=== PATIENT | male | born 1935 | race Caucasian/White ===

== ENCOUNTER 2018-03-06 23:33 | Inpatient (IN) | payer OTHER ==
[2018-03-07] MEDS ORDERED: NA CHLORIDE 0.9% 1,000 ML ONE (00:19)
[2018-03-07 00:32] LABS: Absolute Lymphocytes (CBC) 0.2 K/uL (0.7-4.9); Absolute Monocytes 0.3 K/uL (0.1-1.3); Absolute Neutrophil 5.3 K/uL (1.8-8.0); Basophils % 0.8 % (0-1.3); Hematocrit 25.9 % (39.6-49.0); Lymphocytes % 3.1 % (15.3-44.8); MCH 34.8 pg (27.0-35.0); MCV 101.1 fL (80-100); MPV 9.5 fL (7.6-11.3); Monocytes % 4.8 % (3.3-12.3); RBC Red Blood Cell Count 2.56 M/uL (4.33-5.43)
[2018-03-07 00:37] LABS: Protime INR 1.29
[2018-03-07 00:48] LABS: Albumin 3.6 g/dL (3.4-5.0); Bilirubin Direct 0.4 mg/dL (0-0.2); Bilirubin Total 0.7 mg/dL (0.2-1.0); Magnesium 1.6 mg/dL (1.8-2.4); Protein, Total 8.8 g/dL (6.4-8.2)
[2018-03-07 01:05] LABS: Blood Morphology Comment NOT SEEN (NOT SEEN); Platelet Estimate DECR; Urine White Blood Cell Casts OK
--- NOTE | 2018-03-07 01:47 | EDPHYS ---
Physician Documentation [facility] Name: Dominik Angeles Age: 82 yrs Sex: Male : 1935 Arrival Date: 03/06/2018 Time: 23:44 Bed 5 Private MD: ED Physician Mark Harding HPI: 03/07 00:04 This 82 yrs old Male presents to ER via EMS with complaints of Back Pain, pkl General Weakness. 00:04 The patient presents with pain that is acute. The symptoms are located in the low back. pkl Onset: The symptoms/episode began/occurred today. The pain does not radiate. Associated signs and symptoms: Pertinent positives: diarrhea. H/O multiple myeloma. Has chemotherapy every 2 weeks, last chemo 5 days ago. Since then patient has been having diarrhea daily.. Historical: - Allergies: 00:34 No Known Allergies; ao - Home Meds: 00:34 aspirin 81 mg Oral TbEC [Active]; losartan-hydrochlorothiazide 100-12.5 mg Oral tab 1 ao tab once daily [Active]; carvedilol 12.5 mg Oral tab 1 tab 2 times per day [Active]; Nitrostat 0.4 mg SL subl 1 tab as needed [Active]; clopidogrel 75 mg Oral tab 1 tab once daily [Active]; docusate sodium 100 mg Oral cap 1 cap once daily [Active]; fenofibrate 145 mg Oral tab nightly [Active]; ondansetron HCl 8 mg Oral tab 1 tab [Active]; lansoprazole 15 mg oral cpDR 1 cap once daily [Active]; benzonatate 100 mg oral cap 2 caps 3 times per day [Active]; Maalox Plus Oral 15 mL [Active]; magnesium oxide 400 mg Oral tab 500 mg daily [Active]; cetirizine 1 mg/mL oral soln 5 mL once daily [Active]; finasteride 5 mg oral tab 1 tab once daily [Active]; acetaminophen 500 mg Oral tab 1 tab PRN [Active]; - PMHx: 03/06 23:50 Hypertension; multiple myeloma; ao - PSHx: 23:50 Heart stents; Triple bipass; ao - Immunization history:: Adult Immunizations unknown. - Social history:: Smoking status: Patient/guardian denies using tobacco, Patient/guardian denies using alcohol, street drugs. - Ebola Screening: : Patient negative for fever greater than or equal to 101.5 degrees Fahrenheit, and additional compatible Ebola Virus Disease symptoms Patient denies exposure to infectious person Patient denies travel to an Ebola-affected area in the 21 days before illness onset. ROS: 03/07 00:04 Eyes: Negative for injury, pain, redness, and discharge, ENT: Negative for injury, pkl pain, and discharge, Neck: Negative for injury, pain, and swelling, Cardiovascular: Negative for chest pain, palpitations, and edema, Respiratory: Negative for shortness of breath, cough, wheezing, and pleuritic chest pain, Abdomen/GI: Negative for abdominal pain, nausea, vomiting, diarrhea, and constipation. Back: Positive for pain at rest, of the lower back, Unable to ambulate today.. : Negative for urinary symptoms. MS/extremity: Negative for acute changes. Skin: Negative for rash. Neuro: Negative for altered mental status. Exam: 00:04 Head/Face: Normocephalic, atraumatic. Eyes: Pupils equal round and reactive to light, pkl extra-ocular motions intact. Lids and lashes normal. Conjunctiva and sclera are non-icteric and not injected. Cornea within normal limits. Periorbital areas with no swelling, redness, or edema. ENT: Nares patent. No nasal discharge, no septal abnormalities noted. Tympanic membranes are normal and external auditory canals are clear. Oropharynx with no redness, swelling, or masses, exudates, or evidence of obstruction, uvula midline. Mucous membranes moist. Neck: Trachea midline, no thyromegaly or masses palpated, and no cervical lymphadenopathy. Supple, full range of motion without nuchal rigidity, or vertebral point tenderness. No Meningismus. Chest/axilla: Normal chest wall appearance and motion. Nontender with no deformity. No lesions are appreciated. Cardiovascular: Regular rate and rhythm with a normal S1 and S2. No gallops, murmurs, or rubs. Normal PMI, no JVD. No pulse deficits. Respiratory: Lungs have equal breath sounds bilaterally, clear to auscultation and percussion. No rales, rhonchi or wheezes noted. No increased work of breathing, no retractions or nasal flaring. Abdomen/GI: Soft, non-tender, with normal bowel sounds. No distension or tympany. No guarding or rebound. No evidence of tenderness throughout. 00:04 Back: pain, that is moderate, of the lower back, Straight leg raises: of both lower extremities does not illicit pain. 00:04 : Exam negative for acute changes. 00:04 Musculoskeletal/extremity: Exam is negative for acute changes. 00:04 Skin: Exam negative for rash. 00:04 Neuro: Orientation: appropriate for stated age, Mentation: is normal, Cranial nerves: is grossly normal based on the patient's age, Motor: is normal. 01:16 Abdomen/GI: Rectal exam: Stool: guaiac negative, the exam is chaperoned by the nurse. [facility] Vital Signs: 03/06 23:47 BP 113 / 65; Pulse 85; Resp 18; Temp 97.8(O); Pulse Ox 94% on R/A; Weight 79.38 kg (R); ao Height 5 ft. 7 in. (170.18 cm); Pain 0/10; 03/07 01:09 BP 102 / 71; Pulse 80; Resp 16; Pulse Ox 96% on 2 lpm NC; ao 02:00 BP 96 / 60; Pulse 78; Resp 16; Pulse Ox 93% on R/A; ao 03:00 BP 99 / 60; Pulse 79; Resp 14; Pulse Ox 93% on 2 lpm NC; ao 04:22 BP 95 / 65; Pulse 73; Resp 18; Pulse Ox 93% 2 lpm ; Pain 0/10; ao 03/06 23:47 Body Mass Index 27.41 (79.38 kg, 170.18 cm) ao MDM: 03/06 23:44 Patient medically screened. pkl 03/07 01:44 Data reviewed: vital signs, nurses notes, lab test result(s), EKG, radiologic studies, pkl CT scan, plain films. 03/07 00:01 Order name: Basic Metabolic Panel; Complete Time: 00:53 pkl 03/07 00:01 Order name: CBC with Diff; Complete Time: 01:51 pkl 03/07 00:01 Order name: Ckmb; Complete Time: 00:53 pkl 03/07 00:01 Order name: CPK; Complete Time: 00:53 pkl 03/07 00:01 Order name: LFT's; Complete Time: 00:53 pkl 03/07 00:01 Order name: Magnesium; Complete Time: 00:53 pkl 03/07 00:01 Order name: NT PRO-BNP; Complete Time: 00:53 pkl 03/07 00:01 Order name: PT-INR; Complete Time: 00:45 pkl 03/07 00:01 Order name: Ptt, Activated; Complete Time: 00:45 pkl 03/07 00:01 Order name: Troponin (emerg Dept Use Only); Complete Time: 00:53 pkl 03/07 00:01 Order name: Amylase, Serum; Complete Time: 00:53 pkl 03/07 00:01 Order name: Lipase; Complete Time: 00:53 pkl 03/07 00:03 Order name: Stool Culture pk 03/07 00:05 Order name: CDIFF ms 03/07 00:01 Order name: XRAY Chest (1 view) pk 03/07 00:01 Order name: EKG; Complete Time: 00:03 pkl 03/07 00:01 Order name: Cardiac monitoring; Complete Time: 00:02 pk 03/07 00:01 Order name: EKG - Nurse/Tech; Complete Time: 00:20 pkl 03/07 00:01 Order name: IV Saline Lock; Complete Time: 00:02 pkl 03/07 00:01 Order name: Labs collected and sent; Complete Time: 00:20 pkl 03/07 00:01 Order name: O2 Per Protocol; Complete Time: 00:02 pk03/07 00:01 Order name: O2 Sat Monitoring; Complete Time: 00:02 pkl 03/07 00:01 Order name: Urine Dipstick-Ancillary (obtain specimen); Complete Time: 02:05 pk 03/07 00:04 Order name: CT Head Brain wo Cont pkl 03/07 00:04 Order name: CT Lumbar Spine Wo Con pkl 03/07 00:04 Order name: Woods; Complete Time: 02:04 pkl 03/07 01:05 Order name: CBC Smear Scan; Complete Time: 01:51 EDMS 03/07 02:06 Order name: Urine Dipstick--Ancillary (enter results) ms 03/07 02:48 Order name: Urine Dipstick-Ancillary; Complete Time: 04:59 EDMS Administered Medications: 00:24 Drug: NS 0.9% 1000 ml Route: IV; Rate: 100 ml/hr; Site: left antecubital; ao 02:00 Follow up: IV Status: Infusion continued upon admission; IV Intake: 600ml ao Point of Care Testing: Guaiac: 01:06 Stool Guaiac: Negative; Stool Hemoccult Control: Pass; ao Disposition: 03/07/18 01:46 Hospitalization ordered by Harpreet Cartagena for Observation. Preliminary diagnosis is Generalized weakness. Acute low back pain. Non-ambulatory. Hyponatremia. Elevated Troponin. - Bed requested for Telemetry/MedSurg (observation). - Status is Observation. ao - Condition is Stable. - Problem is new. - Symptoms are unchanged. UTI on Admission? No Signatures: Dispatcher [employer] EDMS Marylu Griggs RN RN mw Lam, Pin, MD MD pkl Ortiz, Alex, RN RN ao Corrections: (The following items were deleted from the chart) 01:58 01:46 Hospitalization Ordered by Harpreet Cartagena MD for Observation. Preliminary mw diagnosis is Generalized weakness. Acute low back pain. Non-ambulatory. Hyponatremia. Elevated Troponin. Bed requested for Telemetry/MedSurg (observation). Status is Observation. Condition is Stable. Problem is new. Symptoms are unchanged. UTI on Admission? No. pkl 04:39 01:58 03/07/2018 01:46 Hospitalization Ordered by Harpreet Cartagena MD for Observation. ao Preliminary diagnosis is Generalized weakness. Acute low back pain. Non-ambulatory. Hyponatremia. Elevated Troponin. Bed requested for Telemetry/MedSurg (observation). Status is Observation. Condition is Stable. Problem is new. Symptoms are unchanged. UTI on Admission? No. mw
--- NOTE | 2018-03-07 01:47 | ER ---
Nurse's Notes [facility] Name: Dominik Angeles Age: 82 yrs Sex: Male : 1935 Arrival Date: 03/06/2018 Time: 23:44 Bed 5 Private MD: Diagnosis: Generalized weakness. Acute low back pain. Non-ambulatory. Hyponatremia. Elevated Troponin Presentation: 03/06 23:44 Presenting complaint: EMS states: "Patient has been having back pain and unable to get ao up. Patient is a cancer patient who's last Chemo was last Monday.". Transition of care: patient was not received from another setting of care. Onset of symptoms is unknown. Risk Assessment: Do you want to hurt yourself or someone else? Patient reports no desire to harm self or others. Initial Sepsis Screen: Does the patient meet any 2 criteria? No. Patient's initial sepsis screen is negative. Does the patient have a suspected source of infection? No. Patient's initial sepsis screen is negative. Care prior to arrival: Medication(s) given: zofran 4 mg, Fentanyl 50 mcg. 23:44 Method Of Arrival: EMS: [facility] ao 23:44 Acuity: PRINCE 3 ao Triage Assessment: 23:51 General: Appears. ao Historical: - Allergies: 03/07 00:34 No Known Allergies; ao - Home Meds: 00:34 aspirin 81 mg Oral TbEC [Active]; losartan-hydrochlorothiazide 100-12.5 mg Oral tab 1 ao tab once daily [Active]; carvedilol 12.5 mg Oral tab 1 tab 2 times per day [Active]; Nitrostat 0.4 mg SL subl 1 tab as needed [Active]; clopidogrel 75 mg Oral tab 1 tab once daily [Active]; docusate sodium 100 mg Oral cap 1 cap once daily [Active]; fenofibrate 145 mg Oral tab nightly [Active]; ondansetron HCl 8 mg Oral tab 1 tab [Active]; lansoprazole 15 mg oral cpDR 1 cap once daily [Active]; benzonatate 100 mg oral cap 2 caps 3 times per day [Active]; Maalox Plus Oral 15 mL [Active]; magnesium oxide 400 mg Oral tab 500 mg daily [Active]; cetirizine 1 mg/mL oral soln 5 mL once daily [Active]; finasteride 5 mg oral tab 1 tab once daily [Active]; acetaminophen 500 mg Oral tab 1 tab PRN [Active]; - PMHx: 03/06 23:50 Hypertension; multiple myeloma; ao - PSHx: 23:50 Heart stents; Triple bipass; ao - Immunization history:: Adult Immunizations unknown. - Social history:: Smoking status: Patient/guardian denies using tobacco, Patient/guardian denies using alcohol, street drugs. - Ebola Screening: : Patient negative for fever greater than or equal to 101.5 degrees Fahrenheit, and additional compatible Ebola Virus Disease symptoms Patient denies exposure to infectious person Patient denies travel to an Ebola-affected area in the 21 days before illness onset. Screenin:50 Abuse screen: Denies threats or abuse. Denies injuries from another. Nutritional ao screening: No deficits noted. Tuberculosis screening: No symptoms or risk factors identified. Fall Risk Assessment: 03/07 00:05 General: Appears in no apparent distress. uncomfortable, Behavior is calm, cooperative, ao appropriate for age. Pain: Complains of pain in back Pain currently is 0 out of 10 on a pain scale. Neuro: Level of Consciousness is awake, alert, obeys commands, Oriented to person, place, time, situation, Weakness Speech is normal. Cardiovascular: Capillary refill < 3 seconds Patient's skin is warm and dry. Respiratory: Airway is patent Respiratory effort is even, unlabored, Respiratory pattern is regular, symmetrical. GI: Abdomen is distended. :. EENT: No signs and/or symptoms were reported regarding the EENT system. Derm: Skin is pink, warm \\T\\ dry. normal, Skin temperature is warm. Derm: Reports Weakness general. Musculoskeletal: Range of motion: intact in all extremities. 01:09 Reassessment: Patient appears in no apparent distress at this time. Patient and/or ao family updated on plan of care and expected duration. Pain level reassessed. Patient is alert, oriented x 3, equal unlabored respirations, skin warm/dry/pink. 02:10 Reassessment: Patient appears in no apparent distress at this time. Patient and/or ao family updated on plan of care and expected duration. Pain level reassessed. Patient is alert, oriented x 3, equal unlabored respirations, skin warm/dry/pink. 03:10 Reassessment: Patient appears in no apparent distress at this time. Patient and/or ao family updated on plan of care and expected duration. Pain level reassessed. Patient is alert, oriented x 3, equal unlabored respirations, skin warm/dry/pink. Patient o be admitted to the hospital. 03:35 Reassessment: Called to give report and nurse was with a patient. Charge nurse stated ao that she will call back. 04:20 Reassessment: Called report to JOSI Gaffney. Patient to be taken to his room. ao Vital Signs: 03/06 23:47 BP 113 / 65; Pulse 85; Resp 18; Temp 97.8(O); Pulse Ox 94% on R/A; Weight 79.38 kg (R); ao Height 5 ft. 7 in. (170.18 cm); Pain 0/10; 03/07 01:09 BP 102 / 71; Pulse 80; Resp 16; Pulse Ox 96% on 2 lpm NC; ao 02:00 BP 96 / 60; Pulse 78; Resp 16; Pulse Ox 93% on R/A; ao 03:00 BP 99 / 60; Pulse 79; Resp 14; Pulse Ox 93% on 2 lpm NC; ao 04:22 BP 95 / 65; Pulse 73; Resp 18; Pulse Ox 93% 2 lpm ; Pain 0/10; ao 03/06 23:47 Body Mass Index 27.41 (79.38 kg, 170.18 cm) ao ED Course: 03/06 23:44 Patient arrived in ED. ao 23:44 Mark Harding MD is Attending Physician. pkl 23:47 Triage completed. ao 23:50 Arm band placed on right wrist. Patient placed in an exam room, Patient notified of ao wait time. 23:51 Patient has correct armband on for positive identification. Pulse ox on. NIBP on. ao 03/07 00:08 Gustavo Adams RN is Primary Nurse. ao 00:14 X-ray completed. Portable x-ray completed in exam room. Patient tolerated procedure kp1 well. 00:15 XRAY Chest (1 view) In Process Unspecified. EDMS 00:20 Initial lab(s) drawn, by me, sent to lab. cc 00:22 EKG done, by ED staff, reviewed by Mark Harding MD. lp1 00:[address] via stretcher. eh 01:00 CT Head Brain wo Cont In Process Unspecified. EDMS 01:00 CT Lumbar Spine Wo Con In Process Unspecified. EDMS 01:45 Harpreet Cartagena MD is Hospitalizing Provider. pkl 04:24 No provider procedures requiring assistance completed. Patient admitted, IV remains in ao place. Administered Medications: 00:24 Drug: NS 0.9% 1000 ml Route: IV; Rate: 100 ml/hr; Site: left antecubital; ao 02:00 Follow up: IV Status: Infusion continued upon admission; IV Intake: 600ml ao Point of Care Testing: Guaiac: 01:06 Stool Guaiac: Negative; Stool Hemoccult Control: Pass; ao Intake: 02:00 IV: 600ml; Total: 600ml. ao Output: 04:38 Urine: 350ml (Woods); Total: 350ml. ao Outcome: 01:46 Decision to Hospitalize by Provider. pkl 04:25 Admitted to Tele accompanied by tech, room 430. ao 04:25 Condition: stable 04:25 Instructed on the need for admit. 04:39 Patient left the ED. ao Signatures: Dispatcher [employer] Mark Ford MD MD pkl Maurice Shane Chelsea cc Pena, Laura, RN RN lp1 Gustavo Adams RN RN ao Cristal Rosales kp1 Corrections: (The following items were deleted from the chart) 04:14 01:09 BP 102 / 71; Pulse 80bpm; Resp 16bpm; Pulse Ox 96% 4 lpm Nasal Cannula; ao ao
[2018-03-07 02:48] LABS: Urine Blood NEGATIVE (NEG); Urine Glucose NEGATIVE (NEG); Urine Protein 2+ (NEG); Urine Specific Gravity 1.025 (1.005-1.030); Urine pH 5.5 (5.0-7.0)
--- NOTE | 2018-03-07 03:13 | P.HP ---
Certification for Inpatient Patient admitted to: Observation With expected LOS: <2 Midnights Practitioner: I am a practitioner with admitting privileges, knowledge of patient current condition, hospital course, and medical plan of care. Services: Services provided to patient in accordance with Admission requirements found in Title 42 Section 412.3 of the Code of Federal Regulations Patient History Date of Service: 03/07/18 Reason for admission: intractable back pain History of Present Illness: Mr Angeles is an 82 years old male with history of CKD, CAD s/p CABG, multiple myeloma on chemotherapy treatment, last time 5 days ago. Came to ED complaining of severe back pain. He also has had diarrhea since last chemotherapy. The patient also has had progressive SOB lately. He denied fever, but had some chills in context of his back pain. He states that he has some recurrent back pain, but at this time, he is unable to stand up from the bed or ambulate. Lab work was remarkable for hyponatremia 128, Creanitine is 2.6, more elevated than usual. His BNP is elevated as well, CXR has venous congestion consistent with CHF. Trop I it is also elevated, however, the patient has not had chest pain. EKG shows SR at 86 bpm, with non-specific intraventricular conduction delay. Allergies No Known Allergies Allergy (Verified 07/30/16 17:31) Home medications list reviewed: Yes Home Medications: Acetaminophen [Tylenol Extra Strength] 1,000 mg PO Q8H PRN 07/30/16 Aspirin Chewable [Aspirin Chewable*] 1 tab PO DAILY 07/30/16 Carvedilol 1 tab PO BID 07/30/16 Cholecalciferol (Vitamin D3) [Vitamin D3] 1 tab PO DAILY 07/30/16 Clopidogrel Bisulfate [Plavix] 1 tab PO DAILY 07/30/16 Dexamethasone 40 mg PO Q7D 07/30/16 Dutasteride/Tamsulosin HCl [Dutasteride-Tamsulosin 0.5-0.4] 1 tab PO DAILY 07/30 Fenofibrate [Tricor*] 1 tab PO BEDTIME 07/30/16 Lansoprazole [Prevacid] 1 tab PO 0600 07/30/16 Losartan/Hydrochlorothiazide [Losartan-Hctz 100-12.5 mg Tab] 1 tab PO DAILY Nitroglycerin [Nitrostat*] 1 tab PO PRN PRN 07/30/16 Rosuvastatin Calcium [Crestor] 1 tab PO BEDTIME 07/30/16 Codeine/APAP [Tylenol #3*] 1 tab PO Q6HP PRN #30 tab 08/01/16 levoFLOXacin [Levaquin*] 250 mg PO DAILY #14 tab 08/01/16 - Past Medical/Surgical History Diabetic: No -: Multiple myeloma -: Hypertension -: Coronary artery disease -: CVA -: Coronary artery bypass grafting x4 vessels -: Coronary artery stent -: Left knee replacement - Family History Father -: Cancer Mother -: Heart disease - Social History Alcohol use: No CD- Drugs: No Caffeine use: Yes Place of Residence: Home Review of Systems 10-point ROS is otherwise unremarkable Physical Examination - Physical Exam General: Alert, In no apparent distress HEENT: Atraumatic, PERRLA, Mucous membr. moist/pink, EOMI, Sclerae nonicteric Neck: Supple, 2+ carotid pulse no bruit, No LAD, Without JVD or thyroid abnormality Respiratory: Diminished, Crackles/rales (bibasilar rales) Cardiovascular: Regular rate/rhythm, Normal S1 S2 Gastrointestinal: Normal bowel sounds, No tenderness Musculoskeletal: Tenderness (lower back pain) Integumentary: No rashes Neurological: Normal speech, Normal strength at 5/5 x4 extr, Normal tone, Normal affect Lymphatics: No axilla or inguinal lymphadenopathy - Studies Laboratory Data (last 24 hrs) 03/07/18 00:15: PT 15.3 H, INR 1.29, APTT 24.2 L 03/07/18 00:15: WBC 5.8, Hgb 8.9 L, Hct 25.9 L, Plt Count 95 L 03/07/18 00:15: Sodium 128 L, Potassium 4.0, BUN 48 H, Creatinine 2.60 H, Glucose 109 H, Magnesium 1.6 L, Total Bilirubin 0.7, AST 31, ALT 21, Alkaline Phosphatase 38 L, Amylase 76, Lipase 174 Assessment and Plan - Problems (Diagnosis) (1) Lower back pain Current Visit: Yes Status: Acute Qualifiers: Chronicity: acute Back pain laterality: midline Sciatica presence: unspecified whether sciatica present Qualified Code(s): M54.5 - Low back pain (2) Acute kidney injury superimposed on CKD Current Visit: Yes Status: Acute (3) Anemia Current Visit: Yes Status: Acute Qualifiers: Anemia type: due to chronic kidney disease Chronic kidney disease stage: stage 3 (moderate) Qualified Code(s): N18.3 - Chronic kidney disease, stage 3 (moderate); D63.1 - Anemia in chronic kidney disease (4) Diarrhea Current Visit: Yes Status: Acute (5) Multiple myeloma Current Visit: Yes Status: Acute Qualifiers: Multiple myeloma remission status: unspecified Qualified Code(s): C90.00 - Multiple myeloma not having achieved remission (6) CHF (congestive heart failure) Current Visit: Yes Status: Acute Qualifiers: Heart failure type: systolic Heart failure chronicity: acute on chronic Qualified Code(s): I50.23 - Acute on chronic systolic (congestive) heart failure (7) Coronary artery disease Onset Date: 08/01/16 Current Visit: No Status: Acute Qualifiers: Coronary Disease-Associated Artery/Lesion type: bypass graft, autologous vein Associated angina: without angina Qualified Code(s): I25.810 - Atherosclerosis of coronary artery bypass graft(s) without angina pectoris (8) History of coronary artery bypass graft Current Visit: No Status: Acute - Plan The patient will be admitted to the hospital due to intractable lower back pain , hyponatremia, acute on chronic systolic CHF, acute on CKD, and elevated troponin I. CT lower back shows no acute abnormalities, however, the patient has L4-L5 foraminal stenosis, L5 spondilolistesis. Will order pain medication and physical therapy. Order ECHO to evaluate current cardiac function since the patient has signs of acute CHF exacerbation. Will order fluid restriction for hyponatremia. Will consult Cardiology and nephrology for evaluation and recommendations. - Advance Directives Does patient have a Living Will: No Does patient have a Durable POA for Healthcare: No - Code Status/Comfort Care Code Status Assessed: Yes Code Status: Full Code
[2018-03-07] MEDS ORDERED: ONDANSETRON 4 MG/2 ML VIAL IV PRN (04:59)
[2018-03-07] MEDS ORDERED: FUROSEMIDE 40 MG/4 ML VIAL IV SCH ×2 (04:59→09:00)
[2018-03-07] MEDS ORDERED: Morphine 2 MG/2 ML SYR IV PRN (04:59)
[2018-03-07] MEDS ORDERED: ACETAMINOPHEN 500 MG TAB PO PRN (04:59)
[2018-03-07] MEDS ORDERED: MAGNESIUM SULFATE 1 gm IVPB 1 GM/100 ML BAG IV ONE (05:18)
[2018-03-07] MEDS ORDERED: Magnesium Sulfate 1gm IVPB 1 GM/50 ML BAG IV ONE (06:18)
--- NOTE | 2018-03-07 06:46 | EKG ---
Test Date: 2018-03-07 Test Time: 00:17:38 Drum Carrier: BRITTA MEASUREMENT RESULTS: Intervals: Rate: 83 DE: 208 QRSD: 160 QT: 388 QTc: 455 [place]: P: 62 DE: 208 QRS: -49 T: 108 INTERPRETIVE STATEMENTS: Normal sinus rhythm Possible Left atrial enlargement Left axis deviation Nonspecific intraventricular block Abnormal ECG Compared to ECG 07/31/2016 05:52:38 Sinus bradycardia no longer present Electronically Signed On 03-07-18 06:46:02 CDT by Luigi Machuca
--- NOTE | 2018-03-07 07:20 | RAD REPORT ---
EXAM DESCRIPTION: RAD - Chest Single View - 03/07/2018 12:17 am CLINICAL HISTORY: Weakness, back pain, shortness of breath COMPARISON: July 2016 TECHNIQUE: AP portable chest image was obtained 0003 hours . FINDINGS: No peripheral consolidation or mass. Shallow inspiration accentuates heart, vasculature an d lung markings. Patient probably has a true mild cardiomegaly increased over the comparison. Trachea is midline. Sternotomy wires are in place. Vasculature accentuated by shallow inspiration and portab le technique. No measurable pleural effusion and no pneumothorax. No gross bony abnormality seen. No acute aortic findings suspected. IMPRESSION: Cardiomegaly and vascular engorgement are present. No peripheral consolidation. Chest findings are mostly due to shallow inspiration. Correlation is needed with any mild failure or volume overload exam findings.
[2018-03-07] MEDS ORDERED: NA CHLORIDE 0.9% 1,000 ML IV SCH (08:00)
[2018-03-07] MEDS: NA CHLORIDE 0.9% 1,000 ML IV SCH ×2 (08:27→17:56)
[2018-03-07] MEDS: FINASTERIDE 5 MG TAB PO SCH (08:28)
[2018-03-07] MEDS: MULTIVIT W/ MINERAL TAB PO SCH (08:28)
[2018-03-07] MEDS: CLOPIDOGREL 75 MG TABLET PO SCH (08:28)
[2018-03-07] MEDS: ASPIRIN EC 81 MG TAB PO SCH (08:28)
[2018-03-07 09:46] LABS: Ferritin 731.8 ng/mL (26-388); Thyroid Stimulating Hormone 1.95 uIU/mL (0.36-3.74)
--- NOTE | 2018-03-07 09:51 | P.PN ---
Subjective Date of Service: 03/07/18 Primary Care Provider: Dr. Soria([place], [place]); Cardiology-Dr. Baker; Oncology-Dr. Velasquez Chief Complaint: intractable back pain Subjective: Other (patient reports some chills. Back pain and diarrhea noted.) Physical Examination - Vital Signs Temperature: 98.9 F Blood Pressure: 119/75 Pulse: 86 Respirations: 20 Pulse Ox (%): 100 - Physical Exam General: Alert, In no apparent distress, Cooperative HEENT: Atraumatic Neck: Supple Respiratory: Clear to auscultation bilaterally, Normal air movement Cardiovascular: Normal pulses, Regular rate/rhythm Gastrointestinal: Normal bowel sounds, Soft and benign, Non-distended, Tenderness (minimal pain noted. ) Musculoskeletal: No tenderness, No warmth Integumentary: Other (dry skin noted. ) Neurological: Normal speech, Normal strength at 5/5 x4 extr, Normal tone, Normal affect - Studies Laboratory Data (last 24 hrs) 03/07/18 00:15: PT 15.3 H, INR 1.29, APTT 24.2 L 03/07/18 00:15: WBC 5.8, Hgb 8.9 L, Hct 25.9 L, Plt Count 95 L 03/07/18 00:15: Sodium 128 L, Potassium 4.0, BUN 48 H, Creatinine 2.60 H, Glucose 109 H, Magnesium 1.6 L, Total Bilirubin 0.7, AST 31, ALT 21, Alkaline Phosphatase 38 L, Amylase 76, Lipase 174 Medications List Reviewed: Yes Assessment & Plan - Problems (Diagnosis) (1) Acute kidney injury superimposed on CKD Onset Date: 03/07/18 Current Visit: Yes Status: Acute Plan: He appears volume depleted. Patient with recent history of diarrhea. Will start IV fluids and antibiotic therapy. Pro calcitonin elevated. Etiology of inflammation unknown but maybe related to diarrhea. Patient likely with enteritis with recent chemotherapy. Will check stool for C difficile colitis. Will check CT scan of the abdomen and pelvis including chest. Patient with elevated troponin as well. Nephrology consulted to further assess and evaluate. Cardiology consulted to further assess his condition due to elevated troponin. Will try to obtain more information from his oncologist. Patient with history of multiple myeloma on chemotherapy. (2) Anemia Onset Date: 03/07/18 Current Visit: Yes Status: Chronic Plan: Anemia likely related to multiple myeloma in chemotherapy. Will check iron studies. Will monitor hemoglobin. Qualifiers: Anemia type: due to chronic kidney disease Chronic kidney disease stage: stage 3 (moderate) Qualified Code(s): N18.3 - Chronic kidney disease, stage 3 (moderate); D63.1 - Anemia in chronic kidney disease (3) CHF (congestive heart failure) Onset Date: 03/07/18 Current Visit: Yes Status: Chronic Plan: Patient with history of CHF. Will hold Lasix at this time. Patient appears to be volume depleted. Will check echocardiogram. Cardiology consulted. Qualifiers: Heart failure type: systolic Heart failure chronicity: acute on chronic Qualified Code(s): I50.23 - Acute on chronic systolic (congestive) heart failure (4) Diarrhea Onset Date: 03/07/18 Current Visit: Yes Status: Acute Plan: This may be infectious. Will starts Levaquin and Flagyl. Will obtain stool to assess for C diff colitis. Diarrhea may be related to his recent chemotherapy for multiple myeloma. (5) Lower back pain Onset Date: 03/07/18 Current Visit: Yes Status: Chronic Plan: CT scan shows foraminal stenosis. Will check with his oncologist to see if a bone scan has been done recently. Qualifiers: Chronicity: acute Back pain laterality: midline Sciatica presence: unspecified whether sciatica present Qualified Code(s): M54.5 - Low back pain (6) Multiple myeloma Onset Date: 03/07/18 Current Visit: Yes Status: Chronic Plan: Patient has been getting chemotherapy. Will discuss with his oncologist to further assess his condition. Qualifiers: Multiple myeloma remission status: unspecified Qualified Code(s): C90.00 - Multiple myeloma not having achieved remission (7) Coronary artery disease Onset Date: 08/01/16 Current Visit: No Status: Chronic Plan: Troponin elevated. Will monitor closely. Await recommendation by Cardiology. Qualifiers: Coronary Disease-Associated Artery/Lesion type: bypass graft, autologous vein Associated angina: without angina Qualified Code(s): I25.810 - Atherosclerosis of coronary artery bypass graft(s) without angina pectoris (8) Hyponatremia Current Visit: Yes Status: Acute Plan: Will continue with IV fluids. Await recommendations by nephrology. (9) Hypomagnesemia Current Visit: Yes Status: Acute Plan: Will monitor and replace appropriately. Patient protocol in place. (10) Thrombocytopenia Current Visit: Yes Status: Acute Plan: Likely from inflammation. Will continue to monitor closely. (11) Hypertension Current Visit: Yes Status: Chronic Plan: Will hold blood pressure medication this time due to low blood pressure. Patient appears to be volume depleted. Will monitor closely. Qualifiers: Hypertension type: essential hypertension Qualified Code(s): I10 - Essential (primary) hypertension (12) Hyperlipidemia Current Visit: Yes Status: Chronic Plan: Will hold his medication at this time Qualifiers: Hyperlipidemia type: unspecified Qualified Code(s): E78.5 - Hyperlipidemia , unspecified Discharge Plan: Home Plan to discharge in: Greater than 2 days Time Spent Managing Pts Care (In Minutes): 55
--- NOTE | 2018-03-07 10:24 | RAD REPORT ---
EXAM DESCRIPTION: CT - Head Brain Wo Cont - 03/07/2018 2:43 am CLINICAL HISTORY: Weakness, difficulty walking, history of multiple myeloma A preliminary written report was provided at the time of the study, and the report was reviewed prio r to final dictation. COMPARISON: None. TECHNIQUE: Axial 5 mm thick images of the head were obtained without IV contrast. All CT scans are performed using dose optimization technique as appropriate and may include automated exposure control or mA/KV adjustment according to patient size. FINDINGS: No intracranial hemorrhage, mass, edema or shift of mid-line structures. No acute infarcti on changes seen. Moderate atrophy and chronic ischemic changes are present. Ventricular size is in p roportion to volume loss. Intracranial findings are similar to comparison. Mastoid air cells and visualized portions of the paranasal sinuses are clear. Arterial calcifications are present. No acute bony findings. IMPRESSION: Moderate atrophy and chronic ischemic changes are present. Ventricular size is in propo rtion to volume loss. No acute intracranial finding.
--- NOTE | 2018-03-07 10:27 | RAD REPORT ---
EXAM DESCRIPTION: US - Renal Ultrasound-Complete - 03/07/2018 9:14 am CLINICAL HISTORY: Acute renal insufficiency COMPARISON: None. FINDINGS: The right kidney measures 9.7 x 4.0 x 4.2 cm. The left kidney measures 10.3 x 6.4 x 5.3 c m. Renal cortical thickness and echogenicity are normal. No right-sided hydronephrosis. Fullness of t he left renal pelvis is present suspected to be extrarenal pelvis rather than hydronephrosis. Woods catheter is in place. No bladder wall thickening or mass suspected. IMPRESSION: Left renal pelvic fullness is present believed to be extrarenal pelvis rather than hydro nephrosis. No right-sided hydronephrosis. No mass or other significant finding of either kidney.
[2018-03-07] MEDS: Levofloxacin 250mg IV 250 MG/50 ML BAG IV SCH (10:35)
--- NOTE | 2018-03-07 10:41 | RAD REPORT ---
EXAM DESCRIPTION: CT - Spine Lumbar Wo Con - 03/07/2018 2:44 am CLINICAL HISTORY: Back pain, history of multiple myeloma A preliminary written report was provided at the time of the study, and the report was reviewed prio r to final dictation. COMPARISON: None. TECHNIQUE: Thin section axial imaging of the lumbar spine was performed. Sagittal and coronal recon struction images were generated and reviewed. All CT scans are performed using dose optimization technique as appropriate and may include automated exposure control or mA/KV adjustment according to patient size. FINDINGS: No acute compression fracture identifiable. No bone lesions seen typical for multiple myel kirk. Round lucent area anterior L5 body may be atypical hemangioma. A multiple myeloma lesion is not suspected. Degenerative left convex scoliotic curvature is present with a left convex apex at the L1-2 level. No paraspinal soft tissue mass. SI joint degenerative changes are present. All disc levels show loss in height. There is significant degenerative gas in the disc spaces sparing only L3-4. Disc bulge and endplate spurring changes are present throughout the lumbar spine. Foramin al encroachment changes are present at the T11-12 and T12-L1. Significant right foraminal encroachmen t on the right at L1-2 and L2-3. Bilateral foraminal encroachment is present at L3-4 and significant bilateral foraminal stenosis at L4-5. Advanced facet joint degenerative change at L4-5. Central canal is borderline stenotic. L5 pars interarticularis defects are present with grade 1 spondylolisthesis. Borderline central spina l stenosis present. There is significant bilateral foraminal stenosis from disc bulge and spurring ch anges. IMPRESSION: Patient has severe lumbar spine degenerative change with numerous levels of significant bony foraminal encroachment and borderline to mild central spinal stenosis at L4-5. An acute compression fracture change seen. Small round lucent focus anterior L5 body is present doubt ful as representing multiple myeloma. Overall, no convincing evidence for a multiple myeloma lesion. The extent of degenerative change could easily explain back pain and radiculopathy. If there is clini julián concern or laboratory findings supporting multiple myeloma lesion, MR imaging could be performed.
[2018-03-07 11:40] LABS: Urine Protein/Creatinine Ratio 0.48 ratio (<0.15)
[2018-03-07] MEDS ORDERED: NA CHLORIDE 0.9% 500 ML IV ONE (12:09)
[2018-03-07 13:21] LABS: Absolute Lymphocytes (CBC) 0.1 K/uL (0.7-4.9); Absolute Monocytes 0.1 K/uL (0.1-1.3); Absolute Neutrophil 4.4 K/uL (1.8-8.0); Basophils % 0.1 % (0-1.3); Hematocrit 24.7 % (39.6-49.0); Lymphocytes % 2.4 % (15.3-44.8); MCH 35.2 pg (27.0-35.0); MCV 100.8 fL (80-100); MPV 8.2 fL (7.6-11.3); RBC Red Blood Cell Count 2.45 M/uL (4.33-5.43)
--- NOTE | 2018-03-07 13:21 | RAD REPORT ---
EXAM DESCRIPTION: CT - Chest Abd Pelvis Wo Con - 03/07/2018 1:08 pm CLINICAL HISTORY: Chest and abdomen pain. Diarrhea, suspect enteritis. Hx Multiple Myeloma COMPARISON: Spine Lumbar Wo Con dated 03/07/2018; Head Brain Wo Cont dated 03/07/2018; Renal Ultrasoun d-Complete dated 03/07/2018 TECHNIQUE: A limited noncontrast study was performed. All CT scans are performed using dose optimization technique as appropriate and may include automated exposure control or mA/KV adjustment according to patient size. FINDINGS: Mild linear subsegmental atelectasis is present in both posterior lung bases.Changes of a prior CABG noted. Small calcifications of the left ventricular apex is compatible with previous infar ct.No pleural or pericardial effusion.No intrathoracic adenopathy. Noncontrast assessment of the liver demonstrates no intrahepatic biliary dilatation or focal mass. Mi ld free fluid is seen along the right hepatic edge. Mild fluid is seen along the splenic edge. The sp shira, adrenal glands and kidneys are within normal limits. Probable sludge in the gallbladder. Mild thickening of several small bowel loops are seen in the central abdomen likely indicating enteri tis. There is no evidence of bowel obstruction, free fluid or free air. No intra-abdominal abscess. T he appendix is not identified as a discrete structure, however, no secondary findings of appendicitis are identified. No pathologic lymphadenopathy in the abdomen or pelvis. Mild free fluid is seen in the pelvis. Advanced lumbar degenerative changes are present with bilatera l spondylolysis. Significant thickening of the urinary bladder is seen with a Woods catheter in place. IMPRESSION: [facility]-sy-[id number] enteritis pattern is suspected with mild free fluid in the upper abdome n. Significant thickening of the urinary bladder is seen with a Woods catheter in place. Probable sludge in the gallbladder.
--- NOTE | 2018-03-07 13:30 | ECHO ---
HEIGHT: 5 ft 7 in WEIGHT: 176 lb 0 oz DATE OF STUDY: 03/07/[address]: Gucci Larson DO 2-DIMENSIONAL: YES M.MODE: YES DOPPLER: YES COLOR FLOW: YES TDS: NO PORTABLE: NO DEFINITY: NO BUBBLE STUDY: NO DIAGNOSIS: CONGESTIVE HEART FAILURE CARDIAC HISTORY: CATHERIZATION: YES SURGERY: YES PROSTHETIC VALVE: NO PACEMAKER: NO MEASUREMENTS (cm) DIASTOLIC (NORMALS) SYSTOLIC (NORMALS) IVSd 1.1 (0.6-1.2) LA Diam 4.8 (1.9-4.0) LVEF 20-25% LVIDd 5.6 (3.5-5.7) LVIDs 5.1 (2.0-3.5) %FS 8% LVPWd 1.0 (0.6-1.2) Ao Diam 2.5 (2.0-3.7) 2 DIMENSIONAL ASSESSMENT: RIGHT ATRIUM: DILATED LEFT ATRIUM: DILATED RIGHT VENTRICLE: DILATED LEFT VENTRICLE: DILATED TRICUSPID VALVE: NORMAL MITRAL VALVE: NORMAL PULMONIC VALVE: NORMAL AORTIC VALVE: SCLEROSIS PERICARDIAL EFFUSION: NONE AORTIC ROOT: NORMAL LEFT VENTRICULAR WALL MOTION: AKINESIS OF ANTERIOR, APEX, SEPTUM. DOPPLER/COLOR FLOW: MILD MITRAL AND TRICUSPID REGURGITATION. MODERATE PULMONARY HYPERTENSION. ESTIMATED RIGHT VENTRICULAR SYSTOLIC PRESSURE 55mmHg. NO AORTIC STENOSIS OR AORTIC STENOSIS. COMMENTS: DEPRESSED LEFT VENTRICULAR EJECTION FRACTION WITH WALL MOTION ABNORMALITY. FOUR CHAMBER DILATATION. AORTIC SCLEROSIS WITH NO AORTIC STENOSIS/AORTIC REGURGITATION. MILD MITRAL AND TRICUSPID REGURGITATION. MODERATE PULMONARY HYPERTENSION. TECHNOLOGIST: VIOLA TO
[2018-03-07 13:32] LABS: Potassium 3.5 mmol/L (3.5-5.1)
--- NOTE | 2018-03-07 15:00 | CON ---
History Of Present Illness: Mr. Angeles is 82. He came to the hospital complaining of back pain. It was mostly lower back and midback is fair to say. He has recently started chemotherapy for what Carlotta mo he is telling me is multiple myeloma. Not sure what the chemotherapy was or exactly when he g ot it, but he seems to have been ill since he had the chemotherapy complaining of pain. He does not have a history of any recent coronary events. He was in our hospital 2 years ago at which time an ec ho and stress test were normal. In the , he had bypass surgery. He has had stents placed somet mary carmen in the last 20 years, but none in the last 5. Physical Examination: General: He is a little bit somnolent, but he awakens and he is able to have a cogent conversation. Does not appear to be in distress. Lungs: Clear. Heart: Regular. There is no significant murmur or gallop. Extremities: Palpable distal pulses. No cyanosis, clubbing, or edema. Outpatient Medications: Nitroglycerin, aspirin, Tessalon Perles, Zofran tablets, fenofibrate, Plavix , losartan, hydrochlorothiazide, Crestor, Coreg, vitamin D3, finasteride, cetirizine, lansoprazole, a nd bismuth subsalicylate. Not sure what the chemotherapeutic agent he gets is. Laboratory Data: Reveals marked anemia. His hemoglobin is 8.9. Troponins are elevated. They are n ot changing overtime or all the same 0.15, 0.18. His EKG would not suggest an acute coron sabine syndrome. His procalcitonin is elevated. I do not think this is really an acute coronary syndrome, but doing an echocardiogram will be helpful , finding out what medicines he has been on and trying to keep control of things. He is not having a ny chest pain or anything that sounds like angina. I think will contribute to the elevated troponins to sepsis type picture and observe his heart without any plans to do a heart c atheterization recently. ANDRÉS/NICHOLAS Voice ID: [id number] Report ID: [id number]
[2018-03-07] MEDS: METRONIDAZOLE 500mg IVPB 500 MG/100 ML BAG IV SCH (17:56)
[2018-03-07] MEDS: CARVEDILOL 3.125 MG TAB PO SCH (18:00)
--- NOTE | 2018-03-07 18:55 | CON ---
Date of Consultation: 03/07/2018 Additional Consulting Physician: Gucci Larson DO. Reason For Consultation: Elevated BUN and creatinine, hypertension. History Of Present Illness: This is an 82-year-old gentleman with significant past medical history o f coronary artery disease status post CABG, multiple myeloma on chemotherapy, chronic kidney disease, low back pain. The patient came to the hospital complaining from diarrhea, decreased intake, found to have elevated BUN and creatinine. Creatinine was up to 2.6 and BUN 49 with significant hyponatrem ia, for that reason we have been consulted. Reviewing the record for the patient back in 2015, the p atient's creatinine was 1.5 with GFR of 44. The patient denied taking any nonsteroidal. The patient apparently being on APRIL inhibitor and hydrochlorothiazide. The patient was started on IV hydration, diuresis has been discontinue. The patient more awake today . Past Medical History: 1.Hypertension. 2.Multiple myeloma on chemo. 3.Coronary artery disease, status post CABG. 4.CVA. 5.Chronic kidney disease, baseline creatinine back in 2015, 1.5 and GFR of 30s. Home Medications: Include Tylenol, aspirin, carvedilol, cholecalciferol, Plavix, docusate, fenofibra te, losartan, hydrochlorothiazide, nitroglycerin, Levaquin, and codeine. Family History: Positive for cancer, hypertension, and coronary artery disease. Social History: Denies smoking. Denies drinking. Denies drug abuse. Review of Systems: Head and Neck: No red eye. No ear pain. GI: Decreased intake. Had diarrhea. : No polyuria. No dysuria. No hematuria. HORSE SHOW MANAGER: Not applicable. Respiratory: No shortness of breath. Cardiovascular: No chest pain. Endocrine: No polydipsia. Skin: No rash. Physical Examination: Vital Signs: When I saw the patient, patient look dry, blood pressure 119/69, pulse of 87, afebrile. The patient was on the IV fluid normal saline. Had urine output of 300. Chest: Clear to auscultation. Heart: S1, S2. Systolic murmur. Abdomen: Soft, nontender. No organomegaly. Extremities: No edema. Vascular: No carotid bruit. No renal bruit. Neuro: Alert. No focal. Laboratory Data: On admission sodium 128, potassium 4, bicarb 24, BUN 48, creatinine 2.6. Currently sodium 129, potassium 3.5, bicarb 25, BUN 49, creatinine 2.6, calcium 8.2, magnesium of 2, TSAT of 2 .6. Procalcitonin 2.9, TSH 1.9. Urinalysis; specific gravity of 1.025. Protein creatinine is 0.4. Echocardiogram has been done on this admission, ejection fraction of 20% to 25%. Renal ultrasound s howing 9.7 x 10.3, no hydronephrosis. CT abdomen and pelvis was done without any contrast showing en teritis, thickening on bladder wall. Current Medications: The patient in the hospital includes: 1.Aspirin. 2.Levaquin. 3.Metronidazole 500 t.i.d. 4.Plavix. 5.Carvedilol 3.125 b.i.d. 6.Fenofibrate. 7.Losartan. 8.Atorvastatin. 9.Zofran. 10.Tylenol. 11.IV fluid. 12.Finasteride. 13.Magnesium oxide. Assessment And Plan: 1.Acute kidney injury secondary to prerenal, normal-sized kidney, proteinuric non-nephrotic. Doubt to be autoimmune superimposed with hydrochlorothiazide and ARB. a.I am going to go ahead and give the patient another bolus for today. We will discontinue losartan and we will continue current hydration and we will follow up the patient. Keep holding hydrochlorot hiazide. 2.Hypertension. Currently blood pressure on the lower side. I am going to discontinue losartan and we will monitor the patient. 3.Hyperlipidemia, given the acute kidney injury. Discontinue fenofibrate. 4.Enteritis. Continue current antibiotic. Dose appropriate. 5.Acute kidney injury, as above. 6.Congestive heart failure, advanced. Currently look on the dry side. We will hold on the diuresis . We will get extra IV fluid and we will follow up. 7.Hyponatremia, depletional. 8.Hypothyroidism has been ruled out. I am going to send for cortisol level. We will continue hydra tion and we will follow up. 9.Iron deficiency anemia. Given the antritis, we will hold on the supplement for the time being. W e will plan to started after recovery. Thank you, Dr. Larson for allowing us to participate in the care of your patient. MELO/NICHOLAS Voice ID: [id number] Report ID: [id number]
[2018-03-07] MEDS ORDERED: FENOFIBRATE 160 MG TAB PO SCH (21:00)
[2018-03-07] MEDS: DOCUSATE NA 100 MG CAP PO SCH (21:28)
[2018-03-07] MEDS: ROSUVASTATIN 10 MG TAB PO SCH (21:28)
[2018-03-08] MEDS: METRONIDAZOLE 500mg IVPB 500 MG/100 ML BAG IV SCH ×3 (00:58→15:54)
[2018-03-08] MEDS: NA CHLORIDE 0.9% 1,000 ML IV SCH ×2 (03:45→12:35)
[2018-03-08] MEDS: CARVEDILOL 3.125 MG TAB PO SCH ×3 (06:00→17:28)
[2018-03-08 06:27] LABS: Absolute Lymphocytes (CBC) 0.4 K/uL (0.7-4.9); Absolute Monocytes 0.6 K/uL (0.1-1.3); Absolute Neutrophil 8.2 K/uL (1.8-8.0); Basophils % 0.1 % (0-1.3); Lymphocytes % 4.5 % (15.3-44.8); MCV 101.2 fL (80-100); MPV 8.7 fL (7.6-11.3); Monocytes % 6.1 % (3.3-12.3); RBC Red Blood Cell Count 2.37 M/uL (4.33-5.43)
[2018-03-08] MEDS ORDERED: POTASSIUM 25 MEQ EFFERV TAB PO ONE (06:29)
[2018-03-08 06:44] LABS: Albumin 2.9 g/dL (3.4-5.0); Phosphorus 4.4 mg/dL (2.5-4.9); Potassium 3.6 mmol/L (3.5-5.1)
[2018-03-08] MEDS: CLOPIDOGREL 75 MG TABLET PO SCH (08:43)
[2018-03-08] MEDS: MULTIVIT W/ MINERAL TAB PO SCH (08:43)
[2018-03-08] MEDS: FINASTERIDE 5 MG TAB PO SCH (08:44)
[2018-03-08] MEDS: ASPIRIN EC 81 MG TAB PO SCH (08:44)
[2018-03-08] MEDS ORDERED: LOSARTAN POTASSIUM 50 MG TABLET PO SCH (09:00)
[2018-03-08] MEDS: Levofloxacin 250mg IV 250 MG/50 ML BAG IV SCH (10:08)
--- NOTE | 2018-03-08 12:25 | P.PN ---
Subjective Date of Service: 03/08/18 Primary Care Provider: Dr. Soria([place], [place]); Cardiology-Dr. Baker; Oncology-Dr. Velasquez Chief Complaint: intractable back pain Subjective: Doing well (Patient feeling better. No significant abdominal pain noted. Patient tolerating diet. Less diarrhea noted.) Physical Examination - Vital Signs Temperature: 97.7 F Blood Pressure: 90/54 Pulse: 80 Respirations: 18 Pulse Ox (%): 100 - Physical Exam General: Alert, In no apparent distress, Oriented x3, Cooperative HEENT: Atraumatic Neck: Supple Respiratory: Clear to auscultation bilaterally, Normal air movement Cardiovascular: Normal pulses, Regular rate/rhythm Gastrointestinal: Normal bowel sounds, Soft and benign, Non-distended, No tenderness, No masses, No rebound, No guarding Musculoskeletal: No erythema, No tenderness, No warmth Integumentary: No erythema, No warmth, No cyanosis Neurological: Normal speech, Normal strength at 5/5 x4 extr, Normal tone, Normal affect - Studies Laboratory Data (last 24 hrs) 03/07/18 13:00: Sodium 129 L, Potassium 3.5, BUN 49 H, Creatinine 2.60 H, Glucose 111 H, Magnesium 2.0 03/07/18 13:00: WBC 4.7 D, Hgb 8.6 L, Hct 24.7 L, Plt Count 50 L D 03/07/18 13:00: Troponin I 1.10 H* Medications List Reviewed: Yes Assessment & Plan - Problems (Diagnosis) (1) Acute kidney injury superimposed on CKD Onset Date: 03/07/18 Current Visit: Yes Status: Acute Plan: Will continue with IV fluids at a lower rate. Patient with history of CHF with ejection fraction 25%. Will need to monitor for volume overload. Will discuss with nephrology. Awaiting C diff culture. Await blood culture. Patient placed on Levaquin and Flagyl yesterday due to possible enteritis. Will have Hematology evaluate thrombocytopenia. This is likely from sepsis. Will obtain fibrinogen, PT INR, PTT and peripheral smear. (2) Anemia Onset Date: 03/07/18 Current Visit: Yes Status: Chronic Plan: Anemia likely related to multiple myeloma in chemotherapy. Patient with iron and B12 deficiency. Will discuss with hematology. Will provide supplementation. Qualifiers: Anemia type: due to chronic kidney disease Chronic kidney disease stage: stage 3 (moderate) Qualified Code(s): N18.3 - Chronic kidney disease, stage 3 (moderate); D63.1 - Anemia in chronic kidney disease (3) CHF (congestive heart failure) Onset Date: 03/07/18 Current Visit: Yes Status: Chronic Plan: Patient with history of CHF. Ejection fraction 25%. Will continue with IV fluids. Will restart Lasix. Will discuss further with cardiology. Patient with significant heart disease. No intervention needed at this time due to sepsis. Qualifiers: Heart failure type: systolic Heart failure chronicity: acute on chronic Qualified Code(s): I50.23 - Acute on chronic systolic (congestive) heart failure (4) Diarrhea Onset Date: 03/07/18 Current Visit: Yes Status: Acute Plan: Suspect enteritis. Will continue with Levaquin and Flagyl. C diff culture along with blood culture obtained. Will obtain stool to assess for C diff colitis. Diarrhea may be related to his recent chemotherapy for multiple myeloma. (5) Lower back pain Onset Date: 03/07/18 Current Visit: Yes Status: Chronic Plan: CT scan shows foraminal stenosis. Will check with his oncologist to see if a bone scan has been done recently. Qualifiers: Chronicity: acute Back pain laterality: midline Sciatica presence: unspecified whether sciatica present Qualified Code(s): M54.5 - Low back pain (6) Multiple myeloma Onset Date: 03/07/18 Current Visit: Yes Status: Chronic Plan: Patient has been getting chemotherapy. Will discuss with his oncologist to further assess his condition. Hematology/oncology will assess further. Qualifiers: Multiple myeloma remission status: unspecified Qualified Code(s): C90.00 - Multiple myeloma not having achieved remission (7) Coronary artery disease Onset Date: 08/01/16 Current Visit: No Status: Chronic Plan: Troponin elevated. No intervention recommended at this time due to sepsis. Qualifiers: Coronary Disease-Associated Artery/Lesion type: bypass graft, autologous vein Associated angina: without angina Qualified Code(s): I25.810 - Atherosclerosis of coronary artery bypass graft(s) without angina pectoris (8) Hyponatremia Current Visit: Yes Status: Acute Plan: Will continue with IV fluids. Will discuss with nephrology (9) Hypomagnesemia Current Visit: Yes Status: Acute Plan: Will monitor and replace appropriately. Patient protocol in place. (10) Thrombocytopenia Current Visit: Yes Status: Acute Plan: Likely from inflammation and sepsis. Case discussed with hematology. Will order lab including PT, PTT, fibrinogen and peripheral smear. (11) Hypertension Current Visit: Yes Status: Chronic Plan: Will hold blood pressure medication this time due to low blood pressure. Patient appears to be volume depleted. Will monitor closely. Qualifiers: Hypertension type: essential hypertension Qualified Code(s): I10 - Essential (primary) hypertension (12) Hyperlipidemia Current Visit: Yes Status: Chronic Plan: Will hold his medication at this time Qualifiers: Hyperlipidemia type: unspecified Qualified Code(s): E78.5 - Hyperlipidemia , unspecified (13) Enteritis Current Visit: Yes Status: Acute Plan: Continue with Levaquin and Flagyl. Improved overall. Await C diff culture along with stool culture. Blood cultures obtained. Discharge Plan: Other (skilled placement facility) Plan to discharge in: Greater than 2 days Time Spent Managing Pts Care (In Minutes): 55
--- NOTE | 2018-03-08 12:50 | RAD REPORT ---
EXAM DESCRIPTION: RAD - Chest Single View - 03/08/2018 12:43 pm CLINICAL HISTORY: COPD COMPARISON: March 07 TECHNIQUE: AP portable chest image was obtained 1230 hours . FINDINGS: No peripheral consolidation or mass. Cardiac silhouette remains enlarged with prominent ce ntral vasculature. Trachea is midline. No measurable pleural effusion and no pneumothorax. No gross b judy abnormality seen. No acute aortic findings suspected. IMPRESSION: Chest is not substantially different from March 07. Chest findings continue to suggest a mild volume overload or cardiac decompensation.
[2018-03-08] MEDS ORDERED: NA CHLORIDE 0.9% 1,000 ML IV SCH (13:00)
[2018-03-08 13:22] LABS: Protime INR 1.24
[2018-03-08] MEDS ORDERED: TRAMADOL HCL 50 MG TAB PO PRN (15:28)
[2018-03-08] MEDS: LIDOCAINE 5% PATCH TOP SCH (15:54)
--- NOTE | 2018-03-08 18:39 | PN ---
Date of Progress Note: 03/08/2018 Subjective: The patient feeling better. More awake today. Blood pressure still marginally low, on n gisselle cannula. Objective: Vital Signs: Blood pressure 90/54, pulse of 80, afebrile. Chest: Clear to auscultation. Heart: S1, S2. Regular. Systolic murmur. Abdomen: Soft, nontender. Extremities: Trace edema. Neuro: The patient slow, but awake, oriented to person Laboratory Data: WBC 9.2, H and H 8.3/24, and platelets 34,000, dropping. Sodium of 131 potassium 3 .6, bicarb 24, BUN 57, creatinine 2.6, calcium 7.6, phos 4.4. Current Medications: The patient on include Tylenol, hydrocodone, Plavix Levaquin, metronidazole, mu ltivitamin, atorvastatin, tramadol. Assessment And Plan: 1.Acute kidney injury, possible prerenal given the thrombocytopenia and altered mental status. Hemo lytic uremic syndrome needs to be ruled out. I am going to send for LDH. Hematology will evaluate. 2.Hypertension. Currently blood pressure on the lower side. Continue hydration. 3.Anemia. As by hematology. We will send for LDH to rule out any hemolysis even though I doubt it as kidney function is getting deteriorate further and still the patient making good urine. 4.Colitis. Continue current antibiotic. 5.Congestive heart failure. Still on the dry side. Continue hydration. We will keep holding blood pressure. Case discussed with the patient and son by bedside. Discussed with the family. Verbalized understanding. Discussed with Dr. Larson. Agreed on the plan. MELO/NICHOLAS Voice ID: [id number] Report ID: [id number]
[2018-03-08] MEDS: DOCUSATE NA 100 MG CAP PO SCH (21:28)
[2018-03-09] MEDS: METRONIDAZOLE 500mg IVPB 500 MG/100 ML BAG IV SCH ×3 (00:51→16:51)
[2018-03-09] MEDS: NA CHLORIDE 0.9% 1,000 ML IV SCH (00:55)
[2018-03-09] MEDS: HYDROCODONE/APAP 7.5/325 MG TAB PO PRN ×2 (01:01→20:54)
[2018-03-09] MEDS: CARVEDILOL 3.125 MG TAB PO SCH (06:00)
[2018-03-09] MEDS: LIDOCAINE 5% PATCH TOP SCH (09:00)
[2018-03-09] MEDS: MULTIVIT W/ MINERAL TAB PO SCH (09:00)
[2018-03-09] MEDS: FINASTERIDE 5 MG TAB PO SCH (09:00)
[2018-03-09] MEDS: ASPIRIN EC 81 MG TAB PO SCH (09:00)
[2018-03-09] MEDS: CLOPIDOGREL 75 MG TABLET PO SCH (09:00)
[2018-03-09 09:15] LABS: Albumin 2.9 g/dL (3.4-5.0); Phosphorus 1.8 mg/dL (2.5-4.9); Potassium 3.8 mmol/L (3.5-5.1)
[2018-03-09] MEDS: Levofloxacin 250mg IV 250 MG/50 ML BAG IV SCH (10:00)
--- NOTE | 2018-03-09 10:16 | P.PN ---
Subjective Date of Service: 03/09/18 Primary Care Provider: Dr. Soria([place], [place]); Cardiology-Dr. Baker; Oncology-Dr. Velasquez Chief Complaint: intractable back pain Subjective: Improving (Patient improving. No complaints except for neck pain.) Physical Examination - Vital Signs Temperature: 97.4 F Blood Pressure: 112/66 Pulse: 63 Respirations: 16 Pulse Ox (%): 100 - Physical Exam General: Alert, In no apparent distress, Oriented x3, Cooperative HEENT: Atraumatic Neck: Supple Respiratory: Clear to auscultation bilaterally, Normal air movement Cardiovascular: Normal pulses, Regular rate/rhythm Gastrointestinal: Normal bowel sounds, Soft and benign, Non-distended, No tenderness, No masses, No rebound, No guarding Musculoskeletal: No warmth, Other (Neck pain noted also mild back pain) Integumentary: No tenderness/swelling, No erythema, No warmth, No cyanosis Neurological: Normal speech, Normal strength at 5/5 x4 extr, Normal tone, Normal affect - Studies Medications List Reviewed: Yes Assessment & Plan - Problems (Diagnosis) (1) Acute kidney injury superimposed on CKD Onset Date: 03/07/18 Current Visit: Yes Status: Acute Plan: Will continue with IV fluids at a lower rate. Renal function overall improved. Patient with history of CHF with ejection fraction 25%. Will need to monitor for volume overload. Case discussed with nephrology yesterday. Will continue to monitor and discuss with Nephrology today. Patient on Levaquin and Flagyl for enteritis. Overall improved. Blood culture 1 out of 1 blood culture positive for Gram positive cocci. Likely contaminant. Will repeat blood culture. Will continue monitor closely. Will recheck CBC for thrombocytopenia. Case discussed at length with hematology yesterday. Thrombocytopenia likely related to her sepsis. (2) Anemia Onset Date: 03/07/18 Current Visit: Yes Status: Chronic Plan: Anemia likely related to multiple myeloma in chemotherapy. Patient with iron and B12 deficiency. Continue iron and B12 supplementation Qualifiers: Anemia type: due to chronic kidney disease Chronic kidney disease stage: stage 3 (moderate) Qualified Code(s): N18.3 - Chronic kidney disease, stage 3 (moderate); D63.1 - Anemia in chronic kidney disease (3) CHF (congestive heart failure) Onset Date: 03/07/18 Current Visit: Yes Status: Chronic Plan: Patient with history of CHF. Ejection fraction 25%. Will continue with IV fluids. May need to restart Lasix. Will discuss further with cardiology and nephrology. Patient with significant heart disease. No intervention needed at this time due to sepsis. Qualifiers: Heart failure type: systolic Heart failure chronicity: acute on chronic Qualified Code(s): I50.23 - Acute on chronic systolic (congestive) heart failure (4) Diarrhea Onset Date: 03/07/18 Current Visit: Yes Status: Acute Plan: Suspect related to enteritis. Overall improved. Will continue with Levaquin and Flagyl. C diff culture negative. Blood culture positive likely contaminant. Will repeat blood culture. Physical therapy recommends inpatient rehab. Suspect this can be pursued in the next 2-3 days once the patient's condition has improved. (5) Lower back pain Onset Date: 03/07/18 Current Visit: Yes Status: Chronic Plan: CT scan shows foraminal stenosis. Will provide medication for pain. Will provide muscle relaxer. Qualifiers: Chronicity: acute Back pain laterality: midline Sciatica presence: unspecified whether sciatica present Qualified Code(s): M54.5 - Low back pain (6) Multiple myeloma Onset Date: 03/07/18 Current Visit: Yes Status: Chronic Plan: Patient has been getting chemotherapy. Will discuss with his oncologist to further assess his condition. Hematology/oncology will assess further. Qualifiers: Multiple myeloma remission status: unspecified Qualified Code(s): C90.00 - Multiple myeloma not having achieved remission (7) Coronary artery disease Onset Date: 08/01/16 Current Visit: No Status: Chronic Plan: Troponin elevated. No intervention recommended at this time due to sepsis. Qualifiers: Coronary Disease-Associated Artery/Lesion type: bypass graft, autologous vein Associated angina: without angina Qualified Code(s): I25.810 - Atherosclerosis of coronary artery bypass graft(s) without angina pectoris (8) Hyponatremia Current Visit: Yes Status: Acute Plan: Will continue with IV fluids. Will discuss further with nephrology (9) Hypomagnesemia Current Visit: Yes Status: Acute Plan: Will monitor and replace appropriately. Patient protocol in place. (10) Thrombocytopenia Current Visit: Yes Status: Acute Plan: Likely from inflammation and sepsis. Case discussed with hematology. Await peripheral smear. Fibrinogen within normal range. (11) Hypertension Current Visit: Yes Status: Chronic Plan: Will continue to hold blood pressure medication this time due to low blood pressure. Patient appears to be volume depleted. Continue IV fluids. Will monitor closely. Qualifiers: Hypertension type: essential hypertension Qualified Code(s): I10 - Essential (primary) hypertension (12) Hyperlipidemia Current Visit: Yes Status: Chronic Plan: Will hold his medication at this time Qualifiers: Hyperlipidemia type: unspecified Qualified Code(s): E78.5 - Hyperlipidemia , unspecified (13) Enteritis Current Visit: Yes Status: Acute Plan: Continue with Levaquin and Flagyl. Improved overall. Continue IV fluids. C diff culture negative. Blood culture 1 out a 1 positive likely a contaminant. Repeat blood culture. Will check pro calcitonin level. (14) Bacteremia Current Visit: Yes Status: Suspected Plan: 1 out of 1 blood culture positive likely contaminant. Will repeat blood culture. Will monitor closely. Overall patient improved. Discharge Plan: Other (Inpatient rehab) Plan to discharge in: 72 Hours Time Spent Managing Pts Care (In Minutes): 55
--- NOTE | 2018-03-09 12:17 | PN ---
Subjective: Mr. Angeles seems to be improving. He is being treated for an infection, looks better. He is not volume overloaded, definitely has congestive heart failure, so as much as possible we want to continue to treat him with beta-blockers and angiotensin receptor blockers. Renal failure is anot her issue of course and may limit our ability to given the medicines that he needs, but we will do ou r best. ANDRÉS/NICHOLAS Voice ID: [id number] Report ID: [id number]
[2018-03-09] MEDS: TIZANIDINE 4 MG TABLET PO PRN ×2 (12:21→23:00)
[2018-03-09 12:30] LABS: Absolute Lymphocytes (CBC) 0.2 K/uL (0.7-4.9); Absolute Monocytes 0.4 K/uL (0.1-1.3); Absolute Neutrophil 5.3 K/uL (1.8-8.0); Basophils % 0.2 % (0-1.3); Eosinophils % 0.1 % (0-4.4); Hematocrit 27.6 % (39.6-49.0); Lymphocytes % 4.1 % (15.3-44.8); MCH 34.4 pg (27.0-35.0); MCV 99.9 fL (80-100); MPV 10.6 fL (7.6-11.3); Monocytes % 6.3 % (3.3-12.3); RBC Red Blood Cell Count 2.76 M/uL (4.33-5.43)
[2018-03-09 13:20] LABS: HBsAG Nonreactive (Nonreactive); Hepatitis A IgM Antibody Nonreactive
[2018-03-09] MEDS: ENOXAPARIN 30 MG/0.3 ML SQ SCH (16:53)
[2018-03-09] MEDS ORDERED: POTASSIUM CL SA 10 MEQ TAB PO ONE (17:00)
[2018-03-09] MEDS: ROSUVASTATIN 10 MG TAB PO SCH (20:56)
[2018-03-09] MEDS: DOCUSATE NA 100 MG CAP PO SCH (20:57)
--- NOTE | 2018-03-09 23:55 | PN ---
Date of Progress Note: 03/09/2018 Chief Complaint/history Of Present Illness: Acute kidney injury, nonoliguric, associated with some altered mental status. There is persistent elevated azotemia and thrombocytopenia. The patient is consulted by Hematology. LDH was ordered and pending. The patient was found to have hypotension and received IV fluids for hydration. Today, he is feeling better. Review of Systems: Denies fever or chills. He is complaining of some upper back pain. Denies syncope. Physical Examination: Eyes: Anicteric sclerae. EOMI. Ears, Nose, Mouth, and Throat: Oral mucosa moist. No pallor. Neck: Supple. No JVD. No bruits. Lungs: Few crackles at bases. Heart: S1, S2. Abdomen: Soft, benign. Extremities: Minimal edema. Laboratory Data: WBC 5.2, hemoglobin 9.5, platelet count is 50,000. Chemistries showed sodium 134, potassium 3.8, chloride 102, CO2 of 24, BUN 55, creatinine 2.00, phosphorus 1.8, glucose 129. Impression And Plan: 1. Hyponatremia. Sodium level gradually improved from 128 to 134 over the last 4-8 hours. Monitor electrolytes closely. 2. Acute kidney injury with nonoliguric acute tubular necrosis, prerenal azotemia. Creatinine is slightly improving from 2.6 to 2.0 over the last 24 hours. 3. Thrombocytopenia. Workup is pending. LDH was ordered and results are not available. Hematology consultation appreciated. LDH from yesterday is 218, which is normal. 4. Hyperparathyroid, intact. PTH is 94. Plan is to check 25-OH vitamin D level. 5. Acute kidney injury. Continue current treatment with IV fluids. Monitor for any evidence of active urinary sediment, possible nephritis. Renal function although is responding to IV fluids and plan is to continue hydration as before. I spent total 36 min including 25 min to coordinate care plan. EB/MODL Voice ID: [id number] Report ID: [id number] [place]
[2018-03-10] MEDS: METRONIDAZOLE 500mg IVPB 500 MG/100 ML BAG IV SCH ×2 (01:06→10:28)
[2018-03-10] MEDS: NA CHLORIDE 0.9% 1,000 ML IV SCH ×2 (05:00→20:04)
[2018-03-10 05:32] LABS: Absolute Lymphocytes (CBC) 0.3 K/uL (0.7-4.9); Absolute Monocytes 0.5 K/uL (0.1-1.3); Absolute Neutrophil 4.3 K/uL (1.8-8.0); Eosinophils % 0.2 % (0-4.4); MCH 35.4 pg (27.0-35.0); RBC Red Blood Cell Count 2.53 M/uL (4.33-5.43)
[2018-03-10 05:43] LABS: Basophils % 0.1 % (0-1.3); Hematocrit 25.6 % (39.6-49.0); Lymphocytes % 6.3 % (15.3-44.8); MCV 101.1 fL (80-100); MPV 11.1 fL (7.6-11.3); Monocytes % 9.1 % (3.3-12.3)
[2018-03-10 05:49] LABS: Albumin 2.9 g/dL (3.4-5.0); Magnesium 2.3 mg/dL (1.8-2.4); Phosphorus 1.7 mg/dL (2.5-4.9)
[2018-03-10] MEDS: CYANOCOBALAMIN 1,000 MCG TAB PO SCH (09:00)
[2018-03-10] MEDS: ASPIRIN EC 81 MG TAB PO SCH (09:00)
[2018-03-10] MEDS: MORPHINE 4 MG/ML SYR IV PRN (10:19)
[2018-03-10] MEDS: MULTIVIT W/ MINERAL TAB PO SCH (10:27)
[2018-03-10] MEDS: CLOPIDOGREL 75 MG TABLET PO SCH (10:27)
[2018-03-10] MEDS: HYDROCODONE/APAP 7.5/325 MG TAB PO PRN ×2 (10:27→17:10)
[2018-03-10] MEDS: FERROUS SULFATE 325 MG TAB PO SCH (10:27)
[2018-03-10] MEDS: FINASTERIDE 5 MG TAB PO SCH (10:28)
[2018-03-10] MEDS: Levofloxacin 250mg IV 250 MG/50 ML BAG IV SCH (10:28)
[2018-03-10] MEDS: LIDOCAINE 5% PATCH TOP SCH (10:34)
--- NOTE | 2018-03-10 12:13 | P.PN ---
Subjective Date of Service: 03/10/18 Primary Care Provider: Dr. Soria([place], [place]); Cardiology-Dr. Baker; Oncology-Dr. Velasquez Chief Complaint: intractable back pain Subjective: Doing well (Patient did have some mild hallucinations. Patient recently started on muscle relaxer. Overall he seems to be improving. Patient still with stiff neck. Back pain improved) Physical Examination - Vital Signs Temperature: 97.9 F Blood Pressure: 144/80 Pulse: 102 Respirations: 20 Pulse Ox (%): 93 - Physical Exam General: Alert, In no apparent distress, Oriented x3, Cooperative HEENT: Atraumatic Neck: Other (Patient with stiff neck.) Respiratory: Clear to auscultation bilaterally, Normal air movement Cardiovascular: Normal pulses, Regular rate/rhythm Gastrointestinal: Normal bowel sounds, Soft and benign, Non-distended, No tenderness, No masses, No rebound, No guarding Musculoskeletal: No erythema, No warmth, Tenderness (Pain to the upper and lower back noted) Integumentary: No erythema, No warmth, No cyanosis Neurological: Normal speech, Normal strength at 5/5 x4 extr, Normal tone, Other (Nurses report some hallucinations earlier today. Patient was appropriate with me.) Urinary: Woods catheter - Studies Medications List Reviewed: Yes Assessment & Plan - Problems (Diagnosis) (1) Acute kidney injury superimposed on CKD Onset Date: 03/07/18 Current Visit: Yes Status: Acute Plan: Overall patient has improved. Continue with IV fluids. Will continue monitor renal function. Continue with physical therapy. Anticipate transfer to inpatient rehab likely Monday. Patient on Levaquin and Flagyl for enteritis. Will transition to oral medication. (2) Anemia Onset Date: 03/07/18 Current Visit: Yes Status: Chronic Plan: Anemia likely related to multiple myeloma in chemotherapy. Patient with iron and B12 deficiency. Continue iron and B12 supplementation Qualifiers: Anemia type: due to chronic kidney disease Chronic kidney disease stage: stage 3 (moderate) Qualified Code(s): N18.3 - Chronic kidney disease, stage 3 (moderate); D63.1 - Anemia in chronic kidney disease (3) CHF (congestive heart failure) Onset Date: 03/07/18 Current Visit: Yes Status: Chronic Plan: Patient with history of CHF. Ejection fraction 25%. Will continue with IV fluids. May need to restart Lasix. Case discussed with cardiology. Qualifiers: Heart failure type: systolic Heart failure chronicity: acute on chronic Qualified Code(s): I50.23 - Acute on chronic systolic (congestive) heart failure (4) Diarrhea Onset Date: 03/07/18 Current Visit: Yes Status: Acute Plan: Suspect related to enteritis. Overall improved. Will continue with Levaquin and Flagyl. C diff culture negative. Blood culture positive likely contaminant. Will repeat blood culture. Continue physical therapy. (5) Lower back pain Onset Date: 03/07/18 Current Visit: Yes Status: Chronic Plan: CT scan shows foraminal stenosis. Will provide medication for pain. Will discontinue muscle relaxer due to hallucination. Qualifiers: Chronicity: acute Back pain laterality: midline Sciatica presence: unspecified whether sciatica present Qualified Code(s): M54.5 - Low back pain (6) Multiple myeloma Onset Date: 03/07/18 Current Visit: Yes Status: Chronic Plan: Patient has been getting chemotherapy. Will discuss with his oncologist to further assess his condition. Hematology/oncology will assess further. Qualifiers: Multiple myeloma remission status: unspecified Qualified Code(s): C90.00 - Multiple myeloma not having achieved remission (7) Coronary artery disease Onset Date: 08/01/16 Current Visit: No Status: Chronic Plan: Troponin elevated. No intervention recommended at this time due to sepsis. Qualifiers: Coronary Disease-Associated Artery/Lesion type: bypass graft, autologous vein Associated angina: without angina Qualified Code(s): I25.810 - Atherosclerosis of coronary artery bypass graft(s) without angina pectoris (8) Hyponatremia Current Visit: Yes Status: Acute Plan: Will continue with IV fluids. Will discuss further with nephrology (9) Hypomagnesemia Current Visit: Yes Status: Acute Plan: Will monitor and replace appropriately. Patient protocol in place. (10) Thrombocytopenia Current Visit: Yes Status: Acute Plan: Likely from inflammation and sepsis. Case discussed with hematology. (11) Hypertension Current Visit: Yes Status: Chronic Plan: Blood pressure slightly increased today. Will start low-dose beta-selam therapy. Will continue to monitor and adjust appropriately. Qualifiers: Hypertension type: essential hypertension Qualified Code(s): I10 - Essential (primary) hypertension (12) Hyperlipidemia Current Visit: Yes Status: Chronic Plan: Will hold his medication at this time Qualifiers: Hyperlipidemia type: unspecified Qualified Code(s): E78.5 - Hyperlipidemia , unspecified (13) Enteritis Current Visit: Yes Status: Acute Plan: Continue with Levaquin and Flagyl. Improved overall. Continue IV fluids. C diff culture negative. Blood culture 1 out a 1 positive likely a contaminant. (14) Bacteremia Current Visit: Yes Status: Suspected Plan: 1 out of 1 blood culture positive likely contaminant. Will repeat blood culture. Will monitor closely. Overall patient improved. (15) Hallucination Current Visit: Yes Status: Acute Plan: Likely from Zanaflex. Will discontinue this. Patient appears stable at this time. Discharge Plan: Other (Inpatient rehab) Plan to discharge in: 48 Hours Time Spent Managing Pts Care (In Minutes): 55
[2018-03-10] MEDS: metroNIDAZOLE 500 MG TABLET PO SCH ×2 (14:04→20:04)
[2018-03-10] MEDS: ENOXAPARIN 30 MG/0.3 ML SQ SCH (17:00)
--- NOTE | 2018-03-10 17:06 | RAD REPORT ---
EXAM DESCRIPTION: RAD - Chest Pa And Lat (2 Views) - 03/10/2018 4:58 pm CLINICAL HISTORY: Follow up CHF Chest pain. COMPARISON: Chest Single View dated 03/08/2018; Chest Single View dated 03/07/2018; Chest Single View dated 07/31/2016; Chest Single View dated 07/30/2016; Chest Abd Pelvis Wo Con dated 03/07/2018 FINDINGS: The lungs are clear. The heart is moderately prominent in size with sternotomy wires prese nt. Trace pleural fluid is likely present. No displaced fractures. IMPRESSION: Grossly clear lungs.
[2018-03-10] MEDS: CARVEDILOL 3.125 MG TAB PO SCH (17:11)
--- NOTE | 2018-03-10 17:15 | RAD REPORT ---
EXAM DESCRIPTION: RAD - Neck Soft Tissue - 03/10/2018 4:58 pm CLINICAL HISTORY: Acute neck pain COMPARISON: None FINDINGS: Prevertebral soft tissues are normal. Epiglottis and aryepiglottic folds are normal. Air c olumn is patent. No foreign body is seen.Prominent degenerate changes are present involving the visua lized cervical levels. Heavy atherosclerosis of the left carotid bulb is seen.
[2018-03-10] MEDS: DOCUSATE NA 100 MG CAP PO SCH (20:04)
[2018-03-11] MEDS: HYDROCODONE/APAP 7.5/325 MG TAB PO PRN ×3 (00:05→21:10)
--- NOTE | 2018-03-11 02:10 | PN ---
Date of Progress Note: 03/10/2018 Chief Complaint: Acute kidney injury. History Of Present Illness: Acute kidney injury; nonoliguric; associated with altered mental status, persistently elevated azotemia, thrombocytopenia. The patient developed severe back pain and was st arted on muscle relaxants. He developed some hallucination. Currently, the patient is tolerating p. o. intake. Denies chest pain, headache, vision changes. Physical Examination: Lungs: Clear to auscultation bilaterally. Heart: S1, S2. Abdomen: Soft, benign. Extremities: No edema. Laboratory Data: Hemoglobin 9.0, platelet count is 48,000, WBC 5.1. Chemistry showed sodium 133, po tassium 4.0, chloride 102, CO2 26, BUN 51, creatinine 1.7, phosphorus 1.7, magnesium 2.3. On arrival to the hospital, the patient had creatinine of 2.6 and BUN 48. Impression And Plan: 1.Acute kidney injury. Renal function somewhat improving. Monitor fluid balance and urine output. Monitor electrolytes and adjust replacement as needed. 2.Hypophosphatemia. The patient will continue a low-potassium diet and the patient may need phospha te replacement by mouth. 3.Hyperparathyroidism. Intact PTH is 94, 25-hydroxyvitamin D level is pending. 4.Acute kidney injury. The patient is tolerating p.o. intake. Plan is to hold off IV fluids and co ntinue hydration by mouth. 5.Thrombocytopenia. Workup is pending. LDH level was ordered and results are pending. JOMAR/FERL Voice ID: [id number] Report ID: [id number]
[2018-03-11] MEDS: MORPHINE 4 MG/ML SYR IV PRN (03:56)
[2018-03-11 05:18] LABS: Absolute Lymphocytes (CBC) 0.3 K/uL (0.7-4.9); Absolute Monocytes 0.6 K/uL (0.1-1.3); Absolute Neutrophil 5.6 K/uL (1.8-8.0); Basophils % 0.5 % (0-1.3); Eosinophils % 0.2 % (0-4.4); Hematocrit 26.9 % (39.6-49.0); Lymphocytes % 5.3 % (15.3-44.8); MCV 99.7 fL (80-100); MPV 11.7 fL (7.6-11.3); Monocytes % 9.4 % (3.3-12.3)
[2018-03-11] MEDS: CARVEDILOL 3.125 MG TAB PO SCH ×2 (05:18→17:29)
[2018-03-11 05:40] LABS: Albumin 2.9 g/dL (3.4-5.0); Magnesium 2.2 mg/dL (1.8-2.4); Phosphorus 1.3 mg/dL (2.5-4.9); Potassium 4.2 mmol/L (3.5-5.1)
[2018-03-11] MEDS ORDERED: POTASS/SODIUM PHOSPHATE 1 PKT POWD.PACK PO ONE (08:00)
[2018-03-11] MEDS: LIDOCAINE 5% PATCH TOP SCH (09:47)
[2018-03-11] MEDS: FINASTERIDE 5 MG TAB PO SCH (09:48)
[2018-03-11] MEDS: MULTIVIT W/ MINERAL TAB PO SCH (09:48)
[2018-03-11] MEDS: metroNIDAZOLE 500 MG TABLET PO SCH ×3 (09:48→21:09)
[2018-03-11] MEDS: FERROUS SULFATE 325 MG TAB PO SCH (09:48)
[2018-03-11] MEDS: CYANOCOBALAMIN 1,000 MCG TAB PO SCH (09:48)
[2018-03-11] MEDS: ASPIRIN EC 81 MG TAB PO SCH (09:48)
[2018-03-11] MEDS: levoFLOXacin 250 MG TAB PO SCH (09:48)
[2018-03-11] MEDS: CLOPIDOGREL 75 MG TABLET PO SCH (09:48)
--- NOTE | 2018-03-11 14:16 | P.PN ---
Subjective Date of Service: 03/11/18 Primary Care Provider: Dr. Soria([place], [place]); Cardiology-Dr. Baker; Oncology-Dr. Velasquez Chief Complaint: intractable back pain Subjective: Other (Patient with pain to the lumbar region) Physical Examination - Vital Signs Temperature: 98.3 F Blood Pressure: 151/89 Pulse: 94 Respirations: 16 Pulse Ox (%): 96 - Physical Exam General: Alert, In no apparent distress, Other (some halluncination) HEENT: Atraumatic Neck: Supple Respiratory: Clear to auscultation bilaterally, Normal air movement Cardiovascular: Normal pulses, Regular rate/rhythm Gastrointestinal: Normal bowel sounds, Soft and benign, Non-distended, No tenderness, No masses, No rebound, No guarding Musculoskeletal: Other (pain to the back throughout) Neurological: Normal speech, Normal strength at 5/5 x4 extr, Normal tone, Other (Patient with some hallucinations this morning.) - Studies Medications List Reviewed: Yes Assessment & Plan - Problems (Diagnosis) (1) Acute kidney injury superimposed on CKD Onset Date: 03/07/18 Current Visit: Yes Status: Acute Plan: Overall patient has improved. IV fluids have been discontinued. CT scan reviewed again due to pain Patient with acute compression fracture also with degenerative changes. Will continue with pain control medication. Continue with physical therapy. Patient currently being treated for enteritis. (2) Anemia Onset Date: 03/07/18 Current Visit: Yes Status: Chronic Plan: Anemia likely related to multiple myeloma in chemotherapy. Patient with iron and B12 deficiency. Continue iron and B12 supplementation Qualifiers: Anemia type: due to chronic kidney disease Chronic kidney disease stage: stage 3 (moderate) Qualified Code(s): N18.3 - Chronic kidney disease, stage 3 (moderate); D63.1 - Anemia in chronic kidney disease (3) CHF (congestive heart failure) Onset Date: 03/07/18 Current Visit: Yes Status: Chronic Plan: Patient with history of CHF. Ejection fraction 25%. IV fluids started. Will monitor closely. May need to restart Lasix. Qualifiers: Heart failure type: systolic Heart failure chronicity: acute on chronic Qualified Code(s): I50.23 - Acute on chronic systolic (congestive) heart failure (4) Diarrhea Onset Date: 03/07/18 Current Visit: Yes Status: Acute Plan: Suspect related to enteritis. Overall improved. Will continue with Levaquin and Flagyl. C diff culture negative. Blood culture positive likely contaminant. Will repeat blood culture. Continue physical therapy. (5) Lower back pain Onset Date: 03/07/18 Current Visit: Yes Status: Chronic Plan: CT lumbar spine shows severe lumbar spine degenerative changes with numerous levels of bony foraminal encroachment and borderline mild central spinal stenosis at L4-L5. An acute compression fracture chain seen. This is at the L5 region. Will continue with pain control medication. Continue physical therapy. Patient may require fentanyl patch. Qualifiers: Chronicity: acute Back pain laterality: midline Sciatica presence: unspecified whether sciatica present Qualified Code(s): M54.5 - Low back pain (6) Multiple myeloma Onset Date: 03/07/18 Current Visit: Yes Status: Chronic Plan: Patient has been getting chemotherapy. Will discuss with his oncologist to further assess his condition. Hematology/oncology will assess further. Qualifiers: Multiple myeloma remission status: unspecified Qualified Code(s): C90.00 - Multiple myeloma not having achieved remission (7) Coronary artery disease Onset Date: 08/01/16 Current Visit: No Status: Chronic Plan: Troponin elevated. No intervention recommended at this time due to sepsis. Qualifiers: Coronary Disease-Associated Artery/Lesion type: bypass graft, autologous vein Associated angina: without angina Qualified Code(s): I25.810 - Atherosclerosis of coronary artery bypass graft(s) without angina pectoris (8) Hyponatremia Current Visit: Yes Status: Acute Plan: Overall improved. Patient off IV fluids. (9) Hypomagnesemia Current Visit: Yes Status: Acute Plan: Will monitor and replace appropriately. Patient protocol in place. (10) Thrombocytopenia Current Visit: Yes Status: Acute Plan: Likely from inflammation and sepsis. Case discussed with hematology. (11) Hypertension Current Visit: Yes Status: Chronic Plan: Blood pressure slightly increased today. Will start low-dose beta-selam therapy. Will continue to monitor and adjust appropriately. Qualifiers: Hypertension type: essential hypertension Qualified Code(s): I10 - Essential (primary) hypertension (12) Hyperlipidemia Current Visit: Yes Status: Chronic Plan: Will hold his medication at this time Qualifiers: Hyperlipidemia type: unspecified Qualified Code(s): E78.5 - Hyperlipidemia , unspecified (13) Enteritis Current Visit: Yes Status: Acute Plan: Continue with Levaquin and Flagyl. Improved overall. Continue IV fluids. C diff culture negative. Blood culture 1 out a 1 positive likely a contaminant. (14) Bacteremia Current Visit: Yes Status: Suspected Plan: 1 out of 1 blood culture positive likely contaminant. Will repeat blood culture. Will monitor closely. Overall patient improved. (15) Hallucination Current Visit: Yes Status: Acute Plan: Likely from Zanaflex. Zanaflex has been discontinued. Will monitor closely. (16) Lumbar compression fracture Current Visit: Yes Status: Acute Plan: Compression fracture noted. Will discuss with family about starting fentanyl patch. Qualifiers: Encounter type: initial encounter Lumbar vertebra fracture level: L5 (17) Spinal stenosis Current Visit: Yes Status: Chronic Plan: Lumbar spinal stenosis noted. Will discuss with family about pain control medication. Qualifiers: Spinal region: lumbar Discharge Plan: Home Plan to discharge in: 48 Hours Time Spent Managing Pts Care (In Minutes): 55
[2018-03-11] MEDS: FENTANYL 25 MCG/PATCH TD SCH (15:51)
[2018-03-11] MEDS: LACTULOSE 20 GM/30 ML UCUP PO SCH ×2 (16:41→21:10)
[2018-03-11] MEDS: ENOXAPARIN 30 MG/0.3 ML SQ SCH (16:46)
--- NOTE | 2018-03-11 19:36 | PN ---
Date of Progress Note: 03/08/2018 The patient was admitted on 03/07/[address] Machuca. He has a history of CABG, back pain s econdary to multiple myeloma. Negative for cardiac workup in February 2016, but an echo yesterday on showed an ejection fraction of 25% with new onset. He has platelet count of 34, creatinine o f 2.6, hemoglobin of 8.9. I think he needs to be started on Coreg and Lasix, and he is not really a good candidate for APRIL inhibitors at this point. He can go home whenever it is okay with Dr. Alyse townsend and Dr. Larson. We would like to see him in the office as an outpatient. Many issues that are sti ll unresolved, especially as far as the creatinine is concerned, his platelets and hemoglobin are pro bably secondary to his chemotherapy from multiple myeloma. MEG/NICHOLAS Voice ID: [id number] Report ID: [id number]
[2018-03-11] MEDS: DOCUSATE NA 100 MG CAP PO SCH (21:09)
[2018-03-11] MEDS: ROSUVASTATIN 10 MG TAB PO SCH (21:09)
[2018-03-12] MEDS ORDERED: POLYETHYL GLY 3350 17 GM/DOSE PO ONE (03:49)
--- NOTE | 2018-03-12 03:49 | PN ---
Date of Progress Note: 03/11/2018 Chief Complaint: Acute kidney injury. History Of Present Illness: Acute kidney injury, nonoliguric, moderately severe, associated with pre renal azotemia, nonoliguric ATN. Renal function has been improving gradually. BUN today 36, creatin ine 1.30. Hypophosphatemia. The patient was found to have a phosphorus of 1.3 today. Review of Systems: Unobtainable. The patient is lethargic. Denies complaints. Physical Examination: LUNGS: Clear to auscultation bilaterally. HEART: S1, S2. ABDOMEN: Soft, benign. EXTREMITIES: Minimal ankle edema bilaterally. Laboratory Data: Sodium 136, potassium 4.2, chloride 105, CO2 24, and BUN is 36, creatinine 1.30, gl ucose is 129, calcium 8.6, phosphorus 1.3, and magnesium 2.2. Impression And Plan: 1.Acute kidney injury, in recovery phase. Monitor electrolytes. Adjust electrolyte replacement. 2.Phosphorus level is on low side. Replacement with IV potassium phosphate ordered. 3.Altered mental status. Workup per primary team. 4.Hypertension. Blood pressure controlled. Continue current treatment. EB/MODL Voice ID: [id number] Report ID: [id number]
[2018-03-12] MEDS: CARVEDILOL 3.125 MG TAB PO SCH ×2 (05:21→17:30)
[2018-03-12 06:28] LABS: Absolute Lymphocytes (CBC) 0.4 K/uL (0.7-4.9); Absolute Monocytes 0.7 K/uL (0.1-1.3); Absolute Neutrophil 8.5 K/uL (1.8-8.0); Basophils % 0.1 % (0-1.3); Hematocrit 27.3 % (39.6-49.0); Lymphocytes % 4.2 % (15.3-44.8); MCH 34.6 pg (27.0-35.0); MCV 100.7 fL (80-100); MPV 11.7 fL (7.6-11.3); Monocytes % 7.5 % (3.3-12.3); RBC Red Blood Cell Count 2.71 M/uL (4.33-5.43)
[2018-03-12 06:42] LABS: Albumin 3.1 g/dL (3.4-5.0); Magnesium 2.4 mg/dL (1.8-2.4); Phosphorus 2.1 mg/dL (2.5-4.9)
[2018-03-12 07:27] LABS: Anisocytosis 1+; Blood Morphology Comment NOTED (NOT SEEN); Platelet Estimate DECR; Platelets, Giant FEW; Poikilocytosis 2+; Target Cells 1+; Urine White Blood Cell Casts OK
[2018-03-12] MEDS ORDERED: NACHLORIDE 0.45% 1,000 ML IV SCH (08:00)
[2018-03-12] MEDS: HYDROCODONE/APAP 7.5/325 MG TAB PO PRN (08:01)
[2018-03-12] MEDS ORDERED: LACTULOSE 20 GM/30 ML UCUP PO PRN (08:43)
[2018-03-12] MEDS: CLOPIDOGREL 75 MG TABLET PO SCH (11:00)
[2018-03-12] MEDS: MULTIVIT W/ MINERAL TAB PO SCH (11:00)
[2018-03-12] MEDS: metroNIDAZOLE 500 MG TABLET PO SCH ×3 (11:00→21:30)
[2018-03-12] MEDS: FERROUS SULFATE 325 MG TAB PO SCH (11:00)
[2018-03-12] MEDS: levoFLOXacin 250 MG TAB PO SCH (11:00)
[2018-03-12] MEDS: CYANOCOBALAMIN 1,000 MCG TAB PO SCH (11:00)
[2018-03-12] MEDS: LIDOCAINE 5% PATCH TOP SCH (11:01)
[2018-03-12] MEDS: ASPIRIN EC 81 MG TAB PO SCH (11:01)
[2018-03-12] MEDS: FINASTERIDE 5 MG TAB PO SCH (11:01)
--- NOTE | 2018-03-12 11:16 | P.PN ---
Subjective Date of Service: 03/12/18 Primary Care Provider: Dr. Soria([place], [place]); Cardiology-Dr. Baker; Oncology-Dr. Velasquez Chief Complaint: intractable back pain Subjective: Other (Patient with poor oral intake. Pain seems to be slightly better controlled with fentanyl patch. Patient now with some constipation. Pain with movement. Some hallucinations still present.) Physical Examination - Vital Signs Temperature: 98.3 F Blood Pressure: 147/80 Pulse: 99 Respirations: 20 Pulse Ox (%): 96 - Physical Exam General: Alert, Cooperative, Other (Patient with some hallucinations.) HEENT: Atraumatic Neck: Supple Respiratory: Clear to auscultation bilaterally, Normal air movement Cardiovascular: Normal pulses, Regular rate/rhythm Gastrointestinal: Normal bowel sounds, Soft and benign, No tenderness, No masses , No rebound, No guarding, Distended (Minimal distention) Musculoskeletal: No erythema, No warmth, Tenderness (Pain to the lower lumbar region. Patient able to move lower extremities. No numbness) Neurological: Normal speech, Normal strength at 5/5 x4 extr, Normal tone, Other (Mild hallucinations noted.) - Studies Medications List Reviewed: Yes Assessment & Plan - Problems (Diagnosis) (1) Acute kidney injury superimposed on CKD Onset Date: 03/07/18 Current Visit: Yes Status: Acute Plan: Renal function worse today. IV fluids were held yesterday. Will need to restart IV fluids. Patient not getting adequate oral intake. Patient still with pain to the lower lumbar region. Patient appears to have L5 compression fracture with significant degenerative changes noted. Patient now with fentanyl patch. Patient using increasing pain medication. X-rays and CT scan reviewed with radiology. Significant changes noted lumbar spine. Will order MRI of the lumbar spine to further assess. Will have neurology consulted to further assess as the patient is being evaluated by inpatient rehab. Will need to consider surgical intervention by thoracic surgery if this is significant. Patient also having some hallucinations with recent muscle relaxer. This is slowly resolving. Multiple issues discuss with family. If surgery is required patient with multiple risk factors including chronic kidney disease, CHF with ejection fraction of 25%, multiple myeloma I will turn the service over to Dr. Pack tomorrow. I will go over the plan of care with her. (2) Anemia Onset Date: 03/07/18 Current Visit: Yes Status: Chronic Plan: Anemia likely related to multiple myeloma in chemotherapy. Patient with iron and B12 deficiency. Continue iron and B12 supplementation Qualifiers: Anemia type: due to chronic kidney disease Chronic kidney disease stage: stage 3 (moderate) Qualified Code(s): N18.3 - Chronic kidney disease, stage 3 (moderate); D63.1 - Anemia in chronic kidney disease (3) CHF (congestive heart failure) Onset Date: 03/07/18 Current Visit: Yes Status: Chronic Plan: Patient with history of CHF. Ejection fraction 25%. IV fluids restarted. Will monitor closely. Qualifiers: Heart failure type: systolic Heart failure chronicity: acute on chronic Qualified Code(s): I50.23 - Acute on chronic systolic (congestive) heart failure (4) Diarrhea Onset Date: 03/07/18 Current Visit: Yes Status: Acute Plan: Patient had diarrhea. Now with constipation likely related to and pain medication. Patient on Levaquin and Flagyl due to enteritis. C diff culture negative. Will continue to monitor closely. (5) Lower back pain Onset Date: 03/07/18 Current Visit: Yes Status: Chronic Plan: CT lumbar spine shows severe lumbar spine degenerative changes with numerous levels of bony foraminal encroachment and borderline mild central spinal stenosis at L4-L5. An acute compression fracture seen at L5 region. Pain medication adjusted. Patient now on fentanyl patch. Will need to limit pain medication due to constipation. Will have neurology assess pain. Case discussed with radiology. Will order MRI to further evaluate. Patient may require neurosurgery evaluation if MRI shows significant change. Will hold physical therapy at this time. Patient was being evaluated for inpatient rehab. Will need to consider other options if neurology deems otherwise. Qualifiers: Chronicity: acute Back pain laterality: midline Sciatica presence: unspecified whether sciatica present Qualified Code(s): M54.5 - Low back pain (6) Multiple myeloma Onset Date: 03/07/18 Current Visit: Yes Status: Chronic Plan: Patient has been getting chemotherapy. Will discuss with his oncologist to further assess his condition. Hematology/oncology will assess further. Will try to get a hold of his oncologist Qualifiers: Multiple myeloma remission status: unspecified Qualified Code(s): C90.00 - Multiple myeloma not having achieved remission (7) Coronary artery disease Onset Date: 08/01/16 Current Visit: No Status: Chronic Plan: Troponin elevated. No intervention recommended at this time due to sepsis. Qualifiers: Coronary Disease-Associated Artery/Lesion type: bypass graft, autologous vein Associated angina: without angina Qualified Code(s): I25.810 - Atherosclerosis of coronary artery bypass graft(s) without angina pectoris (8) Hyponatremia Current Visit: Yes Status: Acute Plan: Overall improved. Patient off IV fluids. (9) Hypomagnesemia Current Visit: Yes Status: Acute Plan: Will monitor and replace appropriately. Patient protocol in place. (10) Thrombocytopenia Current Visit: Yes Status: Acute Plan: Likely from inflammation and sepsis. This has improved. Case discussed with hematology. (11) Hypertension Current Visit: Yes Status: Chronic Plan: Blood pressure slightly increased today. Will continue with medication. Will monitor and adjust appropriately. Qualifiers: Hypertension type: essential hypertension Qualified Code(s): I10 - Essential (primary) hypertension (12) Hyperlipidemia Current Visit: Yes Status: Chronic Plan: Will hold his medication at this time Qualifiers: Hyperlipidemia type: unspecified Qualified Code(s): E78.5 - Hyperlipidemia , unspecified (13) Enteritis Current Visit: Yes Status: Acute Plan: Continue with Levaquin and Flagyl. Improved overall. Continue IV fluids. C diff culture negative. Blood culture 1 out a 1 positive likely a contaminant. (14) Bacteremia Current Visit: Yes Status: Suspected Plan: 1 out of 1 blood culture positive likely contaminant. Will repeat blood culture. Will monitor closely. Overall patient improved. (15) Hallucination Current Visit: Yes Status: Acute Plan: Likely from Zanaflex. Zanaflex has been discontinued. Patient with mild hallucinations. Patient gain increased doses of pain medication due to L5 compression fracture and degenerative changes. Will try to limit pain medication. Continue as above. (16) Lumbar compression fracture Current Visit: Yes Status: Acute Plan: Compression fracture noted. Case discussed with radiology. Will consult neurology. Will order MRI. This was discussed in detail with family. Currently on fentanyl patch. Will try to get pain under control. Will hold physical therapy at this time. Qualifiers: Encounter type: initial encounter Lumbar vertebra fracture level: L5 (17) Spinal stenosis Current Visit: Yes Status: Chronic Plan: Lumbar spinal stenosis noted. Continue as above Qualifiers: Spinal region: lumbar (18) Constipation Current Visit: Yes Status: Acute Plan: Secondary to pain medication. Will monitor closely. Will limit pain medication. Will check [facility]. Qualifiers: Constipation type: drug induced constipation Qualified Code(s): K59.03 - Drug induced constipation Discharge Plan: Other ([facility] vs SNF vs other) Time Spent Managing Pts Care (In Minutes): 55
[2018-03-12] MEDS ORDERED: GABAPENTIN 300 MG CAP PO ONE (14:19)
[2018-03-12] MEDS: NA CHLORIDE 0.9% 1,000 ML IV SCH (14:25)
--- NOTE | 2018-03-12 16:26 | RAD REPORT ---
EXAM DESCRIPTION: MRI - Lumbar Spine Wo Karthikeyan - 03/12/2018 3:41 pm CLINICAL HISTORY: Back pain, L5 compression, degenerative joint disease, pain with ambulation, weakn ess with ambulation COMPARISON: CT lumbar spine March 07 TECHNIQUE: Sagittal T1-weighted, T2-weighted and T2-STIR weighted sequences were obtained. Axial T1 -weighted and heavily T2-weighted sequenceswere obtained through the lumbar disc levels. FINDINGS: Wedging of the posterior margin L5 noted similar to the CT study. There is no active marro w edema or marrow replacing process at this level. L5 pars defects with grade 1 spondylolisthesis not ed. T11-L4 bodies are normal in height. Scattered fatty marrow degenerative changes are present. No aggre ssive or active marrow replacing process identifiable. No paraspinal soft tissue mass. Conus is normal with no clumping or thickening of the cauda equina. T12-L1 level: Disc is hyperintense on T2/T2 STIR sequencing. There is a prominent bulging of disc mat erial across the central canal and into each exit foramen. The protruding disc material does not show the same degree of T2 hyperintensity. No abnormal signal in the adjacent vertebrae. No clear disrupt ion or destruction of the endplates. No paraspinal soft tissue component. Mild bilateral foraminal st enosis. No central spinal stenosis. Midline canal is 11 mm. L1-2 level: Disc is thinned and desiccated. Bulging of disc material is seen across the central canal and into each exit foramen. Moderate right-sided and mild left-sided foraminal stenosis. Midline can al diameter is 10 mm. Facet degenerative changes are present. L2-3 level: Disc is desiccated with slight loss in disc height. Prominent bulging of disc material is seen along with endplate spurring. This is seen across the central canal and into each exit foramen. Moderate left-side and advanced right-sided foraminal stenosis seen. Mild ligamentous thickening see n along with facet degenerative change. Midline canal diameter is 9 mm. L3-4 level: Disc is desiccated with slight loss in disc height. Prominent disc bulge and endplate spu rring changes extend across the central canal and into each exit foramen. No central spinal stenosis. Mild right side an advanced left-side foraminal stenosis. L4-5 level: Disc is thinned and desiccated. Disc bulge and endplate spurring changes are present. Can al is 10 mm in the midline. Facet degenerative change and ligamentous thickening are present. Advance d left-side and moderate right-sided foraminal stenosis. L5-S1 level: Hyperintense signal is present in the narrowed disc space. No suspicious marrow edema in the adjacent vertebrae and no destruction of the endplates confirmed. There is a large pseudo bulge of disc material created by the L5 subluxation. There is significant bony hypertrophy of the facet chari ints along with ligamentous thickening. This is most pronounced medial margin left facet. Very signif icant central spinal stenosis is seen down to 6-7 mm. The patient has severe right-side and moderatel y severe left-sided foraminal stenosis. IMPRESSION: L5 spondylolysis with grade 1 spondylolisthesis. There is a large pseudo bulge created b y the subluxation that extends across the central canal and into each exit foramen. There is also prominent facet joint degenerative change at L5-S1 and ligamentous thickening. Pronounc ed bony hypertrophy seen medial margin left facet. Significant central spinal stenosis to 6 mm noted at this level. Extensive degenerative disc disease, spurring and facet degenerative changes are present throughout a ll of the lumbar spine as detailed. No significant central spinal stenosis present though there is mu ltilevel significant foraminal stenosis. T2 imaging shows hyperintense signal within the T12-L1 and L5-S1 disc spaces. Such increased signal c an be seen in the setting of discitis ; however, the patient lacks the adjacent vertebral edema, endp late destruction change and paraspinal component that is frequently associated with discitis. Likelih ood of discitis is felt to be relatively low at this time but may warrant ongoing imaging or correlat ion with any relevant lab studies.
--- NOTE | 2018-03-12 16:31 | RAD REPORT ---
EXAM DESCRIPTION: RAD - Abdomen 1 View ([facility]) - 03/12/2018 4:13 pm CLINICAL HISTORY: Abdominal pain, constipation COMPARISON: None. FINDINGS: There is present distending but not dilating the tortuous colon. Multiple nondilated air-f illed small bowel loops are present as well. No free air or pneumatosis. No suspicious calcifications seen. Contrast is present in the nondilated rectum. Phleboliths is seen along the pelvic floor. Degenerative and scoliotic changes to the spine are noted. IMPRESSION: Prominent air-filled large and small bowel without specific finding for a bowel obstruct ion. No free air or pneumatosis.
[2018-03-12] MEDS ORDERED: SIMETHICONE 80 MG TAB PO PRN (17:35)
[2018-03-12] MEDS: ENOXAPARIN 30 MG/0.3 ML SQ SCH (18:02)
[2018-03-12] MEDS: GABAPENTIN 300 MG CAP PO SCH (21:30)
[2018-03-12] MEDS: DOCUSATE NA 100 MG CAP PO SCH (21:30)
[2018-03-12] MEDS: ROSUVASTATIN 10 MG TAB PO SCH (21:30)
--- NOTE | 2018-03-13 00:48 | CON ---
Reason For Consultation: Consultation called by Dr. Larson because of lumbar compression fracture. History Of Present Illness: Mr. Angeles is an 82-year-old patient with multiple medical problems including coronary artery disease, status post coronary artery bypass grafting, chronic kidney disease and multiple myeloma, currently on chemotherapy, which was last done on the 02 of March, today is the 12 of March. Per the patient, his son and [id number], he was able to ambulate and do well in the yard work by pulling some cables and various things in his yard up to about a week and a half ago, then developed progressive pain in the lower back and actually was found at one point to have apparently slid out of a chair and might have injured his back. At [facility], imaging of the lower back on the was done and it showed an acute compression fracture at the L5 body and there was some small round lucency at that area, which was doubtful as to representing multiple myeloma or metastases. Subsequent MRI of the lumbar spine did not show evidence of any metastasis, but did show multilevel degenerative disk disease and spurring. There was a large pseudo bulge created at the L5 subluxation, which extended across the canal to each foramen and the canal was narrowed down to about 6 mm and there was prominent bony hypertrophy at that level. Also at the L4-5 level , is advanced left-sided and moderate right-sided foraminal stenosis at the L4- 5. At the L3-4 level, there is mild right-sided and advanced left-sided foraminal stenosis. The patient was able to ambulate about 250 feet last Monday , but since this weekend has developed some more pain and has only been able to get out of bed and get to a chair right beside a bed that is covering about 2 feet and he got to a bedside commode as well and has had significant lower back pain, treated by a fentanyl patch, which has caused him to be somewhat sedated and also developed significant constipation. The patient denies any acute changes such as focal weakness or numbness in his face, his arm or his leg. Past Medical History: As indicated above including the coronary artery disease , prior stroke, hypertension, multiple myeloma. Past Surgical History: Coronary artery bypass grafting for 4 vessels, coronary artery stents, left knee replacement. Allergies: NO KNOWN DRUG ALLERGIES. Medications At Home: Tylenol Extra Strength 1000 mg every 8 hours as needed, aspirin 81 mg daily, carvedilol 1 tablet twice daily, vitamin D daily, Plavix 75 mg daily, Deltasone 40 mg every 7 days, dutasteride and tamsulosin 0.5-0.4 one tab daily, Prevacid 1 daily, losartan hydrochlorothiazide 100/12.5 daily, Nitrostat 1 sublingual as needed, Crestor daily, Tylenol No. 3 one every 6 hours as needed, Levaquin 200 mg daily. Family History: Father had cancer, mother had heart disease. Social History: No alcohol, tobacco, or IV drug use. Does use caffeinated beverages. Review of Systems: The patient denies any recent fevers or chills, nausea, or vomiting. No focal deficits. No myalgias or arthralgias. No rash, headache, weight change. Physical Examination: Vital Signs: Blood pressure 138/68, pulse 66, respiratory rate 18, temperature 97.8, oxygen saturation 94%. Weight 188 pounds. Height 5 feet 7 inches. General: Mr. Angeles is resting in bed. He is in, at the time of my evaluation , some pain, raging up to about 8/10. However, once he sat up, the pain was 0/ 10. It is in his lower back pain. HEENT: Otherwise normocephalic, atraumatic. His sclerae are anicteric. Oropharynx is moist and pink. Neck: Supple. Chest: Clear. Heart: Regular. Extremities: Show no edema or cyanosis. There are some venous stasis changes of his legs. Neuro: In terms of his language, he has no expressive or receptive aphasias. He is somewhat sleepy but is easily aroused and is oriented to person and situation. Follows commands appropriately. Cranial nerves show no deficits on 2 through 12. Motor in the upper extremities has no deficits in terms of weakness, in the lower extremity he has give-way because of pain in the lower extremities, but his foot dorsi and plantar flexion are at least 4+ out of 5 bilaterally. Knee extension and flexion at least 4+ out of 5 bilaterally. Sensory Exam: He has a stocking-glove loss to light touch temperature in the arms and legs. Reflexes are 0 at the patella and heels and in the upper extremities. Coordination in the upper extremities is intact. The patient has significant pain with ambulation and his will be ambulated with physical therapy. Laboratory Studies: Complete blood count with differential show white blood cell count 9.7, hemoglobin 9.4, hematocrit 27.3, platelets 83, INR 1.24. Chemistries; sodium 135, potassium 4.0, chloride 104, carbon dioxide 25, BUN 42 , creatinine 1.7, albumin 3.1, with vitamin D level of 57.8 three days ago. Procalcitonin was elevated to 4.25. His KUB shows prominent air filled large and small bowel without specific findings of obstruction. Assessment: Mr. Angeles is an 82-year-old patient with extensive lumbar degenerative disk disease and multilevel nerve root compression in the lower back producing radiculopathy and symptoms in the lower extremities. The CT scan of the lumbar spine did show an acute fracture at L5; however, it has not been reported in the lumbar MRI. The patient does have significant pain as he attempts to ambulate, but he should be able to ambulate and do physical therapy with pain management and also at some point be evaluated by Neurosurgery for possible intervention. He may also benefit from pain management and site injections to the lumbar region. Plan: 1. Continue with medications for stroke risk reduction including aspirin, Plavix, and high-dose statin along with management of blood pressure. 2. May use gabapentin to decrease the need for narcotics with goal of 600 mg twice daily, start off with 300 mg twice daily. 3. Continue his Levaquin per primary team. 4. Continue with Lovenox for DVT prophylaxis. 5. The patient again should have Physical Therapy ambulate him and determine if he is a candidate for inpatient rehabilitation to be able to withstand up to 3 hours of physical and occupational therapy daily. TO/NICHOLAS Voice ID: [id number] Report ID: [id number] LOUIS
[2018-03-13] MEDS: NA CHLORIDE 0.9% 1,000 ML IV SCH ×3 (02:20→21:22)
--- NOTE | 2018-03-13 03:56 | PN ---
Date of Progress Note: 03/12/2018 Chief Complaint: Acute kidney injury, nonoliguric. History Of Present Illness: Renal function has declined since yesterday. The patient has prerenal azotemia, acute tubular necrosis, nonoliguric. IV fluids were resumed for control of volemia and to prevent renal hypoperfusion to treat acute kidney injury. Review of Systems: The patient denies headaches, although he is complaining of back pain. Physical Examination: Lungs: Clear to auscultation bilaterally. Heart: S1, S2. Abdomen: Soft, benign. Extremities: Minimal ankle edema. Laboratory Data: Hemoglobin 9.4, WBC 9.7, platelet count is 83,000. Chemistries show sodium 135, potassium 4.0, chloride 104, CO2 25, BUN 42, creatinine 1.7, phosphorus 2.1, magnesium 2.4, calcium 9.1. Impression: 1. Acute on chronic kidney injury. Resume IV normal saline. 2. Hypophosphatemia, replacement with Neutra-Phos as needed. 3. Monitor magnesium level. 4. Hyponatremia, borderline. Continue normal saline for hydration. 5. Hypertension. APRIL inhibitor on hold because of acute kidney injury. I spent total 36 min including 26 min to coordinate care plan. JOMAR/NICHOLAS Voice ID: [id number] Report ID: [id number] MTDD
[2018-03-13] MEDS: CARVEDILOL 3.125 MG TAB PO SCH ×2 (05:20→17:57)
[2018-03-13] MEDS: levoFLOXacin 250 MG TAB PO SCH (08:52)
[2018-03-13] MEDS: CYANOCOBALAMIN 1,000 MCG TAB PO SCH (08:52)
[2018-03-13] MEDS: FERROUS SULFATE 325 MG TAB PO SCH (08:53)
[2018-03-13] MEDS: FINASTERIDE 5 MG TAB PO SCH (08:53)
[2018-03-13] MEDS: GABAPENTIN 300 MG CAP PO SCH ×2 (08:53→21:17)
[2018-03-13] MEDS: LIDOCAINE 5% PATCH TOP SCH (08:53)
[2018-03-13] MEDS: MULTIVIT W/ MINERAL TAB PO SCH (08:53)
[2018-03-13] MEDS: metroNIDAZOLE 500 MG TABLET PO SCH ×3 (08:53→21:17)
[2018-03-13] MEDS: ASPIRIN EC 81 MG TAB PO SCH (08:53)
[2018-03-13] MEDS: CLOPIDOGREL 75 MG TABLET PO SCH (08:53)
[2018-03-13] MEDS: ENOXAPARIN 30 MG/0.3 ML SQ SCH (17:58)
--- NOTE | 2018-03-13 18:22 | P.PN ---
Subjective Date of Service: 03/13/18 Primary Care Provider: Dr. Soria([place], [place]); Cardiology-Dr. Baker; Oncology-Dr. Velasquez Chief Complaint: intractable back pain Subjective: No new changes, Ambulating, Improving, Working w/ PT, Doing well Review of Systems General: As per HPI Physical Examination - Vital Signs Temperature: 98.2 F Blood Pressure: 161/83 Pulse: 85 Respirations: 18 Pulse Ox (%): 95 - Physical Exam General: Alert, In no apparent distress HEENT: Atraumatic, PERRLA, EOMI Neck: Supple, JVD not distended Respiratory: Clear to auscultation bilaterally, Normal air movement Cardiovascular: Regular rate/rhythm, Normal S1 S2 Gastrointestinal: Normal bowel sounds, No tenderness Musculoskeletal: No tenderness Integumentary: No rashes Neurological: Normal speech, Normal tone, Normal affect Lymphatics: No axilla or inguinal lymphadenopathy - Studies Medications List Reviewed: Yes Assessment & Plan - Problems (Diagnosis) (1) Acute kidney injury superimposed on CKD Onset Date: 03/07/18 Current Visit: Yes Status: Acute Plan: Acute kidney injury on chronic kidney disease. Most likely secondary to hypovolemia. -IV fluids at this time. Patient does have a history of CHF with ejection fraction 25%. Thus will monitor patient closely. If there is signs and symptoms of volume overload. Will Dc fluids at that time. Nephrology consulted appreciated recommendations as well. (2) Enteritis Current Visit: Yes Status: Acute Plan: Patient with diarrheal episodes. Currently improving slowly. Currently on Levaquin and Flagyl. C. diff cultures negative at this time. (3) Lumbar compression fracture Current Visit: Yes Status: Acute Plan: Patient with lumbar compression fracture on the CT. MRI with low probability of compression fracture. However consistent with spinal stenosis. Patient with increased lower back pain. Will need to be monitored closely. Pain management at this time. Physical therapy as well. Patient to be transferred to inpatient rehab for further rehab needs. Once accepted at inpatient rehab. Qualifiers: Encounter type: initial encounter Lumbar vertebra fracture level: L5 (4) Anemia Onset Date: 03/07/18 Current Visit: Yes Status: Chronic Qualifiers: Anemia type: due to chronic kidney disease Chronic kidney disease stage: stage 3 (moderate) Qualified Code(s): N18.3 - Chronic kidney disease, stage 3 (moderate); D63.1 - Anemia in chronic kidney disease (5) CHF (congestive heart failure) Onset Date: 03/07/18 Current Visit: Yes Status: Chronic Qualifiers: Heart failure type: systolic Heart failure chronicity: acute on chronic Qualified Code(s): I50.23 - Acute on chronic systolic (congestive) heart failure (6) Hyperlipidemia Current Visit: Yes Status: Chronic Qualifiers: Hyperlipidemia type: unspecified Qualified Code(s): E78.5 - Hyperlipidemia , unspecified (7) Hypertension Current Visit: Yes Status: Chronic Qualifiers: Hypertension type: essential hypertension Qualified Code(s): I10 - Essential (primary) hypertension (8) Multiple myeloma Onset Date: 03/07/18 Current Visit: Yes Status: Chronic Qualifiers: Multiple myeloma remission status: unspecified Qualified Code(s): C90.00 - Multiple myeloma not having achieved remission (9) History of coronary artery bypass graft Current Visit: No Status: Chronic (10) Coronary artery disease Onset Date: 08/01/16 Current Visit: No Status: Chronic Qualifiers: Coronary Disease-Associated Artery/Lesion type: bypass graft, autologous vein Associated angina: without angina Qualified Code(s): I25.810 - Atherosclerosis of coronary artery bypass graft(s) without angina pectoris Discharge Plan: Other Plan to discharge in: 24 Hours - Code Status/Comfort Care Code Status Assessed: Yes Critical Care: No
[2018-03-13] MEDS: DOCUSATE NA 100 MG CAP PO SCH (21:17)
[2018-03-13] MEDS ORDERED: levoFLOXacin 500 MG TAB PO ONE ×2 (23:00)
--- NOTE | 2018-03-13 23:04 | PN ---
Date of Progress Note: 03/13/2018 Subjective: The patient is still slightly confused but better than before. Objective: Vital Signs: Blood pressure of 132/78, pulse of 92, afebrile. Chest: Clear to auscultation. Heart: S1, S2. Regular. Abdomen: Soft nontender. Extremities: No edema. Laboratory Data: H and H 9.4/27.3. Sodium 135, potassium 4, bicarb 25, BUN 42, creatinine 1.7, calc ium 9.1, phosphorus 2.1, magnesium 2.4. Medications: Current medications the patient on include; 1.Aspirin. 2.Levaquin 250. 3.Metronidazole 500. 4.Plavix. 5.Carvedilol 3.25. 6.Tylenol. 7.Ventolin. 8.Gabapentin 600 b.i.d. Assessment And Plan: 1.Acute kidney injury secondary to prerenal, recovered, resolved back to close to baseline. We will continue to monitor on hydration. 2.Hypertension, controlled, optimal. Continue current medication. 3.Thrombocytopenia, secondary to sepsis, recovered, plateaued. Currently, we will follow up with He matology. 4.Colitis. Continue current antibiotic. I am going to go ahead and adjust the Levaquin to 500 giving the improvement in the kidney function. MELO/NICHOLAS Voice ID: [id number] Report ID: [id number]
[2018-03-14] MEDS: NA CHLORIDE 0.9% 1,000 ML IV SCH (05:00)
[2018-03-14] MEDS: CARVEDILOL 3.125 MG TAB PO SCH (05:50)
[2018-03-14 06:06] VITALS: BMI 31.1
[2018-03-14] MEDS: LIDOCAINE 5% PATCH TOP SCH (08:57)
[2018-03-14] MEDS: FERROUS SULFATE 325 MG TAB PO SCH (08:58)
[2018-03-14] MEDS: CYANOCOBALAMIN 1,000 MCG TAB PO SCH (08:58)
[2018-03-14] MEDS: CLOPIDOGREL 75 MG TABLET PO SCH (08:58)
[2018-03-14] MEDS: MULTIVIT W/ MINERAL TAB PO SCH (08:58)
[2018-03-14] MEDS: ASPIRIN EC 81 MG TAB PO SCH (08:59)
[2018-03-14] MEDS: metroNIDAZOLE 500 MG TABLET PO SCH (08:59)
[2018-03-14] MEDS: FINASTERIDE 5 MG TAB PO SCH (08:59)
[2018-03-14] MEDS ORDERED: levoFLOXacin 250 MG TAB PO SCH (09:00)
[2018-03-14] MEDS: FENTANYL 25 MCG/PATCH TD SCH (09:00)
[2018-03-14] MEDS ORDERED: levoFLOXacin 500 MG TAB PO SCH (09:00)
[2018-03-14] MEDS: GABAPENTIN 300 MG CAP PO SCH (09:00)
[2018-03-14 10:00] VITALS: O2SAT 94
[2018-03-14 12:02] VITALS: BP 129/84; TEMP 102.1
--- NOTE | 2018-03-14 13:27 | PN ---
Date of Progress Note: 03/14/2018 Subjective: The patient doing well, more awake today. Physical Examination: Vital Signs: Blood pressure 130/75, pulse of 74, T-max 100.1. Chest: Crackles in the base. Heart: S1, S2. Regular. Abdomen: Soft nontender. Extremities: Trace edema. Laboratory Data: H and H 9.4/27.3. Sodium 135, potassium 4, bicarb 25, BUN 42, creatinine 1.7. Faustino cium 9.1. Phosphor 2.1. Medications: Current medications the patient on include, 1.Metronidazole. 2.Levaquin. 3.Plavix. 4.Ferrous sulfate. 5.Carvedilol 3.25. 6.Atorvastatin. 7.Fentanyl. 8.Gabapentin. 9.Normal saline at 75. 10.Multivitamin. Assessment And Plan: 1.Acute kidney injury secondary to prerenal, recovered, resolved. I am going to go ahead and discon tinue IV fluid. 2.Colitis. Continue current antibiotic. Increase his Levaquin to 500. 3.Thrombocytopenia as by primary. 4.Hypokalemia, resolved. 5.Deconditioning, continue PT/OT. MELO/MODL Voice ID: [id number] Report ID: [id number]
--- NOTE | 2018-03-14 14:42 | P.DS ---
Admission Date: 03/07/18 Discharge Date: 03/14/18 Primary Care Provider: Dr. Soria([place], [place]); Cardiology-Dr. Baker; Oncology-Dr. Velasquez Disposition: TRANSFER TO INPATIENT REHAB Discharge Condition: GOOD Reason for Admission: intractable back pain Consultations: Cardiology Nephrology - Problems (1) Acute kidney injury superimposed on CKD Onset Date: 03/07/18 Status: Acute (2) Enteritis Status: Acute (3) Lumbar compression fracture Status: Ruled-out Qualifiers: Encounter type: initial encounter Lumbar vertebra fracture level: L5 (4) Anemia Onset Date: 03/07/18 Status: Chronic Qualifiers: Anemia type: due to chronic kidney disease Chronic kidney disease stage: stage 3 (moderate) Qualified Code(s): N18.3 - Chronic kidney disease, stage 3 (moderate); D63.1 - Anemia in chronic kidney disease (5) CHF (congestive heart failure) Onset Date: 03/07/18 Status: Chronic Qualifiers: Heart failure type: systolic Heart failure chronicity: acute on chronic Qualified Code(s): I50.23 - Acute on chronic systolic (congestive) heart failure (6) Hyperlipidemia Status: Chronic Qualifiers: Hyperlipidemia type: unspecified Qualified Code(s): E78.5 - Hyperlipidemia , unspecified (7) Hypertension Status: Chronic Qualifiers: Hypertension type: essential hypertension Qualified Code(s): I10 - Essential (primary) hypertension (8) Multiple myeloma Onset Date: 03/07/18 Status: Chronic Qualifiers: Multiple myeloma remission status: unspecified Qualified Code(s): C90.00 - Multiple myeloma not having achieved remission (9) History of coronary artery bypass graft Status: Chronic (10) Coronary artery disease Onset Date: 08/01/16 Status: Chronic Qualifiers: Coronary Disease-Associated Artery/Lesion type: bypass graft, autologous vein Associated angina: without angina Qualified Code(s): I25.810 - Atherosclerosis of coronary artery bypass graft(s) without angina pectoris Brief History of Present Illness: Mr Angeles is an 82 years old male with history of CKD, CAD s/p CABG, multiple myeloma on chemotherapy treatment, last time 5 days ago. Came to ED complaining of severe back pain. He also has had diarrhea since last chemotherapy. The patient also has had progressive SOB lately. He denied fever, but had some chills in context of his back pain. He states that he has some recurrent back pain, but at this time, he is unable to stand up from the bed or ambulate. Lab work was remarkable for hyponatremia 128, Creanitine is 2.6, more elevated than usual. His BNP is elevated as well, CXR has venous congestion consistent with CHF. Trop I it is also elevated, however, the patient has not had chest pain. EKG shows SR at 86 bpm, with non-specific intraventricular conduction delay. Hospital Course: Overall during the hospital stay patient main stable Patient was initially admitted to the hospital for acute lower back pain along with diarrhea nausea vomiting and shortness of breath that started after he received his chemotherapy for his multiple myeloma. For patient's acute lower back pain CT of the abdomen and pelvis was done MRI of lower back was also done. Initially patient has concerned for compression fractures of the lumbar spine however with the MRI compression fracture of the lumbar spine was ruled out. Patient has severe muscle stiffness which could be used relating to his lower back pain and making his back pain worse. Neurology was consulted who recommended the patient be worked with physical therapy and we transfer to inpatient rehab for further care. For patient's abdominal pain diarrhea nausea vomiting patient had again abdominal CT done which was consistent with enteritis. Patient was started on IV antibiotics here in the hospital with Levaquin and Flagyl. Patient had improvement in his symptoms and thus was switched over to oral Levaquin and Flagyl here in the hospital. For patient's shortness of breath patient does have a history of congestive heart failure with ejection fraction of 25% cardiology was consulted who recommended the patient be continued on home medication and no further cardiac workup was required. Patient had marked improvement after taking Lasix and thus was switched to oral Lasix afterwards. Overall patient was doing well and was working with physical therapy until the last couple of days where patient became more lethargic due to pain medication which for hold and patient became more spots at working with physical therapy and thus was transferred to inpatient rehab once there was an acceptance from inpatient rehab. Vital Signs/Physical Exam: Temp Pulse Resp BP Pulse Ox 102.1 F H 90 18 129/84 92 03/14/18 12:00 03/14/18 12:00 03/14/18 12:00 03/14/18 12:03/14/18 12:00 General: Alert, In no apparent distress, Oriented x3 HEENT: Atraumatic Neck: Supple, JVD not distended Respiratory: Clear to auscultation bilaterally, Normal air movement Cardiovascular: Regular rate/rhythm, Normal S1 S2 Gastrointestinal: Normal bowel sounds, No tenderness Musculoskeletal: No tenderness Integumentary: No rashes Neurological: Normal speech, Normal tone, Normal affect Lymphatics: No axilla or inguinal lymphadenopathy Laboratory Data at Discharge: WBC 9.7 K/uL (4.3-10.9) D 03/12/18 05:48 Hgb 9.4 g/dL (13.6-17.9) L 03/12/18 05:48 Hct 27.3 % (39.6-49.0) L 03/12/18 05:48 Plt Count 83 K/uL (152-406) L D 03/12/18 05:48 PT 14.7 SECONDS (9.5-12.5) H 03/08/18 12:48 INR 1.24 03/08/18 12:48 APTT 23.7 SECONDS (24.3-36.9) L 03/08/18 12:48 Sodium 135 mmol/L (136-145) L 03/12/18 05:48 Potassium 4.0 mmol/L (3.5-5.1) 03/12/18 05:48 BUN 42 mg/dL (7-18) H 03/12/18 05:48 Creatinine 1.70 mg/dL (0.55-1.3) H 03/12/18 05:48 Glucose 165 mg/dL (74-106) H 03/12/18 05:48 Phosphorus 2.1 mg/dL (2.5-4.9) L D 03/12/18 05:48 Magnesium 2.4 mg/dL (1.8-2.4) 03/12/18 05:48 Total Bilirubin 0.7 mg/dL (0.2-1.0) 03/07/18 00:15 AST 31 U/L (15-37) 03/07/18 00:15 ALT 21 U/L (12-78) 03/07/18 00:15 Alkaline Phosphatase 38 U/L (45-117) L 03/07/18 00:15 Troponin I 1.10 ng/mL (0.0-0.045) H* 03/07/18 13:00 Amylase 76 U/L (25-115) 03/07/18 00:15 Lipase 174 U/L (73-393) 03/07/18 00:15 Home Medications: Acetaminophen [Tylenol Extra Strength] 2 tab PO Q8H PRN 03/07/18 Aspirin [Aspirin EC 81 MG] 81 mg PO DAILY 03/07/18 Benzonatate [Tessalon Perle*] 100 mg PO TID PRN 03/07/18 Bismuth Subsalicylate [Maalox] 15 ml PO PRN PRN 03/07/18 Cetirizine HCl [Zyrtec*] 5 mg PO DAILY 03/07/18 Cholecalciferol (Vitamin D3) [Vitamin D3] 2,000 unit PO DAILY 03/07/18 Clopidogrel Bisulfate [Plavix*] 75 mg PO DAILY 03/07/18 Docusate Sodium 100 mg PO BEDTIME 03/07/18 Fenofibrate Nanocrystallized [Fenofibrate] 145 mg PO BEDTIME 03/07/18 Finasteride 5 mg PO DAILY 03/07/18 Lansoprazole 15 mg PO DAILY 03/07/18 Multivit-Min/FA/Lycopen/Lutein [Centrum Silver Tablet] 1 each PO DAILY 03/07/18 Nitroglycerin [Nitrostat*] 0.4 mg SL PRN PRN 03/07/18 Rosuvastatin Calcium [Crestor] 40 mg PO SEECOM 03/07/18 Carvedilol [Coreg*] 3.125 mg PO BID 6AM 6PM #60 tab 03/13/18 levoFLOXacin [Levaquin*] 250 mg PO DAILY #7 tab 03/13/18 metroNIDAZOLE [Flagyl*] 500 mg PO TID #28 tablet 03/13/18 New Medications: Carvedilol [Coreg*] 3.125 mg PO BID 6AM 6PM #60 tab levoFLOXacin [Levaquin*] 250 mg PO DAILY #7 tab metroNIDAZOLE [Flagyl*] 500 mg PO TID #28 tablet Diet: Regular Activity: Ad feliberto
[2018-03-15] MEDS ORDERED: FENTANYL 25 MCG/PATCH TD SCH (09:00)
[2018-03-15] MEDS ORDERED: levoFLOXacin 500 MG TAB PO SCH (09:00)
== END 2018-03-14 13:04 | DRG 682 ==
LOC: ER 23:33 → ERHOLD 03-07 02:02 → 4TH 03-07 04:23 → OBSVTOIN 03-07 15:55
PROVIDERS: ADMIT Internal Medicine; ATTEND Family Medicine
DX: N17.9 Acute kidney failure, unspecified (principal); I50.23 Acute on chronic systolic (congestive) heart failure; C90.00 Multiple myeloma not having achieved remission; I13.0 Hypertensive heart and chronic kidney disease with heart failure and stage 1 through stage 4 chronic kidney disease, or unspecified chronic kidney disease; E87.1 Hypo-osmolality and hyponatremia; R44.3 Hallucinations, unspecified; I25.10 Atherosclerotic heart disease of native coronary artery without angina pectoris; Z95.1 Presence of aortocoronary bypass graft; Z79.02 Long term (current) use of antithrombotics/antiplatelets; Z79.82 Long term (current) use of aspirin; Z95.5 Presence of coronary angioplasty implant and graft; Z86.73 Personal history of transient ischemic attack (TIA), and cerebral infarction without residual deficits; N18.3 Chronic kidney disease, stage 3 (moderate); R74.8 Abnormal levels of other serum enzymes; D63.1 Anemia in chronic kidney disease; E78.5 Hyperlipidemia, unspecified; K52.9 Noninfective gastroenteritis and colitis, unspecified; E83.42 Hypomagnesemia; D69.6 Thrombocytopenia, unspecified; E21.3 Hyperparathyroidism, unspecified; T42.8X5A Adverse effect of antiparkinsonism drugs and other central muscle-tone depressants, initial encounter; Y92.230 Patient room in hospital as the place of occurrence of the external cause; M48.061 Spinal stenosis, lumbar region without neurogenic claudication; M51.16 Intervertebral disc disorders with radiculopathy, lumbar region
CPT/HCPCS: 36415; 70360; 70450; 71045; 71046; 71250; 72131; 72148; 74018; 74176; 76770; 80048; 80069; 80074; 80076; 81003; 82150; 82306; 82550; 82553; 82570; 82607; 82728; 83010; 83540; 83615; 83690; 83735; 83880; 83970; 84145; 84156; 84439; 84443; 84466; 84484; 85025; 85384; 85610; 85730; 87040; 87045; 87046; 87205; 87493; 93005; 93306; 94760; 96360; 96361; 97163; 99285; G0378; J1650; J2270; J3475; J7030

== ENCOUNTER 2018-03-14 13:06 | Inpatient (IN) | payer OTHER ==
--- NOTE | 2018-03-13 17:14 | R.PREADM ---
SCREENING DATE AND TIME 03/13/2018 16:51 (CDT) ANTICIPATED REHAB ADMISSION DATE 03/15/2018 REFERRING FACILITY [facility] REFERRAL DATE AND TIME 03/13/2018 16:51 (CDT) REFERRAL ROOM# 430 ACUTE ADMIT DATE 03/07/2018 Previous Rehabilitation(s): No. 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 SHERIF HODGSON REHAB FACILITY [facility] CLINICAL LIAISON Mu Crawford PHYSICIAN REVIEWER Dr. Lance Kaur M.D. MR# [id number] NAME LUIS PALACIOS ADDRESS [id number] [place] [address] PH[address] [facility] [id number] DATE OF 1935 AGE 82 SSN# [id number] GENDER male MARITAL STATUS RACE white ADMIT FROM 02 - [facility] PRE-HOSPITAL LIVING SETTING 01 - Home (private home/apt. board/care, assisted living, chcf, transitional living) HOME TYPE AND DETAILS Type of home: single family house # of levels in the residence: 1 # of steps within the residence: 2 # of steps to enter the residence: 0 PRE-HOSPITAL LIVING WITH Alone FAMILY SUPPORT Yes PRIMARY FAMILY CONTACT NAME Iam Palacios PRIMARY FAMILY CONTACT PHONE PHONE PRIMARY FAMILY CONTACT ON ADM.? no IS PRIMARY FAMILY CONTACT AUTH. REP.? no 1ST EMERGENCY CONTACT Iam Palacios 1ST CONTACT PHONE PHONE 1ST CONTACT ON ADM. no IS 1ST CONTACT AUTH. REP.? no PHONE 2ND CONTACT ON ADM.? no PATIENT EMPLOYMENT STATUS Retired (for age) PATIENT EMPLOYER No Employer PAYOR INFORMATION: 1ST PAYOR NAME MEDICARE 1ST PAYOR PHONE [phone] 1ST PAYOR INJURY/ILLNESS DUE TO ACCIDENT? No ANOTHER REPUBLICAN RESPONSIBLE? No PRIMARY REHAB/ACUTE DIAGNOSIS: Multiple Myeloma ONSET DATE 03/07/2018 REHAB IMPAIRMENT CATEGORY (CORWIN): 20 Miscellaneous (Misc) does NOT meet 60% rule PRIMARY DIAGNOSIS-RELATED SURGERIES: N/A COMORBID REHAB/ACUTE DIAGNOSES: - N/A Hypertension Coronary Artery Disease CVA Chronic Kidney Disease CHF INTERVENTIONS: - Hypertension Fluid management Medications VS RISK FOR COMPLICATIONS: - Hypertension CVA Hypotension CT TIA SUMMARY OF ACUTE HOSPITALIZATION: Pt. is a 82 yo Right-handed white male. On 03/07/2018 he was admitted to [facility] with diagnosis Multiple Myeloma and multilevel lumbar root compression. His impairment category is Medically Complex Conditions 17 - Neoplasms (17.2). Pre-morbidly, Pt. was independent/mod-I in Sphincter Control, Transfers Control, Communication, Socia l Cognition, Self-Care, and Locomotion; and he had good Sphincter Control. Currently, he has deficits of Endurance, Safety Awareness, Transfers Control, Balance, Self-Care, and Locomotion. Pt. is now referred to [facility] for acute in-patient rehabilitation in order to maximize patient's functional independence in activities of daily living, strength, ROM, and mobi lity. Patient has realistic goal of being discharged at assistance level 6-Liz to reside at Home with Fam hailey/Relatives. PAST MEDICAL HISTORY CHF CVA Chronic Kidney Disease Coronary Artery Disease Hypertension PAST SURGICAL HISTORY: CABG MEDICATION ALLERGIES: No Known Drug Allergies (NKDA) ENVIRONMENTAL ALLERGIES: None Known - Substance Allergies None Known - Other Allergies None Known CODE STATUS: Full code WEIGHT/HEIGHT/BMI: WEIGHT 188 lbs HEIGHT 5' 7" BMI 29.4 DIET: - Diet Type Regular - Diet - Solid Texture Regular - Diet - Liquid Texture Regular - Tube Feed N/A REVIEW OF SYSTEMS: - Gen Alert and awake Lying in bed No apparent distress Oriented to: person, time, and place - Vital Signs Temperature: 97 F SBP/DBP: 130/67 Pulse: 89 Resp: 18 Vital signs stable, afebrile - CVS RRR VITAL SIGNS Temperature: 97 F SBP/DBP: 130/67 Pulse: 89 Resp: 18 Vital signs stable, afebrile CURRENT SPHINCTER CONTROL: Pre-hospital bladder status: continent # of bladder accidents in the last 7 days prior to screenin Pre-hospital bowel status: continent # of bowel accidents in the last 7 days prior to screenin Last Bowel Movement Date: 03/08/2018 DETAILED CURRENT FUNCTIONAL STATUS: - Bladder accident frequency: Ind - No accidents in the past 7 days - Bowel accident frequency: Ind - No accidents in the past 7 days - Walking score based on distance walked: 1(<=50ft) - Wheelchair score based on distance traveled: 3(>=150ft) FUNCTIONAL STATUS: - Self-Care A. Eating Ind sup B. Grooming Ind sup C. Bathing Ind sup D. Dressing - Upper Ind Elma E. Dressing - Lower Ind Elma F. Toileting Ind Elma - Sphincter Control G: Bladder control Ind Ind H: Bowel control Ind Ind - Transfers Control I. Bed/Chair/Wheelchair Ind maxA J. Toilet Ind maxA K. Tub/Shower Ind ADNO - Locomotion L. Walk/Wheelchair (B) Ind maxA M. Stairs Ind ADNO - Communication N. Comprehension (B) Ind Liz O. Expression (B) Ind Liz - Social Cognition P. Social Interaction Ind Liz Q. Problem Solving Ind Liz R. Memory Ind Liz - Endurance Fair - Balance Fair - Safety Awareness Fair CURRENT FUNC. DEFICITS: Endurance, Safety Awareness, Transfers Control, Balance, Self-Care, and Locomotion THERAPY NOTES FROM ACUTE CARE: Attached. SPECIAL NEEDS: - Safety Concerns Skin breakdown precautions needed due to skin breakdown risk PRECAUTIONS: - Fall Precaution Bed and chair alarm PATIENT NEEDS ACTIVE AND ONGOING THERAPEUTIC INTERVENTION OF MULTIPLE THERAPY DISCIPLINES, INCLUDING: - Occupational Therapy Evaluate and Treat. - Physical Therapy Evaluate and Treat. PATIENT NEEDS CLOSE MEDICAL SUPERVISION BY A REHABILITATION PHYSICIAN FOR: Bowel and Bladder Management Medical and Co-Morbidity Management DVT Management Pain Management Coordination of Treatment Team PATIENT REQUIRES 24X7 REHAB NURSING FOR MEDICAL AND FUNCTIONAL MGT. OF THE FOLLOWING DEFICITS: ADL's Ambulation Bowel and Bladder Management Cognition Communication Disease Management Medication Management Patient/Family Education Providing Safe Environment Transfers Pain Management PATIENT REQUIRES INTENSIVE, COORDINATED INTERDISCIPLINARY APPROACH TO REHAB: Arranging Home Equipment/Services Discharge Planning Family Intervention/Training Horse Racing Manager/Case Management PATIENT REHAB POTENTIAL: Expected level of measurable improvement will be of a practical value to patient's functional capacit y or adaptations to impairments Has a viable Discharge Plan Medically appropriate; condition is sufficiently stable to participate in intensive rehab program Patient is able and expected to receive 3 hours of individualized therapy daily on at least 5 of ever y 7 days Patient's prognosis for significant practical improvement within a reasonable period of time appears Good DISCHARGE PLAN: - Estimated Length of Stay (days) 13. - Consensus on plan Discharge plan has been discussed with primary caregiver. Patient/Family is in agreement with the juhi n. Primary caregiver is in agreement with the plan. - Patient/Family Goals Return home with assistance. - Planned Living Setting Upon Discharge Home, to live with Family/Relatives. RECOMMENDED CARE LEVEL: IRF RECOMMENDATION DETAILS: Recommended Admission to Comprehensive Rehabilitation Program to Increase Functional [place] SCREENER'S COMPLETENESS CONFIRMATION: - Screening Confirmation The patient data collection on this preadmission screening form is finished PHYSICIANS REVIEW AND ADMISSION DETERMINATION Admit - Based on my review of the Pre-Admission Screening results, in my medical judgment and experie nce, I concur with the findings and recommend admission to [facility], as this patient requires an IRF level of care. SIGNATURE PANEL: Clinical Liaison - [electronically] signed by Mu Crawford on 03/13/2018 at 17:08 (CDT) Physician Reviewer - [electronically] signed by Dr. Lance Kaur M.D. on 03/13/2018 at 17:13 (CDT )
--- OUTSIDE RECORDS SUMMARY | 2018-03-14 13:19 | XMS REPORT | Clinical Summary ---
:1935 Author Organization [facility] Address [address] [place] [address] Phone Care Team Providers Name Role Phone Unavailable Primary Care Provider Unavailable Allergies No Known Allergies Current Medications Prescription Sig. Disp. Refills Start Date End Date Status aspirin 81 MG EC tablet Take 81 mg by mouth Active daily. clopidogrel (PLAVIX) 75 Take 75 mg by mouth Active mg tablet daily. lansoprazole (PREVACID) Take 15 mg by mouth Active 15 MG capsule daily. digoxin (LANOXIN) 0.25 Take 250 mcg by Active MG tablet mouth daily. carvedilol (COREG) 25 MG Take 25 mg by mouth Active tablet 2 (two) times daily with breakfast and dinner. losartan-hydrochlorothia Take 1 tablet by Active zide (HYZAAR) 100-12.5 mouth daily. mg per tablet fenofibrate (TRICOR) 145 Take 145 mg by mouth Active MG tablet daily. rosuvastatin (CRESTOR) Take 40 mg by mouth Active 40 MG tablet daily. Missing or Non-Formulary luis f for prostate . Active Medication Active Problems Problem Noted Date Combined forms of age-related cataract of left eye 12/10/2015 Social History Tobacco Use Types Packs/Day Years Used Date Former Smoker Comments: quit 20 plus years cago Alcohol Use Drinks/Week oz/Week Comments No Sex Assigned at Date Recorded Not on file Last Filed Vital Signs Not on file Plan of Treatment Not on file Implants Implanted Type Area Rug Cleaner Device Expiration Model / Identifier Date Serial / Lot Iol Acrysof Pily 6.0 13 20d [id number] - [id number] Ophthalmology Left: [facility]:SURG 05/13/2020 [id number] / Implanted: Qty: 1 on 12/10/2015 by Nick Paez MD Eye [id number] / N/A Results Not on fileafter 03/13/2017
[2018-03-14] MEDS ORDERED: NITROGLYCERIN 0.4 MG/TAB SL PRN (14:14)
[2018-03-14] MEDS ORDERED: MAGNES/ALUMIN/SIMET 30ML UCUP PO PRN (14:14)
[2018-03-14] MEDS ORDERED: DOCUSATE NA/SENNA CONC 1 TAB PO PRN (14:14)
[2018-03-14] MEDS ORDERED: BENZONATATE 100 MG CAP PO PRN (14:14)
[2018-03-14] MEDS: HYDROCODONE/APAP 5/325 MG TAB PO PRN (14:45)
[2018-03-14] MEDS ORDERED: HYDROCODONE/APAP 5/325 MG TAB ONE (14:49)
[2018-03-14] MEDS: levoFLOXacin 250 MG TAB PO SCH (15:00)
[2018-03-14] MEDS: metroNIDAZOLE 500 MG TABLET PO SCH ×2 (15:12→20:24)
[2018-03-14] MEDS: PANTOPRAZOLE 40MG TABLET PO SCH (15:55)
--- NOTE | 2018-03-14 16:32 | FAST ---
ENCOUNTER DATE AND TIME: 03/14/2018 08:00 (CDT) NAME LUIS PALACIOS DATE OF : 1935 DATE OF ADMISSION: 03/14/2018 13:01 (CDT) PHONE: AGE: 82 SSN# [id number] GENDER: Male ENCOUNTER PHYSICIAN: Dr. Lance Kaur M.D. ADMISSION DIAGNOSIS: - Medically Complex Conditions 17 - Neoplasms (17.2) Multiple Myeloma. EATING: Activity did not occur on this shift EATING - SCORE: 0-UNK GROOMING: Activity did not occur on this shift GROOMING - SCORE: 0-UNK BATHING: Activity did not occur on this shift BATHING - SCORE: 0-UNK DRESSING - UPPER BODY: Activity did not occur on this shift Patient is not dressing in public clothing ARTICLES SCORE Total number of steps: 0 DRESSING - UPPER BODY - SCORE: 0-UNK DRESSING - LOWER BODY: Activity did not occur on this shift Patient is not dressing in public clothing ARTICLES SCORE Total number of steps: 0 DRESSING - LOWER BODY - SCORE: 0-UNK TOILETING: Activity did not occur on this shift TOILETING - SCORE: 0-UNK BLADDER MANAGEMENT: Activity did not occur on this shift BLADDER MANAGEMENT - SCORE: 7-IND BOWEL MANAGEMENT: Activity did not occur on this shift BOWEL MANAGEMENT - SCORE: 7-IND TRANSFERS: BED, CHAIR, WHEELCHAIR: Patient requires more than one helper and/or the use of a mechanical lift is utilized TRANSFERS: BED, CHAIR, WHEELCHAIR - SCORE: 1-DEP TRANSFERS: TOILET: Activity did not occur on this shift TRANSFERS: TOILET - SCORE: 0-UNK TRANSFERS: SHOWER: Activity did not occur on this shift TRANSFERS: SHOWER - SCORE: 0-UNK TRANSFERS: TUB: Activity did not occur on this shift TRANSFERS: TUB - SCORE: 0-UNK LOCOMOTION: WALK: Patient walks less than 50 feet LOCOMOTION: WALK - SCORE: 1-DEP LOCOMOTION: WHEELCHAIR: Patient propels wheelchair less than 50 ft LOCOMOTION: WHEELCHAIR - SCORE: 1-DEP LOCOMOTION: STAIRS: Activity did not occur on this shift LOCOMOTION: STAIRS - SCORE: 0-UNK COMPREHENSION: COMPREHENSION - SCORE: 0-UNK EXPRESSION EXPRESSION - SCORE: 0-UNK SOCIAL INTERACTION: SOCIAL INTERACTION - SCORE: 0-UNK PROBLEM SOLVING: PROBLEM SOLVING - SCORE: 0-UNK MEMORY: MEMORY - SCORE: 0-UNK SIGNATURE PANEL: The following modified sections: Transfers: Bed, Chair, Wheelchair - Score, Transfers: Toilet - Score , Locomotion: Walk - Score, Locomotion: Wheelchair - Score, Locomotion: Stairs - Score were [electron ically] signed by Dorian Johnson, PT on MonMar 14 2018 16:31:34 GMT-0500 (Central Daylight Time)
[2018-03-14] MEDS: CARVEDILOL 3.125 MG TAB PO SCH (17:06)
--- NOTE | 2018-03-14 17:53 | R.HP ---
FACILITY: [facility] ENCOUNTER DATE AND TIME: 03/14/2018 17:47 (CDT) MR#: [id number] NAME LUIS PALACIOS ADDRESS: [address] [place] [address] [address] [facility] CITY: [place] STATE: [facility] [id number] PHONE: DATE OF : 1935 AGE: 82 SSN# [id number] GENDER: Male DEXTERITY Right-handed MARITAL STATUS RACE White PRE-HOSPITAL LIVING SETTING 01 - Home (private home/apt. board/care, assisted living, prison, transitional living) PRE-HOSPITAL LIVING WITH Alone ENCOUNTER PHYSICIAN: Dr. Lance Kaur M.D. REFERRING DOCTOR: DR. SHERIF HODGSON DATE OF ADMISSION: 03/14/2018 13:01 (CDT) REFERRING FACILITY [facility] HOME TYPE AND DETAILS: Type of home: single family house # of levels in the residence: 1 # of steps within the residence: 2 # of steps to enter the residence: 0 ADMISSION DIAGNOSIS: Multiple Myeloma ONSET DATE: 03/07/2018 PRIMARY DIAGNOSIS-RELATED SURGERIES: N/A SECONDARY/COMORBID DIAGNOSES (TIERED): - N/A Hypertension Coronary Artery Disease CVA Chronic Kidney Disease CHF HISTORY OF PRESENT ILLNESS (HPI): Pt. is a 82 yo Right-handed white male. On 03/07/2018 he was admitted to [facility] with diagnosis Multiple Myeloma and multilevel lumbar root compression. His impairment category is Medically Complex Conditions 17 - Neoplasms (17.2). Pre-morbidly, Pt. was independent/mod-I in Sphincter Control, Transfers Control, Communication, Socia l Cognition, Self-Care, and Locomotion; and he had good Sphincter Control. Currently, he has deficits of Endurance, Safety Awareness, Transfers Control, Balance, Self-Care, and Locomotion. Pt. is now referred to [facility] for acute in-patient rehabilitation in order to maximize patient's functional independence in activities of daily living, strength, ROM, and mobi lity. Patient has realistic goal of being discharged at assistance level 6-Liz to reside at Home with Fam hailey/Relatives. MEDICATION ALLERGIES: No Known Drug Allergies (NKDA) ENVIRONMENTAL ALLERGIES: None Known - Substance Allergies None Known - Other Allergies None Known PAST MEDICAL HISTORY: CHF CVA Chronic Kidney Disease Coronary Artery Disease Hypertension PAST SURGICAL HISTORY: CABG FAMILY HISTORY: Family history is not contributory. SOCIAL HISTORY: - Home Living Alone REVIEW OF SYSTEMS: - Gen No Chills Fatigue No Fever - Eyes No Double Vision No itchiness - ENMT No Difficulty Swallowing - CVS No Chest Discomfort No Chest Pain Fatigue No Weight Gain - Resp No Cough No Shortness of Breath - GI Continent No Abdominal Pain No Constipation No Diarrhea - Continent No Kidney Pain No Painful Urination No Urinary Urgency - MSK No Joint Pain No Muscle Cramps Stiffness - Skin No Itching No Rash No Suspicious Lesions - Neuro Coordination Difficulty No Difficulty with Concentration Memory Loss No Seizures Weakness - Psych No Anxiety No Depression No HIV Exposure No Persistent Infections No Seasonal Allergies - Endo No Cold/Heat Intolerance No Excessive Hunger No Excessive Thirst No Excessive Urination PHYSICAL EXAM - Gen Alert and awake Lying in bed No apparent distress Oriented to: person, time, and place - Skin No skin breakdown. Normacephalic - Eyes poor vision bilaterally - ENMT No abnormalities - Neck No abnormalities - CVS RRR - Chest No abnormalities - Abd Soft - GI Non distended Deferred - No abnormalities - Ext No significant edema - MSK 4/5 weakness in both lower extremities. - Neuro 4/5 strength bilaterally upper and lower extremities. - Psych No abnormalities VITAL SIGNS Temperature: 97 F SBP/DBP: 101/57 Pulse: 79 Resp: 18 NURSING: - Shower allowing shower PRECAUTIONS: - Fall Precaution Bed and chair alarm ACTIVITIES OOB only with supervision FUNCTIONAL STATUS: - Self-Care A. Eating Ind sup B. Grooming Ind sup C. Bathing Ind sup D. Dressing - Upper Ind Elma E. Dressing - Lower Ind Elma F. Toileting Ind Elma - Sphincter Control G: Bladder control Ind Ind H: Bowel control Ind Ind - Transfers Control I. Bed/Chair/Wheelchair Ind maxA J. Toilet Ind maxA K. Tub/Shower Ind ADNO - Locomotion L. Walk/Wheelchair (B) Ind maxA M. Stairs Ind ADNO - Communication N. Comprehension (B) Ind Liz O. Expression (B) Ind Liz - Social Cognition P. Social Interaction Ind Liz Q. Problem Solving Ind Liz R. Memory Ind Liz - Endurance Fair - Balance Fair - Safety Awareness Fair CURRENT FUNC. DEFICITS: Endurance, Safety Awareness, Transfers Control, Balance, Self-Care, and Locomotion ASSESSMENT: Pt. is a 82 yo Right-handed white male.On 03/07/2018 he was admitted to [facility] with diagnosis Multiple Myeloma and multilevel lumbar root compression.His impairment category is Medically Complex Conditions 17 - Neoplasms (17.2).Pre-morbidly, Pt. was independent/mod-I in Sphin cter Control, Transfers Control, Communication, Social Cognition, Self-Care, and Locomotion; and he h ad good Sphincter Control.Currently, he has deficits of Endurance, Safety Awareness, Transfers Contro l, Balance, Self-Care, and Locomotion.Pt. is now referred to [facility] for ac jerome in-patient rehabilitation in order to maximize patient's functional independence in activities of daily living, strength, ROM, and mobility.- Rehab Goal Patient has realistic goal of being discharged at assistance level 6-Liz to reside at Home with Fam hailey/Relatives. REHAB PLAN: - Physical Therapy Gait dysfunction - to improve, our physical therapists will perform initial evaluation of pt's status upon admission and devise an individualized program for Gait Training, and Wheel Chair mobility Inability to transfer - to improve, our physical therapists will perform initial evaluation of pt's s tatus upon admission and devise an individualized program for Bed mobility Need for home safety evaluation - to improve, our physical therapists will perform initial evaluation of pt's status upon admission and devise an individualized program for Home Evaluation Need in caregiver upon discharge - to improve, our physical therapists will perform initial evaluatio n of pt's status upon admission and devise an individualized program for Caregiver Training New precaution - to improve, our physical therapists will perform initial evaluation of pt's status u danial admission and devise an individualized program for Patient precaution education Edema - to improve, our physical therapists will perform initial evaluation of pt's status upon admi ssion and devise an individualized program for Elevation Training, and Lymphedema Therapy Poor balance - to improve, our physical therapists will perform initial evaluation of pt's status upo n admission and devise an individualized program for Balance Training Poor endurance - to improve, our physical therapists will perform initial evaluation of pt's status u danial admission and devise an individualized program for Endurance Training Weakness - to improve, our physical therapists will perform initial evaluation of pt's status upon ad mission and devise an individualized program for Aquatic Therapy, Neuromuscular Reeducation, and Stre ngthening Achieving independence - to improve, our physical therapists will perform initial evaluation of pt's status upon admission and devise an individualized program for Community Reintegration Activities - Occupational Therapy ADL deficits - to improve, our occupation therapists will perform initial evaluation of pt's status u danial admission and devise an individualized program for Bathing, Bed mobility, Community Reintegration , Cooking, Dressing, Eating, Fine Motor Skills, Grooming, Homemaking, Kitchen Mobility, Laundry, Katalina ent Education, Safety Awareness, Splinting - Positioning, Transfers(Toilet, Tub, Shower), and Wheel C hair Management Need for youth care professional - to improve, our occupation therapists will perform initial evaluation of pt's s tatus upon admission and devise an individualized program for Caregiver Training Weakness - to improve, our occupation therapists will perform initial evaluation of pt's status upon admission and devise an individualized program for Aquatic Therapy, Balance, Endurance, UE ROM, and U E strengthening MEDICAL PLAN: - Diet Type Start Regular - Diet - Liquid Texture Start Regular - Tube Feed Start N/A - Fall Precaution Bed and chair alarm - Diet - Solid Texture Regular - Shower shower DISCHARGE PLAN: - Estimated Length of Stay (days) 13. - Consensus on plan Discharge plan has been discussed with primary caregiver. Patient/Family is in agreement with the juhi n. Primary caregiver is in agreement with the plan. - Patient/Family Goals Return home with assistance. - Planned Living Setting Upon Discharge Home, to live with Family/Relatives. SIGNATURE PANEL: (CDT)
--- NOTE | 2018-03-14 17:54 | PAPE ---
PATIENT: [facility] MR# [id number] REFERRING DOCTOR DR. SHERIF HODGSON EVALUATION DATE AND TIME 03/14/2018 17:52 (CDT) NAME LUIS PALACIOS DATE OF 1935 AGE 82 PHONE N# [id number] GENDER male EVALUATING PHYSICIAN Dr. Lance Kaur M.D. ADMISSION DIAGNOSIS: Multiple Myeloma ONSET DATE 03/07/2018 SECONDARY/COMORBID DIAGNOSES TIERED: - N/A Hypertension Coronary Artery Disease CVA Chronic Kidney Disease CHF POST-ADMISSION FUNCTIONAL/MEDICAL STATUS: - Bladder Same accident frequency: Ind - No accidents in the past 7 days - Bowel Same accident frequency: Ind - No accidents in the past 7 days - Walking Same score based on distance walked: 1(<=50ft) - Wheelchair Same score based on distance traveled: 3(>=150ft) STATUS CHANGE EVALUATION: No change in Functional or Medical Status is identified compared with Pre-Admission screening. PATIENT NEEDS CLOSE MEDICAL SUPERVISION BY A REHABILITATION PHYSICIAN FOR: Bowel and Bladder Management Medical and Co-Morbidity Management DVT Management Pain Management Coordination of Treatment Team PATIENT REQUIRES 24X7 REHAB NURSING FOR MEDICAL AND FUNCTIONAL MGT. OF THE FOLLOWING DEFICITS: ADL's Ambulation Bowel and Bladder Management Cognition Communication Disease Management Medication Management Patient/Family Education Providing Safe Environment Transfers Pain Management PATIENT REQUIRES INTENSIVE, COORDINATED INTERDISCIPLINARY APPROACH TO REHAB: Arranging Home Equipment/Services Discharge Planning Family Intervention/Training Scout Leaser/Case Management LIST OF IDENTIFIED AND POTENTIAL PROBLEMS: Alteration in leisure activities Bladder, Incontinence Blood Pressure, Hypertension/hypotension Issues Bowel, Incontinence Fluid volume overload related to Congestive Heart Failure (CHF) Infection, Actual or Potential Mobility Impaired Pain, Alteration in Comfort Self Care Deficit Skin Integrity, Actual or Potential Urinary Tract Infection (UTI), Actual or Potential RISK FOR COMPLICATIONS - Hypertension CVA. Hypotension. ND. TIA. INTERVENTIONS - Hypertension PATIENT COULD BE AT RISK FOR COMPLICATIONS FROM ADVERSE MEDICAL CONDITIONS DUE TO HIS/HER COMORBIDITI ES AND THE RIGORS OF THE INTENSIVE REHABILLITATION PROGRAM. METHODS OR INTERVENTIONS TO AVOID COMPLIC ATIONS INCLUDE: - Deep Vein Thrombosis (DVT) Prophylaxis therapy for prevention . Sequential Compression Device (SCD). TE D Hose. - Infection Clinical staff to assess and manage the signs and symptoms of infection including fever, redness, war mth, etc. - Urinary Tract Infection - Falls Patient will be evaluated for Fall Precautions and will be placed on Fall Precautions as indicated pe r protocol. - Skin Breakdown Nursing will assess skin daily using assessment tool and will place on Skin Breakdown Precautions as indicated per protocol. - Pain Clinical staff may employ non-medication methods such as massage, distraction, decrease stimulus, etc . as needed. Clinical staff will assess patient's pain level every shift per protocol to assess and e nsure pain management effectiveness. Medications will be given and the pain level re-assessed. PRELIMINARY PLAN OF CARE: - Physical Therapy Patient needs Physical Therapy for a daily minimum of 1.5 hours at least 5 out of 7 days, to improve: Mobility, Strengthening, Transfers, Stretching, ROM, Endurance, Ability to manage stairs, Gait, and Balance. - Speech Therapy Patient needs Speech Therapy for a daily minimum of 0.5 hours at least 5 out of 7 days, to improve: S wallowing, Cognition, Language Skills, and Compensatory Strategies. - Rehabilitation Nursing Patient requires 24x7 Rehabilitation Nursing for: Pain Issues, Identifying and preventing risk factor s, Monitoring and reporting current medical conditions, Assisting with ambulation and transfer, Ilan ting with all ADL-s, Teaching patients about disease process and medications, Family teaching, Provid ing safe environment, Bowel and Bladder Issues, Skin Integrity, and Medication Management. Patient needs Scout Leaser and/or Case Management for: Discharge Planning, Arranging Home Equipmen t or Services, and Family Interventions. - Dietary and Nutrition Services Patient needs Dietary and Nutrition Services for: Adequate Nutrition, Nutritional Supplements, and Nu tritional Education. - Occupational Therapy Patient needs Occupational Therapy for a daily minimum of 1.5 hours at least 5 out of 7 days, to impr ove Activities of Daily Living, including: Eating, Grooming, Bathing, Dressing, Toileting, Toilet Tra nsfers, Community Reintegration, Higher functional activities, Adaptive Equipment, Splinting, Househo ld Tasks, and Other activities as determined. POTENTIAL FUNCTIONAL GOALS FOR PATIENT TO ACHIEVE BY DISCHARGE: - Safety Precaution Patient will remain free from falls or injury at time of discharge. - Bed Mobility Patient will perform bed mobility at 4-Elma level of assistance. - Transfers Patient will complete transfers from bed to chair at 4-Elma level of assistance. - Mobility Patient will ambulate 150 ft with 4-Elma level of assistance with RW. PATIENT REHAB POTENTIAL Expected level of measurable improvement will be of a practical value to patient's functional capacit y or adaptations to impairments Has a viable Discharge Plan Medically appropriate; condition is sufficiently stable to participate in intensive rehab program Patient is able and expected to receive 3 hours of individualized therapy daily on at least 5 of ever y 7 days Patient's prognosis for significant practical improvement within a reasonable period of time appears Good DISCHARGE PLAN: - Estimated Length of Stay (days) 13. - Consensus on plan Discharge plan has been discussed with primary caregiver. Patient/Family is in agreement with the juhi n. Primary caregiver is in agreement with the plan. - Patient/Family Goals Return home with assistance. - Planned Living Setting Upon Discharge Home, to live with Family/Relatives. CONCLUSION ON REHABILITATION NECESSITY: I have evaluated patient's pre-admission functional status and, comparing it to the patient's post-ad mission functional status now, I conclude that the pre-admission assessment was accurate. Patient's c ondition on admission supports the medical necessity of admission to IRF. It is safe to proceed with patient's therapy program. SIGNATURE PANEL: (CDT)
[2018-03-14] MEDS: DOCUSATE NA 100 MG CAP PO SCH (19:34)
[2018-03-14 19:43] LABS: Urine Appearance CLEAR; Urine Bilirubin NEGATIVE (NEG); Urine Blood 2+ (NEG); Urine Color YELLOW; Urine Glucose NEGATIVE (NEG); Urine Protein 1+ (NEG); Urine Urobilinogen 0.2 mg/dL (0.2-1.0); Urine pH 5.5 (5.0-7.0)
[2018-03-14 19:49] LABS: Urine Bacteria <20 /HPF (NONE SEEN); Urine Culture Reflex Order NOT NEEDED
[2018-03-14] MEDS: ROSUVASTATIN 10 MG TAB PO SCH (20:23)
[2018-03-14] MEDS: APIXABAN 2.5 MG TABLET PO SCH (20:24)
[2018-03-14] MEDS: GABAPENTIN 300 MG CAP PO SCH (20:24)
--- NOTE | 2018-03-15 02:06 | FAST ---
SHIFT START DATE/TIME: 03/14/2018 19:00 (CDT) SHIFT END DATE/TIME: 03/15/2018 07:00 (CDT) NAME LUIS PALACIOS DATE OF : 1935 DATE OF ADMISSION: 03/14/2018 13:01 (CDT) PHONE: AGE: 82 [facility]# [id number] GENDER: Male ENCOUNTER PHYSICIAN: Dr. Lance Kaur M.D. ADMISSION DIAGNOSIS: - Medically Complex Conditions 17 - Neoplasms (17.2) Multiple Myeloma. EATING: EATING - STEP 1: Does the patient require assistance when eating? Yes. EATING - STEP 2: Does the patient require the assistance of a helper? Yes. EATING - STEP 3: Does the patient perform half or more of the eating tasks? No. EATING - STEP 4: Does the patient require total assistance to eat, such as the helper holding the utensil and bringing all food and liquids to the mouth? Yes. EATING - SCORE: 1-DEP GROOMING: Oral care Wash, rinse, and dry face GROOMING - STEP 1: Does the patient require assistance when grooming? Yes. GROOMING - STEP 2: Does the patient require the assistance of a helper? Yes. GROOMING - STEP 3: How much assistance does the patient require from the helper? More than incidental help GROOMING - STEP 4: How many grooming tasks does the patient perform WITHOUT the assistance of the helper? None. The help er performs all grooming tasks GROOMING - SCORE: 1-DEP BATHING: Activity did not occur on this shift BATHING - SCORE: 0-UNK DRESSING - UPPER BODY: Patient is not dressing in public clothing ARTICLES SCORE Total number of steps: 0 DRESSING - UPPER BODY - SCORE: 0-UNK DRESSING - LOWER BODY: Patient is not dressing in public clothing ARTICLES SCORE Total number of steps: 0 DRESSING - LOWER BODY - SCORE: 0-UNK TOILETING: Activity did not occur on this shift TOILETING - SCORE: 0-UNK BLADDER MANAGEMENT: [place] cares for quintero catheter including emptying drainage bag. BLADDER MANAGEMENT - SCORE: 1-DEP BOWEL MANAGEMENT: [place] removes incontinent device (depends, pull ups, etc.); cleans the patient after accident / inco ntinent episode; and, applies new device (depends, pull-ups, padding, etc.). BOWEL MANAGEMENT - SCORE: 1-DEP BOWEL MANAGEMENT - FREQUENCY OF ACCIDENTS: BOWEL MANAGEMENT(FA) - STEP 1: How many accidents has the patient had during the current shift? 3 TRANSFERS: BED, CHAIR, WHEELCHAIR: Activity did not occur on this shift TRANSFERS: BED, CHAIR, WHEELCHAIR - SCORE: 0-UNK TRANSFERS: TOILET: Activity did not occur on this shift TRANSFERS: TOILET - SCORE: 0-UNK TRANSFERS: SHOWER: Activity did not occur on this shift TRANSFERS: SHOWER - SCORE: 0-UNK TRANSFERS: TUB: Activity did not occur on this shift TRANSFERS: TUB - SCORE: 0-UNK LOCOMOTION: WALK: Activity did not occur on this shift LOCOMOTION: WALK - SCORE: 0-UNK LOCOMOTION: WHEELCHAIR: Activity did not occur on this shift LOCOMOTION: WHEELCHAIR - SCORE: 0-UNK COMPREHENSION: COMPREHENSION: TYPE: Both COMPREHENSION - STEP 1: Does the patient require help to understand complex and abstract ideas (such as current events, finan will, discharge planning, medical issues, relationships, etc)? Yes. COMPREHENSION - STEP 2: Does the patient require help to understand questions or statements about basic needs or ideas (such as hunger, thirst, sleep, safety, daily schedule, room location, or discomfort) half or more of the t mary carmen? Yes. COMPREHENSION - STEP 3: Is the patient basically able to understand and respond appropriately and consistently? Yes. COMPREHENSION - SCORE: 2-MAX EXPRESSION EXPRESSION: TYPE: Both EXPRESSION - STEP 1: Does the patient require help expressing complex and abstract ideas (such as current events, finances , discharge planning, medical issues, relationships, etc)? Yes. EXPRESSION - STEP 2: Does the patient require help to express basic necessities or ideas (such as hunger, thirst, sleep, s afety, daily schedule, room location, or discomfort) half or more of the time? Yes. EXPRESSION - STEP 3: Is the patient basically unable to express or does s/he express inappropriately or inconsistently pool pite prompting? No. EXPRESSION - SCORE: 2-MAX SOCIAL INTERACTION: SOCIAL INTERACTION - STEP 1: Does the patient require a helper to interact with others in social and therapeutic situations? Yes. SOCIAL INTERACTION - STEP 2: Does the patient interact appropriately half or more of the time? No. SOCIAL INTERACTION - STEP 3: How often does the patient interact appropriately? More than 25% of the time SOCIAL INTERACTION - SCORE: 2-MAX PROBLEM SOLVING: PROBLEM SOLVING - STEP 1: Does the patient need help to solve complex problems such as managing a checking account or confronti ng interpersonal problems? Yes. PROBLEM SOLVING - STEP 2: Does the patient solve basic routine problems half or more of the time? No. PROBLEM SOLVING - STEP 3: Does the patient need help to solve problems all the time or is s/he unable to solve problems? No. Pa jenn can sometimes solve problems PROBLEM SOLVING - SCORE: 2-MAX MEMORY: MEMORY - STEP 1: Does the patient need help to remember frequently encountered people, daily routines, and executing r equests? Yes. MEMORY - STEP 2: How often does the patient need help to remember frequently encountered people, daily routines, and e xecuting requests? More than 50% of the time MEMORY - STEP 3: Does the patient need help to remember all of the time OR does s/he not effectively recognize and rem ember? No. Patient does not need help all the time MEMORY - SCORE: 2-MAX SIGNATURE PANEL: The following modified sections: Eating - Score, Grooming - Score, Bathing - Score, Dressing - Upper Body - Score, Dressing - Lower Body - Score, Toileting - Score, Bladder Management - Score, Bowel Man agement - Score, Transfers: Bed, Chair, Wheelchair - Score, Transfers: Toilet - Score, Transfers: Dara wer - Score, Transfers: Tub - Score, Locomotion: Walk - Score, Locomotion: Wheelchair - Score, Compre hension - Score, Expression - Score, Social Interaction - Score, Problem Solving - Score, Memory - Sc ore were [electronically] signed by Yu Greco [email or web address] on MonMar 15 2018 02:04:37 GMT-0500 ( Central Daylight Time)
[2018-03-15] MEDS: CARVEDILOL 3.125 MG TAB PO SCH ×2 (05:08→17:00)
[2018-03-15 06:44] LABS: Albumin 2.5 g/dL (3.4-5.0); Magnesium 2.2 mg/dL (1.8-2.4); Potassium 3.4 mmol/L (3.5-5.1); Prealbumin 8.7 mg/dL (20-40)
[2018-03-15 06:45] LABS: Absolute Lymphocytes (CBC) 0.5 K/uL (0.7-4.9); Absolute Monocytes 0.6 K/uL (0.1-1.3); Absolute Neutrophil 7.6 K/uL (1.8-8.0); Basophils % 0.1 % (0-1.3); Hematocrit 25.7 % (39.6-49.0); Lymphocytes % 5.9 % (15.3-44.8); MCH 34.9 pg (27.0-35.0); MCV 99.9 fL (80-100); MPV 11.3 fL (7.6-11.3); Monocytes % 6.9 % (3.3-12.3); RBC Red Blood Cell Count 2.57 M/uL (4.33-5.43)
[2018-03-15] MEDS: HYDROCODONE/APAP 5/325 MG TAB PO PRN ×2 (07:47→12:50)
[2018-03-15 07:54] LABS: Anisocytosis 1+; Blood Morphology Comment NOTED (NOT SEEN); Platelet Estimate DECR; Poikilocytosis 2+; Urine White Blood Cell Casts OK
[2018-03-15] MEDS ORDERED: levoFLOXacin 250 MG TAB PO SCH (08:00)
[2018-03-15] MEDS: PANTOPRAZOLE 40MG TABLET PO SCH (08:30)
[2018-03-15] MEDS: GABAPENTIN 300 MG CAP PO SCH ×2 (08:35→20:15)
[2018-03-15] MEDS: FINASTERIDE 5 MG TAB PO SCH (08:35)
[2018-03-15] MEDS: metroNIDAZOLE 500 MG TABLET PO SCH ×3 (08:35→20:15)
[2018-03-15] MEDS: CETIRIZINE HCL 5 MG TABLET PO SCH (08:35)
[2018-03-15] MEDS: FENOFIBRATE 160 MG TAB PO SCH (08:35)
[2018-03-15] MEDS: CLOPIDOGREL 75 MG TABLET PO SCH (08:36)
[2018-03-15] MEDS: ASPIRIN EC 81 MG TAB PO SCH (08:36)
[2018-03-15] MEDS: MULTIVIT W/ MINERAL TAB PO SCH (08:36)
[2018-03-15] MEDS: VITAMIN D 1000 UNIT TAB PO SCH (08:36)
[2018-03-15] MEDS: levoFLOXacin 250 MG TAB PO SCH (08:36)
[2018-03-15] MEDS: APIXABAN 2.5 MG TABLET PO SCH ×2 (08:36→20:15)
--- NOTE | 2018-03-15 15:04 | FAST ---
SHIFT START DATE/TIME: 03/15/2018 07:00 (CDT) SHIFT END DATE/TIME: 03/15/2018 19:00 (CDT) NAME LUIS PALACIOS DATE OF : 1935 DATE OF ADMISSION: 03/14/2018 13:01 (CDT) PHONE: AGE: 82 [facility]# [id number] GENDER: Male ENCOUNTER PHYSICIAN: Dr. Lance Kaur M.D. ADMISSION DIAGNOSIS: - Medically Complex Conditions 17 - Neoplasms (17.2) Multiple Myeloma. EATING: EATING - STEP 1: Does the patient require assistance when eating? Yes. EATING - STEP 2: Does the patient require the assistance of a helper? Yes. EATING - STEP 3: Does the patient perform half or more of the eating tasks? Yes. EATING - STEP 4: Does the patient need only supervision, cuing, coaxing OR help to apply an orthosis OR help to cut fo od, open containers, pour liquids, or butter bread? Yes. EATING - SCORE: 5-SUP GROOMING: Comb/brush hair Oral care Wash, rinse, and dry face Wash, rinse, and dry hands GROOMING - STEP 1: Does the patient require assistance when grooming? Yes. GROOMING - STEP 2: Does the patient require the assistance of a helper? Yes. GROOMING - STEP 3: How much assistance does the patient require from the helper? Cuing, coaxing, instructions, or encour agement for completion of grooming GROOMING - SCORE: 5-SUP BATHING: Activity did not occur on this shift BATHING - SCORE: 0-UNK DRESSING - UPPER BODY: Activity did not occur on this shift ARTICLES SCORE Total number of steps: 0 DRESSING - UPPER BODY - SCORE: 0-UNK DRESSING - LOWER BODY: Activity did not occur on this shift ARTICLES SCORE Total number of steps: 0 DRESSING - LOWER BODY - SCORE: 0-UNK TOILETING: TOILETING - STEP 1: Does the patient require assistance with toileting? Yes. TOILETING - STEP 2: Does the patient require the assistance of a helper? Yes. TOILETING - STEP 3: How much assistance does the patient require from the helper? Hands-on assistance from the helper TOILETING - STEP 4: Of the 3 tasks: 1) Adjusting clothing prior to use, 2) Cleansing of perineal area, 3) Adjusting clot chirag after use; How many tasks does the patient perform WITHOUT assistance of the helper? No tasks; h elper performs all three tasks TOILETING - SCORE: 1-DEP BLADDER MANAGEMENT: [place] cares for quintero catheter including emptying drainage bag. BLADDER MANAGEMENT - SCORE: 1-DEP BOWEL MANAGEMENT: [place] removes incontinent device (depends, pull ups, etc.); cleans the patient after accident / inco ntinent episode; and, applies new device (depends, pull-ups, padding, etc.). BOWEL MANAGEMENT - SCORE: 1-DEP BOWEL MANAGEMENT - FREQUENCY OF ACCIDENTS: BOWEL MANAGEMENT(FA) - STEP 1: How many accidents has the patient had during the current shift? 2 TRANSFERS: BED, CHAIR, WHEELCHAIR: TRANSFERS: BED, CHAIR, WHEELCHAIR - STEP 1: Does the patient require assistance with bed, chair, or wheelchair transfers? Yes. TRANSFERS: BED, CHAIR, WHEELCHAIR - STEP 2: Does the patient require the assistance of a helper? Yes. TRANSFERS: BED, CHAIR, WHEELCHAIR - STEP 3: How much assistance does the patient require from the helper? Lifting of the patient TRANSFERS: BED, CHAIR, WHEELCHAIR - STEP 4: Does the helper lift the patient ONLY up? ONLY down? Up AND Down? Up AND Down. TRANSFERS: BED, CHAIR, WHEELCHAIR - SCORE: 2-MAX TRANSFERS: TOILET: TRANSFERS: TOILET - STEP 1: Does the patient require assistance with toilet transfers? Yes. TRANSFERS: TOILET - STEP 2: Does the patient require the assistance of a helper? Yes. TRANSFERS: TOILET - STEP 3: How much assistance does the patient require from the helper? Patient performs less than half of the transferring tasks TRANSFERS: TOILET - STEP 4: Does the patient require total assistance for the toilet transfer such as the helper doing basically all the lifting? No. TRANSFERS: TOILET - SCORE: 2-MAX TRANSFERS: SHOWER: Activity did not occur on this shift TRANSFERS: SHOWER - SCORE: 0-UNK TRANSFERS: TUB: Activity did not occur on this shift TRANSFERS: TUB - SCORE: 0-UNK LOCOMOTION: WALK: Activity did not occur on this shift LOCOMOTION: WALK - SCORE: 0-UNK LOCOMOTION: WHEELCHAIR: Activity did not occur on this shift LOCOMOTION: WHEELCHAIR - SCORE: 0-UNK COMPREHENSION: COMPREHENSION - SCORE: 0-UNK EXPRESSION EXPRESSION - SCORE: 0-UNK SOCIAL INTERACTION: SOCIAL INTERACTION - SCORE: 0-UNK PROBLEM SOLVING: PROBLEM SOLVING - SCORE: 0-UNK MEMORY: MEMORY - SCORE: 0-UNK SIGNATURE PANEL: The following modified sections: Eating - Score, Grooming - Score, Bathing - Score, Dressing - Upper Body - Score, Dressing - Lower Body - Score, Toileting - Score, Bladder Management - Score, Bowel Man agement - Score, Transfers: Bed, Chair, Wheelchair - Score, Transfers: Toilet - Score, Transfers: Dara wer - Score, Transfers: Tub - Score, Locomotion: Walk - Score, Locomotion: Wheelchair - Score, Compre hension - Score, Expression - Score, Social Interaction - Score, Problem Solving - Score, Memory - Sc ore were [electronically] signed by Cole Sue on MonMar 15 2018 15:03:37 GMT-0500 (Central Daylight Time)
--- NOTE | 2018-03-15 16:11 | FAST ---
ENCOUNTER DATE AND TIME: 03/15/2018 08:00 (CDT) NAME LUIS PALACIOS DATE OF : 1935 DATE OF ADMISSION: 03/14/2018 13:01 (CDT) PHONE: AGE: 82 SSN# [id number] GENDER: Male ENCOUNTER PHYSICIAN: Dr. Lance Kaur M.D. ADMISSION DIAGNOSIS: - Medically Complex Conditions 17 - Neoplasms (17.2) Multiple Myeloma. EATING: Activity did not occur on this shift EATING - SCORE: 0-UNK GROOMING: Activity did not occur on this shift GROOMING - SCORE: 0-UNK BATHING: Activity did not occur on this shift BATHING - SCORE: 0-UNK DRESSING - UPPER BODY: Activity did not occur on this shift Patient is not dressing in public clothing ARTICLES SCORE Total number of steps: 0 DRESSING - UPPER BODY - SCORE: 0-UNK DRESSING - LOWER BODY: Activity did not occur on this shift Patient is not dressing in public clothing ARTICLES SCORE Total number of steps: 0 DRESSING - LOWER BODY - SCORE: 0-UNK TOILETING: Activity did not occur on this shift TOILETING - SCORE: 0-UNK BLADDER MANAGEMENT: Activity did not occur on this shift BLADDER MANAGEMENT - SCORE: 7-IND BOWEL MANAGEMENT: Activity did not occur on this shift BOWEL MANAGEMENT - SCORE: 7-IND TRANSFERS: BED, CHAIR, WHEELCHAIR: TRANSFERS: BED, CHAIR, WHEELCHAIR - STEP 1: Does the patient require assistance with bed, chair, or wheelchair transfers? Yes. TRANSFERS: BED, CHAIR, WHEELCHAIR - STEP 2: Does the patient require the assistance of a helper? Yes. TRANSFERS: BED, CHAIR, WHEELCHAIR - STEP 3: How much assistance does the patient require from the helper? Lifting of the patient TRANSFERS: BED, CHAIR, WHEELCHAIR - STEP 4: Does the helper lift the patient ONLY up? ONLY down? Up AND Down? Up AND Down. TRANSFERS: BED, CHAIR, WHEELCHAIR - SCORE: 2-MAX TRANSFERS: TOILET: Activity did not occur on this shift TRANSFERS: TOILET - SCORE: 0-UNK TRANSFERS: SHOWER: Activity did not occur on this shift TRANSFERS: SHOWER - SCORE: 0-UNK TRANSFERS: TUB: Activity did not occur on this shift TRANSFERS: TUB - SCORE: 0-UNK LOCOMOTION: WALK: Patient walks less than 50 feet LOCOMOTION: WALK - SCORE: 1-DEP LOCOMOTION: WHEELCHAIR: Patient propels wheelchair less than 50 ft LOCOMOTION: WHEELCHAIR - SCORE: 1-DEP LOCOMOTION: STAIRS: Activity did not occur on this shift LOCOMOTION: STAIRS - SCORE: 0-UNK COMPREHENSION: COMPREHENSION - SCORE: 0-UNK EXPRESSION EXPRESSION - SCORE: 0-UNK SOCIAL INTERACTION: SOCIAL INTERACTION - SCORE: 0-UNK PROBLEM SOLVING: PROBLEM SOLVING - SCORE: 0-UNK MEMORY: MEMORY - SCORE: 0-UNK SIGNATURE PANEL: The following modified sections: Transfers: Bed, Chair, Wheelchair - Score, Transfers: Toilet - Score , Locomotion: Walk - Score, Locomotion: Wheelchair - Score, Locomotion: Stairs - Score were [electron icachinedu] signed by Dorian Johnson PT on MonMar 15 2018 16:10:10 [id number] (Central Daylight Time)
--- NOTE | 2018-03-15 19:03 | R.PN ---
ENCOUNTER DATE AND TIME: 03/15/2018 18:57 (CDT) NAME LUIS PALACIOS DATE OF : 1935 DATE OF ADMISSION: 03/14/2018 13:01 (CDT) Multiple MyelomaCHIEF COMPLAINT: Diffuse lower extremity weakness, poor endurance, lumbar radiculopathy SUBJECTIVE: Pt denied any Shortness of Breath. Pt denied any depression. Ambulated 40' with moderate assistance using a rolling walker. Self-propelled wheelchair 150' using bilateral upper and lower extremities. Patient states that pain is under control. VITAL SIGNS Temperature: 97.8 F SBP/DBP: 114/55 Pulse: 72 Resp: 16 MEDICATION ALLERGIES: No Known Drug Allergies (NKDA) ENVIRONMENTAL ALLERGIES: None Known - Substance Allergies None Known - Other Allergies None Known NURSING: - Shower allowing shower PRECAUTIONS: - Fall Precaution Bed and chair alarm ACTIVITIES OOB only with supervision THERAPIES: - Occupational Therapy Evaluate and Treat. - Physical Therapy Evaluate and Treat. PHYSICAL EXAM - Gen Alert and awake Lying in bed No apparent distress Oriented to: person, time, and place - Skin No skin breakdown. Normacephalic - Eyes poor vision bilaterally - ENMT No abnormalities - Neck No abnormalities - CVS RRR - Chest No abnormalities - Abd Soft - GI Non distended Deferred - No abnormalities - Ext No significant edema - MSK 4/5 weakness in both lower extremities. - Neuro 4/5 strength bilaterally upper and lower extremities. - Psych No abnormalities ASSESSMENT: Pt. is a 82 yo Right-handed white male.On 03/07/2018 he was admitted to [facility] with diagnosis Multiple Myeloma and multilevel lumbar root compression.His impairment category is Medically Complex Conditions 17 - Neoplasms (17.2).Pre-morbidly, Pt. was independent/mod-I in Sphin cter Control, Transfers Control, Communication, Social Cognition, Self-Care, and Locomotion; and he h ad good Sphincter Control.Currently, he has deficits of Endurance, Safety Awareness, Transfers Contro l, Balance, Self-Care, and Locomotion.Pt. is now referred to [facility] for [place] in-patient rehabilitation in order to maximize patient's functional independence in activities of daily living, strength, ROM, and mobility.- Rehab Goal Patient has realistic goal of being discharged at assistance level 6-Liz to reside at Home with Fam hailey/Relatives. MDM/PLAN: - Physical Therapy Gait dysfunction - to improve, our physical therapists will perform initial evaluation of pt's statu s upon admission and devise an individualized program for Gait Training, and Wheel Chair mobility Inability to transfer - to improve, our physical therapists will perform initial evaluation of pt's status upon admission and devise an individualized program for Bed mobility Need for home safety evaluation - to improve, our physical therapists will perform initial evaluatio n of pt's status upon admission and devise an individualized program for Home Evaluation Need in caregiver upon discharge - to improve, our physical therapists will perform initial evaluati on of pt's status upon admission and devise an individualized program for Caregiver Training New precaution - to improve, our physical therapists will perform initial evaluation of pt's status upon admission and devise an individualized program for Patient precaution education Edema - to improve, our physical therapists will perform initial evaluation of pt's status upon admis himanshu and devise an individualized program for Elevation Training, and Lymphedema Therapy Poor balance - to improve, our physical therapists will perform initial evaluation of pt's status up on admission and devise an individualized program for Balance Training Poor endurance - to improve, our physical therapists will perform initial evaluation of pt's status upon admission and devise an individualized program for Endurance Training Weakness - to improve, our physical therapists will perform initial evaluation of pt's status upon a dmission and devise an individualized program for Aquatic Therapy, Neuromuscular Reeducation, and Str engthening Achieving independence - to improve, our physical therapists will perform initial evaluation of pt's status upon admission and devise an individualized program for Community Reintegration Activities - Occupational Therapy ADL deficits - to improve, our occupation therapists will perform initial evaluation of pt's status upon admission and devise an individualized program for Bathing, Bed mobility, Community Reintegratio n, Cooking, Dressing, Eating, Fine Motor Skills, Grooming, Homemaking, Kitchen Mobility, Laundry, Pat ient Education, Safety Awareness, Splinting - Positioning, Transfers(Toilet, Tub, Shower), and Wheel Chair Management Need for resident care associate - to improve, our occupation therapists will perform initial evaluation of pt's status upon admission and devise an individualized program for Caregiver Training Weakness - to improve, our occupation therapists will perform initial evaluation of pt's status upon admission and devise an individualized program for Aquatic Therapy, Balance, Endurance, UE ROM, and UE strengthening - Diet Type Continue Regular - Diet - Liquid Texture Continue Regular - Tube Feed Continue N/A - Fall Precaution Bed and chair alarm - Diet - Solid Texture Continue Regular - Shower allowing shower FUNCTIONAL STATUS: UPDATED AT WEEKLY TEAM CONFERENCE - Bladder Same accident frequency: 7-Ind - No accidents in the past 7 days - Bowel Same accident frequency: 7-Ind - No accidents in the past 7 days - Walking Same score based on distance walked: 1(<=50ft) - Wheelchair Same score based on distance traveled: 3(>=150ft) FUNCTIONAL STATUS: - Self-Care A. Eating sup B. Grooming sup C. Bathing sup D. Dressing - Upper [place] E. Dressing - Lower [place] F. Toileting [place] - Sphincter Control G: Bladder control Ind H: Bowel control Ind - Transfers Control I. Bed/Chair/Wheelchair maxA J. Toilet maxA K. Tub/Shower ADNO - Locomotion L. Walk/Wheelchair (B) maxA M. Stairs ADNO - Communication N. Comprehension (B) Liz O. Expression (B) Liz - Social Cognition P. Social Interaction Liz Q. Problem Solving Liz R. Memory Liz - Endurance Fair - Balance Fair - Safety Awareness Fair CURRENT FUNC. DEFICITS: Endurance, Safety Awareness, Transfers Control, Balance, Self-Care, and Locomotion SIGNATURE PANEL: (CDT)
[2018-03-15] MEDS: ROSUVASTATIN 10 MG TAB PO SCH (20:13)
[2018-03-15] MEDS: CRANBERRY FRUIT EXTRACT 200 MG CAP PO SCH (20:15)
[2018-03-15] MEDS: PROMOD 30 ML DOSE PO SCH (20:15)
[2018-03-15] MEDS: DOCUSATE NA 100 MG CAP PO SCH (20:16)
--- NOTE | 2018-03-15 22:35 | PN ---
Date of Progress Note: 03/15/2018 Chief Complaint: Acute on chronic kidney injury. History Of Present Illness: The patient was admitted to the hospital, was found to have acute on chr onic kidney injury. Renal function has stabilized. Creatinine on March 11 was 1.3, subsequently crea tinine went up to 1.7. The patient is currently on p.o. hydration. He completed IV fluids. Renal f unction is plateauing today. Blood work showed BUN of 55, creatinine 1.8. Hypokalemia. The patient was found to have potassium of 3.4, magnesium level was normal 2.2. Review of Systems: The patient is improving with p.o. fluid intake. Denies fever or chills. Physical Examination: Lungs: Clear to auscultation bilaterally. Heart: S1, S2. Abdomen: Soft, benign. Extremities: No edema. Blood Work: Sodium 137, potassium 3.4, chloride 105, CO2 25, BUN 55, creatinine 1.8, glucose 117, ph osphorus 2.1. Impression And Plan: 1.Acute on chronic kidney injury. Continue p.o. hydration. 2.Hypophosphatemia. The patient received replacement. Phosphorus level improved from 1.3 to 2.1. The patient is advancing with p.o. intake. Monitor electrolytes closely. 3.Hypokalemia. Potassium replacement ordered as needed. JOMAR/MODL Voice ID: [id number] Report ID: [id number]
--- NOTE | 2018-03-16 02:37 | FAST ---
SHIFT START DATE/TIME: 03/15/2018 19:00 (CDT) SHIFT END DATE/TIME: 03/16/2018 07:00 (CDT) NAME LUIS PALACIOS DATE OF : 1935 DATE OF ADMISSION: 03/14/2018 13:01 (CDT) PHONE: AGE: 82 N# [id number] GENDER: Male ENCOUNTER PHYSICIAN: Dr. Lance Kaur M.D. ADMISSION DIAGNOSIS: - Medically Complex Conditions 17 - Neoplasms (17.2) Multiple Myeloma. EATING: EATING - STEP 1: Does the patient require assistance when eating? Yes. EATING - STEP 2: Does the patient require the assistance of a helper? Yes. EATING - STEP 3: Does the patient perform half or more of the eating tasks? No. EATING - STEP 4: Does the patient require total assistance to eat, such as the helper holding the utensil and bringing all food and liquids to the mouth? No. EATING - SCORE: 2-MAX GROOMING: Activity did not occur on this shift GROOMING - SCORE: 0-UNK BATHING: Activity did not occur on this shift BATHING - SCORE: 0-UNK DRESSING - UPPER BODY: Patient is not dressing in public clothing ARTICLES SCORE Total number of steps: 0 DRESSING - UPPER BODY - SCORE: 0-UNK DRESSING - LOWER BODY: Patient is not dressing in public clothing ARTICLES SCORE Total number of steps: 0 DRESSING - LOWER BODY - SCORE: 0-UNK TOILETING: Activity did not occur on this shift TOILETING - SCORE: 0-UNK BLADDER MANAGEMENT: Magalia cares for quintero catheter including emptying drainage bag. BLADDER MANAGEMENT - SCORE: 1-DEP BOWEL MANAGEMENT: Magalia removes incontinent device (depends, pull ups, etc.); cleans the patient after accident / inco ntinent episode; and, applies new device (depends, pull-ups, padding, etc.). BOWEL MANAGEMENT - SCORE: 1-DEP BOWEL MANAGEMENT - FREQUENCY OF ACCIDENTS: BOWEL MANAGEMENT(FA) - STEP 1: How many accidents has the patient had during the current shift? 2 TRANSFERS: BED, CHAIR, WHEELCHAIR: Activity did not occur on this shift TRANSFERS: BED, CHAIR, WHEELCHAIR - SCORE: 0-UNK TRANSFERS: TOILET: Activity did not occur on this shift TRANSFERS: TOILET - SCORE: 0-UNK TRANSFERS: SHOWER: Activity did not occur on this shift TRANSFERS: SHOWER - SCORE: 0-UNK TRANSFERS: TUB: Activity did not occur on this shift TRANSFERS: TUB - SCORE: 0-UNK LOCOMOTION: WALK: Activity did not occur on this shift LOCOMOTION: WALK - SCORE: 0-UNK LOCOMOTION: WHEELCHAIR: Activity did not occur on this shift LOCOMOTION: WHEELCHAIR - SCORE: 0-UNK COMPREHENSION: COMPREHENSION: TYPE: Both COMPREHENSION - STEP 1: Does the patient require help to understand complex and abstract ideas (such as current events, finan will, discharge planning, medical issues, relationships, etc)? Yes. COMPREHENSION - STEP 2: Does the patient require help to understand questions or statements about basic needs or ideas (such as hunger, thirst, sleep, safety, daily schedule, room location, or discomfort) half or more of the t mary carmen? No. COMPREHENSION - STEP 3: How often does the patient need help to understand directions and conversation about basic needs? 25% - 49% of the time COMPREHENSION - SCORE: 3-MOD EXPRESSION EXPRESSION: TYPE: Both EXPRESSION - STEP 1: Does the patient require help expressing complex and abstract ideas (such as current events, finances , discharge planning, medical issues, relationships, etc)? Yes. EXPRESSION - STEP 2: Does the patient require help to express basic necessities or ideas (such as hunger, thirst, sleep, s afety, daily schedule, room location, or discomfort) half or more of the time? No. EXPRESSION - STEP 3: How often does the patient need help to express directions and conversation about basic needs? 25-49% of the time EXPRESSION - SCORE: 3-MOD SOCIAL INTERACTION: SOCIAL INTERACTION - STEP 1: Does the patient require a helper to interact with others in social and therapeutic situations? Yes. SOCIAL INTERACTION - STEP 2: Does the patient interact appropriately half or more of the time? Yes. SOCIAL INTERACTION - STEP 3: How often does the patient need help to interact appropriately? 10-24% of the time SOCIAL INTERACTION - SCORE: 4-MIN PROBLEM SOLVING: PROBLEM SOLVING - STEP 1: Does the patient need help to solve complex problems such as managing a checking account or confronti ng interpersonal problems? Yes. PROBLEM SOLVING - STEP 2: Does the patient solve basic routine problems half or more of the time? No. PROBLEM SOLVING - STEP 3: Does the patient need help to solve problems all the time or is s/he unable to solve problems? No. Greg jenn can sometimes solve problems PROBLEM SOLVING - SCORE: 2-MAX MEMORY: MEMORY - STEP 1: Does the patient need help to remember frequently encountered people, daily routines, and executing r equests? Yes. MEMORY - STEP 2: How often does the patient need help to remember frequently encountered people, daily routines, and e xecuting requests? More than 50% of the time MEMORY - STEP 3: Does the patient need help to remember all of the time OR does s/he not effectively recognize and rem ember? No. Patient does not need help all the time MEMORY - SCORE: 2-MAX SIGNATURE PANEL: The following modified sections: Eating - Score, Grooming - Score, Bathing - Score, Dressing - Upper Body - Score, Dressing - Lower Body - Score, Toileting - Score, Bladder Management - Score, Bowel Man agement - Score, Transfers: Bed, Chair, Wheelchair - Score, Transfers: Toilet - Score, Transfers: Dara wer - Score, Transfers: Tub - Score, Locomotion: Walk - Score, Locomotion: Wheelchair - Score, Compre hension - Score, Expression - Score, Social Interaction - Score, Problem Solving - Score, Memory - Sc ore were [electronically] signed by Yu Greco CLynnNDeepthi on MonMar 16 2018 02:36:18 T-0500 ( Central Daylight Time)
[2018-03-16] MEDS: CARVEDILOL 3.125 MG TAB PO SCH ×2 (05:12→17:16)
[2018-03-16] MEDS: ACETAMINOPHEN 500 MG TAB PO PRN ×2 (05:15→21:18)
[2018-03-16] MEDS: PROMOD 30 ML DOSE PO SCH ×2 (08:00→20:50)
[2018-03-16] MEDS: CETIRIZINE HCL 5 MG TABLET PO SCH (08:41)
[2018-03-16] MEDS: metroNIDAZOLE 500 MG TABLET PO SCH ×3 (08:41→20:50)
[2018-03-16] MEDS: MULTIVIT W/ MINERAL TAB PO SCH (08:42)
[2018-03-16] MEDS: ASPIRIN EC 81 MG TAB PO SCH (08:42)
[2018-03-16] MEDS: APIXABAN 2.5 MG TABLET PO SCH ×2 (08:42→20:49)
[2018-03-16] MEDS: FERROUS SULFATE 325 MG TAB PO SCH (08:42)
[2018-03-16] MEDS: FINASTERIDE 5 MG TAB PO SCH (08:42)
[2018-03-16] MEDS: CRANBERRY FRUIT EXTRACT 200 MG CAP PO SCH ×2 (08:42→20:50)
[2018-03-16] MEDS: FENOFIBRATE 160 MG TAB PO SCH (08:42)
[2018-03-16] MEDS: CLOPIDOGREL 75 MG TABLET PO SCH (08:42)
[2018-03-16] MEDS: FE SULF/FA/VIT B COMP & C TAB PO SCH (08:42)
[2018-03-16] MEDS: GABAPENTIN 300 MG CAP PO SCH ×2 (08:42→20:49)
[2018-03-16] MEDS: levoFLOXacin 250 MG TAB PO SCH (08:42)
[2018-03-16] MEDS: VITAMIN D 1000 UNIT TAB PO SCH (08:43)
[2018-03-16] MEDS: PANTOPRAZOLE 40MG TABLET PO SCH (08:43)
--- NOTE | 2018-03-16 09:39 | P.RH.PN ---
Estimated Length of Stay: 14 Expected Discharge Date: 03/27/18 Discharge Disposition Plan: Home Family Support: Yes Mcfp Goal: Mobility, Transfers, Self Care Vital Signs: Last Vital Signs Temp 97.8 F 03/16/18 06:25 Pulse 102 H 03/16/18 06:25 Resp 18 03/16/18 06:25 BP 89/52 L 03/16/18 06:25 Pulse Ox 96 03/16/18 06:25 Laboratory: Laboratory Last Values WBC 8.7 K/uL (4.3-10.9) 03/15/18 05:55 RBC 2.57 M/uL (4.33-5.43) L 03/15/18 05:55 Hgb 9.0 g/dL (13.6-17.9) L 03/15/18 05:55 Hct 25.7 % (39.6-49.0) L 03/15/18 05:55 MCV 99.9 fL (80-100) 03/15/18 05:55 MCH 34.9 pg (27.0-35.0) 03/15/18 05:55 MCHC 34.9 g/dL (32.0-36.0) 03/15/18 05:55 RDW 15.3 % (12.1-15.2) H 03/15/18 05:55 Plt Count 96 K/uL (152-406) L 03/15/18 05:55 MPV 11.3 fL (7.6-11.3) 03/15/18 05:55 Neutrophils % 87.1 % (41.7-73.7) H 03/15/18 05:55 Lymphocytes % 5.9 % (15.3-44.8) L 03/15/18 05:55 Monocytes % 6.9 % (3.3-12.3) 03/15/18 05:55 Eosinophils % 0.0 % (0-4.4) 03/15/18 05:55 Basophils % 0.1 % (0-1.3) 03/15/18 05:55 Absolute Neutrophils 7.6 K/uL (1.8-8.0) 03/15/18 05:55 Absolute Lymphocytes 0.5 K/uL (0.7-4.9) L 03/15/18 05:55 Absolute Monocytes 0.6 K/uL (0.1-1.3) 03/15/18 05:55 Absolute Eosinophils 0.0 K/uL (0-0.5) 03/15/18 05:55 Absolute Basophils 0.0 K/uL (0-0.5) 03/15/18 05:55 Poikilocytosis 2+ 03/15/18 05:55 Anisocytosis 1+ 03/15/18 05:55 Morphology Comment Noted (NOT SEEN) 03/15/18 05:55 Sodium 137 mmol/L (136-145) 03/15/18 05:55 Potassium 3.4 mmol/L (3.5-5.1) L 03/15/18 05:55 Chloride 105 mmol/L (98-107) 03/15/18 05:55 Carbon Dioxide 25 mmol/L (21-32) 03/15/18 05:55 BUN 55 mg/dL (7-18) H 03/15/18 05:55 Creatinine 1.80 mg/dL (0.55-1.3) H 03/15/18 05:55 Estimated GFR 36 mL/min (=/>90) L 03/15/18 05:55 Glucose 117 mg/dL (74-106) H 03/15/18 05:55 POC Glucose 118 mg/dl (65-120) 03/16/18 07:12 Lactic Acid 1.9 mmol/L (0.4-2.0) 03/15/18 10:22 Calcium 8.1 mg/dL (8.5-10.1) L D 03/15/18 05:55 Magnesium 2.2 mg/dL (1.8-2.4) 03/15/18 05:55 Albumin 2.5 g/dL (3.4-5.0) L 03/15/18 05:55 Prealbumin 8.7 mg/dL (20-40) L 03/15/18 05:55 Urine Color Yellow 03/14/18 19:10 Urine Appearance Clear 03/14/18 19:10 Urine pH 5.5 (5.0-7.0) 03/14/18 19:10 Ur Specific Mongo 1.020 (1.005-1.030) 03/14/18 19:10 Urine Ketones Negative (NEG) 03/14/18 19:10 Urine Blood 2+ (NEG) H 03/14/18 19:10 Urine Nitrite Negative (NEG) 03/14/18 19:10 Urine Bilirubin Negative (NEG) 03/14/18 19:10 Urine Urobilinogen 0.2 mg/dL (0.2-1.0) 03/14/18 19:10 Ur Leukocyte Esterase 2+ (NEG) H 03/14/18 19:10 Urine RBC 10-20 /HPF (NONE SEEN) H 03/14/18 19:10 Urine WBC Tntc /HPF (<5) H 03/14/18 19:10 Ur Squamous Epith Cells <5 /HPF (NONE SEEN) 03/14/18 19:10 Urine Bacteria <20 /HPF (NONE SEEN) 03/14/18 19:10 Urine Culture Reflexed Not needed 03/14/18 19:10 Urine Glucose Negative (NEG) 03/14/18 19:10 Urine Total Protein 1+ (NEG) H 03/14/18 19:10 Wound Present: No Closed Surgical Incision Present: No Negative Pressure Wound Therapy Present: No Physician Update: He is medically stable. His potassium is mildly low at 3.4. Will start potassiium 10 meq daily. His prealbumin is low at 8.7 will add promod. He on renal diet on fluid restriction. He passed his bedside swallow evaluation but speech evaluation is pending. He is making fair overall progress with his physical and occupational therapy. Medical Issues: With FC Pain Issues: Basom 5/325mg Q6H PRN. Tylenol 1000mg Q8H PRN Functional Improvement: pt demonstrates improvements with tolerance to therapy and awareness. pt is more willing to participate now. pt sems motivated. Skilled PT services necessary to enhance functional performance and safety. Functional Improvement Occupational Therapy: PATIENT IS PARTICIPATORY WITH THERAPY, HOWEVER VERY WEAK. Speech Therapy Update: Swallow was WFL limits on assessment. ST continuing to monitor and re-assess as needed. 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 Please see the Rehabilitation Signature page for all necessary signatures.
[2018-03-16 12:17] LABS: Potassium 3.9 mmol/L (3.5-5.1)
--- NOTE | 2018-03-16 15:56 | FAST ---
ENCOUNTER DATE AND TIME: 03/16/2018 08:00 (CDT) NAME LUIS PALACIOS DATE OF : 1935 DATE OF ADMISSION: 03/14/2018 13:01 (CDT) PHONE: AGE: 82 SSN# [id number] GENDER: Male ENCOUNTER PHYSICIAN: Dr. Lance Kaur M.D. ADMISSION DIAGNOSIS: - Medically Complex Conditions 17 - Neoplasms (17.2) Multiple Myeloma. EATING: Activity did not occur on this shift EATING - SCORE: 0-UNK GROOMING: Activity did not occur on this shift GROOMING - SCORE: 0-UNK BATHING: Activity did not occur on this shift BATHING - SCORE: 0-UNK DRESSING - UPPER BODY: Activity did not occur on this shift Patient is not dressing in public clothing ARTICLES SCORE Total number of steps: 0 DRESSING - UPPER BODY - SCORE: 0-UNK DRESSING - LOWER BODY: Activity did not occur on this shift Patient is not dressing in public clothing ARTICLES SCORE Total number of steps: 0 DRESSING - LOWER BODY - SCORE: 0-UNK TOILETING: Activity did not occur on this shift TOILETING - SCORE: 0-UNK BLADDER MANAGEMENT: Activity did not occur on this shift BLADDER MANAGEMENT - SCORE: 7-IND BOWEL MANAGEMENT: Activity did not occur on this shift BOWEL MANAGEMENT - SCORE: 7-IND TRANSFERS: BED, CHAIR, WHEELCHAIR: Activity did not occur on this shift TRANSFERS: BED, CHAIR, WHEELCHAIR - SCORE: 0-UNK TRANSFERS: TOILET: Activity did not occur on this shift TRANSFERS: TOILET - SCORE: 0-UNK TRANSFERS: SHOWER: Activity did not occur on this shift TRANSFERS: SHOWER - SCORE: 0-UNK TRANSFERS: TUB: Activity did not occur on this shift TRANSFERS: TUB - SCORE: 0-UNK LOCOMOTION: WALK: Activity did not occur on this shift LOCOMOTION: WALK - SCORE: 0-UNK LOCOMOTION: WHEELCHAIR: Activity did not occur on this shift LOCOMOTION: WHEELCHAIR - SCORE: 0-UNK LOCOMOTION: STAIRS: Activity did not occur on this shift LOCOMOTION: STAIRS - SCORE: 0-UNK COMPREHENSION: COMPREHENSION - STEP 1: Does the patient require help to understand complex and abstract ideas (such as current events, finan will, discharge planning, medical issues, relationships, etc)? Yes. COMPREHENSION - STEP 2: Does the patient require help to understand questions or statements about basic needs or ideas (such as hunger, thirst, sleep, safety, daily schedule, room location, or discomfort) half or more of the t mary carmen? No. COMPREHENSION - STEP 3: How often does the patient need help to understand directions and conversation about basic needs? 10% - 24% of the time COMPREHENSION - SCORE: 4-MIN EXPRESSION EXPRESSION - STEP 1: Does the patient require help expressing complex and abstract ideas (such as current events, finances , discharge planning, medical issues, relationships, etc)? Yes. EXPRESSION - STEP 2: Does the patient require help to express basic necessities or ideas (such as hunger, thirst, sleep, s afety, daily schedule, room location, or discomfort) half or more of the time? Yes. EXPRESSION - STEP 3: Is the patient basically unable to express or does s/he express inappropriately or inconsistently pool pite prompting? No. EXPRESSION - SCORE: 2-MAX SOCIAL INTERACTION: SOCIAL INTERACTION - STEP 1: Does the patient require a helper to interact with others in social and therapeutic situations? Yes. SOCIAL INTERACTION - STEP 2: Does the patient interact appropriately half or more of the time? Yes. SOCIAL INTERACTION - STEP 3: How often does the patient need help to interact appropriately? 25-49% of the time SOCIAL INTERACTION - SCORE: 3-MOD PROBLEM SOLVING: PROBLEM SOLVING - STEP 1: Does the patient need help to solve complex problems such as managing a checking account or confronti ng interpersonal problems? Yes. PROBLEM SOLVING - STEP 2: Does the patient solve basic routine problems half or more of the time? Yes. PROBLEM SOLVING - STEP 3: How often does the patient need help to solve basic routine problems? 25%-49% of the time PROBLEM SOLVING - SCORE: 3-MOD MEMORY: MEMORY - STEP 1: Does the patient need help to remember frequently encountered people, daily routines, and executing r equests? Yes. MEMORY - STEP 2: How often does the patient need help to remember frequently encountered people, daily routines, and e xecuting requests? 25% - 49% of the time MEMORY - SCORE: 3-MOD SIGNATURE PANEL: The following modified sections: Comprehension - Score, Expression - Score, Social Interaction - Scor e, Problem Solving - Score, Memory - Score were [electronically] signed by ST Roland mon 15:55:14 T-0500 (Central Daylight Time)
--- NOTE | 2018-03-16 16:39 | FAST ---
SHIFT START DATE/TIME: 03/16/2018 07:00 (CDT) SHIFT END DATE/TIME: 03/16/2018 19:00 (CDT) NAME LUIS PALACIOS DATE OF : 1935 DATE OF ADMISSION: 03/14/2018 13:01 (CDT) PHONE: AGE: 82 N# [id number] GENDER: Male ENCOUNTER PHYSICIAN: Dr. Lance Kaur M.D. ADMISSION DIAGNOSIS: - Medically Complex Conditions 17 - Neoplasms (17.2) Multiple Myeloma. EATING: EATING - STEP 1: Does the patient require assistance when eating? Yes. EATING - STEP 2: Does the patient require the assistance of a helper? No, patient only requires an assistive device, O R s/he takes more than reasonable time to eat, OR there is a safety concern, OR s/he requires modifie d food consistency EATING - SCORE: 6-BASIL GROOMING: Activity did not occur on this shift GROOMING - SCORE: 0-UNK BATHING: Activity did not occur on this shift BATHING - SCORE: 0-UNK DRESSING - UPPER BODY: T-shirt/pullover shirt (four steps) ARTICLES SCORE Total number of steps: 4 DRESSING - UPPER BODY - STEP 1: Does the patient require help when dressing above the waist? Yes. DRESSING - UPPER BODY - STEP 2: Does the patient require the assistance of a helper? Yes. DRESSING - UPPER BODY - STEP 3: Does the helper touch the patient while dressing? Yes. DRESSING - UPPER BODY - STEP 4: How many of the total steps does the patient complete on his/her own? 2 DRESSING - UPPER BODY - SCORE: 3-MOD DRESSING - LOWER BODY: Elastic waist pants (three steps) Underwear (three steps) ARTICLES SCORE Total number of steps: 6 DRESSING - LOWER BODY - STEP 1: Does the patient require help when dressing below the waist? Yes. DRESSING - LOWER BODY - STEP 2: Does the patient require the assistance of a helper? Yes. DRESSING - LOWER BODY - STEP 3: Does the helper touch the patient while dressing? Yes. DRESSING - LOWER BODY - STEP 4: How many of the total steps does the patient complete on his/her own? 0 DRESSING - LOWER BODY - STEP 5: Does patient require total assistance for dressing below the waist such as the helper holding clothin g and performing basically all the activities? Yes. DRESSING - LOWER BODY - SCORE: 1-DEP TOILETING: TOILETING - STEP 1: Does the patient require assistance with toileting? Yes. TOILETING - STEP 2: Does the patient require the assistance of a helper? Yes. TOILETING - STEP 3: How much assistance does the patient require from the helper? Hands-on assistance from the helper TOILETING - STEP 4: Of the 3 tasks: 1) Adjusting clothing prior to use, 2) Cleansing of perineal area, 3) Adjusting clot chirag after use; How many tasks does the patient perform WITHOUT assistance of the helper? No tasks; h elper performs all three tasks TOILETING - SCORE: 1-DEP BLADDER MANAGEMENT: [place] cares for quintero catheter including emptying drainage bag. BLADDER MANAGEMENT - SCORE: 1-DEP BLADDER MANAGEMENT - FREQUENCY OF ACCIDENTS: BLADDER MANAGEMENT(FA) - STEP 1: How many accidents has the patient had during the current shift? 0 BOWEL MANAGEMENT: BOWEL MANAGEMENT - STEP 1: Does the patient control bowels completely and intentionally without equipment devices or medications AND is always continent? No. BOWEL MANAGEMENT - STEP 2: Does the patient require the assistance of a helper? Yes. BOWEL MANAGEMENT - STEP 3: How much assistance does the patient require from the helper? Patient requires maximal assistance - p erforms 25% to 49 % of bowel management tasks BOWEL MANAGEMENT - SCORE: 2-MAX BOWEL MANAGEMENT - FREQUENCY OF ACCIDENTS: BOWEL MANAGEMENT(FA) - STEP 1: How many accidents has the patient had during the current shift? 1 TRANSFERS: BED, CHAIR, WHEELCHAIR: TRANSFERS: BED, CHAIR, WHEELCHAIR - STEP 1: Does the patient require assistance with bed, chair, or wheelchair transfers? Yes. TRANSFERS: BED, CHAIR, WHEELCHAIR - STEP 2: Does the patient require the assistance of a helper? Yes. TRANSFERS: BED, CHAIR, WHEELCHAIR - STEP 3: How much assistance does the patient require from the helper? Lifting of the patient TRANSFERS: BED, CHAIR, WHEELCHAIR - STEP 4: Does the helper lift the patient ONLY up? ONLY down? Up AND Down? ONLY up. TRANSFERS: BED, CHAIR, WHEELCHAIR - SCORE: 3-MOD TRANSFERS: TOILET: Activity did not occur on this shift TRANSFERS: TOILET - SCORE: 0-UNK TRANSFERS: SHOWER: Activity did not occur on this shift TRANSFERS: SHOWER - SCORE: 0-UNK TRANSFERS: TUB: Activity did not occur on this shift TRANSFERS: TUB - SCORE: 0-UNK LOCOMOTION: WALK: Activity did not occur on this shift LOCOMOTION: WALK - SCORE: 0-UNK LOCOMOTION: WHEELCHAIR: Activity did not occur on this shift LOCOMOTION: WHEELCHAIR - SCORE: 0-UNK COMPREHENSION: COMPREHENSION - SCORE: 0-UNK EXPRESSION EXPRESSION - SCORE: 0-UNK SOCIAL INTERACTION: SOCIAL INTERACTION - SCORE: 0-UNK PROBLEM SOLVING: PROBLEM SOLVING - SCORE: 0-UNK MEMORY: MEMORY - SCORE: 0-UNK SIGNATURE PANEL: The following modified sections: Eating - Score, Grooming - Score, Bathing - Score, Dressing - Upper Body - Score, Dressing - Lower Body - Score, Toileting - Score, Bladder Management - Score, Bowel Man agement - Score, Transfers: Bed, Chair, Wheelchair - Score, Transfers: Toilet - Score, Transfers: Dara wer - Score, Transfers: Tub - Score, Locomotion: Walk - Score, Locomotion: Wheelchair - Score, Compre hension - Score, Expression - Score, Social Interaction - Score, Problem Solving - Score, Memory - Sc ore were [electronically] signed by Demetria Hood CNA on MonMar 16 2018 16:38:33 GMT-0500 (Cent[place] Daylight Time)
[2018-03-16] MEDS: ROSUVASTATIN 10 MG TAB PO SCH (20:49)
[2018-03-16] MEDS: ENSURE ENLIVE 237 ML CAN PO SCH (20:50)
--- NOTE | 2018-03-17 01:38 | FAST ---
SHIFT START DATE/TIME: 03/16/2018 19:00 (CDT) SHIFT END DATE/TIME: 03/17/2018 07:00 (CDT) NAME LUIS PALACIOS DATE OF : 1935 DATE OF ADMISSION: 03/14/2018 13:01 (CDT) PHONE: AGE: 82 N# [id number] GENDER: Male ENCOUNTER PHYSICIAN: Dr. Lance Kaur M.D. ADMISSION DIAGNOSIS: - Medically Complex Conditions 17 - Neoplasms (17.2) Multiple Myeloma. EATING: Activity did not occur on this shift EATING - SCORE: 0-UNK GROOMING: Activity did not occur on this shift GROOMING - SCORE: 0-UNK BATHING: Activity did not occur on this shift BATHING - SCORE: 0-UNK DRESSING - UPPER BODY: Patient is not dressing in public clothing ARTICLES SCORE Total number of steps: 0 DRESSING - UPPER BODY - SCORE: 0-UNK DRESSING - LOWER BODY: Patient is not dressing in public clothing ARTICLES SCORE Total number of steps: 0 DRESSING - LOWER BODY - SCORE: 0-UNK TOILETING: Activity did not occur on this shift TOILETING - SCORE: 0-UNK BLADDER MANAGEMENT: [place] cares for quintero catheter including emptying drainage bag. BLADDER MANAGEMENT - SCORE: 1-DEP BOWEL MANAGEMENT: Activity did not occur on this shift BOWEL MANAGEMENT - SCORE: 7-IND TRANSFERS: BED, CHAIR, WHEELCHAIR: Activity did not occur on this shift TRANSFERS: BED, CHAIR, WHEELCHAIR - SCORE: 0-UNK TRANSFERS: TOILET: Activity did not occur on this shift TRANSFERS: TOILET - SCORE: 0-UNK TRANSFERS: SHOWER: Activity did not occur on this shift TRANSFERS: SHOWER - SCORE: 0-UNK TRANSFERS: TUB: Activity did not occur on this shift TRANSFERS: TUB - SCORE: 0-UNK LOCOMOTION: WALK: Activity did not occur on this shift LOCOMOTION: WALK - SCORE: 0-UNK LOCOMOTION: WHEELCHAIR: Activity did not occur on this shift LOCOMOTION: WHEELCHAIR - SCORE: 0-UNK COMPREHENSION: COMPREHENSION - STEP 1: Does the patient require help to understand complex and abstract ideas (such as current events, finan will, discharge planning, medical issues, relationships, etc)? Yes. COMPREHENSION - STEP 2: Does the patient require help to understand questions or statements about basic needs or ideas (such as hunger, thirst, sleep, safety, daily schedule, room location, or discomfort) half or more of the t mary carmen? No. COMPREHENSION - STEP 3: How often does the patient need help to understand directions and conversation about basic needs? 10% - 24% of the time COMPREHENSION - SCORE: 4-MIN EXPRESSION EXPRESSION - STEP 1: Does the patient require help expressing complex and abstract ideas (such as current events, finances , discharge planning, medical issues, relationships, etc)? Yes. EXPRESSION - STEP 2: Does the patient require help to express basic necessities or ideas (such as hunger, thirst, sleep, s afety, daily schedule, room location, or discomfort) half or more of the time? No. EXPRESSION - STEP 3: How often does the patient need help to express directions and conversation about basic needs? 10-24% of the time EXPRESSION - SCORE: 4-MIN SOCIAL INTERACTION: SOCIAL INTERACTION - STEP 1: Does the patient require a helper to interact with others in social and therapeutic situations? No. SOCIAL INTERACTION - STEP 2: Does the patient need extra time in social situations, OR does s/he interact with staff, other patien ts, and family members ONLY in structured environments, OR does s/he require medication for social in teraction? Yes, patient needs extra time SOCIAL INTERACTION - SCORE: 6-BASIL PROBLEM SOLVING: PROBLEM SOLVING - STEP 1: Does the patient need help to solve complex problems such as managing a checking account or confronti ng interpersonal problems? Yes. PROBLEM SOLVING - STEP 2: Does the patient solve basic routine problems half or more of the time? Yes. PROBLEM SOLVING - STEP 3: How often does the patient need help to solve basic routine problems? 25%-49% of the time PROBLEM SOLVING - SCORE: 3-MOD MEMORY: MEMORY - STEP 1: Does the patient need help to remember frequently encountered people, daily routines, and executing r equests? Yes. MEMORY - STEP 2: How often does the patient need help to remember frequently encountered people, daily routines, and e xecuting requests? 25% - 49% of the time MEMORY - SCORE: 3-MOD SIGNATURE PANEL: The following modified sections: Eating - Score, Grooming - Score, Dressing - Upper Body - Score, Lauro ssing - Lower Body - Score, Toileting - Score, Bladder Management - Score, Bowel Management - Score, Transfers: Bed, Chair, Wheelchair - Score, Transfers: Toilet - Score, Transfers: Shower - Score, Cano sfers: Tub - Score, Locomotion: Walk - Score, Locomotion: Wheelchair - Score, Comprehension - Score, Expression - Score, Social Interaction - Score, Problem Solving - Score, Memory - Score were [electro nically] signed by Opal Ramírez CNA on Sat Mar 17 2018 01:37:19 GMT-0500 (Central Daylight Time)
[2018-03-17] MEDS: CARVEDILOL 3.125 MG TAB PO SCH ×2 (05:27→17:29)
[2018-03-17] MEDS: ACETAMINOPHEN 500 MG TAB PO PRN ×2 (05:27→21:05)
--- NOTE | 2018-03-17 08:52 | FAST ---
ENCOUNTER DATE AND TIME: 03/17/2018 08:00 (CDT) NAME LUIS PALACIOS DATE OF : 1935 DATE OF ADMISSION: 03/14/2018 13:01 (CDT) PHONE: AGE: 82 SSN# [id number] GENDER: Male ENCOUNTER PHYSICIAN: Dr. Lance Kaur M.D. ADMISSION DIAGNOSIS: - Medically Complex Conditions 17 - Neoplasms (17.2) Multiple Myeloma. EATING: Activity did not occur on this shift EATING - SCORE: 0-UNK GROOMING: Comb/brush hair Oral care GROOMING - STEP 1: Does the patient require assistance when grooming? Yes. GROOMING - STEP 2: Does the patient require the assistance of a helper? Yes. GROOMING - STEP 3: How much assistance does the patient require from the helper? Only prior equipment preparation/set up from the helper GROOMING - SCORE: 5-SUP BATHING: Abdomen Buttocks Chest Left arm Left lower leg and foot Left upper leg Perineal area Right arm Right lower leg and foot Right upper leg BATHING - STEP 1: Does the patient require assistance when bathing? Yes. BATHING - STEP 2: Does the patient require the assistance of a helper? Yes. BATHING - STEP 3: How much assistance does the patient require from the helper? Only incidental help such as placement of a wash cloth in his/her hand a few times as s/he bathes OR help to bathe just one or two areas of the body BATHING - SCORE: 4-MIN DRESSING - UPPER BODY: T-shirt/pullover shirt (four steps) ARTICLES SCORE Total number of steps: 4 DRESSING - UPPER BODY - STEP 1: Does the patient require help when dressing above the waist? Yes. DRESSING - UPPER BODY - STEP 2: Does the patient require the assistance of a helper? Yes. DRESSING - UPPER BODY - STEP 3: Does the helper touch the patient while dressing? Yes. DRESSING - UPPER BODY - STEP 4: How many of the total steps does the patient complete on his/her own? 2 DRESSING - UPPER BODY - SCORE: 3-MOD DRESSING - LOWER BODY: Slip-on shoe - Left foot (one step) Slip-on shoe - Right foot (one step) Sock - Left foot (one step) Sock - Right foot (one step) Underwear (three steps) Zippered pants (four steps) ARTICLES SCORE Total number of steps: 11 DRESSING - LOWER BODY - STEP 1: Does the patient require help when dressing below the waist? Yes. DRESSING - LOWER BODY - STEP 2: Does the patient require the assistance of a helper? Yes. DRESSING - LOWER BODY - STEP 3: Does the helper touch the patient while dressing? Yes. DRESSING - LOWER BODY - STEP 4: How many of the total steps does the patient complete on his/her own? 2 DRESSING - LOWER BODY - STEP 5: Does patient require total assistance for dressing below the waist such as the helper holding clothin g and performing basically all the activities? Yes. DRESSING - LOWER BODY - SCORE: 1-DEP TOILETING: Activity did not occur on this shift TOILETING - SCORE: 0-UNK BLADDER MANAGEMENT: Activity did not occur on this shift BLADDER MANAGEMENT - SCORE: 7-IND BOWEL MANAGEMENT: Activity did not occur on this shift BOWEL MANAGEMENT - SCORE: 7-IND TRANSFERS: BED, CHAIR, WHEELCHAIR: TRANSFERS: BED, CHAIR, WHEELCHAIR - STEP 1: Does the patient require assistance with bed, chair, or wheelchair transfers? Yes. TRANSFERS: BED, CHAIR, WHEELCHAIR - STEP 2: Does the patient require the assistance of a helper? Yes. TRANSFERS: BED, CHAIR, WHEELCHAIR - STEP 3: How much assistance does the patient require from the helper? Steadying/guiding assistance TRANSFERS: BED, CHAIR, WHEELCHAIR - SCORE: 4-MIN TRANSFERS: TOILET: Activity did not occur on this shift TRANSFERS: TOILET - SCORE: 0-UNK TRANSFERS: SHOWER: TRANSFERS: SHOWER - STEP 1: Does the patient require assistance with shower transfers? Yes. TRANSFERS: SHOWER - STEP 2: Does the patient require the assistance of a helper? Yes. TRANSFERS: SHOWER - STEP 3: How much assistance does the patient require from the helper? Only incidental help such as contact gu arding or steadying during shower transfers, or help to lift one leg into the shower TRANSFERS: SHOWER - SCORE: 4-MIN TRANSFERS: TUB: Activity did not occur on this shift TRANSFERS: TUB - SCORE: 0-UNK LOCOMOTION: WALK: Activity did not occur on this shift LOCOMOTION: WALK - SCORE: 0-UNK LOCOMOTION: WHEELCHAIR: Activity did not occur on this shift LOCOMOTION: WHEELCHAIR - SCORE: 0-UNK LOCOMOTION: STAIRS: Activity did not occur on this shift LOCOMOTION: STAIRS - SCORE: 0-UNK COMPREHENSION: COMPREHENSION: TYPE: Both COMPREHENSION - STEP 1: Does the patient require help to understand complex and abstract ideas (such as current events, finan will, discharge planning, medical issues, relationships, etc)? No. COMPREHENSION - STEP 2: Does the patient need extra time, require an assistive device (such as glasses, hearing aids, or an a ugmentative communication system), OR does s/he have mild difficulty expressing complex and abstract ideas (including mild dysarthria or mild word-finding problems)? Yes. COMPREHENSION - SCORE: 6-BASIL EXPRESSION EXPRESSION: TYPE: Both EXPRESSION - STEP 1: Does the patient require help expressing complex and abstract ideas (such as current events, finances , discharge planning, medical issues, relationships, etc)? Yes. EXPRESSION - STEP 2: Does the patient require help to express basic necessities or ideas (such as hunger, thirst, sleep, s afety, daily schedule, room location, or discomfort) half or more of the time? No. EXPRESSION - STEP 3: How often does the patient need help to express directions and conversation about basic needs? Less t he 10% of the time EXPRESSION - SCORE: 5-SUP SOCIAL INTERACTION: SOCIAL INTERACTION - STEP 1: Does the patient require a helper to interact with others in social and therapeutic situations? No. SOCIAL INTERACTION - STEP 2: Does the patient need extra time in social situations, OR does s/he interact with staff, other patien ts, and family members ONLY in structured environments, OR does s/he require medication for social in teraction? No. SOCIAL INTERACTION - SCORE: 7-IND PROBLEM SOLVING: PROBLEM SOLVING - SCORE: 0-UNK MEMORY: MEMORY - STEP 1: Does the patient need help to remember frequently encountered people, daily routines, and executing r equests? No. MEMORY - STEP 2: Does the patient have slight difficulty recognizing frequently encountered people, daily routines, or executing requests without the need for repetition or using self-initiated or environmental cues to remember? No. MEMORY - SCORE: 7-IND SIGNATURE PANEL: The following modified sections: Eating - Score, Grooming - Score, Bathing - Score, Dressing - Upper Body - Score, Dressing - Lower Body - Score, Toileting - Score, Transfers: Bed, Chair, Wheelchair - S core, Transfers: Toilet - Score, Transfers: Shower - Score, Transfers: Tub - Score, Comprehension - S core, Expression - Score, Social Interaction - Score, Problem Solving - Score, Memory - Score were [e lectronically] signed by MANAN Rios on MonMar 17 2018 08:51:02 T-0500 (Central Daylight T mary carmen)
[2018-03-17] MEDS: APIXABAN 2.5 MG TABLET PO SCH ×2 (08:53→20:42)
[2018-03-17] MEDS: MULTIVIT W/ MINERAL TAB PO SCH (08:55)
[2018-03-17] MEDS: CRANBERRY FRUIT EXTRACT 200 MG CAP PO SCH ×2 (08:55→20:41)
[2018-03-17] MEDS: FERROUS SULFATE 325 MG TAB PO SCH (08:56)
[2018-03-17] MEDS: FE SULF/FA/VIT B COMP & C TAB PO SCH (08:56)
[2018-03-17] MEDS: FINASTERIDE 5 MG TAB PO SCH (08:56)
[2018-03-17] MEDS: POTASSIUM CL SA 10 MEQ TAB PO SCH (08:56)
[2018-03-17] MEDS: VITAMIN D 1000 UNIT TAB PO SCH (08:56)
[2018-03-17] MEDS: GABAPENTIN 300 MG CAP PO SCH ×2 (08:56→20:42)
[2018-03-17] MEDS: CETIRIZINE HCL 5 MG TABLET PO SCH (08:56)
[2018-03-17] MEDS: FENOFIBRATE 160 MG TAB PO SCH (08:57)
[2018-03-17] MEDS: PROMOD 30 ML DOSE PO SCH ×2 (08:57→20:42)
[2018-03-17] MEDS: metroNIDAZOLE 500 MG TABLET PO SCH ×3 (08:57→20:42)
[2018-03-17] MEDS: levoFLOXacin 250 MG TAB PO SCH (08:57)
[2018-03-17] MEDS: ENSURE ENLIVE 237 ML CAN PO SCH ×2 (08:58→20:42)
[2018-03-17] MEDS: PANTOPRAZOLE 40MG TABLET PO SCH (08:58)
[2018-03-17] MEDS: ASPIRIN EC 81 MG TAB PO SCH (08:58)
[2018-03-17] MEDS: CLOPIDOGREL 75 MG TABLET PO SCH (08:58)
--- NOTE | 2018-03-17 10:51 | FAST ---
SHIFT START DATE/TIME: 03/17/2018 07:00 (CDT) SHIFT END DATE/TIME: 03/17/2018 19:00 (CDT) NAME LUIS PALACIOS DATE OF : 1935 DATE OF ADMISSION: 03/14/2018 13:01 (CDT) PHONE: AGE: 82 N# [id number] GENDER: Male ENCOUNTER PHYSICIAN: Dr. Lance Kaur M.D. ADMISSION DIAGNOSIS: - Medically Complex Conditions 17 - Neoplasms (17.2) Multiple Myeloma. EATING: EATING - STEP 1: Does the patient require assistance when eating? Yes. EATING - STEP 2: Does the patient require the assistance of a helper? Yes. EATING - STEP 3: Does the patient perform half or more of the eating tasks? Yes. EATING - STEP 4: Does the patient need only supervision, cuing, coaxing OR help to apply an orthosis OR help to cut fo od, open containers, pour liquids, or butter bread? Yes. EATING - SCORE: 5-SUP GROOMING: Comb/brush hair Wash, rinse, and dry face GROOMING - STEP 1: Does the patient require assistance when grooming? Yes. GROOMING - STEP 2: Does the patient require the assistance of a helper? Yes. GROOMING - STEP 3: How much assistance does the patient require from the helper? Only prior equipment preparation/set up from the helper GROOMING - SCORE: 5-SUP BATHING: Activity did not occur on this shift BATHING - SCORE: 0-UNK DRESSING - UPPER BODY: T-shirt/pullover shirt (four steps) ARTICLES SCORE Total number of steps: 4 DRESSING - UPPER BODY - STEP 1: Does the patient require help when dressing above the waist? Yes. DRESSING - UPPER BODY - STEP 2: Does the patient require the assistance of a helper? Yes. DRESSING - UPPER BODY - STEP 3: Does the helper touch the patient while dressing? Yes. DRESSING - UPPER BODY - STEP 4: How many of the total steps does the patient complete on his/her own? 2 DRESSING - UPPER BODY - SCORE: 3-MOD DRESSING - LOWER BODY: Elastic waist pants (three steps) Slip-on shoe - Left foot (one step) Slip-on shoe - Right foot (one step) ARTICLES SCORE Total number of steps: 5 DRESSING - LOWER BODY - STEP 1: Does the patient require help when dressing below the waist? Yes. DRESSING - LOWER BODY - STEP 2: Does the patient require the assistance of a helper? Yes. DRESSING - LOWER BODY - STEP 3: Does the helper touch the patient while dressing? Yes. DRESSING - LOWER BODY - STEP 4: How many of the total steps does the patient complete on his/her own? 2 DRESSING - LOWER BODY - STEP 5: Does patient require total assistance for dressing below the waist such as the helper holding clothin g and performing basically all the activities? Yes. DRESSING - LOWER BODY - SCORE: 1-DEP TOILETING: TOILETING - STEP 1: Does the patient require assistance with toileting? Yes. TOILETING - STEP 2: Does the patient require the assistance of a helper? Yes. TOILETING - STEP 3: How much assistance does the patient require from the helper? Hands-on assistance from the helper TOILETING - STEP 4: Of the 3 tasks: 1) Adjusting clothing prior to use, 2) Cleansing of perineal area, 3) Adjusting clot chirag after use; How many tasks does the patient perform WITHOUT assistance of the helper? No tasks; kristian sánchez performs all three tasks TOILETING - SCORE: 1-DEP BLADDER MANAGEMENT: BLADDER MANAGEMENT - STEP 1: Does the patient control the bladder completely and intentionally without equipment or devices or med ications, and is always continent? No. BLADDER MANAGEMENT - STEP 2: Does the patient require the assistance of a helper? Yes. BLADDER MANAGEMENT - STEP 3: How much assistance does the patient require from the helper? Only set-up of equipment - such as plac ing it within reach of the patient or emptying a device - to maintain either satisfactory voiding pat tern or managing an external device, such as an absorbent pad, ileal device, or catheter BLADDER MANAGEMENT - SCORE: 5-SUP BLADDER MANAGEMENT - FREQUENCY OF ACCIDENTS: BLADDER MANAGEMENT(FA) - STEP 1: How many accidents has the patient had during the current shift? 0 BOWEL MANAGEMENT: Activity did not occur on this shift BOWEL MANAGEMENT - SCORE: 7-IND BOWEL MANAGEMENT - FREQUENCY OF ACCIDENTS: BOWEL MANAGEMENT(FA) - STEP 1: How many accidents has the patient had during the current shift? 0 TRANSFERS: BED, CHAIR, WHEELCHAIR: TRANSFERS: BED, CHAIR, WHEELCHAIR - STEP 1: Does the patient require assistance with bed, chair, or wheelchair transfers? Yes. TRANSFERS: BED, CHAIR, WHEELCHAIR - STEP 2: Does the patient require the assistance of a helper? Yes. TRANSFERS: BED, CHAIR, WHEELCHAIR - STEP 3: How much assistance does the patient require from the helper? Steadying/guiding assistance TRANSFERS: BED, CHAIR, WHEELCHAIR - SCORE: 4-MIN TRANSFERS: TOILET: TRANSFERS: TOILET - STEP 1: Does the patient require assistance with toilet transfers? Yes. TRANSFERS: TOILET - STEP 2: Does the patient require the assistance of a helper? Yes. TRANSFERS: TOILET - STEP 3: How much assistance does the patient require from the helper? Patient performs half or more of the tr ansferring tasks TRANSFERS: TOILET - STEP 4: Does the patient need only incidental help such as contact guard or steadying during toilet transfer? Yes. TRANSFERS: TOILET - SCORE: 4-MIN TRANSFERS: SHOWER: Activity did not occur on this shift TRANSFERS: SHOWER - SCORE: 0-UNK TRANSFERS: TUB: Activity did not occur on this shift TRANSFERS: TUB - SCORE: 0-UNK LOCOMOTION: WALK: Activity did not occur on this shift LOCOMOTION: WALK - SCORE: 0-UNK LOCOMOTION: WHEELCHAIR: LOCOMOTION: WHEELCHAIR - STEP 1: Does the patient need help to go 150 feet in a wheelchair? Yes. LOCOMOTION: WHEELCHAIR - STEP 2: How much assistance does the patient need from the helper? More than incidental help LOCOMOTION: WHEELCHAIR - SCORE: 3-MOD COMPREHENSION: COMPREHENSION: TYPE: Both COMPREHENSION - STEP 1: Does the patient require help to understand complex and abstract ideas (such as current events, finan will, discharge planning, medical issues, relationships, etc)? No. COMPREHENSION - STEP 2: Does the patient need extra time, require an assistive device (such as glasses, hearing aids, or an a ugmentative communication system), OR does s/he have mild difficulty expressing complex and abstract ideas (including mild dysarthria or mild word-finding problems)? Yes. COMPREHENSION - SCORE: 6-BASIL EXPRESSION EXPRESSION: TYPE: Both EXPRESSION - STEP 1: Does the patient require help expressing complex and abstract ideas (such as current events, finances , discharge planning, medical issues, relationships, etc)? Yes. EXPRESSION - STEP 2: Does the patient require help to express basic necessities or ideas (such as hunger, thirst, sleep, s afety, daily schedule, room location, or discomfort) half or more of the time? No. EXPRESSION - STEP 3: How often does the patient need help to express directions and conversation about basic needs? Less t he 10% of the time EXPRESSION - SCORE: 5-SUP SOCIAL INTERACTION: SOCIAL INTERACTION - STEP 1: Does the patient require a helper to interact with others in social and therapeutic situations? No. SOCIAL INTERACTION - STEP 2: Does the patient need extra time in social situations, OR does s/he interact with staff, other patien ts, and family members ONLY in structured environments, OR does s/he require medication for social in teraction? No. SOCIAL INTERACTION - SCORE: 7-IND PROBLEM SOLVING: PROBLEM SOLVING - STEP 1: Does the patient need help to solve complex problems such as managing a checking account or confronti ng interpersonal problems? Yes. PROBLEM SOLVING - STEP 2: Does the patient solve basic routine problems half or more of the time? Yes. PROBLEM SOLVING - STEP 3: How often does the patient need help to solve basic routine problems? Less than 10% of the time PROBLEM SOLVING - SCORE: 5-SUP MEMORY: MEMORY - STEP 1: Does the patient need help to remember frequently encountered people, daily routines, and executing r equests? No. MEMORY - STEP 2: Does the patient have slight difficulty recognizing frequently encountered people, daily routines, or executing requests without the need for repetition or using self-initiated or environmental cues to remember? No. MEMORY - SCORE: 7-IND SIGNATURE PANEL: The following modified sections: Eating - Score, Grooming - Score, Bathing - Score, Dressing - Upper Body - Score, Dressing - Lower Body - Score, Toileting - Score, Bladder Management - Score, Bowel Man agement - Score, Transfers: Bed, Chair, Wheelchair - Score, Transfers: Toilet - Score, Transfers: Dara wer - Score, Transfers: Tub - Score, Locomotion: Walk - Score, Locomotion: Wheelchair - Score, Compre hension - Score, Expression - Score, Social Interaction - Score, Problem Solving - Score, Memory - Sc ore were [electronically] signed by Madhuri Lazo C.N.A. on MonMar 17 2018 10:50:17 T-0500 (Centra [place] Daylight Time)
--- NOTE | 2018-03-17 11:40 | FAST ---
ENCOUNTER DATE AND TIME: 03/17/2018 08:00 (CDT) NAME LUIS PALACIOS DATE OF : 1935 DATE OF ADMISSION: 03/14/2018 13:01 (CDT) PHONE: AGE: 82 SSN# [id number] GENDER: Male ENCOUNTER PHYSICIAN: Dr. Lance Kaur M.D. ADMISSION DIAGNOSIS: - Medically Complex Conditions 17 - Neoplasms (17.2) Multiple Myeloma. EATING: Activity did not occur on this shift EATING - SCORE: 0-UNK GROOMING: Activity did not occur on this shift GROOMING - SCORE: 0-UNK BATHING: Activity did not occur on this shift BATHING - SCORE: 0-UNK DRESSING - UPPER BODY: Activity did not occur on this shift Patient is not dressing in public clothing ARTICLES SCORE Total number of steps: 0 DRESSING - UPPER BODY - SCORE: 0-UNK DRESSING - LOWER BODY: Activity did not occur on this shift Patient is not dressing in public clothing ARTICLES SCORE Total number of steps: 0 DRESSING - LOWER BODY - SCORE: 0-UNK TOILETING: Activity did not occur on this shift TOILETING - SCORE: 0-UNK BLADDER MANAGEMENT: Activity did not occur on this shift BLADDER MANAGEMENT - SCORE: 7-IND BOWEL MANAGEMENT: Activity did not occur on this shift BOWEL MANAGEMENT - SCORE: 7-IND TRANSFERS: BED, CHAIR, WHEELCHAIR: TRANSFERS: BED, CHAIR, WHEELCHAIR - STEP 1: Does the patient require assistance with bed, chair, or wheelchair transfers? Yes. TRANSFERS: BED, CHAIR, WHEELCHAIR - STEP 2: Does the patient require the assistance of a helper? Yes. TRANSFERS: BED, CHAIR, WHEELCHAIR - STEP 3: How much assistance does the patient require from the helper? Lifting of the patient TRANSFERS: BED, CHAIR, WHEELCHAIR - STEP 4: Does the helper lift the patient ONLY up? ONLY down? Up AND Down? ONLY up. TRANSFERS: BED, CHAIR, WHEELCHAIR - SCORE: 3-MOD TRANSFERS: TOILET: Activity did not occur on this shift TRANSFERS: TOILET - SCORE: 0-UNK TRANSFERS: SHOWER: Activity did not occur on this shift TRANSFERS: SHOWER - SCORE: 0-UNK TRANSFERS: TUB: Activity did not occur on this shift TRANSFERS: TUB - SCORE: 0-UNK LOCOMOTION: WALK: Patient walks less than 50 feet LOCOMOTION: WALK - SCORE: 1-DEP LOCOMOTION: WHEELCHAIR: Patient propels wheelchair less than 50 ft LOCOMOTION: WHEELCHAIR - SCORE: 1-DEP LOCOMOTION: STAIRS: Activity did not occur on this shift LOCOMOTION: STAIRS - SCORE: 0-UNK COMPREHENSION: COMPREHENSION - SCORE: 0-UNK EXPRESSION EXPRESSION - SCORE: 0-UNK SOCIAL INTERACTION: SOCIAL INTERACTION - SCORE: 0-UNK PROBLEM SOLVING: PROBLEM SOLVING - SCORE: 0-UNK MEMORY: MEMORY - SCORE: 0-UNK SIGNATURE PANEL: The following modified sections: Transfers: Bed, Chair, Wheelchair - Score, Transfers: Toilet - Score , Locomotion: Walk - Score, Locomotion: Wheelchair - Score, Locomotion: Stairs - Score were [electron kristina] signed by Viviana Pop PTA on Sat Mar 17 2018 11:39:34 GMT-0500 (Central Daylight Time)
[2018-03-17] MEDS: ROSUVASTATIN 10 MG TAB PO SCH (19:27)
[2018-03-18] MEDS: HYDROCODONE/APAP 5/325 MG TAB PO PRN (01:16)
--- NOTE | 2018-03-18 01:26 | FAST ---
SHIFT START DATE/TIME: 03/17/2018 19:00 (CDT) SHIFT END DATE/TIME: 03/18/2018 07:00 (CDT) NAME LUIS PALACIOS DATE OF : 1935 DATE OF ADMISSION: 03/14/2018 13:01 (CDT) PHONE: AGE: 82 N# [id number] GENDER: Male ENCOUNTER PHYSICIAN: Dr. Lance Kaur M.D. ADMISSION DIAGNOSIS: - Medically Complex Conditions 17 - Neoplasms (17.2) Multiple Myeloma. EATING: Activity did not occur on this shift EATING - SCORE: 0-UNK GROOMING: Activity did not occur on this shift GROOMING - SCORE: 0-UNK BATHING: Activity did not occur on this shift BATHING - SCORE: 0-UNK DRESSING - UPPER BODY: Patient is not dressing in public clothing ARTICLES SCORE Total number of steps: 0 DRESSING - UPPER BODY - SCORE: 0-UNK DRESSING - LOWER BODY: Patient is not dressing in public clothing ARTICLES SCORE Total number of steps: 0 DRESSING - LOWER BODY - SCORE: 0-UNK TOILETING: Activity did not occur on this shift TOILETING - SCORE: 0-UNK BLADDER MANAGEMENT: [place] cares for quintero catheter including emptying drainage bag. BLADDER MANAGEMENT - SCORE: 1-DEP BOWEL MANAGEMENT: Activity did not occur on this shift BOWEL MANAGEMENT - SCORE: 7-IND TRANSFERS: BED, CHAIR, WHEELCHAIR: Activity did not occur on this shift TRANSFERS: BED, CHAIR, WHEELCHAIR - SCORE: 0-UNK TRANSFERS: TOILET: Activity did not occur on this shift TRANSFERS: TOILET - SCORE: 0-UNK TRANSFERS: SHOWER: Activity did not occur on this shift TRANSFERS: SHOWER - SCORE: 0-UNK TRANSFERS: TUB: Activity did not occur on this shift TRANSFERS: TUB - SCORE: 0-UNK LOCOMOTION: WALK: Activity did not occur on this shift LOCOMOTION: WALK - SCORE: 0-UNK LOCOMOTION: WHEELCHAIR: Activity did not occur on this shift LOCOMOTION: WHEELCHAIR - SCORE: 0-UNK COMPREHENSION: COMPREHENSION - STEP 1: Does the patient require help to understand complex and abstract ideas (such as current events, finan will, discharge planning, medical issues, relationships, etc)? Yes. COMPREHENSION - STEP 2: Does the patient require help to understand questions or statements about basic needs or ideas (such as hunger, thirst, sleep, safety, daily schedule, room location, or discomfort) half or more of the t mary carmen? No. COMPREHENSION - STEP 3: How often does the patient need help to understand directions and conversation about basic needs? 10% - 24% of the time COMPREHENSION - SCORE: 4-MIN EXPRESSION EXPRESSION - STEP 1: Does the patient require help expressing complex and abstract ideas (such as current events, finances , discharge planning, medical issues, relationships, etc)? Yes. EXPRESSION - STEP 2: Does the patient require help to express basic necessities or ideas (such as hunger, thirst, sleep, s afety, daily schedule, room location, or discomfort) half or more of the time? No. EXPRESSION - STEP 3: How often does the patient need help to express directions and conversation about basic needs? 10-24% of the time EXPRESSION - SCORE: 4-MIN SOCIAL INTERACTION: SOCIAL INTERACTION - STEP 1: Does the patient require a helper to interact with others in social and therapeutic situations? No. SOCIAL INTERACTION - STEP 2: Does the patient need extra time in social situations, OR does s/he interact with staff, other patien ts, and family members ONLY in structured environments, OR does s/he require medication for social in teraction? Yes, patient needs extra time SOCIAL INTERACTION - SCORE: 6-BASIL PROBLEM SOLVING: PROBLEM SOLVING - STEP 1: Does the patient need help to solve complex problems such as managing a checking account or confronti ng interpersonal problems? Yes. PROBLEM SOLVING - STEP 2: Does the patient solve basic routine problems half or more of the time? Yes. PROBLEM SOLVING - STEP 3: How often does the patient need help to solve basic routine problems? 10%-24% of the time PROBLEM SOLVING - SCORE: 4-MIN MEMORY: MEMORY - STEP 1: Does the patient need help to remember frequently encountered people, daily routines, and executing r equests? Yes. MEMORY - STEP 2: How often does the patient need help to remember frequently encountered people, daily routines, and e xecuting requests? 25% - 49% of the time MEMORY - SCORE: 3-MOD SIGNATURE PANEL: The following modified sections: Eating - Score, Grooming - Score, Dressing - Upper Body - Score, Lauro ssing - Lower Body - Score, Toileting - Score, Bladder Management - Score, Bowel Management - Score, Transfers: Bed, Chair, Wheelchair - Score, Transfers: Toilet - Score, Transfers: Shower - Score, Cano sfers: Tub - Score, Locomotion: Walk - Score, Locomotion: Wheelchair - Score, Comprehension - Score, Expression - Score, Social Interaction - Score, Problem Solving - Score, Memory - Score were [electro nically] signed by Opal Ramírez CNA on MonMar 18 2018 01:24:53 GMT-0500 (Central Daylight Time)
[2018-03-18] MEDS: CARVEDILOL 3.125 MG TAB PO SCH ×2 (05:21→17:00)
[2018-03-18] MEDS: PANTOPRAZOLE 40MG TABLET PO SCH (07:30)
[2018-03-18] MEDS: CRANBERRY FRUIT EXTRACT 200 MG CAP PO SCH ×2 (08:00→20:38)
[2018-03-18] MEDS: VITAMIN D 1000 UNIT TAB PO SCH (08:00)
[2018-03-18] MEDS: MULTIVIT W/ MINERAL TAB PO SCH (08:00)
[2018-03-18] MEDS: CLOPIDOGREL 75 MG TABLET PO SCH (08:00)
[2018-03-18] MEDS: APIXABAN 2.5 MG TABLET PO SCH ×2 (08:00→20:39)
[2018-03-18] MEDS: levoFLOXacin 250 MG TAB PO SCH (08:00)
[2018-03-18] MEDS: POTASSIUM CL SA 10 MEQ TAB PO SCH (08:00)
[2018-03-18] MEDS: CETIRIZINE HCL 5 MG TABLET PO SCH (08:00)
[2018-03-18] MEDS: ASPIRIN EC 81 MG TAB PO SCH (08:00)
[2018-03-18] MEDS: FINASTERIDE 5 MG TAB PO SCH (08:00)
[2018-03-18] MEDS: FERROUS SULFATE 325 MG TAB PO SCH (08:00)
[2018-03-18] MEDS: FENOFIBRATE 160 MG TAB PO SCH (08:00)
[2018-03-18] MEDS: GABAPENTIN 300 MG CAP PO SCH ×2 (08:00→20:39)
[2018-03-18] MEDS: FE SULF/FA/VIT B COMP & C TAB PO SCH (08:00)
[2018-03-18] MEDS: ENSURE ENLIVE 237 ML CAN PO SCH ×2 (09:11→20:38)
[2018-03-18] MEDS: PROMOD 30 ML DOSE PO SCH ×2 (09:12→20:38)
[2018-03-18] MEDS: metroNIDAZOLE 500 MG TABLET PO SCH ×3 (09:14→20:39)
[2018-03-18] MEDS: ACETAMINOPHEN 500 MG TAB PO PRN ×2 (11:38→20:53)
--- NOTE | 2018-03-18 13:52 | PN ---
Date of Progress Note: 03/18/2018 Subjective: The patient had urine retention. Woods was inserted. Physical Examination: Vital Signs: Blood pressure 140/74, pulse of 87, afebrile. Chest: Clear to auscultation. Heart: S1, S2. Regular. Abdomen: Soft, nontender. Extremity: Trace edema. Laboratory Data: WBC 8.7, H and H 9/25.7, platelets of 96. Sodium 139, potassium 3.9, bicarb 28, BU N 63, creatinine 1.8, calcium 8.5. Medications: Current medications the patient is on, its include; 1.Flagyl. 2.Levaquin 250 daily. 3.Zyrtec. 4.Plavix. 5.Carvedilol. 6.Fenofibrate. 7.Atorvastatin. 8.Gabapentin. 9.Proscar. 10.Cholecalciferol. Assessment And Plan: 1.Acute kidney injury secondary to prerenal, recovered, resolved. 2.Hypertension, controlled, optimal. Continue current medication. 3.Urinary retention. We will add Flomax. We will follow up with Urology. 4.Deconditioning. Continue PT/OT. 5.Colitis. The patient's kidney function improved. I going to increase his Levaquin to 500. MELO/NICHOLAS Voice ID: [id number] Report ID: [id number]
--- NOTE | 2018-03-18 15:18 | FAST ---
SHIFT START DATE/TIME: 03/18/2018 07:00 (CDT) SHIFT END DATE/TIME: 03/18/2018 19:00 (CDT) NAME LUIS PALACIOS DATE OF : 1935 DATE OF ADMISSION: 03/14/2018 13:01 (CDT) PHONE: AGE: 82 [facility]# [id number] GENDER: Male ENCOUNTER PHYSICIAN: Dr. Lance Kaur M.D. ADMISSION DIAGNOSIS: - Medically Complex Conditions 17 - Neoplasms (17.2) Multiple Myeloma. EATING: EATING - STEP 1: Does the patient require assistance when eating? Yes. EATING - STEP 2: Does the patient require the assistance of a helper? Yes. EATING - STEP 3: Does the patient perform half or more of the eating tasks? Yes. EATING - STEP 4: Does the patient need only supervision, cuing, coaxing OR help to apply an orthosis OR help to cut fo od, open containers, pour liquids, or butter bread? Yes. EATING - SCORE: 5-SUP GROOMING: Comb/brush hair Wash, rinse, and dry face Wash, rinse, and dry hands GROOMING - STEP 1: Does the patient require assistance when grooming? Yes. GROOMING - STEP 2: Does the patient require the assistance of a helper? Yes. GROOMING - STEP 3: How much assistance does the patient require from the helper? Only prior equipment preparation/set up from the helper GROOMING - SCORE: 5-SUP BATHING: Activity did not occur on this shift BATHING - SCORE: 0-UNK DRESSING - UPPER BODY: T-shirt/pullover shirt (four steps) ARTICLES SCORE Total number of steps: 4 DRESSING - UPPER BODY - STEP 1: Does the patient require help when dressing above the waist? Yes. DRESSING - UPPER BODY - STEP 2: Does the patient require the assistance of a helper? Yes. DRESSING - UPPER BODY - STEP 3: Does the helper touch the patient while dressing? Yes. DRESSING - UPPER BODY - STEP 4: How many of the total steps does the patient complete on his/her own? 0 DRESSING - UPPER BODY - STEP 5: Does Patient require total assistance for dressing above the waist such as the helper holding clothin g and performing basically all the activities? Yes. DRESSING - UPPER BODY - SCORE: 1-DEP DRESSING - UPPER BODY - COMMENTS: Difficulty moving due to arthritis and compression fracture L5 DRESSING - LOWER BODY: Slip-on shoe - Left foot (one step) Slip-on shoe - Right foot (one step) Zippered pants (four steps) ARTICLES SCORE Total number of steps: 6 DRESSING - LOWER BODY - STEP 1: Does the patient require help when dressing below the waist? Yes. DRESSING - LOWER BODY - STEP 2: Does the patient require the assistance of a helper? Yes. DRESSING - LOWER BODY - STEP 3: Does the helper touch the patient while dressing? Yes. DRESSING - LOWER BODY - STEP 4: How many of the total steps does the patient complete on his/her own? 0 DRESSING - LOWER BODY - STEP 5: Does patient require total assistance for dressing below the waist such as the helper holding clothin g and performing basically all the activities? Yes. DRESSING - LOWER BODY - SCORE: 1-DEP DRESSING - LOWER BODY - COMMENTS: Difficulty with movement due to arthritis and compression fracture L5 TOILETING: Activity did not occur on this shift TOILETING - SCORE: 0-UNK BLADDER MANAGEMENT: [place] cares for quintero catheter including emptying drainage bag. BLADDER MANAGEMENT - SCORE: 1-DEP BLADDER MANAGEMENT - FREQUENCY OF ACCIDENTS: BLADDER MANAGEMENT(FA) - STEP 1: How many accidents has the patient had during the current shift? 0 BOWEL MANAGEMENT: Activity did not occur on this shift BOWEL MANAGEMENT - SCORE: 7-IND BOWEL MANAGEMENT - FREQUENCY OF ACCIDENTS: BOWEL MANAGEMENT(FA) - STEP 1: How many accidents has the patient had during the current shift? 0 TRANSFERS: BED, CHAIR, WHEELCHAIR: TRANSFERS: BED, CHAIR, WHEELCHAIR - STEP 1: Does the patient require assistance with bed, chair, or wheelchair transfers? Yes. TRANSFERS: BED, CHAIR, WHEELCHAIR - STEP 2: Does the patient require the assistance of a helper? Yes. TRANSFERS: BED, CHAIR, WHEELCHAIR - STEP 3: How much assistance does the patient require from the helper? Steadying/guiding assistance TRANSFERS: BED, CHAIR, WHEELCHAIR - SCORE: 4-MIN TRANSFERS: TOILET: Activity did not occur on this shift TRANSFERS: TOILET - SCORE: 0-UNK TRANSFERS: SHOWER: Activity did not occur on this shift TRANSFERS: SHOWER - SCORE: 0-UNK TRANSFERS: TUB: Activity did not occur on this shift TRANSFERS: TUB - SCORE: 0-UNK LOCOMOTION: WALK: Activity did not occur on this shift LOCOMOTION: WALK - SCORE: 0-UNK LOCOMOTION: WHEELCHAIR: LOCOMOTION: WHEELCHAIR - STEP 1: Does the patient need help to go 150 feet in a wheelchair? Yes. LOCOMOTION: WHEELCHAIR - STEP 2: How much assistance does the patient need from the helper? Patient goes less than 150 feet - but more than 50 feet - with the assistance of only one helper LOCOMOTION: WHEELCHAIR - SCORE: 2-MAX COMPREHENSION: COMPREHENSION: TYPE: Both COMPREHENSION - STEP 1: Does the patient require help to understand complex and abstract ideas (such as current events, finan will, discharge planning, medical issues, relationships, etc)? Yes. COMPREHENSION - STEP 2: Does the patient require help to understand questions or statements about basic needs or ideas (such as hunger, thirst, sleep, safety, daily schedule, room location, or discomfort) half or more of the t mary carmen? No. COMPREHENSION - STEP 3: How often does the patient need help to understand directions and conversation about basic needs? Les s than 10% of the time COMPREHENSION - SCORE: 5-SUP EXPRESSION EXPRESSION: TYPE: Both EXPRESSION - STEP 1: Does the patient require help expressing complex and abstract ideas (such as current events, finances , discharge planning, medical issues, relationships, etc)? Yes. EXPRESSION - STEP 2: Does the patient require help to express basic necessities or ideas (such as hunger, thirst, sleep, s afety, daily schedule, room location, or discomfort) half or more of the time? No. EXPRESSION - STEP 3: How often does the patient need help to express directions and conversation about basic needs? Less t he 10% of the time EXPRESSION - SCORE: 5-SUP SOCIAL INTERACTION: SOCIAL INTERACTION - STEP 1: Does the patient require a helper to interact with others in social and therapeutic situations? No. SOCIAL INTERACTION - STEP 2: Does the patient need extra time in social situations, OR does s/he interact with staff, other patien ts, and family members ONLY in structured environments, OR does s/he require medication for social in teraction? Yes, patient needs extra time SOCIAL INTERACTION - SCORE: 6-BASIL PROBLEM SOLVING: PROBLEM SOLVING - STEP 1: Does the patient need help to solve complex problems such as managing a checking account or confronti ng interpersonal problems? No. PROBLEM SOLVING - STEP 2: Does the patient require extra time to make decisions or solve problems, OR does s/he have slight dif ficulty reading, initiating, or self-correcting in unfamiliar situations? Yes, patient needs extra ti me. PROBLEM SOLVING - SCORE: 6-BASIL MEMORY: MEMORY - STEP 1: Does the patient need help to remember frequently encountered people, daily routines, and executing r equests? No. MEMORY - STEP 2: Does the patient have slight difficulty recognizing frequently encountered people, daily routines, or executing requests without the need for repetition or using self-initiated or environmental cues to remember? No. MEMORY - SCORE: 7-IND SIGNATURE PANEL: The following modified sections: Eating - Score, Grooming - Score, Bathing - Score, Dressing - Upper Body - Score, Dressing - Upper Body - Comments:, Dressing - Lower Body - Score, Dressing - Lower Body - Comments:, Toileting - Score, Bladder Management - Score, Bowel Management - Score, Transfers: Bed , Chair, Wheelchair - Score, Transfers: Toilet - Score, Transfers: Shower - Score, Transfers: Tub - S core, Locomotion: Walk - Score, Locomotion: Wheelchair - Score, Comprehension - Score, Expression - S core, Social Interaction - Score, Problem Solving - Score, Memory - Score were [electronically] anca d by Madhuri Lazo C.N.A. on MonMar 18 2018 15:18:22 T-0500 (Central Daylight Time)
[2018-03-18] MEDS: ROSUVASTATIN 10 MG TAB PO SCH (20:38)
--- NOTE | 2018-03-19 01:50 | FAST ---
SHIFT START DATE/TIME: 03/18/2018 19:00 (CDT) SHIFT END DATE/TIME: 03/19/2018 07:00 (CDT) NAME LUIS PALACIOS DATE OF : 1935 DATE OF ADMISSION: 03/14/2018 13:01 (CDT) PHONE: AGE: 82 N# [id number] GENDER: Male ENCOUNTER PHYSICIAN: Dr. Lance Kaur M.D. ADMISSION DIAGNOSIS: - Medically Complex Conditions 17 - Neoplasms (17.2) Multiple Myeloma. EATING: Activity did not occur on this shift EATING - SCORE: 0-UNK GROOMING: Activity did not occur on this shift GROOMING - SCORE: 0-UNK BATHING: Activity did not occur on this shift BATHING - SCORE: 0-UNK DRESSING - UPPER BODY: Patient is not dressing in public clothing ARTICLES SCORE Total number of steps: 0 DRESSING - UPPER BODY - SCORE: 0-UNK DRESSING - LOWER BODY: Patient is not dressing in public clothing ARTICLES SCORE Total number of steps: 0 DRESSING - LOWER BODY - SCORE: 0-UNK TOILETING: Activity did not occur on this shift TOILETING - SCORE: 0-UNK BLADDER MANAGEMENT: [place] cares for quintero catheter including emptying drainage bag. BLADDER MANAGEMENT - SCORE: 1-DEP BOWEL MANAGEMENT: Activity did not occur on this shift BOWEL MANAGEMENT - SCORE: 7-IND TRANSFERS: BED, CHAIR, WHEELCHAIR: Activity did not occur on this shift TRANSFERS: BED, CHAIR, WHEELCHAIR - SCORE: 0-UNK TRANSFERS: TOILET: Activity did not occur on this shift TRANSFERS: TOILET - SCORE: 0-UNK TRANSFERS: SHOWER: Activity did not occur on this shift TRANSFERS: SHOWER - SCORE: 0-UNK TRANSFERS: TUB: Activity did not occur on this shift TRANSFERS: TUB - SCORE: 0-UNK LOCOMOTION: WALK: Activity did not occur on this shift LOCOMOTION: WALK - SCORE: 0-UNK LOCOMOTION: WHEELCHAIR: Activity did not occur on this shift LOCOMOTION: WHEELCHAIR - SCORE: 0-UNK COMPREHENSION: COMPREHENSION - STEP 1: Does the patient require help to understand complex and abstract ideas (such as current events, finan will, discharge planning, medical issues, relationships, etc)? Yes. COMPREHENSION - STEP 2: Does the patient require help to understand questions or statements about basic needs or ideas (such as hunger, thirst, sleep, safety, daily schedule, room location, or discomfort) half or more of the t mary carmen? No. COMPREHENSION - STEP 3: How often does the patient need help to understand directions and conversation about basic needs? 10% - 24% of the time COMPREHENSION - SCORE: 4-MIN EXPRESSION EXPRESSION - STEP 1: Does the patient require help expressing complex and abstract ideas (such as current events, finances , discharge planning, medical issues, relationships, etc)? Yes. EXPRESSION - STEP 2: Does the patient require help to express basic necessities or ideas (such as hunger, thirst, sleep, s afety, daily schedule, room location, or discomfort) half or more of the time? No. EXPRESSION - STEP 3: How often does the patient need help to express directions and conversation about basic needs? 10-24% of the time EXPRESSION - SCORE: 4-MIN SOCIAL INTERACTION: SOCIAL INTERACTION - STEP 1: Does the patient require a helper to interact with others in social and therapeutic situations? No. SOCIAL INTERACTION - STEP 2: Does the patient need extra time in social situations, OR does s/he interact with staff, other patien ts, and family members ONLY in structured environments, OR does s/he require medication for social in teraction? Yes, patient needs extra time SOCIAL INTERACTION - SCORE: 6-BASIL PROBLEM SOLVING: PROBLEM SOLVING - STEP 1: Does the patient need help to solve complex problems such as managing a checking account or confronti ng interpersonal problems? Yes. PROBLEM SOLVING - STEP 2: Does the patient solve basic routine problems half or more of the time? Yes. PROBLEM SOLVING - STEP 3: How often does the patient need help to solve basic routine problems? 25%-49% of the time PROBLEM SOLVING - SCORE: 3-MOD MEMORY: MEMORY - STEP 1: Does the patient need help to remember frequently encountered people, daily routines, and executing r equests? Yes. MEMORY - STEP 2: How often does the patient need help to remember frequently encountered people, daily routines, and e xecuting requests? 25% - 49% of the time MEMORY - SCORE: 3-MOD SIGNATURE PANEL: The following modified sections: Eating - Score, Grooming - Score, Dressing - Upper Body - Score, Laruo ssing - Lower Body - Score, Toileting - Score, Bladder Management - Score, Bowel Management - Score, Transfers: Bed, Chair, Wheelchair - Score, Transfers: Toilet - Score, Transfers: Shower - Score, [place] sfers: Tub - Score, Locomotion: Walk - Score, Locomotion: Wheelchair - Score, Comprehension - Score, Expression - Score, Social Interaction - Score, Problem Solving - Score, Memory - Score were [electro nically] signed by Opal Ramírez CNA on MonMar 19 2018 01:48:27 GMT-0500 (Central Daylight Time)
[2018-03-19] MEDS: CARVEDILOL 3.125 MG TAB PO SCH ×2 (05:23→17:21)
[2018-03-19] MEDS: ACETAMINOPHEN 500 MG TAB PO PRN (05:32)
[2018-03-19 06:21] LABS: Potassium 4.6 mmol/L (3.5-5.1)
[2018-03-19] MEDS: VITAMIN D 1000 UNIT TAB PO SCH (07:58)
[2018-03-19] MEDS: GABAPENTIN 300 MG CAP PO SCH ×2 (07:59→20:40)
[2018-03-19] MEDS: FENOFIBRATE 160 MG TAB PO SCH (07:59)
[2018-03-19] MEDS: metroNIDAZOLE 500 MG TABLET PO SCH ×3 (07:59→20:40)
[2018-03-19] MEDS: APIXABAN 2.5 MG TABLET PO SCH ×2 (07:59→20:39)
[2018-03-19] MEDS: HYDROCODONE/APAP 5/325 MG TAB PO PRN (07:59)
[2018-03-19] MEDS: FERROUS SULFATE 325 MG TAB PO SCH (07:59)
[2018-03-19] MEDS: MULTIVIT W/ MINERAL TAB PO SCH (07:59)
[2018-03-19] MEDS: FINASTERIDE 5 MG TAB PO SCH (07:59)
[2018-03-19] MEDS: CRANBERRY FRUIT EXTRACT 200 MG CAP PO SCH ×2 (07:59→20:40)
[2018-03-19] MEDS: CLOPIDOGREL 75 MG TABLET PO SCH (07:59)
[2018-03-19] MEDS: CETIRIZINE HCL 5 MG TABLET PO SCH (07:59)
[2018-03-19] MEDS: FE SULF/FA/VIT B COMP & C TAB PO SCH (07:59)
[2018-03-19] MEDS: PROMOD 30 ML DOSE PO SCH ×2 (08:00→20:39)
[2018-03-19] MEDS: POTASSIUM CL SA 10 MEQ TAB PO SCH (08:00)
[2018-03-19] MEDS: PANTOPRAZOLE 40MG TABLET PO SCH (08:00)
[2018-03-19] MEDS: ENSURE ENLIVE 237 ML CAN PO SCH ×2 (08:00→20:39)
[2018-03-19] MEDS: levoFLOXacin 500 MG TAB PO SCH (08:00)
[2018-03-19] MEDS: ASPIRIN EC 81 MG TAB PO SCH (08:00)
--- NOTE | 2018-03-19 09:31 | FAST ---
ENCOUNTER DATE AND TIME: 03/15/2018 08:00 (CDT) NAME LUIS PALACIOS DATE OF : 1935 DATE OF ADMISSION: 03/14/2018 13:01 (CDT) PHONE: AGE: 82 N# [id number] GENDER: Male ENCOUNTER PHYSICIAN: Dr. Lance Kaur M.D. ADMISSION DIAGNOSIS: - Medically Complex Conditions 17 - Neoplasms (17.2) Multiple Myeloma. EATING: Activity did not occur on this shift EATING - SCORE: 0-UNK GROOMING: Comb/brush hair Oral care Wash, rinse, and dry face Wash, rinse, and dry hands GROOMING - STEP 1: Does the patient require assistance when grooming? Yes. GROOMING - STEP 2: Does the patient require the assistance of a helper? No. The patient only requires an assistive devic e, OR takes more than reasonable time to groom, OR there is a concern for safety as the patient groom s GROOMING - SCORE: 6-BASIL BATHING: Abdomen Buttocks Chest Left arm Left lower leg and foot Left upper leg Perineal area Right arm Right lower leg and foot Right upper leg BATHING - STEP 1: Does the patient require assistance when bathing? Yes. BATHING - STEP 2: Does the patient require the assistance of a helper? Yes. BATHING - STEP 3: How much assistance does the patient require from the helper? More than just incidental help BATHING - STEP 4: What percent of the body parts did the patient bathe WITHOUT the helper? Less than half of the body p arts BATHING - SCORE: 2-MAX DRESSING - UPPER BODY: Activity did not occur on this shift ARTICLES SCORE Total number of steps: 0 DRESSING - UPPER BODY - SCORE: 0-UNK DRESSING - LOWER BODY: Sock - Left foot (one step) Sock - Right foot (one step) Underwear (three steps) ARTICLES SCORE Total number of steps: 5 DRESSING - LOWER BODY - STEP 1: Does the patient require help when dressing below the waist? Yes. DRESSING - LOWER BODY - STEP 2: Does the patient require the assistance of a helper? Yes. DRESSING - LOWER BODY - STEP 3: Does the helper touch the patient while dressing? Yes. DRESSING - LOWER BODY - STEP 4: How many of the total steps does the patient complete on his/her own? 0 DRESSING - LOWER BODY - STEP 5: Does patient require total assistance for dressing below the waist such as the helper holding clothin g and performing basically all the activities? Yes. DRESSING - LOWER BODY - SCORE: 1-DEP TOILETING: Activity did not occur on this shift TOILETING - SCORE: 0-UNK BLADDER MANAGEMENT: Activity did not occur on this shift BLADDER MANAGEMENT - SCORE: 7-IND BOWEL MANAGEMENT: Activity did not occur on this shift BOWEL MANAGEMENT - SCORE: 7-IND TRANSFERS: BED, CHAIR, WHEELCHAIR: Activity did not occur on this shift TRANSFERS: BED, CHAIR, WHEELCHAIR - SCORE: 0-UNK TRANSFERS: TOILET: Activity did not occur on this shift TRANSFERS: TOILET - SCORE: 0-UNK TRANSFERS: SHOWER: TRANSFERS: SHOWER - STEP 1: Does the patient require assistance with shower transfers? Yes. TRANSFERS: SHOWER - STEP 2: Does the patient require the assistance of a helper? Yes. TRANSFERS: SHOWER - STEP 3: How much assistance does the patient require from the helper? More than incidental help TRANSFERS: SHOWER - STEP 4: How much more help does the patient require from the helper? Lifting the patient up AND down from the wheelchair onto the shower chair TRANSFERS: SHOWER - SCORE: 2-MAX TRANSFERS: TUB: Activity did not occur on this shift TRANSFERS: TUB - SCORE: 0-UNK LOCOMOTION: WALK: Activity did not occur on this shift LOCOMOTION: WALK - SCORE: 0-UNK LOCOMOTION: WHEELCHAIR: Activity did not occur on this shift LOCOMOTION: WHEELCHAIR - SCORE: 0-UNK LOCOMOTION: STAIRS: Activity did not occur on this shift LOCOMOTION: STAIRS - SCORE: 0-UNK COMPREHENSION: COMPREHENSION: TYPE: Both COMPREHENSION - STEP 1: Does the patient require help to understand complex and abstract ideas (such as current events, finan will, discharge planning, medical issues, relationships, etc)? Yes. COMPREHENSION - STEP 2: Does the patient require help to understand questions or statements about basic needs or ideas (such as hunger, thirst, sleep, safety, daily schedule, room location, or discomfort) half or more of the t mary carmen? No. COMPREHENSION - STEP 3: How often does the patient need help to understand directions and conversation about basic needs? 10% - 24% of the time COMPREHENSION - SCORE: 4-MIN EXPRESSION EXPRESSION: TYPE: Both EXPRESSION - STEP 1: Does the patient require help expressing complex and abstract ideas (such as current events, finances , discharge planning, medical issues, relationships, etc)? Yes. EXPRESSION - STEP 2: Does the patient require help to express basic necessities or ideas (such as hunger, thirst, sleep, s afety, daily schedule, room location, or discomfort) half or more of the time? No. EXPRESSION - STEP 3: How often does the patient need help to express directions and conversation about basic needs? 10-24% of the time EXPRESSION - SCORE: 4-MIN SOCIAL INTERACTION: SOCIAL INTERACTION - STEP 1: Does the patient require a helper to interact with others in social and therapeutic situations? No. SOCIAL INTERACTION - STEP 2: Does the patient need extra time in social situations, OR does s/he interact with staff, other patien ts, and family members ONLY in structured environments, OR does s/he require medication for social in teraction? Yes, patient needs extra time SOCIAL INTERACTION - SCORE: 6-BASIL PROBLEM SOLVING: PROBLEM SOLVING - STEP 1: Does the patient need help to solve complex problems such as managing a checking account or confronti ng interpersonal problems? Yes. PROBLEM SOLVING - STEP 2: Does the patient solve basic routine problems half or more of the time? Yes. PROBLEM SOLVING - STEP 3: How often does the patient need help to solve basic routine problems? 10%-24% of the time PROBLEM SOLVING - SCORE: 4-MIN MEMORY: MEMORY - STEP 1: Does the patient need help to remember frequently encountered people, daily routines, and executing r equests? Yes. MEMORY - STEP 2: How often does the patient need help to remember frequently encountered people, daily routines, and e xecuting requests? 10% - 24% of the time MEMORY - SCORE: 4-MIN SIGNATURE PANEL: The following modified sections: Eating - Score, Grooming - Score, Bathing - Score, Dressing - Upper Body - Score, Dressing - Lower Body - Score, Toileting - Score, Transfers: Bed, Chair, Wheelchair - S core, Transfers: Toilet - Score, Transfers: Tub - Score, Transfers: Shower - Score, Comprehension - S core, Expression - Score, Social Interaction - Score, Problem Solving - Score, Memory - Score were [e lectronically] signed by Sheri Dumont OT on MonMar 19 2018 09:31:00 T-0500 (Central Daylight T mary carmen)
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
--- NOTE | 2018-03-19 13:50 | FAST ---
SHIFT START DATE/TIME: 03/19/2018 07:00 (CDT) SHIFT END DATE/TIME: 03/19/2018 19:00 (CDT) NAME LUIS PALACIOS DATE OF : 1935 DATE OF ADMISSION: 03/14/2018 13:01 (CDT) PHONE: AGE: 82 N# [id number] GENDER: Male ENCOUNTER PHYSICIAN: Dr. Lance Kaur M.D. ADMISSION DIAGNOSIS: - Medically Complex Conditions 17 - Neoplasms (17.2) Multiple Myeloma. EATING: EATING - STEP 1: Does the patient require assistance when eating? Yes. EATING - STEP 2: Does the patient require the assistance of a helper? Yes. EATING - STEP 3: Does the patient perform half or more of the eating tasks? Yes. EATING - STEP 4: Does the patient need only supervision, cuing, coaxing OR help to apply an orthosis OR help to cut fo od, open containers, pour liquids, or butter bread? Yes. EATING - SCORE: 5-SUP GROOMING: Comb/brush hair Oral care Wash, rinse, and dry face Wash, rinse, and dry hands GROOMING - STEP 1: Does the patient require assistance when grooming? Yes. GROOMING - STEP 2: Does the patient require the assistance of a helper? Yes. GROOMING - STEP 3: How much assistance does the patient require from the helper? Only prior equipment preparation/set up from the helper GROOMING - SCORE: 5-SUP BATHING: Activity did not occur on this shift BATHING - SCORE: 0-UNK DRESSING - UPPER BODY: Activity did not occur on this shift ARTICLES SCORE Total number of steps: 0 DRESSING - UPPER BODY - SCORE: 0-UNK DRESSING - LOWER BODY: Activity did not occur on this shift ARTICLES SCORE Total number of steps: 0 DRESSING - LOWER BODY - SCORE: 0-UNK TOILETING: TOILETING - STEP 1: Does the patient require assistance with toileting? Yes. TOILETING - STEP 2: Does the patient require the assistance of a helper? Yes. TOILETING - STEP 3: How much assistance does the patient require from the helper? Hands-on assistance from the helper TOILETING - STEP 4: Of the 3 tasks: 1) Adjusting clothing prior to use, 2) Cleansing of perineal area, 3) Adjusting clot chirag after use; How many tasks does the patient perform WITHOUT assistance of the helper? One task TOILETING - SCORE: 2-MAX BLADDER MANAGEMENT: [facility] cares for quintero catheter including emptying drainage bag. BLADDER MANAGEMENT - SCORE: 1-DEP BOWEL MANAGEMENT: BOWEL MANAGEMENT - STEP 1: Does the patient control bowels completely and intentionally without equipment devices or medications AND is always continent? No. BOWEL MANAGEMENT - STEP 2: Does the patient require the assistance of a helper? No, patient requires and manages independently a n assistive device such as a bedpan, bedside commode, absorbent pad, incontinent device, or collectin g device BOWEL MANAGEMENT - SCORE: 6-BASIL TRANSFERS: BED, CHAIR, WHEELCHAIR: TRANSFERS: BED, CHAIR, WHEELCHAIR - STEP 1: Does the patient require assistance with bed, chair, or wheelchair transfers? Yes. TRANSFERS: BED, CHAIR, WHEELCHAIR - STEP 2: Does the patient require the assistance of a helper? Yes. TRANSFERS: BED, CHAIR, WHEELCHAIR - STEP 3: How much assistance does the patient require from the helper? Lifting of the patient TRANSFERS: BED, CHAIR, WHEELCHAIR - STEP 4: Does the helper lift the patient ONLY up? ONLY down? Up AND Down? ONLY up. TRANSFERS: BED, CHAIR, WHEELCHAIR - SCORE: 3-MOD TRANSFERS: TOILET: TRANSFERS: TOILET - STEP 1: Does the patient require assistance with toilet transfers? Yes. TRANSFERS: TOILET - STEP 2: Does the patient require the assistance of a helper? Yes. TRANSFERS: TOILET - STEP 3: How much assistance does the patient require from the helper? Patient performs half or more of the tr ansferring tasks TRANSFERS: TOILET - STEP 4: Does the patient need only incidental help such as contact guard or steadying during toilet transfer? No. Patient needs more than incidental help TRANSFERS: TOILET - SCORE: 3-MOD TRANSFERS: SHOWER: Activity did not occur on this shift TRANSFERS: SHOWER - SCORE: 0-UNK TRANSFERS: TUB: Activity did not occur on this shift TRANSFERS: TUB - SCORE: 0-UNK LOCOMOTION: WALK: Activity did not occur on this shift LOCOMOTION: WALK - SCORE: 0-UNK LOCOMOTION: WHEELCHAIR: Activity did not occur on this shift LOCOMOTION: WHEELCHAIR - SCORE: 0-UNK COMPREHENSION: COMPREHENSION - SCORE: 0-UNK EXPRESSION EXPRESSION - SCORE: 0-UNK SOCIAL INTERACTION: SOCIAL INTERACTION - SCORE: 0-UNK PROBLEM SOLVING: PROBLEM SOLVING - SCORE: 0-UNK MEMORY: MEMORY - SCORE: 0-UNK SIGNATURE PANEL: The following modified sections: Eating - Score, Grooming - Score, Bathing - Score, Dressing - Upper Body - Score, Dressing - Lower Body - Score, Toileting - Score, Bladder Management - Score, Bowel Man agement - Score, Transfers: Bed, Chair, Wheelchair - Score, Transfers: Toilet - Score, Transfers: Dara wer - Score, Transfers: Tub - Score, Locomotion: Walk - Score, Locomotion: Wheelchair - Score, Compre hension - Score, Expression - Score, Social Interaction - Score, Problem Solving - Score, Memory - Sc ore were [electronically] signed by Cole Sue on MonMar 19 2018 13:49:19 GMT-0500 (Central Daylight Time)
--- NOTE | 2018-03-19 14:16 | RAD REPORT ---
EXAM DESCRIPTION: RAD - Barium Swallow Modified - 03/19/2018 1:46 pm COMPARISON: None. TECHNIQUE: The patient was given liquid, semi-solid and solid forms of barium. Lateral view fluorosc opic imaging was performed in conjunction with speech pathology service. FINDINGS: Proximally 25 cine loop acquisitions were obtained over the course of the examination. Flu garry time was2:57 MIN Laryngeal penetration was observed. Patient did not automatically clear this laryngeal penetration. N o aspiration confirmed. There was pooled contrast in the valleculae. Patient showed delayed swallow r eflex. IMPRESSION: Modified barium swallow as detailed above and on speech pathology report.
[2018-03-19] MEDS: ROSUVASTATIN 10 MG TAB PO SCH (20:39)
[2018-03-19] MEDS: TAMSULOSIN 0.4 MG SR CAP PO SCH (20:40)
--- NOTE | 2018-03-20 00:50 | PN ---
Date of Progress Note: 03/19/2018 Chief Complaint: Acute on chronic kidney injury. History Of Present Illness: The patient developed acute kidney injury secondary to prerenal azotemia . Renal function is gradually improving. The patient had urinary retention and Woods catheter was inserted. Review of Systems: Denies complaints. Physical Examination: Lungs: Clear to auscultation bilaterally. Heart: S1, S2. Abdomen: Soft, benign. Extremities: Minimal edema. Laboratory Data: Sodium 139, potassium 3.9, bicarbonate 28, BUN 63, creatinine 1.8, calcium 8.5. Bl ood work today shows improvement of renal function, BUN 32, creatinine 1.00, sodium 136, potassium 4. 6, chloride 104, CO2 of 27, calcium 8.7. Impression And Plan: 1.Acute kidney injury due to bladder outlet obstruction, urinary retention, and prerenal azotemia. 2.Renal function has improved. Further recommendations from Urology as far as catheter placement. 3.Hypertension. Blood pressure controlled. 4.Deconditioning. The patient is undergoing rehab. 5.Hypoalbuminemia. Monitor urine protein creatinine ratio to rule out severe proteinuria. EB/MODL Voice ID: [id number] Report ID: [id number]
[2018-03-20] MEDS: ACETAMINOPHEN 500 MG TAB PO PRN (01:54)
--- NOTE | 2018-03-20 03:34 | FAST ---
SHIFT START DATE/TIME: 03/19/2018 19:00 (CDT) SHIFT END DATE/TIME: 03/20/2018 07:00 (CDT) NAME LUIS PALACIOS DATE OF : 1935 DATE OF ADMISSION: 03/14/2018 13:01 (CDT) PHONE: AGE: 82 N# [id number] GENDER: Male ENCOUNTER PHYSICIAN: Dr. Lance Kaur M.D. ADMISSION DIAGNOSIS: - Medically Complex Conditions 17 - Neoplasms (17.2) Multiple Myeloma. EATING: EATING - STEP 1: Does the patient require assistance when eating? Yes. EATING - STEP 2: Does the patient require the assistance of a helper? Yes. EATING - STEP 3: Does the patient perform half or more of the eating tasks? Yes. EATING - STEP 4: Does the patient need only supervision, cuing, coaxing OR help to apply an orthosis OR help to cut fo od, open containers, pour liquids, or butter bread? Yes. EATING - SCORE: 5-SUP GROOMING: Activity did not occur on this shift GROOMING - SCORE: 0-UNK BATHING: Activity did not occur on this shift BATHING - SCORE: 0-UNK DRESSING - UPPER BODY: Patient is not dressing in public clothing ARTICLES SCORE Total number of steps: 0 DRESSING - UPPER BODY - SCORE: 0-UNK DRESSING - LOWER BODY: Patient is not dressing in public clothing ARTICLES SCORE Total number of steps: 0 DRESSING - LOWER BODY - SCORE: 0-UNK TOILETING: Activity did not occur on this shift TOILETING - SCORE: 0-UNK BLADDER MANAGEMENT: [facility] cares for quintero catheter including emptying drainage bag. BLADDER MANAGEMENT - SCORE: 1-DEP BOWEL MANAGEMENT: [facility] removes incontinent device (depends, pull ups, etc.); cleans the patient after accident / inco ntinent episode; and, applies new device (depends, pull-ups, padding, etc.). BOWEL MANAGEMENT - SCORE: 1-DEP TRANSFERS: BED, CHAIR, WHEELCHAIR: Activity did not occur on this shift TRANSFERS: BED, CHAIR, WHEELCHAIR - SCORE: 0-UNK TRANSFERS: TOILET: Activity did not occur on this shift TRANSFERS: TOILET - SCORE: 0-UNK TRANSFERS: SHOWER: Activity did not occur on this shift TRANSFERS: SHOWER - SCORE: 0-UNK TRANSFERS: TUB: Activity did not occur on this shift TRANSFERS: TUB - SCORE: 0-UNK LOCOMOTION: WALK: Activity did not occur on this shift LOCOMOTION: WALK - SCORE: 0-UNK LOCOMOTION: WHEELCHAIR: Activity did not occur on this shift LOCOMOTION: WHEELCHAIR - SCORE: 0-UNK COMPREHENSION: COMPREHENSION: TYPE: Both COMPREHENSION - STEP 1: Does the patient require help to understand complex and abstract ideas (such as current events, finan will, discharge planning, medical issues, relationships, etc)? Yes. COMPREHENSION - STEP 2: Does the patient require help to understand questions or statements about basic needs or ideas (such as hunger, thirst, sleep, safety, daily schedule, room location, or discomfort) half or more of the t mary carmen? No. COMPREHENSION - STEP 3: How often does the patient need help to understand directions and conversation about basic needs? Les s than 10% of the time COMPREHENSION - SCORE: 5-SUP EXPRESSION EXPRESSION: TYPE: Both EXPRESSION - STEP 1: Does the patient require help expressing complex and abstract ideas (such as current events, finances , discharge planning, medical issues, relationships, etc)? Yes. EXPRESSION - STEP 2: Does the patient require help to express basic necessities or ideas (such as hunger, thirst, sleep, s afety, daily schedule, room location, or discomfort) half or more of the time? No. EXPRESSION - STEP 3: How often does the patient need help to express directions and conversation about basic needs? Less t he 10% of the time EXPRESSION - SCORE: 5-SUP SOCIAL INTERACTION: SOCIAL INTERACTION - STEP 1: Does the patient require a helper to interact with others in social and therapeutic situations? No. SOCIAL INTERACTION - STEP 2: Does the patient need extra time in social situations, OR does s/he interact with staff, other patien ts, and family members ONLY in structured environments, OR does s/he require medication for social in teraction? Yes, patient needs extra time SOCIAL INTERACTION - SCORE: 6-BASIL PROBLEM SOLVING: PROBLEM SOLVING - STEP 1: Does the patient need help to solve complex problems such as managing a checking account or confronti ng interpersonal problems? Yes. PROBLEM SOLVING - STEP 2: Does the patient solve basic routine problems half or more of the time? Yes. PROBLEM SOLVING - STEP 3: How often does the patient need help to solve basic routine problems? 25%-49% of the time PROBLEM SOLVING - SCORE: 3-MOD MEMORY: MEMORY - STEP 1: Does the patient need help to remember frequently encountered people, daily routines, and executing r equests? Yes. MEMORY - STEP 2: How often does the patient need help to remember frequently encountered people, daily routines, and e xecuting requests? 25% - 49% of the time MEMORY - SCORE: 3-MOD SIGNATURE PANEL: The following modified sections: Eating - Score, Grooming - Score, Bathing - Score, Dressing - Upper Body - Score, Dressing - Lower Body - Score, Toileting - Score, Bladder Management - Score, Bowel Man agement - Score, Transfers: Bed, Chair, Wheelchair - Score, Transfers: Toilet - Score, Transfers: Dara wer - Score, Transfers: Tub - Score, Locomotion: Walk - Score, Locomotion: Wheelchair - Score, Compre hension - Score, Expression - Score, Social Interaction - Score, Problem Solving - Score, Memory - Sc ore were [electronically] signed by Yu Greco, C.N.ALynn on MonMar 20 2018 03:34:01 T-0500 ( Central Daylight Time)
[2018-03-20] MEDS: CARVEDILOL 3.125 MG TAB PO SCH ×2 (05:12→18:00)
[2018-03-20] MEDS: PANTOPRAZOLE 40MG TABLET PO SCH (07:30)
[2018-03-20] MEDS: PROMOD 30 ML DOSE PO SCH ×2 (08:00→19:59)
[2018-03-20] MEDS: POTASSIUM CL SA 10 MEQ TAB PO SCH (08:00)
[2018-03-20] MEDS: ENSURE ENLIVE 237 ML CAN PO SCH ×2 (08:00→19:59)
[2018-03-20] MEDS: CETIRIZINE HCL 5 MG TABLET PO SCH (08:35)
[2018-03-20] MEDS: CLOPIDOGREL 75 MG TABLET PO SCH (08:35)
[2018-03-20] MEDS: CRANBERRY FRUIT EXTRACT 200 MG CAP PO SCH ×2 (08:35→19:59)
[2018-03-20] MEDS: APIXABAN 2.5 MG TABLET PO SCH ×2 (08:35→19:59)
[2018-03-20] MEDS: MULTIVIT W/ MINERAL TAB PO SCH (08:35)
[2018-03-20] MEDS: FERROUS SULFATE 325 MG TAB PO SCH (08:36)
[2018-03-20] MEDS: FINASTERIDE 5 MG TAB PO SCH (08:36)
[2018-03-20] MEDS: FENOFIBRATE 160 MG TAB PO SCH (08:36)
[2018-03-20] MEDS: ASPIRIN EC 81 MG TAB PO SCH (08:36)
[2018-03-20] MEDS: FE SULF/FA/VIT B COMP & C TAB PO SCH (08:36)
[2018-03-20] MEDS: GABAPENTIN 300 MG CAP PO SCH ×2 (08:36→19:59)
[2018-03-20] MEDS: VITAMIN D 1000 UNIT TAB PO SCH (08:36)
[2018-03-20] MEDS: metroNIDAZOLE 500 MG TABLET PO SCH ×3 (08:36→20:00)
[2018-03-20] MEDS: levoFLOXacin 500 MG TAB PO SCH (08:36)
[2018-03-20] MEDS: HYDROCODONE/APAP 5/325 MG TAB PO PRN (08:37)
--- NOTE | 2018-03-20 14:52 | FAST ---
SHIFT START DATE/TIME: 03/20/2018 07:00 (CDT) SHIFT END DATE/TIME: 03/20/2018 19:00 (CDT) NAME LUIS PALACIOS DATE OF : 1935 DATE OF ADMISSION: 03/14/2018 13:01 (CDT) PHONE: AGE: 82 [facility]# [id number] GENDER: Male ENCOUNTER PHYSICIAN: Dr. Lance Kaur M.D. ADMISSION DIAGNOSIS: - Medically Complex Conditions 17 - Neoplasms (17.2) Multiple Myeloma. EATING: EATING - STEP 1: Does the patient require assistance when eating? Yes. EATING - STEP 2: Does the patient require the assistance of a helper? Yes. EATING - STEP 3: Does the patient perform half or more of the eating tasks? Yes. EATING - STEP 4: Does the patient need only supervision, cuing, coaxing OR help to apply an orthosis OR help to cut fo od, open containers, pour liquids, or butter bread? Yes. EATING - SCORE: 5-SUP GROOMING: Activity did not occur on this shift GROOMING - SCORE: 0-UNK BATHING: Activity did not occur on this shift BATHING - SCORE: 0-UNK DRESSING - UPPER BODY: T-shirt/pullover shirt (four steps) ARTICLES SCORE Total number of steps: 4 DRESSING - UPPER BODY - STEP 1: Does the patient require help when dressing above the waist? Yes. DRESSING - UPPER BODY - STEP 2: Does the patient require the assistance of a helper? Yes. DRESSING - UPPER BODY - STEP 3: Does the helper touch the patient while dressing? No. DRESSING - UPPER BODY - SCORE: 5-SUP DRESSING - LOWER BODY: Elastic waist pants (three steps) Slip-on shoe - Left foot (one step) Slip-on shoe - Right foot (one step) Sock - Left foot (one step) Sock - Right foot (one step) Zippered pants (four steps) ARTICLES SCORE Total number of steps: 11 DRESSING - LOWER BODY - STEP 1: Does the patient require help when dressing below the waist? Yes. DRESSING - LOWER BODY - STEP 2: Does the patient require the assistance of a helper? Yes. DRESSING - LOWER BODY - STEP 3: Does the helper touch the patient while dressing? Yes. DRESSING - LOWER BODY - STEP 4: How many of the total steps does the patient complete on his/her own? 4 DRESSING - LOWER BODY - STEP 5: Does patient require total assistance for dressing below the waist such as the helper holding clothin g and performing basically all the activities? No. DRESSING - LOWER BODY - SCORE: 2-MAX TOILETING: TOILETING - STEP 1: Does the patient require assistance with toileting? Yes. TOILETING - STEP 2: Does the patient require the assistance of a helper? Yes. TOILETING - STEP 3: How much assistance does the patient require from the helper? Hands-on assistance from the helper TOILETING - STEP 4: Of the 3 tasks: 1) Adjusting clothing prior to use, 2) Cleansing of perineal area, 3) Adjusting clot chirag after use; How many tasks does the patient perform WITHOUT assistance of the helper? Two tasks TOILETING - SCORE: 3-MOD BLADDER MANAGEMENT: [place] cares for quinteor catheter including emptying drainage bag. BLADDER MANAGEMENT - SCORE: 1-DEP BOWEL MANAGEMENT: Activity did not occur on this shift BOWEL MANAGEMENT - SCORE: 7-IND TRANSFERS: BED, CHAIR, WHEELCHAIR: TRANSFERS: BED, CHAIR, WHEELCHAIR - STEP 1: Does the patient require assistance with bed, chair, or wheelchair transfers? Yes. TRANSFERS: BED, CHAIR, WHEELCHAIR - STEP 2: Does the patient require the assistance of a helper? Yes. TRANSFERS: BED, CHAIR, WHEELCHAIR - STEP 3: How much assistance does the patient require from the helper? Lifting of the patient TRANSFERS: BED, CHAIR, WHEELCHAIR - STEP 4: Does the helper lift the patient ONLY up? ONLY down? Up AND Down? ONLY up. TRANSFERS: BED, CHAIR, WHEELCHAIR - SCORE: 3-MOD TRANSFERS: TOILET: TRANSFERS: TOILET - STEP 1: Does the patient require assistance with toilet transfers? Yes. TRANSFERS: TOILET - STEP 2: Does the patient require the assistance of a helper? Yes. TRANSFERS: TOILET - STEP 3: How much assistance does the patient require from the helper? Patient performs half or more of the tr ansferring tasks TRANSFERS: TOILET - STEP 4: Does the patient need only incidental help such as contact guard or steadying during toilet transfer? No. Patient needs more than incidental help TRANSFERS: TOILET - SCORE: 3-MOD TRANSFERS: SHOWER: Activity did not occur on this shift TRANSFERS: SHOWER - SCORE: 0-UNK TRANSFERS: TUB: Activity did not occur on this shift TRANSFERS: TUB - SCORE: 0-UNK LOCOMOTION: WALK: Activity did not occur on this shift LOCOMOTION: WALK - SCORE: 0-UNK LOCOMOTION: WHEELCHAIR: Activity did not occur on this shift LOCOMOTION: WHEELCHAIR - SCORE: 0-UNK COMPREHENSION: COMPREHENSION - SCORE: 0-UNK EXPRESSION EXPRESSION - SCORE: 0-UNK SOCIAL INTERACTION: SOCIAL INTERACTION - SCORE: 0-UNK PROBLEM SOLVING: PROBLEM SOLVING - SCORE: 0-UNK MEMORY: MEMORY - SCORE: 0-UNK SIGNATURE PANEL: The following modified sections: Eating - Score, Grooming - Score, Bathing - Score, Dressing - Upper Body - Score, Dressing - Lower Body - Score, Toileting - Score, Bladder Management - Score, Bowel Man agement - Score, Transfers: Bed, Chair, Wheelchair - Score, Transfers: Toilet - Score, Transfers: Dara wer - Score, Transfers: Tub - Score, Locomotion: Walk - Score, Locomotion: Wheelchair - Score, Compre hension - Score, Expression - Score, Social Interaction - Score, Problem Solving - Score, Memory - Sc ore were [electronically] signed by Cole Sue on MonMar 20 2018 14:50:48 GMT-0500 (Central Daylight Time)
--- NOTE | 2018-03-20 16:30 | FAST ---
ENCOUNTER DATE AND TIME: 03/20/2018 08:00 (CDT) NAME LUIS PALACIOS DATE OF : 1935 DATE OF ADMISSION: 03/14/2018 13:01 (CDT) PHONE: AGE: 82 N# [id number] GENDER: Male ENCOUNTER PHYSICIAN: Dr. Lance Kaur M.D. ADMISSION DIAGNOSIS: - Medically Complex Conditions 17 - Neoplasms (17.2) Multiple Myeloma. EATING: Activity did not occur on this shift EATING - SCORE: 0-UNK GROOMING: Comb/brush hair Wash, rinse, and dry face Wash, rinse, and dry hands GROOMING - STEP 1: Does the patient require assistance when grooming? Yes. GROOMING - STEP 2: Does the patient require the assistance of a helper? Yes. GROOMING - STEP 3: How much assistance does the patient require from the helper? Incidental touching assistance from the helper while grooming GROOMING - SCORE: 4-MIN BATHING: Abdomen Buttocks Chest Left arm Left lower leg and foot Left upper leg Perineal area Right arm Right lower leg and foot Right upper leg BATHING - STEP 1: Does the patient require assistance when bathing? Yes. BATHING - STEP 2: Does the patient require the assistance of a helper? Yes. BATHING - STEP 3: How much assistance does the patient require from the helper? More than just incidental help BATHING - STEP 4: What percent of the body parts did the patient bathe WITHOUT the helper? Half or more of the body par ts BATHING - SCORE: 3-MOD DRESSING - UPPER BODY: T-shirt/pullover shirt (four steps) ARTICLES SCORE Total number of steps: 4 DRESSING - UPPER BODY - STEP 1: Does the patient require help when dressing above the waist? Yes. DRESSING - UPPER BODY - STEP 2: Does the patient require the assistance of a helper? Yes. DRESSING - UPPER BODY - STEP 3: Does the helper touch the patient while dressing? No. DRESSING - UPPER BODY - SCORE: 5-SUP DRESSING - LOWER BODY: Slip-on shoe - Left foot (one step) Slip-on shoe - Right foot (one step) Sock - Left foot (one step) Sock - Right foot (one step) Underwear (three steps) Zippered pants (four steps) ARTICLES SCORE Total number of steps: 11 DRESSING - LOWER BODY - STEP 1: Does the patient require help when dressing below the waist? Yes. DRESSING - LOWER BODY - STEP 2: Does the patient require the assistance of a helper? Yes. DRESSING - LOWER BODY - STEP 3: Does the helper touch the patient while dressing? Yes. DRESSING - LOWER BODY - STEP 4: How many of the total steps does the patient complete on his/her own? 4 DRESSING - LOWER BODY - STEP 5: Does patient require total assistance for dressing below the waist such as the helper holding clothin g and performing basically all the activities? No. DRESSING - LOWER BODY - SCORE: 2-MAX TOILETING: Activity did not occur on this shift TOILETING - SCORE: 0-UNK BLADDER MANAGEMENT: Activity did not occur on this shift BLADDER MANAGEMENT - SCORE: 7-IND BOWEL MANAGEMENT: Activity did not occur on this shift BOWEL MANAGEMENT - SCORE: 7-IND TRANSFERS: BED, CHAIR, WHEELCHAIR: Activity did not occur on this shift TRANSFERS: BED, CHAIR, WHEELCHAIR - SCORE: 0-UNK TRANSFERS: TOILET: Activity did not occur on this shift TRANSFERS: TOILET - SCORE: 0-UNK TRANSFERS: SHOWER: TRANSFERS: SHOWER - STEP 1: Does the patient require assistance with shower transfers? Yes. TRANSFERS: SHOWER - STEP 2: Does the patient require the assistance of a helper? Yes. TRANSFERS: SHOWER - STEP 3: How much assistance does the patient require from the helper? Only incidental help such as contact gu arding or steadying during shower transfers, or help to lift one leg into the shower TRANSFERS: SHOWER - SCORE: 4-MIN TRANSFERS: TUB: Activity did not occur on this shift TRANSFERS: TUB - SCORE: 0-UNK LOCOMOTION: WALK: Activity did not occur on this shift LOCOMOTION: WALK - SCORE: 0-UNK LOCOMOTION: WHEELCHAIR: Activity did not occur on this shift LOCOMOTION: WHEELCHAIR - SCORE: 0-UNK LOCOMOTION: STAIRS: Activity did not occur on this shift LOCOMOTION: STAIRS - SCORE: 0-UNK COMPREHENSION: COMPREHENSION: TYPE: Both COMPREHENSION - STEP 1: Does the patient require help to understand complex and abstract ideas (such as current events, finan will, discharge planning, medical issues, relationships, etc)? No. COMPREHENSION - STEP 2: Does the patient need extra time, require an assistive device (such as glasses, hearing aids, or an a ugmentative communication system), OR does s/he have mild difficulty expressing complex and abstract ideas (including mild dysarthria or mild word-finding problems)? Yes. COMPREHENSION - SCORE: 6-BASIL EXPRESSION EXPRESSION: TYPE: Both EXPRESSION - STEP 1: Does the patient require help expressing complex and abstract ideas (such as current events, finances , discharge planning, medical issues, relationships, etc)? Yes. EXPRESSION - STEP 2: Does the patient require help to express basic necessities or ideas (such as hunger, thirst, sleep, s afety, daily schedule, room location, or discomfort) half or more of the time? No. EXPRESSION - STEP 3: How often does the patient need help to express directions and conversation about basic needs? Less t he 10% of the time EXPRESSION - SCORE: 5-SUP SOCIAL INTERACTION: SOCIAL INTERACTION - STEP 1: Does the patient require a helper to interact with others in social and therapeutic situations? No. SOCIAL INTERACTION - STEP 2: Does the patient need extra time in social situations, OR does s/he interact with staff, other patien ts, and family members ONLY in structured environments, OR does s/he require medication for social in teraction? Yes, patient needs extra time SOCIAL INTERACTION - SCORE: 6-BASIL PROBLEM SOLVING: PROBLEM SOLVING - STEP 1: Does the patient need help to solve complex problems such as managing a checking account or confronti ng interpersonal problems? Yes. PROBLEM SOLVING - STEP 2: Does the patient solve basic routine problems half or more of the time? Yes. PROBLEM SOLVING - STEP 3: How often does the patient need help to solve basic routine problems? Less than 10% of the time PROBLEM SOLVING - SCORE: 5-SUP MEMORY: MEMORY - STEP 1: Does the patient need help to remember frequently encountered people, daily routines, and executing r equests? Yes. MEMORY - STEP 2: How often does the patient need help to remember frequently encountered people, daily routines, and e xecuting requests? Less than 10% of the time MEMORY - SCORE: 5-SUP SIGNATURE PANEL: The following modified sections: Eating - Score, Grooming - Score, Bathing - Score, Dressing - Upper Body - Score, Dressing - Lower Body - Score, Toileting - Score, Transfers: Bed, Chair, Wheelchair - S core, Transfers: Toilet - Score, Transfers: Tub - Score, Transfers: Shower - Score, Comprehension - S core, Expression - Score, Social Interaction - Score, Problem Solving - Score, Memory - Score were [e lectronically] signed by Sheri Dumont OT on MonMar 20 2018 16:30:03 T-0500 ([facility] Day[facility] T mary carmen)
--- NOTE | 2018-03-20 16:39 | FAST ---
ENCOUNTER DATE AND TIME: 03/20/2018 08:00 (CDT) NAME LUIS PALACIOS DATE OF : 1935 DATE OF ADMISSION: 03/14/2018 13:01 (CDT) PHONE: AGE: 82 SSN# [id number] GENDER: Male ENCOUNTER PHYSICIAN: Dr. Lance Kaur M.D. ADMISSION DIAGNOSIS: - Medically Complex Conditions 17 - Neoplasms (17.2) Multiple Myeloma. EATING: Activity did not occur on this shift EATING - SCORE: 0-UNK GROOMING: Activity did not occur on this shift GROOMING - SCORE: 0-UNK BATHING: Activity did not occur on this shift BATHING - SCORE: 0-UNK DRESSING - UPPER BODY: Activity did not occur on this shift Patient is not dressing in public clothing ARTICLES SCORE Total number of steps: 0 DRESSING - UPPER BODY - SCORE: 0-UNK DRESSING - LOWER BODY: Activity did not occur on this shift Patient is not dressing in public clothing ARTICLES SCORE Total number of steps: 0 DRESSING - LOWER BODY - SCORE: 0-UNK TOILETING: Activity did not occur on this shift TOILETING - SCORE: 0-UNK BLADDER MANAGEMENT: Activity did not occur on this shift BLADDER MANAGEMENT - SCORE: 7-IND BOWEL MANAGEMENT: Activity did not occur on this shift BOWEL MANAGEMENT - SCORE: 7-IND TRANSFERS: BED, CHAIR, WHEELCHAIR: Activity did not occur on this shift TRANSFERS: BED, CHAIR, WHEELCHAIR - SCORE: 0-UNK TRANSFERS: TOILET: Activity did not occur on this shift TRANSFERS: TOILET - SCORE: 0-UNK TRANSFERS: SHOWER: Activity did not occur on this shift TRANSFERS: SHOWER - SCORE: 0-UNK TRANSFERS: TUB: Activity did not occur on this shift TRANSFERS: TUB - SCORE: 0-UNK LOCOMOTION: WALK: Activity did not occur on this shift LOCOMOTION: WALK - SCORE: 0-UNK LOCOMOTION: WHEELCHAIR: Activity did not occur on this shift LOCOMOTION: WHEELCHAIR - SCORE: 0-UNK LOCOMOTION: STAIRS: Activity did not occur on this shift LOCOMOTION: STAIRS - SCORE: 0-UNK COMPREHENSION: COMPREHENSION - STEP 1: Does the patient require help to understand complex and abstract ideas (such as current events, finan will, discharge planning, medical issues, relationships, etc)? Yes. COMPREHENSION - STEP 2: Does the patient require help to understand questions or statements about basic needs or ideas (such as hunger, thirst, sleep, safety, daily schedule, room location, or discomfort) half or more of the t mary carmen? No. COMPREHENSION - STEP 3: How often does the patient need help to understand directions and conversation about basic needs? 10% - 24% of the time COMPREHENSION - SCORE: 4-MIN EXPRESSION EXPRESSION - STEP 1: Does the patient require help expressing complex and abstract ideas (such as current events, finances , discharge planning, medical issues, relationships, etc)? Yes. EXPRESSION - STEP 2: Does the patient require help to express basic necessities or ideas (such as hunger, thirst, sleep, s afety, daily schedule, room location, or discomfort) half or more of the time? Yes. EXPRESSION - STEP 3: Is the patient basically unable to express or does s/he express inappropriately or inconsistently pool pite prompting? No. EXPRESSION - SCORE: 2-MAX SOCIAL INTERACTION: SOCIAL INTERACTION - STEP 1: Does the patient require a helper to interact with others in social and therapeutic situations? Yes. SOCIAL INTERACTION - STEP 2: Does the patient interact appropriately half or more of the time? Yes. SOCIAL INTERACTION - STEP 3: How often does the patient need help to interact appropriately? 25-49% of the time SOCIAL INTERACTION - SCORE: 3-MOD PROBLEM SOLVING: PROBLEM SOLVING - STEP 1: Does the patient need help to solve complex problems such as managing a checking account or confronti ng interpersonal problems? Yes. PROBLEM SOLVING - STEP 2: Does the patient solve basic routine problems half or more of the time? Yes. PROBLEM SOLVING - STEP 3: How often does the patient need help to solve basic routine problems? 25%-49% of the time PROBLEM SOLVING - SCORE: 3-MOD MEMORY: MEMORY - STEP 1: Does the patient need help to remember frequently encountered people, daily routines, and executing r equests? Yes. MEMORY - STEP 2: How often does the patient need help to remember frequently encountered people, daily routines, and e xecuting requests? 10% - 24% of the time MEMORY - SCORE: 4-MIN SIGNATURE PANEL: The following modified sections: Comprehension - Score, Expression - Score, Social Interaction - Scor e, Problem Solving - Score, Memory - Score were [electronically] signed by ST autumn Watkins 2017 16:39:24 [facility]-0500 (Central Daylight Time)
--- NOTE | 2018-03-20 18:15 | PN ---
Subjective: The patient is doing well. Objective: Vital Signs: Temperature 97.2, pulse 113, respiratory rate 18, BP 124/74, sats 99% on ro om air. Plan: The patient has been having his [place] catheter for 6 hours. They are getting in about 300 cc each time even after 6 hours. We will continue to do that for now until he is close to discharge and we then do a voiding trial. We will start his tamsulosin and we will continue his finasteride also. TIFFANY/NICHOLAS Voice ID: [id number] Report ID: [id number]
--- NOTE | 2018-03-20 18:34 | RAD REPORT ---
EXAM DESCRIPTION: MRI - Brain Wo Cont - 03/20/2018 6:05 pm CLINICAL HISTORY: Slurred speech COMPARISON: February 2018 TECHNIQUE: Axial, sagittal, and coronal magnetic images of the brain were obtained. 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 Mild signal within periventricular deep white matter likely represent ischemic changes secondary to s mall vessel disease Diffusion-weighted/ADC mapping does not reveal evidence of acute infarction. The ventricles are normal caliber. An extra-axial fluid collection is not present. Cerebral atrophy is noted. Fluid within the sinuses/mastoids is not noted IMPRESSION: Unremarkable unenhanced brain MRI
[2018-03-20] MEDS: ROSUVASTATIN 10 MG TAB PO SCH (19:24)
[2018-03-20] MEDS: TAMSULOSIN 0.4 MG SR CAP PO SCH (20:00)
--- NOTE | 2018-03-20 20:56 | PN ---
Subjective: The patient doing well. No event. Objective: Vital Signs: Blood pressure 124/74, pulse of 113 . The patient making very good urine. Chest: faint basal crackles in the base. Heart: S1, S2. Regular. Abdomen: Soft, nontender. Extremities: Trace edema. Laboratory Data: H and H 05/08.7. Sodium 136, potassium 4.6, bicarb 27, BUN 32 , creatinine 1, calcium 8.2. Medications: Current medications the patient on include: 1. Metronidazole. 2. Levaquin. 3. Ensure. 4. Flomax. 5. Plavix. 6. Ferrous sulfate. 7. Fenofibrate. 8. Nitroglycerin. 9. Gabapentin 300 b.i.d. 10. Tylenol. 11. Assessment And Plan: 1. Acute kidney injury secondary to prerenal, recovered, resolved. 2. Hypertension, controlled, optimal. Continue current medication. 3. Colitis, continue current antibiotic. We will follow up with the primary. 4. Deconditioning. Continue PT/OT. MELO/NICHOLAS Voice ID: [id number] Report ID: [id number] MTDD
--- NOTE | 2018-03-21 03:27 | FAST ---
SHIFT START DATE/TIME: 03/20/2018 19:00 (CDT) SHIFT END DATE/TIME: 03/21/2018 07:00 (CDT) NAME LUIS PALACIOS DATE OF : 1935 DATE OF ADMISSION: 03/14/2018 13:01 (CDT) PHONE: AGE: 82 N# [id number] GENDER: Male ENCOUNTER PHYSICIAN: Dr. Lance Kaur M.D. ADMISSION DIAGNOSIS: - Medically Complex Conditions 17 - Neoplasms (17.2) Multiple Myeloma. EATING: EATING - STEP 1: Does the patient require assistance when eating? Yes. EATING - STEP 2: Does the patient require the assistance of a helper? Yes. EATING - STEP 3: Does the patient perform half or more of the eating tasks? Yes. EATING - STEP 4: Does the patient need only supervision, cuing, coaxing OR help to apply an orthosis OR help to cut fo od, open containers, pour liquids, or butter bread? Yes. EATING - SCORE: 5-SUP GROOMING: Comb/brush hair Oral care Wash, rinse, and dry face Wash, rinse, and dry hands GROOMING - STEP 1: Does the patient require assistance when grooming? Yes. GROOMING - STEP 2: Does the patient require the assistance of a helper? Yes. GROOMING - STEP 3: How much assistance does the patient require from the helper? More than incidental help GROOMING - STEP 4: How many grooming tasks does the patient perform WITHOUT the assistance of the helper? Half or more o f the grooming tasks GROOMING - SCORE: 3-MOD BATHING: Activity did not occur on this shift BATHING - SCORE: 0-UNK DRESSING - UPPER BODY: Patient is not dressing in public clothing ARTICLES SCORE Total number of steps: 0 DRESSING - UPPER BODY - SCORE: 0-UNK DRESSING - LOWER BODY: Patient is not dressing in public clothing ARTICLES SCORE Total number of steps: 0 DRESSING - LOWER BODY - SCORE: 0-UNK TOILETING: Activity did not occur on this shift TOILETING - SCORE: 0-UNK BLADDER MANAGEMENT: [place] cares for quintero catheter including emptying drainage bag. BLADDER MANAGEMENT - SCORE: 1-DEP BOWEL MANAGEMENT: [place] removes incontinent device (depends, pull ups, etc.); cleans the patient after accident / inco ntinent episode; and, applies new device (depends, pull-ups, padding, etc.). BOWEL MANAGEMENT - SCORE: 1-DEP BOWEL MANAGEMENT - FREQUENCY OF ACCIDENTS: BOWEL MANAGEMENT(FA) - STEP 1: How many accidents has the patient had during the current shift? 2 TRANSFERS: BED, CHAIR, WHEELCHAIR: Patient requires more than one helper and/or the use of a mechanical lift is utilized TRANSFERS: BED, CHAIR, WHEELCHAIR - SCORE: 1-DEP TRANSFERS: TOILET: Activity did not occur on this shift TRANSFERS: TOILET - SCORE: 0-UNK TRANSFERS: SHOWER: Activity did not occur on this shift TRANSFERS: SHOWER - SCORE: 0-UNK TRANSFERS: TUB: Activity did not occur on this shift TRANSFERS: TUB - SCORE: 0-UNK LOCOMOTION: WALK: Activity did not occur on this shift LOCOMOTION: WALK - SCORE: 0-UNK LOCOMOTION: WHEELCHAIR: Activity did not occur on this shift LOCOMOTION: WHEELCHAIR - SCORE: 0-UNK COMPREHENSION: COMPREHENSION: TYPE: Both COMPREHENSION - STEP 1: Does the patient require help to understand complex and abstract ideas (such as current events, finan will, discharge planning, medical issues, relationships, etc)? Yes. COMPREHENSION - STEP 2: Does the patient require help to understand questions or statements about basic needs or ideas (such as hunger, thirst, sleep, safety, daily schedule, room location, or discomfort) half or more of the t mary carmen? No. COMPREHENSION - STEP 3: How often does the patient need help to understand directions and conversation about basic needs? Les s than 10% of the time COMPREHENSION - SCORE: 5-SUP EXPRESSION EXPRESSION: TYPE: Both EXPRESSION - STEP 1: Does the patient require help expressing complex and abstract ideas (such as current events, finances , discharge planning, medical issues, relationships, etc)? Yes. EXPRESSION - STEP 2: Does the patient require help to express basic necessities or ideas (such as hunger, thirst, sleep, s afety, daily schedule, room location, or discomfort) half or more of the time? No. EXPRESSION - STEP 3: How often does the patient need help to express directions and conversation about basic needs? 10-24% of the time EXPRESSION - SCORE: 4-MIN SOCIAL INTERACTION: SOCIAL INTERACTION - STEP 1: Does the patient require a helper to interact with others in social and therapeutic situations? Yes. SOCIAL INTERACTION - STEP 2: Does the patient interact appropriately half or more of the time? Yes. SOCIAL INTERACTION - STEP 3: How often does the patient need help to interact appropriately? Less than 10% of the time SOCIAL INTERACTION - SCORE: 5-SUP PROBLEM SOLVING: PROBLEM SOLVING - STEP 1: Does the patient need help to solve complex problems such as managing a checking account or confronti ng interpersonal problems? Yes. PROBLEM SOLVING - STEP 2: Does the patient solve basic routine problems half or more of the time? Yes. PROBLEM SOLVING - STEP 3: How often does the patient need help to solve basic routine problems? 10%-24% of the time PROBLEM SOLVING - SCORE: 4-MIN MEMORY: MEMORY - STEP 1: Does the patient need help to remember frequently encountered people, daily routines, and executing r equests? Yes. MEMORY - STEP 2: How often does the patient need help to remember frequently encountered people, daily routines, and e xecuting requests? 10% - 24% of the time MEMORY - SCORE: 4-MIN SIGNATURE PANEL: The following modified sections: Eating - Score, Grooming - Score, Bathing - Score, Dressing - Upper Body - Score, Dressing - Lower Body - Score, Toileting - Score, Bladder Management - Score, Bowel Man agement - Score, Transfers: Bed, Chair, Wheelchair - Score, Transfers: Toilet - Score, Transfers: Dara wer - Score, Transfers: Tub - Score, Locomotion: Walk - Score, Locomotion: Wheelchair - Score, Compre hension - Score, Expression - Score, Social Interaction - Score, Problem Solving - Score, Memory - Sc ore were [electronically] signed by Yu Greco CLynnNDeepthi on MonMar 21 2018 03:26:21 T-0500 ( Central Daylight Time)
[2018-03-21] MEDS: ACETAMINOPHEN 500 MG TAB PO PRN (04:15)
[2018-03-21] MEDS: CARVEDILOL 3.125 MG TAB PO SCH ×2 (05:22→18:00)
[2018-03-21] MEDS: POTASSIUM CL SA 10 MEQ TAB PO SCH ×2 (08:00→08:33)
[2018-03-21] MEDS: PANTOPRAZOLE 40MG TABLET PO SCH (08:33)
[2018-03-21] MEDS: FINASTERIDE 5 MG TAB PO SCH (08:33)
[2018-03-21] MEDS: CETIRIZINE HCL 5 MG TABLET PO SCH (08:34)
[2018-03-21] MEDS: FE SULF/FA/VIT B COMP & C TAB PO SCH (08:34)
[2018-03-21] MEDS: CRANBERRY FRUIT EXTRACT 200 MG CAP PO SCH ×2 (08:34→20:03)
[2018-03-21] MEDS: FERROUS SULFATE 325 MG TAB PO SCH (08:34)
[2018-03-21] MEDS: levoFLOXacin 500 MG TAB PO SCH (08:34)
[2018-03-21] MEDS: GABAPENTIN 300 MG CAP PO SCH ×2 (08:35→20:04)
[2018-03-21] MEDS: MULTIVIT W/ MINERAL TAB PO SCH (08:35)
[2018-03-21] MEDS: APIXABAN 2.5 MG TABLET PO SCH ×2 (08:35→20:03)
[2018-03-21] MEDS: CLOPIDOGREL 75 MG TABLET PO SCH (08:35)
[2018-03-21] MEDS: metroNIDAZOLE 500 MG TABLET PO SCH ×3 (08:35→20:04)
[2018-03-21] MEDS: FENOFIBRATE 160 MG TAB PO SCH (08:35)
[2018-03-21] MEDS: VITAMIN D 1000 UNIT TAB PO SCH (08:35)
[2018-03-21] MEDS: ENSURE ENLIVE 237 ML CAN PO SCH ×2 (08:36→20:03)
[2018-03-21] MEDS: ASPIRIN EC 81 MG TAB PO SCH (08:36)
[2018-03-21] MEDS: PROMOD 30 ML DOSE PO SCH ×2 (08:49→20:03)
--- NOTE | 2018-03-21 14:08 | FAST ---
SHIFT START DATE/TIME: 03/21/2018 07:00 (CDT) SHIFT END DATE/TIME: 03/21/2018 19:00 (CDT) NAME LUIS PALACIOS DATE OF : 1935 DATE OF ADMISSION: 03/14/2018 13:01 (CDT) PHONE: AGE: 82 N# [id number] GENDER: Male ENCOUNTER PHYSICIAN: Dr. Lance Kaur M.D. ADMISSION DIAGNOSIS: - Medically Complex Conditions 17 - Neoplasms (17.2) Multiple Myeloma. EATING: EATING - STEP 1: Does the patient require assistance when eating? Yes. EATING - STEP 2: Does the patient require the assistance of a helper? Yes. EATING - STEP 3: Does the patient perform half or more of the eating tasks? Yes. EATING - STEP 4: Does the patient need only supervision, cuing, coaxing OR help to apply an orthosis OR help to cut fo od, open containers, pour liquids, or butter bread? Yes. EATING - SCORE: 5-SUP GROOMING: Comb/brush hair Wash, rinse, and dry face Wash, rinse, and dry hands GROOMING - STEP 1: Does the patient require assistance when grooming? Yes. GROOMING - STEP 2: Does the patient require the assistance of a helper? Yes. GROOMING - STEP 3: How much assistance does the patient require from the helper? Only prior equipment preparation/set up from the helper GROOMING - SCORE: 5-SUP BATHING: Activity did not occur on this shift BATHING - SCORE: 0-UNK DRESSING - UPPER BODY: T-shirt/pullover shirt (four steps) ARTICLES SCORE Total number of steps: 4 DRESSING - UPPER BODY - STEP 1: Does the patient require help when dressing above the waist? Yes. DRESSING - UPPER BODY - STEP 2: Does the patient require the assistance of a helper? Yes. DRESSING - UPPER BODY - STEP 3: Does the helper touch the patient while dressing? No. DRESSING - UPPER BODY - SCORE: 5-SUP DRESSING - LOWER BODY: Elastic waist pants (three steps) Slip-on shoe - Left foot (one step) Slip-on shoe - Right foot (one step) Sock - Left foot (one step) Sock - Right foot (one step) Underwear (three steps) ARTICLES SCORE Total number of steps: 10 DRESSING - LOWER BODY - STEP 1: Does the patient require help when dressing below the waist? Yes. DRESSING - LOWER BODY - STEP 2: Does the patient require the assistance of a helper? Yes. DRESSING - LOWER BODY - STEP 3: Does the helper touch the patient while dressing? No. DRESSING - LOWER BODY - SCORE: 5-SUP TOILETING: TOILETING - STEP 1: Does the patient require assistance with toileting? Yes. TOILETING - STEP 2: Does the patient require the assistance of a helper? Yes. TOILETING - STEP 3: How much assistance does the patient require from the helper? Hands-on assistance from the helper TOILETING - STEP 4: Of the 3 tasks: 1) Adjusting clothing prior to use, 2) Cleansing of perineal area, 3) Adjusting clot chirag after use; How many tasks does the patient perform WITHOUT assistance of the helper? No tasks; h elper performs all three tasks TOILETING - SCORE: 1-DEP BLADDER MANAGEMENT: [place] cares for quintero catheter including emptying drainage bag. BLADDER MANAGEMENT - SCORE: 1-DEP BLADDER MANAGEMENT - FREQUENCY OF ACCIDENTS: BLADDER MANAGEMENT(FA) - STEP 1: How many accidents has the patient had during the current shift? 0 BOWEL MANAGEMENT: [place] removes incontinent device (depends, pull ups, etc.); cleans the patient after accident / inco ntinent episode; and, applies new device (depends, pull-ups, padding, etc.). BOWEL MANAGEMENT - SCORE: 1-DEP BOWEL MANAGEMENT - FREQUENCY OF ACCIDENTS: BOWEL MANAGEMENT(FA) - STEP 1: How many accidents has the patient had during the current shift? 2 TRANSFERS: BED, CHAIR, WHEELCHAIR: TRANSFERS: BED, CHAIR, WHEELCHAIR - STEP 1: Does the patient require assistance with bed, chair, or wheelchair transfers? Yes. TRANSFERS: BED, CHAIR, WHEELCHAIR - STEP 2: Does the patient require the assistance of a helper? Yes. TRANSFERS: BED, CHAIR, WHEELCHAIR - STEP 3: How much assistance does the patient require from the helper? Lifting of the patient TRANSFERS: BED, CHAIR, WHEELCHAIR - STEP 4: Does the helper lift the patient ONLY up? ONLY down? Up AND Down? Patient needs help with all lifting TRANSFERS: BED, CHAIR, WHEELCHAIR - SCORE: 1-DEP TRANSFERS: TOILET: TRANSFERS: TOILET - STEP 1: Does the patient require assistance with toilet transfers? Yes. TRANSFERS: TOILET - STEP 2: Does the patient require the assistance of a helper? Yes. TRANSFERS: TOILET - STEP 3: How much assistance does the patient require from the helper? Patient performs less than half of the transferring tasks TRANSFERS: TOILET - STEP 4: Does the patient require total assistance for the toilet transfer such as the helper doing basically all the lifting? Yes. TRANSFERS: TOILET - SCORE: 1-DEP TRANSFERS: SHOWER: Activity did not occur on this shift TRANSFERS: SHOWER - SCORE: 0-UNK TRANSFERS: TUB: Activity did not occur on this shift TRANSFERS: TUB - SCORE: 0-UNK LOCOMOTION: WALK: Activity did not occur on this shift LOCOMOTION: WALK - SCORE: 0-UNK LOCOMOTION: WHEELCHAIR: Activity did not occur on this shift LOCOMOTION: WHEELCHAIR - SCORE: 0-UNK COMPREHENSION: COMPREHENSION: TYPE: Both COMPREHENSION - STEP 1: Does the patient require help to understand complex and abstract ideas (such as current events, finan will, discharge planning, medical issues, relationships, etc)? Yes. COMPREHENSION - STEP 2: Does the patient require help to understand questions or statements about basic needs or ideas (such as hunger, thirst, sleep, safety, daily schedule, room location, or discomfort) half or more of the t mary carmen? No. COMPREHENSION - STEP 3: How often does the patient need help to understand directions and conversation about basic needs? Les s than 10% of the time COMPREHENSION - SCORE: 5-SUP EXPRESSION EXPRESSION: TYPE: Both EXPRESSION - STEP 1: Does the patient require help expressing complex and abstract ideas (such as current events, finances , discharge planning, medical issues, relationships, etc)? Yes. EXPRESSION - STEP 2: Does the patient require help to express basic necessities or ideas (such as hunger, thirst, sleep, s afety, daily schedule, room location, or discomfort) half or more of the time? No. EXPRESSION - STEP 3: How often does the patient need help to express directions and conversation about basic needs? Less t he 10% of the time EXPRESSION - SCORE: 5-SUP SOCIAL INTERACTION: SOCIAL INTERACTION - STEP 1: Does the patient require a helper to interact with others in social and therapeutic situations? No. SOCIAL INTERACTION - STEP 2: Does the patient need extra time in social situations, OR does s/he interact with staff, other patien ts, and family members ONLY in structured environments, OR does s/he require medication for social in teraction? Yes, patient needs extra time SOCIAL INTERACTION - SCORE: 6-BASIL PROBLEM SOLVING: PROBLEM SOLVING - STEP 1: Does the patient need help to solve complex problems such as managing a checking account or confronti ng interpersonal problems? Yes. PROBLEM SOLVING - STEP 2: Does the patient solve basic routine problems half or more of the time? Yes. PROBLEM SOLVING - STEP 3: How often does the patient need help to solve basic routine problems? Less than 10% of the time PROBLEM SOLVING - SCORE: 5-SUP MEMORY: MEMORY - STEP 1: Does the patient need help to remember frequently encountered people, daily routines, and executing r equests? Yes. MEMORY - STEP 2: How often does the patient need help to remember frequently encountered people, daily routines, and e xecuting requests? Less than 10% of the time MEMORY - SCORE: 5-SUP SIGNATURE PANEL: The following modified sections: Eating - Score, Grooming - Score, Bathing - Score, Dressing - Upper Body - Score, Dressing - Lower Body - Score, Toileting - Score, Bladder Management - Score, Bowel Man agement - Score, Transfers: Bed, Chair, Wheelchair - Score, Transfers: Toilet - Score, Transfers: Dara wer - Score, Transfers: Tub - Score, Locomotion: Walk - Score, Locomotion: Wheelchair - Score, Compre hension - Score, Expression - Score, Social Interaction - Score, Problem Solving - Score, Memory - Sc ore were [electronically] signed by Quoc PeoplesNDeepthi on MonMar 21 2018 14:07:48 T-0500 (Centra l Daylight Time)
--- NOTE | 2018-03-21 14:11 | FAST ---
ENCOUNTER DATE AND TIME: 03/21/2018 08:00 (CDT) NAME LUIS PALACIOS DATE OF : 1935 DATE OF ADMISSION: 03/14/2018 13:01 (CDT) PHONE: AGE: 82 SSN# [id number] GENDER: Male ENCOUNTER PHYSICIAN: Dr. Lance Kaur M.D. ADMISSION DIAGNOSIS: - Medically Complex Conditions 17 - Neoplasms (17.2) Multiple Myeloma. EATING: Activity did not occur on this shift EATING - SCORE: 0-UNK GROOMING: Activity did not occur on this shift GROOMING - SCORE: 0-UNK BATHING: Activity did not occur on this shift BATHING - SCORE: 0-UNK DRESSING - UPPER BODY: Activity did not occur on this shift Patient is not dressing in public clothing ARTICLES SCORE Total number of steps: 0 DRESSING - UPPER BODY - SCORE: 0-UNK DRESSING - LOWER BODY: Activity did not occur on this shift Patient is not dressing in public clothing ARTICLES SCORE Total number of steps: 0 DRESSING - LOWER BODY - SCORE: 0-UNK TOILETING: Activity did not occur on this shift TOILETING - SCORE: 0-UNK BLADDER MANAGEMENT: Activity did not occur on this shift BLADDER MANAGEMENT - SCORE: 7-IND BOWEL MANAGEMENT: Activity did not occur on this shift BOWEL MANAGEMENT - SCORE: 7-IND TRANSFERS: BED, CHAIR, WHEELCHAIR: Activity did not occur on this shift TRANSFERS: BED, CHAIR, WHEELCHAIR - SCORE: 0-UNK TRANSFERS: TOILET: Activity did not occur on this shift TRANSFERS: TOILET - SCORE: 0-UNK TRANSFERS: SHOWER: Activity did not occur on this shift TRANSFERS: SHOWER - SCORE: 0-UNK TRANSFERS: TUB: Activity did not occur on this shift TRANSFERS: TUB - SCORE: 0-UNK LOCOMOTION: WALK: Activity did not occur on this shift LOCOMOTION: WALK - SCORE: 0-UNK LOCOMOTION: WHEELCHAIR: Activity did not occur on this shift LOCOMOTION: WHEELCHAIR - SCORE: 0-UNK LOCOMOTION: STAIRS: Activity did not occur on this shift LOCOMOTION: STAIRS - SCORE: 0-UNK COMPREHENSION: COMPREHENSION - STEP 1: Does the patient require help to understand complex and abstract ideas (such as current events, finan will, discharge planning, medical issues, relationships, etc)? Yes. COMPREHENSION - STEP 2: Does the patient require help to understand questions or statements about basic needs or ideas (such as hunger, thirst, sleep, safety, daily schedule, room location, or discomfort) half or more of the t mary carmen? No. COMPREHENSION - STEP 3: How often does the patient need help to understand directions and conversation about basic needs? 10% - 24% of the time COMPREHENSION - SCORE: 4-MIN EXPRESSION EXPRESSION - STEP 1: Does the patient require help expressing complex and abstract ideas (such as current events, finances , discharge planning, medical issues, relationships, etc)? Yes. EXPRESSION - STEP 2: Does the patient require help to express basic necessities or ideas (such as hunger, thirst, sleep, s afety, daily schedule, room location, or discomfort) half or more of the time? No. EXPRESSION - STEP 3: How often does the patient need help to express directions and conversation about basic needs? 25-49% of the time EXPRESSION - SCORE: 3-MOD SOCIAL INTERACTION: SOCIAL INTERACTION - STEP 1: Does the patient require a helper to interact with others in social and therapeutic situations? Yes. SOCIAL INTERACTION - STEP 2: Does the patient interact appropriately half or more of the time? Yes. SOCIAL INTERACTION - STEP 3: How often does the patient need help to interact appropriately? 10-24% of the time SOCIAL INTERACTION - SCORE: 4-MIN PROBLEM SOLVING: PROBLEM SOLVING - STEP 1: Does the patient need help to solve complex problems such as managing a checking account or confronti ng interpersonal problems? Yes. PROBLEM SOLVING - STEP 2: Does the patient solve basic routine problems half or more of the time? Yes. PROBLEM SOLVING - STEP 3: How often does the patient need help to solve basic routine problems? 10%-24% of the time PROBLEM SOLVING - SCORE: 4-MIN MEMORY: MEMORY - STEP 1: Does the patient need help to remember frequently encountered people, daily routines, and executing r equests? Yes. MEMORY - STEP 2: How often does the patient need help to remember frequently encountered people, daily routines, and e xecuting requests? 10% - 24% of the time MEMORY - SCORE: 4-MIN SIGNATURE PANEL: The following modified sections: Comprehension - Score, Expression - Score, Social Interaction - Scor e, Problem Solving - Score, Memory - Score were [electronically] signed by ST Roland mon 14:09:53 T-0500 (Central Daylight Time)
--- NOTE | 2018-03-21 16:17 | FAST ---
ENCOUNTER DATE AND TIME: 03/21/2018 08:00 (CDT) NAME LUIS PALACIOS DATE OF : 1935 DATE OF ADMISSION: 03/14/2018 13:01 (CDT) PHONE: AGE: 82 SSN# [id number] GENDER: Male ENCOUNTER PHYSICIAN: Dr. Lance Kaur M.D. ADMISSION DIAGNOSIS: - Medically Complex Conditions 17 - Neoplasms (17.2) Multiple Myeloma. EATING: Activity did not occur on this shift EATING - SCORE: 0-UNK GROOMING: Activity did not occur on this shift GROOMING - SCORE: 0-UNK BATHING: Activity did not occur on this shift BATHING - SCORE: 0-UNK DRESSING - UPPER BODY: Activity did not occur on this shift Patient is not dressing in public clothing ARTICLES SCORE Total number of steps: 0 DRESSING - UPPER BODY - SCORE: 0-UNK DRESSING - LOWER BODY: Activity did not occur on this shift Patient is not dressing in public clothing ARTICLES SCORE Total number of steps: 0 DRESSING - LOWER BODY - SCORE: 0-UNK TOILETING: Activity did not occur on this shift TOILETING - SCORE: 0-UNK BLADDER MANAGEMENT: Activity did not occur on this shift BLADDER MANAGEMENT - SCORE: 7-IND BOWEL MANAGEMENT: Activity did not occur on this shift BOWEL MANAGEMENT - SCORE: 7-IND TRANSFERS: BED, CHAIR, WHEELCHAIR: TRANSFERS: BED, CHAIR, WHEELCHAIR - STEP 1: Does the patient require assistance with bed, chair, or wheelchair transfers? Yes. TRANSFERS: BED, CHAIR, WHEELCHAIR - STEP 2: Does the patient require the assistance of a helper? Yes. TRANSFERS: BED, CHAIR, WHEELCHAIR - STEP 3: How much assistance does the patient require from the helper? Lifting of the patient TRANSFERS: BED, CHAIR, WHEELCHAIR - STEP 4: Does the helper lift the patient ONLY up? ONLY down? Up AND Down? ONLY up. TRANSFERS: BED, CHAIR, WHEELCHAIR - SCORE: 3-MOD TRANSFERS: TOILET: TRANSFERS: TOILET - STEP 1: Does the patient require assistance with toilet transfers? Yes. TRANSFERS: TOILET - STEP 2: Does the patient require the assistance of a helper? Yes. TRANSFERS: TOILET - STEP 3: How much assistance does the patient require from the helper? Patient performs half or more of the tr ansferring tasks TRANSFERS: TOILET - STEP 4: Does the patient need only incidental help such as contact guard or steadying during toilet transfer? No. Patient needs more than incidental help TRANSFERS: TOILET - SCORE: 3-MOD TRANSFERS: SHOWER: Activity did not occur on this shift TRANSFERS: SHOWER - SCORE: 0-UNK TRANSFERS: TUB: Activity did not occur on this shift TRANSFERS: TUB - SCORE: 0-UNK LOCOMOTION: WALK: Patient walks less than 50 feet LOCOMOTION: WALK - SCORE: 1-DEP LOCOMOTION: WHEELCHAIR: LOCOMOTION: WHEELCHAIR - STEP 1: Does the patient need help to go 150 feet in a wheelchair? Yes. LOCOMOTION: WHEELCHAIR - STEP 2: How much assistance does the patient need from the helper? Patient goes less than 150 feet - but more than 50 feet - with the assistance of only one helper LOCOMOTION: WHEELCHAIR - SCORE: 2-MAX LOCOMOTION: STAIRS: Activity did not occur on this shift LOCOMOTION: STAIRS - SCORE: 0-UNK COMPREHENSION: COMPREHENSION - SCORE: 0-UNK EXPRESSION EXPRESSION - SCORE: 0-UNK SOCIAL INTERACTION: SOCIAL INTERACTION - SCORE: 0-UNK PROBLEM SOLVING: PROBLEM SOLVING - SCORE: 0-UNK MEMORY: MEMORY - SCORE: 0-UNK SIGNATURE PANEL: The following modified sections: Transfers: Bed, Chair, Wheelchair - Score, Transfers: Toilet - Score , Locomotion: Walk - Score, Locomotion: Wheelchair - Score, Locomotion: Stairs - Score were [electron ically] signed by Dorian Johnson PT on MonMar 21 2018 16:17:06 T-0500 (Central Daylight Time)
--- NOTE | 2018-03-21 19:15 | R.PN ---
ENCOUNTER DATE AND TIME: 03/21/2018 19:12 (CDT) NAME LUIS PALACIOS DATE OF : 1935 DATE OF ADMISSION: 03/14/2018 13:01 (CDT) Multiple MyelomaCHIEF COMPLAINT: Diffuse lower extremity weakness, poor endurance, lumbar radiculopathy SUBJECTIVE: Pt denied any Shortness of Breath. Pt denied any depression. Ambulated 35' with contact guard assistance using a rolling walker. He fatigues quickly. Self-propel led wheelchair 150' using bilateral upper and lower extremities. Patient states that pain is under control. VITAL SIGNS Temperature: 97.8 F SBP/DBP: 129/71 Pulse: 87 Resp: 16 MEDICATION ALLERGIES: No Known Drug Allergies (NKDA) ENVIRONMENTAL ALLERGIES: None Known - Substance Allergies None Known - Other Allergies None Known NURSING: - Shower allowing shower PRECAUTIONS: - Fall Precaution Bed and chair alarm ACTIVITIES OOB only with supervision THERAPIES: - Occupational Therapy Evaluate and Treat. - Physical Therapy Evaluate and Treat. PHYSICAL EXAM - Gen Alert and awake Lying in bed No apparent distress Oriented to: person, time, and place - Skin No skin breakdown. Normacephalic - Eyes poor vision bilaterally - ENMT No abnormalities - Neck No abnormalities - CVS RRR - Chest No abnormalities - Abd Soft - GI Non distended Deferred - No abnormalities - Ext No significant edema - MSK 4/5 weakness in both lower extremities. - Neuro 4/5 strength bilaterally upper and lower extremities. - Psych No abnormalities ASSESSMENT: Pt. is a 82 yo Right-handed white male.On 03/07/2018 he was admitted to [facility] with diagnosis Multiple Myeloma and multilevel lumbar root compression.His impairment category is Medically Complex Conditions 17 - Neoplasms (17.2).Pre-morbidly, Pt. was independent/mod-I in Sphin cter Control, Transfers Control, Communication, Social Cognition, Self-Care, and Locomotion; and he h ad good Sphincter Control.Currently, he has deficits of Endurance, Safety Awareness, Transfers Contro l, Balance, Self-Care, and Locomotion.Pt. is now referred to [facility] for ac [place] in-patient rehabilitation in order to maximize patient's functional independence in activities of daily living, strength, ROM, and mobility.- Rehab Goal Patient has realistic goal of being discharged at assistance level 6-Liz to reside at Home with Fam hailey/Relatives. MDM/PLAN: - Physical Therapy Gait dysfunction - to improve, our physical therapists will perform initial evaluation of pt's statu s upon admission and devise an individualized program for Gait Training, and Wheel Chair mobility Inability to transfer - to improve, our physical therapists will perform initial evaluation of pt's status upon admission and devise an individualized program for Bed mobility Need for home safety evaluation - to improve, our physical therapists will perform initial evaluatio n of pt's status upon admission and devise an individualized program for Home Evaluation Need in caregiver upon discharge - to improve, our physical therapists will perform initial evaluati on of pt's status upon admission and devise an individualized program for Caregiver Training New precaution - to improve, our physical therapists will perform initial evaluation of pt's status upon admission and devise an individualized program for Patient precaution education Edema - to improve, our physical therapists will perform initial evaluation of pt's status upon admi ssion and devise an individualized program for Elevation Training, and Lymphedema Therapy Poor balance - to improve, our physical therapists will perform initial evaluation of pt's status up on admission and devise an individualized program for Balance Training Poor endurance - to improve, our physical therapists will perform initial evaluation of pt's status upon admission and devise an individualized program for Endurance Training Weakness - to improve, our physical therapists will perform initial evaluation of pt's status upon a dmission and devise an individualized program for Aquatic Therapy, Neuromuscular Reeducation, and Str engthening Achieving independence - to improve, our physical therapists will perform initial evaluation of pt's status upon admission and devise an individualized program for Community Reintegration Activities - Occupational Therapy ADL deficits - to improve, our occupation therapists will perform initial evaluation of pt's status upon admission and devise an individualized program for Bathing, Bed mobility, Community Reintegratio n, Cooking, Dressing, Eating, Fine Motor Skills, Grooming, Homemaking, Kitchen Mobility, Laundry, Pat ient Education, Safety Awareness, Splinting - Positioning, Transfers(Toilet, Tub, Shower), and Wheel Chair Management Need for career transition specialist - to improve, our occupation therapists will perform initial evaluation of pt's status upon admission and devise an individualized program for Caregiver Training Weakness - to improve, our occupation therapists will perform initial evaluation of pt's status upon admission and devise an individualized program for Aquatic Therapy, Balance, Endurance, UE ROM, and UE strengthening - Diet Type Continue Regular - Diet - Liquid Texture Continue Regular - Tube Feed Continue N/A - Fall Precaution Bed and chair alarm - Diet - Solid Texture Continue Regular - Shower allowing shower FUNCTIONAL STATUS: UPDATED AT WEEKLY TEAM CONFERENCE - Bladder Same accident frequency: 7-Ind - No accidents in the past 7 days - Bowel Same accident frequency: 7-Ind - No accidents in the past 7 days - Walking Same score based on distance walked: 1(<=50ft) - Wheelchair Same score based on distance traveled: 3(>=150ft) FUNCTIONAL STATUS: - Self-Care A. Eating sup B. Grooming sup C. Bathing sup D. Dressing - [place] E. Dressing - [place] F. Toileting [place] - Sphincter Control G: Bladder control Ind H: Bowel control Ind - Transfers Control I. Bed/Chair/Wheelchair maxA J. Toilet maxA K. Tub/Shower ADNO - Locomotion L. Walk/Wheelchair (B) maxA M. Stairs ADNO - Communication N. Comprehension (B) Liz O. Expression (B) Liz - Social Cognition P. Social Interaction Liz Q. Problem Solving Liz R. Memory Liz - Endurance Fair - Balance Fair - Safety Awareness Fair CURRENT FUNC. DEFICITS: Endurance, Safety Awareness, Transfers Control, Balance, Self-Care, and Locomotion SIGNATURE PANEL: (CDT)
[2018-03-21] MEDS: TAMSULOSIN 0.4 MG SR CAP PO SCH (20:03)
[2018-03-21] MEDS: ROSUVASTATIN 10 MG TAB PO SCH (20:03)
[2018-03-22] MEDS: MELATONIN 3 MG TABLET PO PRN (00:40)
[2018-03-22] MEDS: ACETAMINOPHEN 500 MG TAB PO PRN ×2 (00:40→08:35)
[2018-03-22] MEDS: CARVEDILOL 3.125 MG TAB PO SCH ×3 (05:06→17:38)
[2018-03-22 06:10] LABS: Absolute Lymphocytes (CBC) 0.5 K/uL (0.7-4.9); Absolute Monocytes 0.5 K/uL (0.1-1.3); Absolute Neutrophil 5.6 K/uL (1.8-8.0); Basophils % 0.4 % (0-1.3); Eosinophils % 0.3 % (0-4.4); Hematocrit 29.4 % (39.6-49.0); Lymphocytes % 7.8 % (15.3-44.8); MCV 102.5 fL (80-100); MPV 11.6 fL (7.6-11.3); RBC Red Blood Cell Count 2.87 M/uL (4.33-5.43)
[2018-03-22 06:32] LABS: Albumin 2.5 g/dL (3.4-5.0); Magnesium 2.1 mg/dL (1.8-2.4); Potassium 4.7 mmol/L (3.5-5.1)
[2018-03-22] MEDS: CRANBERRY FRUIT EXTRACT 200 MG CAP PO SCH ×2 (08:30→20:17)
[2018-03-22] MEDS: levoFLOXacin 500 MG TAB PO SCH (08:33)
[2018-03-22] MEDS: PANTOPRAZOLE 40MG TABLET PO SCH (08:33)
[2018-03-22] MEDS: CLOPIDOGREL 75 MG TABLET PO SCH (08:33)
[2018-03-22] MEDS: CETIRIZINE HCL 5 MG TABLET PO SCH (08:33)
[2018-03-22] MEDS: GABAPENTIN 300 MG CAP PO SCH ×2 (08:33→20:17)
[2018-03-22] MEDS: VITAMIN D 1000 UNIT TAB PO SCH (08:34)
[2018-03-22] MEDS: FE SULF/FA/VIT B COMP & C TAB PO SCH (08:34)
[2018-03-22] MEDS: ASPIRIN EC 81 MG TAB PO SCH (08:35)
[2018-03-22] MEDS: metroNIDAZOLE 500 MG TABLET PO SCH ×2 (08:35→14:32)
[2018-03-22] MEDS: FINASTERIDE 5 MG TAB PO SCH (08:35)
[2018-03-22] MEDS: FENOFIBRATE 160 MG TAB PO SCH (08:35)
--- NOTE | 2018-03-22 08:35 | FAST ---
SHIFT START DATE/TIME: 03/21/2018 19:00 (CDT) SHIFT END DATE/TIME: 03/22/2018 07:00 (CDT) NAME LUIS PALACIOS DATE OF : 1935 DATE OF ADMISSION: 03/14/2018 13:01 (CDT) PHONE: AGE: 82 N# [id number] GENDER: Male ENCOUNTER PHYSICIAN: Dr. Lance Kaur M.D. ADMISSION DIAGNOSIS: - Medically Complex Conditions 17 - Neoplasms (17.2) Multiple Myeloma. EATING: EATING - STEP 1: Does the patient require assistance when eating? Yes. EATING - STEP 2: Does the patient require the assistance of a helper? Yes. EATING - STEP 3: Does the patient perform half or more of the eating tasks? Yes. EATING - STEP 4: Does the patient need only supervision, cuing, coaxing OR help to apply an orthosis OR help to cut fo od, open containers, pour liquids, or butter bread? Yes. EATING - SCORE: 5-SUP GROOMING: Comb/brush hair Oral care Wash, rinse, and dry face Wash, rinse, and dry hands GROOMING - STEP 1: Does the patient require assistance when grooming? Yes. GROOMING - STEP 2: Does the patient require the assistance of a helper? Yes. GROOMING - STEP 3: How much assistance does the patient require from the helper? Incidental touching assistance from the helper while grooming GROOMING - SCORE: 4-MIN BATHING: Activity did not occur on this shift BATHING - SCORE: 0-UNK DRESSING - UPPER BODY: Patient is not dressing in public clothing ARTICLES SCORE Total number of steps: 0 DRESSING - UPPER BODY - SCORE: 0-UNK DRESSING - LOWER BODY: Patient is not dressing in public clothing ARTICLES SCORE Total number of steps: 0 DRESSING - LOWER BODY - SCORE: 0-UNK TOILETING: Activity did not occur on this shift TOILETING - SCORE: 0-UNK BLADDER MANAGEMENT: [place] cares for quintero catheter including emptying drainage bag. BLADDER MANAGEMENT - SCORE: 1-DEP BOWEL MANAGEMENT: [place] removes incontinent device (depends, pull ups, etc.); cleans the patient after accident / inco ntinent episode; and, applies new device (depends, pull-ups, padding, etc.). BOWEL MANAGEMENT - SCORE: 1-DEP BOWEL MANAGEMENT - FREQUENCY OF ACCIDENTS: BOWEL MANAGEMENT(FA) - STEP 1: How many accidents has the patient had during the current shift? 1 TRANSFERS: BED, CHAIR, WHEELCHAIR: Activity did not occur on this shift TRANSFERS: BED, CHAIR, WHEELCHAIR - SCORE: 0-UNK TRANSFERS: TOILET: Activity did not occur on this shift TRANSFERS: TOILET - SCORE: 0-UNK TRANSFERS: SHOWER: Activity did not occur on this shift TRANSFERS: SHOWER - SCORE: 0-UNK TRANSFERS: TUB: Activity did not occur on this shift TRANSFERS: TUB - SCORE: 0-UNK LOCOMOTION: WALK: Activity did not occur on this shift LOCOMOTION: WALK - SCORE: 0-UNK LOCOMOTION: WHEELCHAIR: Activity did not occur on this shift LOCOMOTION: WHEELCHAIR - SCORE: 0-UNK COMPREHENSION: COMPREHENSION: TYPE: Both COMPREHENSION - STEP 1: Does the patient require help to understand complex and abstract ideas (such as current events, finan will, discharge planning, medical issues, relationships, etc)? Yes. COMPREHENSION - STEP 2: Does the patient require help to understand questions or statements about basic needs or ideas (such as hunger, thirst, sleep, safety, daily schedule, room location, or discomfort) half or more of the t mary carmen? No. COMPREHENSION - STEP 3: How often does the patient need help to understand directions and conversation about basic needs? 10% - 24% of the time COMPREHENSION - SCORE: 4-MIN EXPRESSION EXPRESSION: TYPE: Both EXPRESSION - STEP 1: Does the patient require help expressing complex and abstract ideas (such as current events, finances , discharge planning, medical issues, relationships, etc)? Yes. EXPRESSION - STEP 2: Does the patient require help to express basic necessities or ideas (such as hunger, thirst, sleep, s afety, daily schedule, room location, or discomfort) half or more of the time? No. EXPRESSION - STEP 3: How often does the patient need help to express directions and conversation about basic needs? 10-24% of the time EXPRESSION - SCORE: 4-MIN SOCIAL INTERACTION: SOCIAL INTERACTION - STEP 1: Does the patient require a helper to interact with others in social and therapeutic situations? Yes. SOCIAL INTERACTION - STEP 2: Does the patient interact appropriately half or more of the time? Yes. SOCIAL INTERACTION - STEP 3: How often does the patient need help to interact appropriately? Less than 10% of the time SOCIAL INTERACTION - SCORE: 5-SUP PROBLEM SOLVING: PROBLEM SOLVING - STEP 1: Does the patient need help to solve complex problems such as managing a checking account or confronti ng interpersonal problems? Yes. PROBLEM SOLVING - STEP 2: Does the patient solve basic routine problems half or more of the time? Yes. PROBLEM SOLVING - STEP 3: How often does the patient need help to solve basic routine problems? 10%-24% of the time PROBLEM SOLVING - SCORE: 4-MIN MEMORY: MEMORY - STEP 1: Does the patient need help to remember frequently encountered people, daily routines, and executing r equests? Yes. MEMORY - STEP 2: How often does the patient need help to remember frequently encountered people, daily routines, and e xecuting requests? 10% - 24% of the time MEMORY - SCORE: 4-MIN SIGNATURE PANEL: The following modified sections: Eating - Score, Grooming - Score, Bathing - Score, Dressing - Upper Body - Score, Dressing - Lower Body - Score, Toileting - Score, Bladder Management - Score, Bowel Man agement - Score, Transfers: Bed, Chair, Wheelchair - Score, Transfers: Toilet - Score, Transfers: Dara wer - Score, Transfers: Tub - Score, Locomotion: Walk - Score, Locomotion: Wheelchair - Score, Compre hension - Score, Expression - Score, Social Interaction - Score, Problem Solving - Score, Memory - Sc ore were [electronically] signed by Yu Greco [email or web address] on MonMar 22 2018 03:46:17 T-0500 ( Central Daylight Time)
[2018-03-22] MEDS: APIXABAN 2.5 MG TABLET PO SCH ×2 (08:36→20:18)
[2018-03-22] MEDS: MULTIVIT W/ MINERAL TAB PO SCH (08:36)
[2018-03-22] MEDS: ENSURE ENLIVE 237 ML CAN PO SCH ×2 (08:36→20:18)
[2018-03-22] MEDS: FERROUS SULFATE 325 MG TAB PO SCH (08:37)
[2018-03-22] MEDS: PROMOD 30 ML DOSE PO SCH ×2 (08:38→20:18)
--- NOTE | 2018-03-22 11:04 | FAST ---
SHIFT START DATE/TIME: 03/22/2018 07:00 (CDT) SHIFT END DATE/TIME: 03/22/2018 19:00 (CDT) NAME LUIS PALACIOS DATE OF : 1935 DATE OF ADMISSION: 03/14/2018 13:01 (CDT) PHONE: AGE: 82 [facility]# [id number] GENDER: Male ENCOUNTER PHYSICIAN: Dr. Lance Kaur M.D. ADMISSION DIAGNOSIS: - Medically Complex Conditions 17 - Neoplasms (17.2) Multiple Myeloma. EATING: EATING - STEP 1: Does the patient require assistance when eating? Yes. EATING - STEP 2: Does the patient require the assistance of a helper? Yes. EATING - STEP 3: Does the patient perform half or more of the eating tasks? Yes. EATING - STEP 4: Does the patient need only supervision, cuing, coaxing OR help to apply an orthosis OR help to cut fo od, open containers, pour liquids, or butter bread? Yes. EATING - SCORE: 5-SUP GROOMING: Activity did not occur on this shift GROOMING - SCORE: 0-UNK BATHING: Activity did not occur on this shift BATHING - SCORE: 0-UNK DRESSING - UPPER BODY: T-shirt/pullover shirt (four steps) ARTICLES SCORE Total number of steps: 4 DRESSING - UPPER BODY - STEP 1: Does the patient require help when dressing above the waist? Yes. DRESSING - UPPER BODY - STEP 2: Does the patient require the assistance of a helper? Yes. DRESSING - UPPER BODY - STEP 3: Does the helper touch the patient while dressing? No. DRESSING - UPPER BODY - SCORE: 5-SUP DRESSING - LOWER BODY: Elastic waist pants (three steps) Slip-on shoe - Left foot (one step) Slip-on shoe - Right foot (one step) Sock - Left foot (one step) Underwear (three steps) ARTICLES SCORE Total number of steps: 9 DRESSING - LOWER BODY - STEP 1: Does the patient require help when dressing below the waist? Yes. DRESSING - LOWER BODY - STEP 2: Does the patient require the assistance of a helper? Yes. DRESSING - LOWER BODY - STEP 3: Does the helper touch the patient while dressing? Yes. DRESSING - LOWER BODY - STEP 4: How many of the total steps does the patient complete on his/her own? 0 DRESSING - LOWER BODY - STEP 5: Does patient require total assistance for dressing below the waist such as the helper holding clothin g and performing basically all the activities? Yes. DRESSING - LOWER BODY - SCORE: 1-DEP TOILETING: TOILETING - STEP 1: Does the patient require assistance with toileting? Yes. TOILETING - STEP 2: Does the patient require the assistance of a helper? Yes. TOILETING - STEP 3: How much assistance does the patient require from the helper? Hands-on assistance from the helper TOILETING - STEP 4: Of the 3 tasks: 1) Adjusting clothing prior to use, 2) Cleansing of perineal area, 3) Adjusting clot chirag after use; How many tasks does the patient perform WITHOUT assistance of the helper? No tasks; h elper performs all three tasks TOILETING - SCORE: 1-DEP BLADDER MANAGEMENT: [place] cares for quintero catheter including emptying drainage bag. BLADDER MANAGEMENT - SCORE: 1-DEP BLADDER MANAGEMENT - FREQUENCY OF ACCIDENTS: BLADDER MANAGEMENT(FA) - STEP 1: How many accidents has the patient had during the current shift? 0 BOWEL MANAGEMENT: Activity did not occur on this shift BOWEL MANAGEMENT - SCORE: 7-IND BOWEL MANAGEMENT - FREQUENCY OF ACCIDENTS: BOWEL MANAGEMENT(FA) - STEP 1: How many accidents has the patient had during the current shift? 0 TRANSFERS: BED, CHAIR, WHEELCHAIR: TRANSFERS: BED, CHAIR, WHEELCHAIR - STEP 1: Does the patient require assistance with bed, chair, or wheelchair transfers? Yes. TRANSFERS: BED, CHAIR, WHEELCHAIR - STEP 2: Does the patient require the assistance of a helper? Yes. TRANSFERS: BED, CHAIR, WHEELCHAIR - STEP 3: How much assistance does the patient require from the helper? Lifting of the legs TRANSFERS: BED, CHAIR, WHEELCHAIR - STEP 4: How many legs does the patient require the helper to lift? both legs TRANSFERS: BED, CHAIR, WHEELCHAIR - SCORE: 3-MOD TRANSFERS: TOILET: Activity did not occur on this shift TRANSFERS: TOILET - SCORE: 0-UNK TRANSFERS: SHOWER: Activity did not occur on this shift TRANSFERS: SHOWER - SCORE: 0-UNK TRANSFERS: TUB: Activity did not occur on this shift TRANSFERS: TUB - SCORE: 0-UNK LOCOMOTION: WALK: Activity did not occur on this shift LOCOMOTION: WALK - SCORE: 0-UNK LOCOMOTION: WHEELCHAIR: LOCOMOTION: WHEELCHAIR - STEP 1: Does the patient need help to go 150 feet in a wheelchair? Yes. LOCOMOTION: WHEELCHAIR - STEP 2: How much assistance does the patient need from the helper? More than incidental help LOCOMOTION: WHEELCHAIR - SCORE: 3-MOD COMPREHENSION: COMPREHENSION: TYPE: Both COMPREHENSION - STEP 1: Does the patient require help to understand complex and abstract ideas (such as current events, finan will, discharge planning, medical issues, relationships, etc)? Yes. COMPREHENSION - STEP 2: Does the patient require help to understand questions or statements about basic needs or ideas (such as hunger, thirst, sleep, safety, daily schedule, room location, or discomfort) half or more of the t mary carmen? No. COMPREHENSION - STEP 3: How often does the patient need help to understand directions and conversation about basic needs? 10% - 24% of the time COMPREHENSION - SCORE: 4-MIN EXPRESSION EXPRESSION: TYPE: Both EXPRESSION - STEP 1: Does the patient require help expressing complex and abstract ideas (such as current events, finances , discharge planning, medical issues, relationships, etc)? Yes. EXPRESSION - STEP 2: Does the patient require help to express basic necessities or ideas (such as hunger, thirst, sleep, s afety, daily schedule, room location, or discomfort) half or more of the time? No. EXPRESSION - STEP 3: How often does the patient need help to express directions and conversation about basic needs? 10-24% of the time EXPRESSION - SCORE: 4-MIN SOCIAL INTERACTION: SOCIAL INTERACTION - STEP 1: Does the patient require a helper to interact with others in social and therapeutic situations? No. SOCIAL INTERACTION - STEP 2: Does the patient need extra time in social situations, OR does s/he interact with staff, other patien ts, and family members ONLY in structured environments, OR does s/he require medication for social in teraction? Yes, patient needs extra time SOCIAL INTERACTION - SCORE: 6-BASIL PROBLEM SOLVING: PROBLEM SOLVING - STEP 1: Does the patient need help to solve complex problems such as managing a checking account or confronti ng interpersonal problems? Yes. PROBLEM SOLVING - STEP 2: Does the patient solve basic routine problems half or more of the time? Yes. PROBLEM SOLVING - STEP 3: How often does the patient need help to solve basic routine problems? Less than 10% of the time PROBLEM SOLVING - SCORE: 5-SUP MEMORY: MEMORY - STEP 1: Does the patient need help to remember frequently encountered people, daily routines, and executing r equests? Yes. MEMORY - STEP 2: How often does the patient need help to remember frequently encountered people, daily routines, and e xecuting requests? Less than 10% of the time MEMORY - SCORE: 5-SUP SIGNATURE PANEL: The following modified sections: Eating - Score, Grooming - Score, Bathing - Score, Dressing - Upper Body - Score, Dressing - Lower Body - Score, Toileting - Score, Bladder Management - Score, Bowel Man agement - Score, Transfers: Bed, Chair, Wheelchair - Score, Transfers: Toilet - Score, Transfers: Dara wer - Score, Transfers: Tub - Score, Locomotion: Walk - Score, Locomotion: Wheelchair - Score, Compre hension - Score, Expression - Score, Social Interaction - Score, Problem Solving - Score, Memory - Sc ore were [electronically] signed by Madhuri Lazo [email or web address] on MonMar 22 2018 11:03:36 T-0500 ([place] Day[place] Time)
--- NOTE | 2018-03-22 15:12 | FAST ---
ENCOUNTER DATE AND TIME: 03/22/2018 08:00 (CDT) NAME LUIS PALACIOS DATE OF : 1935 DATE OF ADMISSION: 03/14/2018 13:01 (CDT) PHONE: AGE: 82 SSN# [id number] GENDER: Male ENCOUNTER PHYSICIAN: Dr. Lance Kaur M.D. ADMISSION DIAGNOSIS: - Medically Complex Conditions 17 - Neoplasms (17.2) Multiple Myeloma. EATING: Activity did not occur on this shift EATING - SCORE: 0-UNK GROOMING: Comb/brush hair Oral care Wash, rinse, and dry face Wash, rinse, and dry hands GROOMING - STEP 1: Does the patient require assistance when grooming? Yes. GROOMING - STEP 2: Does the patient require the assistance of a helper? Yes. GROOMING - STEP 3: How much assistance does the patient require from the helper? Incidental touching assistance from the helper while grooming GROOMING - SCORE: 4-MIN BATHING: Abdomen Buttocks Chest Left arm Left lower leg and foot Left upper leg Perineal area Right arm Right lower leg and foot Right upper leg BATHING - STEP 1: Does the patient require assistance when bathing? Yes. BATHING - STEP 2: Does the patient require the assistance of a helper? Yes. BATHING - STEP 3: How much assistance does the patient require from the helper? Only incidental help such as placement of a wash cloth in his/her hand a few times as s/he bathes OR help to bathe just one or two areas of the body BATHING - SCORE: 4-MIN DRESSING - UPPER BODY: T-shirt/pullover shirt (four steps) ARTICLES SCORE Total number of steps: 4 DRESSING - UPPER BODY - STEP 1: Does the patient require help when dressing above the waist? Yes. DRESSING - UPPER BODY - STEP 2: Does the patient require the assistance of a helper? Yes. DRESSING - UPPER BODY - STEP 3: Does the helper touch the patient while dressing? No. DRESSING - UPPER BODY - SCORE: 5-SUP DRESSING - LOWER BODY: Elastic waist pants (three steps) Slip-on shoe - Left foot (one step) Slip-on shoe - Right foot (one step) Underwear (three steps) ARTICLES SCORE Total number of steps: 8 DRESSING - LOWER BODY - STEP 1: Does the patient require help when dressing below the waist? Yes. DRESSING - LOWER BODY - STEP 2: Does the patient require the assistance of a helper? Yes. DRESSING - LOWER BODY - STEP 3: Does the helper touch the patient while dressing? Yes. DRESSING - LOWER BODY - STEP 4: How many of the total steps does the patient complete on his/her own? 4 DRESSING - LOWER BODY - SCORE: 3-MOD TOILETING: TOILETING - STEP 1: Does the patient require assistance with toileting? Yes. TOILETING - STEP 2: Does the patient require the assistance of a helper? Yes. TOILETING - STEP 3: How much assistance does the patient require from the helper? Hands-on assistance from the helper TOILETING - STEP 4: Of the 3 tasks: 1) Adjusting clothing prior to use, 2) Cleansing of perineal area, 3) Adjusting clot chirag after use; How many tasks does the patient perform WITHOUT assistance of the helper? One task TOILETING - SCORE: 2-MAX BLADDER MANAGEMENT: Activity did not occur on this shift BLADDER MANAGEMENT - SCORE: 7-IND BOWEL MANAGEMENT: Activity did not occur on this shift BOWEL MANAGEMENT - SCORE: 7-IND TRANSFERS: BED, CHAIR, WHEELCHAIR: Activity did not occur on this shift TRANSFERS: BED, CHAIR, WHEELCHAIR - SCORE: 0-UNK TRANSFERS: TOILET: TRANSFERS: TOILET - STEP 1: Does the patient require assistance with toilet transfers? Yes. TRANSFERS: TOILET - STEP 2: Does the patient require the assistance of a helper? Yes. TRANSFERS: TOILET - STEP 3: How much assistance does the patient require from the helper? Patient performs half or more of the tr ansferring tasks TRANSFERS: TOILET - STEP 4: Does the patient need only incidental help such as contact guard or steadying during toilet transfer? No. Patient needs more than incidental help TRANSFERS: TOILET - SCORE: 3-MOD TRANSFERS: SHOWER: TRANSFERS: SHOWER - STEP 1: Does the patient require assistance with shower transfers? Yes. TRANSFERS: SHOWER - STEP 2: Does the patient require the assistance of a helper? Yes. TRANSFERS: SHOWER - STEP 3: How much assistance does the patient require from the helper? More than incidental help TRANSFERS: SHOWER - STEP 4: How much more help does the patient require from the helper? Lifting the patient either up OR down fr om the wheelchair onto the shower chair TRANSFERS: SHOWER - SCORE: 3-MOD TRANSFERS: TUB: Activity did not occur on this shift TRANSFERS: TUB - SCORE: 0-UNK LOCOMOTION: WALK: Activity did not occur on this shift LOCOMOTION: WALK - SCORE: 0-UNK LOCOMOTION: WHEELCHAIR: Activity did not occur on this shift LOCOMOTION: WHEELCHAIR - SCORE: 0-UNK LOCOMOTION: STAIRS: Activity did not occur on this shift LOCOMOTION: STAIRS - SCORE: 0-UNK COMPREHENSION: COMPREHENSION: TYPE: Both COMPREHENSION - STEP 1: Does the patient require help to understand complex and abstract ideas (such as current events, finan will, discharge planning, medical issues, relationships, etc)? No. COMPREHENSION - STEP 2: Does the patient need extra time, require an assistive device (such as glasses, hearing aids, or an a ugmentative communication system), OR does s/he have mild difficulty expressing complex and abstract ideas (including mild dysarthria or mild word-finding problems)? Yes. COMPREHENSION - SCORE: 6-BASIL EXPRESSION EXPRESSION: TYPE: Both EXPRESSION - STEP 1: Does the patient require help expressing complex and abstract ideas (such as current events, finances , discharge planning, medical issues, relationships, etc)? No. EXPRESSION - STEP 2: Does the patient need extra time, require an assistive device (such as augmentive communication syste m or a communication board), OR does s/he have mild difficulty expressing complex and abstract ideas (including mild dysarthria or mild word-find problems)? Yes. EXPRESSION - SCORE: 6-BASIL SOCIAL INTERACTION: SOCIAL INTERACTION - STEP 1: Does the patient require a helper to interact with others in social and therapeutic situations? No. SOCIAL INTERACTION - STEP 2: Does the patient need extra time in social situations, OR does s/he interact with staff, other patien ts, and family members ONLY in structured environments, OR does s/he require medication for social in teraction? Yes, patient needs extra time SOCIAL INTERACTION - SCORE: 6-BASIL PROBLEM SOLVING: PROBLEM SOLVING - STEP 1: Does the patient need help to solve complex problems such as managing a checking account or confronti ng interpersonal problems? Yes. PROBLEM SOLVING - STEP 2: Does the patient solve basic routine problems half or more of the time? Yes. PROBLEM SOLVING - STEP 3: How often does the patient need help to solve basic routine problems? 10%-24% of the time PROBLEM SOLVING - SCORE: 4-MIN MEMORY: MEMORY - STEP 1: Does the patient need help to remember frequently encountered people, daily routines, and executing r equests? Yes. MEMORY - STEP 2: How often does the patient need help to remember frequently encountered people, daily routines, and e xecuting requests? 10% - 24% of the time MEMORY - SCORE: 4-MIN SIGNATURE PANEL: The following modified sections: Eating - Score, Grooming - Score, Bathing - Score, Dressing - Upper Body - Score, Dressing - Lower Body - Score, Toileting - Score, Transfers: Bed, Chair, Wheelchair - S core, Transfers: Toilet - Score, Transfers: Tub - Score, Transfers: Shower - Score, Comprehension - S core, Expression - Score, Social Interaction - Score, Problem Solving - Score, Memory - Score were [e lectronically] signed by Sheri Dumont OT on MonMar 22 2018 15:11:02 T-0500 (Central Daylight T mary carmen)
--- NOTE | 2018-03-22 15:30 | FAST ---
ENCOUNTER DATE AND TIME: 03/22/2018 08:00 (CDT) NAME LUIS PALACIOS DATE OF : 1935 DATE OF ADMISSION: 03/14/2018 13:01 (CDT) PHONE: AGE: 82 SSN# [id number] GENDER: Male ENCOUNTER PHYSICIAN: Dr. Lance Kaur M.D. ADMISSION DIAGNOSIS: - Medically Complex Conditions 17 - Neoplasms (17.2) Multiple Myeloma. EATING: Activity did not occur on this shift EATING - SCORE: 0-UNK GROOMING: Activity did not occur on this shift GROOMING - SCORE: 0-UNK BATHING: Activity did not occur on this shift BATHING - SCORE: 0-UNK DRESSING - UPPER BODY: Activity did not occur on this shift Patient is not dressing in public clothing ARTICLES SCORE Total number of steps: 0 DRESSING - UPPER BODY - SCORE: 0-UNK DRESSING - LOWER BODY: Activity did not occur on this shift Patient is not dressing in public clothing ARTICLES SCORE Total number of steps: 0 DRESSING - LOWER BODY - SCORE: 0-UNK TOILETING: Activity did not occur on this shift TOILETING - SCORE: 0-UNK BLADDER MANAGEMENT: Activity did not occur on this shift BLADDER MANAGEMENT - SCORE: 7-IND BOWEL MANAGEMENT: Activity did not occur on this shift BOWEL MANAGEMENT - SCORE: 7-IND TRANSFERS: BED, CHAIR, WHEELCHAIR: Activity did not occur on this shift TRANSFERS: BED, CHAIR, WHEELCHAIR - SCORE: 0-UNK TRANSFERS: TOILET: Activity did not occur on this shift TRANSFERS: TOILET - SCORE: 0-UNK TRANSFERS: SHOWER: Activity did not occur on this shift TRANSFERS: SHOWER - SCORE: 0-UNK TRANSFERS: TUB: Activity did not occur on this shift TRANSFERS: TUB - SCORE: 0-UNK LOCOMOTION: WALK: Activity did not occur on this shift LOCOMOTION: WALK - SCORE: 0-UNK LOCOMOTION: WHEELCHAIR: Activity did not occur on this shift LOCOMOTION: WHEELCHAIR - SCORE: 0-UNK LOCOMOTION: STAIRS: Activity did not occur on this shift LOCOMOTION: STAIRS - SCORE: 0-UNK COMPREHENSION: COMPREHENSION - STEP 1: Does the patient require help to understand complex and abstract ideas (such as current events, finan will, discharge planning, medical issues, relationships, etc)? Yes. COMPREHENSION - STEP 2: Does the patient require help to understand questions or statements about basic needs or ideas (such as hunger, thirst, sleep, safety, daily schedule, room location, or discomfort) half or more of the t mary carmen? No. COMPREHENSION - STEP 3: How often does the patient need help to understand directions and conversation about basic needs? 10% - 24% of the time COMPREHENSION - SCORE: 4-MIN EXPRESSION EXPRESSION - STEP 1: Does the patient require help expressing complex and abstract ideas (such as current events, finances , discharge planning, medical issues, relationships, etc)? Yes. EXPRESSION - STEP 2: Does the patient require help to express basic necessities or ideas (such as hunger, thirst, sleep, s afety, daily schedule, room location, or discomfort) half or more of the time? No. EXPRESSION - STEP 3: How often does the patient need help to express directions and conversation about basic needs? 25-49% of the time EXPRESSION - SCORE: 3-MOD SOCIAL INTERACTION: SOCIAL INTERACTION - STEP 1: Does the patient require a helper to interact with others in social and therapeutic situations? Yes. SOCIAL INTERACTION - STEP 2: Does the patient interact appropriately half or more of the time? Yes. SOCIAL INTERACTION - STEP 3: How often does the patient need help to interact appropriately? 10-24% of the time SOCIAL INTERACTION - SCORE: 4-MIN PROBLEM SOLVING: PROBLEM SOLVING - STEP 1: Does the patient need help to solve complex problems such as managing a checking account or confronti ng interpersonal problems? Yes. PROBLEM SOLVING - STEP 2: Does the patient solve basic routine problems half or more of the time? Yes. PROBLEM SOLVING - STEP 3: How often does the patient need help to solve basic routine problems? 25%-49% of the time PROBLEM SOLVING - SCORE: 3-MOD MEMORY: MEMORY - STEP 1: Does the patient need help to remember frequently encountered people, daily routines, and executing r equests? Yes. MEMORY - STEP 2: How often does the patient need help to remember frequently encountered people, daily routines, and e xecuting requests? 10% - 24% of the time MEMORY - SCORE: 4-MIN SIGNATURE PANEL: The following modified sections: Comprehension - Score, Expression - Score, Social Interaction - Scor e, Problem Solving - Score, Memory - Score were [electronically] signed by ST autumn Watkins Karine Au g 2017 15:29:17 GMT-0500 (Central Daylight Time)
--- NOTE | 2018-03-22 16:28 | RAD REPORT ---
EXAM DESCRIPTION: RAD - Chest Single View - 03/22/2018 4:18 pm CLINICAL HISTORY: Chest pain, shortness of breath COMPARISON: March 10 TECHNIQUE: AP portable chest image was obtained 1600 hours . FINDINGS: No peripheral consolidation or mass. Cardiomegaly is present with vascular engorgement. Tr achea is midline. Central lung markings are prominent. Sternotomy wires are in place. No measurable p leural effusion and no pneumothorax. No gross bony abnormality seen. No acute aortic findings suspect ed. IMPRESSION: Heart, vasculature and lung markings are all prominent. Pattern does appear slightly more pronounced than comparison and mild failure or volume overload susp ected.
--- NOTE | 2018-03-22 17:40 | PN ---
Date of Progress Note: 03/22/2018 Subjective: The patient doing well. No event. Physical Examination: Vital Signs: Blood pressure 110/79, pulse of 88. Chest: Faint crackles on the base. Heart: S1, S2. Regular. Abdomen: Soft, nontender. Extremities: Trace edema. Laboratory Data: H and H 06/11.4. Sodium 138, potassium 4.7, bicarb 32, BUN 37, creatinine 1.2, julián cium 9.1. Medications: Current medications the patient on its include: 1.Flagyl. 2.Levaquin. 3.Cetirizine. 4.Flomax. 5.Eliquis. 6.Plavix. 7.Ferrous sulfate. 8.Carvedilol 3.125. 9.Fenofibrate. 10.Nitroglycerin. 11.Ensure. 12.Lasix 10 daily. 13.Pantoprazole. 14.Finasteride. Assessment And Plan: 1.Chronic kidney disease status post acute kidney injury secondary to prerenal. Continued to recove red, plateau. The patient looked a little bit on the wet side. I am going to go ahead and increase Lasix to 20 mg and we will follow up. 2.Hypertension, controlled, optimal. Continue current medication increasing Lasix. 3.Deconditioning. Continue PT/OT. 4.Colitis. Continue current antibiotic. NAHUM Voice ID: [id number] Report ID: [id number]
--- NOTE | 2018-03-22 17:55 | PN ---
Subjective: The patient is stable. Objective: Extremities: His lower extremities are very edematous Pelvic: Scrotum is not edematous. Penis is not edematous. Woods catheter is draining clear urine. He has about 600 cc in his bladder, from an 8-hour clamping. We need to continue Flomax, Proscar, and bladder training now. TIFFANY/NICHOLAS Voice ID: [id number] Report ID: [id number] [facility]
[2018-03-22] MEDS ORDERED: FUROSEMIDE 20 MG TABLET PO ONE (18:00)
--- NOTE | 2018-03-22 18:42 | R.PN ---
ENCOUNTER DATE AND TIME: 03/22/2018 18:39 (CDT) NAME LUIS PALACIOS DATE OF : 1935 DATE OF ADMISSION: 03/14/2018 13:01 (CDT) Multiple MyelomaCHIEF COMPLAINT: Diffuse lower extremity weakness, poor endurance, lumbar radiculopathy SUBJECTIVE: Pt denied any Shortness of Breath. Pt denied any depression. Ambulated 100' with contact guard assistance using a rolling walker. He fatigues quickly. Self-prope lled wheelchair 150' using bilateral upper and lower extremities. Patient states that pain is under control. VITAL SIGNS Temperature: 97.8 F SBP/DBP: 121/89 Pulse: 65 Resp: 16 MEDICATION ALLERGIES: No Known Drug Allergies (NKDA) ENVIRONMENTAL ALLERGIES: None Known - Substance Allergies None Known - Other Allergies None Known NURSING: - Shower allowing shower PRECAUTIONS: - Fall Precaution Bed and chair alarm ACTIVITIES OOB only with supervision THERAPIES: - Occupational Therapy Evaluate and Treat. - Physical Therapy Evaluate and Treat. PHYSICAL EXAM - Gen Alert and awake Lying in bed No apparent distress Oriented to: person, time, and place - Skin No skin breakdown. Normacephalic - Eyes poor vision bilaterally - ENMT No abnormalities - Neck No abnormalities - CVS RRR - Chest No abnormalities - Abd Soft - GI Non distended Deferred - No abnormalities - Ext No significant edema - MSK 4/5 weakness in both lower extremities. - Neuro 4/5 strength bilaterally upper and lower extremities. - Psych No abnormalities ASSESSMENT: Pt. is a 82 yo Right-handed white male.On 03/07/2018 he was admitted to [facility] with diagnosis Multiple Myeloma and multilevel lumbar root compression.His impairment category is Medically Complex Conditions 17 - Neoplasms (17.2).Pre-morbidly, Pt. was independent/mod-I in Sphin cter Control, Transfers Control, Communication, Social Cognition, Self-Care, and Locomotion; and he h ad good Sphincter Control.Currently, he has deficits of Endurance, Safety Awareness, Transfers Contro l, Balance, Self-Care, and Locomotion.Pt. is now referred to [facility] for [place] in-patient rehabilitation in order to maximize patient's functional independence in activities of daily living, strength, ROM, and mobility.- Rehab Goal Patient has realistic goal of being discharged at assistance level 6-Liz to reside at Home with Fam hailey/Relatives. MDM/PLAN: - Physical Therapy Gait dysfunction - to improve, our physical therapists will perform initial evaluation of pt's statu s upon admission and devise an individualized program for Gait Training, and Wheel Chair mobility Inability to transfer - to improve, our physical therapists will perform initial evaluation of pt's status upon admission and devise an individualized program for Bed mobility Need for home safety evaluation - to improve, our physical therapists will perform initial evaluatio n of pt's status upon admission and devise an individualized program for Home Evaluation Need in caregiver upon discharge - to improve, our physical therapists will perform initial evaluati on of pt's status upon admission and devise an individualized program for Caregiver Training New precaution - to improve, our physical therapists will perform initial evaluation of pt's status upon admission and devise an individualized program for Patient precaution education Edema - to improve, our physical therapists will perform initial evaluation of pt's status upon admi ssion and devise an individualized program for Elevation Training, and Lymphedema Therapy Poor balance - to improve, our physical therapists will perform initial evaluation of pt's status up on admission and devise an individualized program for Balance Training Poor endurance - to improve, our physical therapists will perform initial evaluation of pt's status upon admission and devise an individualized program for Endurance Training Weakness - to improve, our physical therapists will perform initial evaluation of pt's status upon a dmission and devise an individualized program for Aquatic Therapy, Neuromuscular Reeducation, and Str engthening Achieving independence - to improve, our physical therapists will perform initial evaluation of pt's status upon admission and devise an individualized program for Community Reintegration Activities - Occupational Therapy ADL deficits - to improve, our occupation therapists will perform initial evaluation of pt's status upon admission and devise an individualized program for Bathing, Bed mobility, Community Reintegratio n, Cooking, Dressing, Eating, Fine Motor Skills, Grooming, Homemaking, Kitchen Mobility, Laundry, Pat ient Education, Safety Awareness, Splinting - Positioning, Transfers(Toilet, Tub, Shower), and Wheel Chair Management Need for nursing care partner - to improve, our occupation therapists will perform initial evaluation of pt's status upon admission and devise an individualized program for Caregiver Training Weakness - to improve, our occupation therapists will perform initial evaluation of pt's status upon admission and devise an individualized program for Aquatic Therapy, Balance, Endurance, UE ROM, and UE strengthening - Diet Type Continue Regular - Diet - Liquid Texture Continue Regular - Tube Feed Continue N/A - Fall Precaution Bed and chair alarm - Diet - Solid Texture Continue Regular - Shower allowing shower FUNCTIONAL STATUS: UPDATED AT WEEKLY TEAM CONFERENCE - Bladder Same accident frequency: 7-Ind - No accidents in the past 7 days - Bowel Same accident frequency: 7-Ind - No accidents in the past 7 days - Walking Same score based on distance walked: 1(<=50ft) - Wheelchair Same score based on distance traveled: 3(>=150ft) FUNCTIONAL STATUS: - Self-Care A. Eating sup B. Grooming sup C. Bathing sup D. Dressing - [place] E. Dressing - [place] F. Toileting [place] - Sphincter Control G: Bladder control Ind H: Bowel control Ind - Transfers Control I. Bed/Chair/Wheelchair maxA J. Toilet maxA K. Tub/Shower ADNO - Locomotion L. Walk/Wheelchair (B) maxA M. Stairs ADNO - Communication N. Comprehension (B) Liz O. Expression (B) Liz - Social Cognition P. Social Interaction Liz Q. Problem Solving Liz R. Memory Liz - Endurance Fair - Balance Fair - Safety Awareness Fair CURRENT FUNC. DEFICITS: Endurance, Safety Awareness, Transfers Control, Balance, Self-Care, and Locomotion SIGNATURE PANEL: (CDT)
[2018-03-22] MEDS: TAMSULOSIN 0.4 MG SR CAP PO SCH (20:17)
[2018-03-22] MEDS: TRAZODONE 50 MG TABLET PO PRN (20:17)
[2018-03-22] MEDS: ROSUVASTATIN 10 MG TAB PO SCH (20:18)
--- NOTE | 2018-03-23 01:47 | FAST ---
SHIFT START DATE/TIME: 03/22/2018 19:00 (CDT) SHIFT END DATE/TIME: 03/23/2018 07:00 (CDT) NAME LUIS PALACIOS DATE OF : 1935 DATE OF ADMISSION: 03/14/2018 13:01 (CDT) PHONE: AGE: 82 N# [id number] GENDER: Male ENCOUNTER PHYSICIAN: Dr. Lance Kaur M.D. ADMISSION DIAGNOSIS: - Medically Complex Conditions 17 - Neoplasms (17.2) Multiple Myeloma. EATING: Activity did not occur on this shift EATING - SCORE: 0-UNK GROOMING: Activity did not occur on this shift GROOMING - SCORE: 0-UNK BATHING: Activity did not occur on this shift BATHING - SCORE: 0-UNK DRESSING - UPPER BODY: Patient is not dressing in public clothing ARTICLES SCORE Total number of steps: 0 DRESSING - UPPER BODY - SCORE: 0-UNK DRESSING - LOWER BODY: Patient is not dressing in public clothing ARTICLES SCORE Total number of steps: 0 DRESSING - LOWER BODY - SCORE: 0-UNK TOILETING: Activity did not occur on this shift TOILETING - SCORE: 0-UNK BLADDER MANAGEMENT: [place] cares for quintero catheter including emptying drainage bag. BLADDER MANAGEMENT - SCORE: 1-DEP BOWEL MANAGEMENT: [place] removes incontinent device (depends, pull ups, etc.); cleans the patient after accident / inco ntinent episode; and, applies new device (depends, pull-ups, padding, etc.). BOWEL MANAGEMENT - SCORE: 1-DEP TRANSFERS: BED, CHAIR, WHEELCHAIR: Activity did not occur on this shift TRANSFERS: BED, CHAIR, WHEELCHAIR - SCORE: 0-UNK TRANSFERS: TOILET: Activity did not occur on this shift TRANSFERS: TOILET - SCORE: 0-UNK TRANSFERS: SHOWER: Activity did not occur on this shift TRANSFERS: SHOWER - SCORE: 0-UNK TRANSFERS: TUB: Activity did not occur on this shift TRANSFERS: TUB - SCORE: 0-UNK LOCOMOTION: WALK: Activity did not occur on this shift LOCOMOTION: WALK - SCORE: 0-UNK LOCOMOTION: WHEELCHAIR: Activity did not occur on this shift LOCOMOTION: WHEELCHAIR - SCORE: 0-UNK COMPREHENSION: COMPREHENSION - STEP 1: Does the patient require help to understand complex and abstract ideas (such as current events, finan will, discharge planning, medical issues, relationships, etc)? Yes. COMPREHENSION - STEP 2: Does the patient require help to understand questions or statements about basic needs or ideas (such as hunger, thirst, sleep, safety, daily schedule, room location, or discomfort) half or more of the t mary carmen? No. COMPREHENSION - STEP 3: How often does the patient need help to understand directions and conversation about basic needs? 10% - 24% of the time COMPREHENSION - SCORE: 4-MIN EXPRESSION EXPRESSION - STEP 1: Does the patient require help expressing complex and abstract ideas (such as current events, finances , discharge planning, medical issues, relationships, etc)? Yes. EXPRESSION - STEP 2: Does the patient require help to express basic necessities or ideas (such as hunger, thirst, sleep, s afety, daily schedule, room location, or discomfort) half or more of the time? No. EXPRESSION - STEP 3: How often does the patient need help to express directions and conversation about basic needs? 10-24% of the time EXPRESSION - SCORE: 4-MIN SOCIAL INTERACTION: SOCIAL INTERACTION - STEP 1: Does the patient require a helper to interact with others in social and therapeutic situations? No. SOCIAL INTERACTION - STEP 2: Does the patient need extra time in social situations, OR does s/he interact with staff, other patien ts, and family members ONLY in structured environments, OR does s/he require medication for social in teraction? Yes, patient needs extra time SOCIAL INTERACTION - SCORE: 6-BASIL PROBLEM SOLVING: PROBLEM SOLVING - STEP 1: Does the patient need help to solve complex problems such as managing a checking account or confronti ng interpersonal problems? Yes. PROBLEM SOLVING - STEP 2: Does the patient solve basic routine problems half or more of the time? Yes. PROBLEM SOLVING - STEP 3: How often does the patient need help to solve basic routine problems? 25%-49% of the time PROBLEM SOLVING - SCORE: 3-MOD MEMORY: MEMORY - STEP 1: Does the patient need help to remember frequently encountered people, daily routines, and executing r equests? Yes. MEMORY - STEP 2: How often does the patient need help to remember frequently encountered people, daily routines, and e xecuting requests? 25% - 49% of the time MEMORY - SCORE: 3-MOD SIGNATURE PANEL: The following modified sections: Eating - Score, Grooming - Score, Dressing - Upper Body - Score, Lauro ssing - Lower Body - Score, Toileting - Score, Bladder Management - Score, Bowel Management - Score, Transfers: Bed, Chair, Wheelchair - Score, Transfers: Toilet - Score, Transfers: Shower - Score, [place] sfers: Tub - Score, Locomotion: Walk - Score, Locomotion: Wheelchair - Score, Comprehension - Score, Expression - Score, Social Interaction - Score, Problem Solving - Score, Memory - Score were [electro nically] signed by Opal Ramírez CNA on MonMar 23 2018 01:46:19 GMT-0500 (Central Daylight Time)
[2018-03-23] MEDS: CARVEDILOL 3.125 MG TAB PO SCH ×2 (05:16→17:08)
[2018-03-23 06:27] LABS: Potassium 4.8 mmol/L (3.5-5.1)
[2018-03-23] MEDS: FERROUS SULFATE 325 MG TAB PO SCH (07:36)
[2018-03-23] MEDS: CETIRIZINE HCL 5 MG TABLET PO SCH (07:36)
[2018-03-23] MEDS: MULTIVIT W/ MINERAL TAB PO SCH (07:36)
[2018-03-23] MEDS: FE SULF/FA/VIT B COMP & C TAB PO SCH (07:36)
[2018-03-23] MEDS: APIXABAN 2.5 MG TABLET PO SCH ×2 (07:36→20:33)
[2018-03-23] MEDS: CRANBERRY FRUIT EXTRACT 200 MG CAP PO SCH ×2 (07:36→20:32)
[2018-03-23] MEDS: FENOFIBRATE 160 MG TAB PO SCH (07:36)
[2018-03-23] MEDS: GABAPENTIN 300 MG CAP PO SCH ×2 (07:38→20:33)
[2018-03-23] MEDS: CLOPIDOGREL 75 MG TABLET PO SCH (07:38)
[2018-03-23] MEDS: levoFLOXacin 500 MG TAB PO SCH (07:38)
[2018-03-23] MEDS: VITAMIN D 1000 UNIT TAB PO SCH (07:38)
[2018-03-23] MEDS: ASPIRIN EC 81 MG TAB PO SCH (07:38)
[2018-03-23] MEDS: PANTOPRAZOLE 40MG TABLET PO SCH (07:38)
[2018-03-23] MEDS: FINASTERIDE 5 MG TAB PO SCH (07:38)
[2018-03-23] MEDS: ACETAMINOPHEN 500 MG TAB PO PRN ×2 (07:39→14:39)
[2018-03-23] MEDS: ENSURE ENLIVE 237 ML CAN PO SCH ×2 (07:40→20:32)
[2018-03-23] MEDS: PROMOD 30 ML DOSE PO SCH ×2 (07:40→20:32)
[2018-03-23] MEDS ORDERED: FUROSEMIDE 20 MG TABLET PO SCH (08:00)
--- NOTE | 2018-03-23 08:25 | RAD REPORT ---
EXAM DESCRIPTION: Madelyn Single View03/23/2018 6:54 am CLINICAL HISTORY: Shortness of breath COMPARISON: March 22 FINDINGS: Mild bilateral pulmonary opacities are unchanged. The heart is mildly to moderately enlarg ed Postsurgical changes involve the chest. Small pleural effusions may be present. IMPRESSION: No change in mild bilateral pulmonary opacities which probably represent pulmonary edema
[2018-03-23] MEDS: FUROSEMIDE 20 MG TABLET PO SCH ×2 (08:44→16:47)
--- NOTE | 2018-03-23 09:32 | P.RH.PN ---
Estimated Length of Stay: 14 Expected Discharge Date: 03/28/18 Discharge Disposition Plan: Home Family Support: Yes Nursing Home Goal: Mobility, Transfers, Self Care Vital Signs: Last Vital Signs Temp 97.7 F 03/22/18 19:58 Pulse 89 03/23/18 08:44 Resp 20 03/22/18 19:58 BP 126/72 03/23/18 08:44 Pulse Ox 100 03/22/18 19:58 Laboratory: Laboratory Last Values WBC 6.7 K/uL (4.3-10.9) D 03/22/18 05:20 RBC 2.87 M/uL (4.33-5.43) L 03/22/18 05:20 Hgb 10.0 g/dL (13.6-17.9) L 03/22/18 05:20 Hct 29.4 % (39.6-49.0) L 03/22/18 05:20 MCV 102.5 fL (80-100) H 03/22/18 05:20 MCH 35.0 pg (27.0-35.0) 03/22/18 05:20 MCHC 34.2 g/dL (32.0-36.0) 03/22/18 05:20 RDW 16.0 % (12.1-15.2) H 03/22/18 05:20 Plt Count 159 K/uL (152-406) D 03/22/18 05:20 MPV 11.6 fL (7.6-11.3) H 03/22/18 05:20 Neutrophils % 83.5 % (41.7-73.7) H 03/22/18 05:20 Lymphocytes % 7.8 % (15.3-44.8) L 03/22/18 05:20 Monocytes % 8.0 % (3.3-12.3) 03/22/18 05:20 Eosinophils % 0.3 % (0-4.4) 03/22/18 05:20 Basophils % 0.4 % (0-1.3) 03/22/18 05:20 Absolute Neutrophils 5.6 K/uL (1.8-8.0) 03/22/18 05:20 Absolute Lymphocytes 0.5 K/uL (0.7-4.9) L 03/22/18 05:20 Absolute Monocytes 0.5 K/uL (0.1-1.3) 03/22/18 05:20 Absolute Eosinophils 0.0 K/uL (0-0.5) 03/22/18 05:20 Absolute Basophils 0.0 K/uL (0-0.5) 03/22/18 05:20 Poikilocytosis 2+ 03/15/18 05:55 Anisocytosis 1+ 03/15/18 05:55 Morphology Comment Noted (NOT SEEN) 03/15/18 05:55 Sodium 137 mmol/L (136-145) 03/23/18 05:14 Potassium 4.8 mmol/L (3.5-5.1) 03/23/18 05:14 Chloride 102 mmol/L (98-107) 03/23/18 05:14 Carbon Dioxide 31 mmol/L (21-32) 03/23/18 05:14 BUN 38 mg/dL (7-18) H 03/23/18 05:14 Creatinine 1.10 mg/dL (0.55-1.3) 03/23/18 05:14 Estimated GFR 64 mL/min (=/>90) L 03/23/18 05:14 Glucose 128 mg/dL (74-106) H 03/23/18 05:14 POC Glucose 118 mg/dl (65-120) 03/16/18 07:12 Lactic Acid 1.9 mmol/L (0.4-2.0) 03/15/18 10:22 Calcium 9.3 mg/dL (8.5-10.1) 03/23/18 05:14 Magnesium 2.1 mg/dL (1.8-2.4) 03/22/18 05:20 Albumin 2.5 g/dL (3.4-5.0) L 03/22/18 05:20 Prealbumin 14.0 mg/dL (20-40) L 03/22/18 05:20 Urine Color Yellow 03/14/18 19:10 Urine Appearance Clear 03/14/18 19:10 Urine pH 5.5 (5.0-7.0) 03/14/18 19:10 Ur Specific [place] 1.020 (1.005-1.030) 03/14/18 19:10 Urine Ketones Negative (NEG) 03/14/18 19:10 Urine Blood 2+ (NEG) H 03/14/18 19:10 Urine Nitrite Negative (NEG) 03/14/18 19:10 Urine Bilirubin Negative (NEG) 03/14/18 19:10 Urine Urobilinogen 0.2 mg/dL (0.2-1.0) 03/14/18 19:10 Ur Leukocyte Esterase 2+ (NEG) H 03/14/18 19:10 Urine RBC 10-20 /HPF (NONE SEEN) H 03/14/18 19:10 Urine WBC Tntc /HPF (<5) H 03/14/18 19:10 Ur Squamous Epith Cells <5 /HPF (NONE SEEN) 03/14/18 19:10 Urine Bacteria <20 /HPF (NONE SEEN) 03/14/18 19:10 Urine Culture Reflexed Not needed 03/14/18 19:10 Urine Glucose Negative (NEG) 03/14/18 19:10 Urine Total Protein 1+ (NEG) H 03/14/18 19:10 Weight: 189 lb 3.2 oz Wound Present: No Closed Surgical Incision Present: No Negative Pressure Wound Therapy Present: No Physician Update: He is medically stable with essentially unremarkable labs. He continues urinary bladder training with Dr. Mectalf. Patient's son Dominik and Danielito are very involved with his therapy. He is doing well with nectar thick liquids. He is no currently following his chin tuck. He is fatiguing easily with physical and occupational therapy and has lower back pain limiting his exercise. He is on gabapentin. He walked 100' with physical therapy yesterday. Medical Issues: With FC, on bladder training Medication Issues: Levaquin 500mg daily for colitis Pain Issues: [place] 5/325mg Q6H PRN. Tylenol 1000mg Q8H PRN Functional Improvement: Patient has met all short-term goals and is progressing toward long-term goals. Patient is showing improvement w/ endurance, pain, and strengthening. Functional Improvement Occupational Therapy: PATIENT HAS DEMONSTRATED SOME REGRESSION IN PROGRESS DUE TO SIGNIFICANT PAIN TO BACK DURING FUNCTIONAL TRF AND TASKS. PATIENT REQUIRING EXTRA TIMING WELL FOR FREQUENT RESTING BREAKS AND VERBAL CUES FOR DIAPHRAGMATIC BREATHING, HE HYPERVENTILATES DURING STRENOUS TASKS, WHICH HAS BEEN ANYTHING MOVEMENT AT ALL. Speech Therapy Update: MBSS was complete on 03/16/18. Oropharyngeal dysphagia present resulting in deep uncleared penetrations with thin liquid (SILENT). Patient is currently on a Regular diet with [place] thick liquids for increased safety . Patient is following all swallow precautions with MIN A but requires increased cuing for double swallow. He has not been advanced to thin liquids with a chin tuck secondary to difficulty executing maneuver properly. Mental status is improved and cognitive linguistic skills have improved to MIN to MOD A. Speech production is improved to MOD A . Summary: Patient's care plan and buttermaker helper goals have been reviewed and revised as necessary. Please see the Rehabilitation Signature page for all necessary signatures.
--- NOTE | 2018-03-23 13:33 | FAST ---
SHIFT START DATE/TIME: 03/23/2018 07:00 (CDT) SHIFT END DATE/TIME: 03/23/2018 19:00 (CDT) NAME LUIS PALACIOS DATE OF : 1935 DATE OF ADMISSION: 03/14/2018 13:01 (CDT) PHONE: AGE: 82 N# [id number] GENDER: Male ENCOUNTER PHYSICIAN: Dr. Lance Kaur M.D. ADMISSION DIAGNOSIS: - Medically Complex Conditions 17 - Neoplasms (17.2) Multiple Myeloma. EATING: EATING - STEP 1: Does the patient require assistance when eating? Yes. EATING - STEP 2: Does the patient require the assistance of a helper? No, patient only requires an assistive device, O R s/he takes more than reasonable time to eat, OR there is a safety concern, OR s/he requires modifie d food consistency EATING - SCORE: 6-BASIL GROOMING: Activity did not occur on this shift GROOMING - SCORE: 0-UNK BATHING: Activity did not occur on this shift BATHING - SCORE: 0-UNK DRESSING - UPPER BODY: T-shirt/pullover shirt (four steps) ARTICLES SCORE Total number of steps: 4 DRESSING - UPPER BODY - STEP 1: Does the patient require help when dressing above the waist? Yes. DRESSING - UPPER BODY - STEP 2: Does the patient require the assistance of a helper? Yes. DRESSING - UPPER BODY - STEP 3: Does the helper touch the patient while dressing? Yes. DRESSING - UPPER BODY - STEP 4: How many of the total steps does the patient complete on his/her own? 0 DRESSING - UPPER BODY - STEP 5: Does Patient require total assistance for dressing above the waist such as the helper holding clothin g and performing basically all the activities? Yes. DRESSING - UPPER BODY - SCORE: 1-DEP DRESSING - LOWER BODY: Elastic waist pants (three steps) Slip-on shoe - Left foot (one step) Slip-on shoe - Right foot (one step) Underwear (three steps) ARTICLES SCORE Total number of steps: 8 DRESSING - LOWER BODY - STEP 1: Does the patient require help when dressing below the waist? Yes. DRESSING - LOWER BODY - STEP 2: Does the patient require the assistance of a helper? Yes. DRESSING - LOWER BODY - STEP 3: Does the helper touch the patient while dressing? Yes. DRESSING - LOWER BODY - STEP 4: How many of the total steps does the patient complete on his/her own? 2 DRESSING - LOWER BODY - STEP 5: Does patient require total assistance for dressing below the waist such as the helper holding clothin g and performing basically all the activities? Yes. DRESSING - LOWER BODY - SCORE: 1-DEP TOILETING: TOILETING - STEP 1: Does the patient require assistance with toileting? Yes. TOILETING - STEP 2: Does the patient require the assistance of a helper? Yes. TOILETING - STEP 3: How much assistance does the patient require from the helper? Hands-on assistance from the helper TOILETING - STEP 4: Of the 3 tasks: 1) Adjusting clothing prior to use, 2) Cleansing of perineal area, 3) Adjusting clot chirag after use; How many tasks does the patient perform WITHOUT assistance of the helper? No tasks; h elper performs all three tasks TOILETING - SCORE: 1-DEP BLADDER MANAGEMENT: [place] cares for quintero catheter including emptying drainage bag. BLADDER MANAGEMENT - SCORE: 1-DEP BOWEL MANAGEMENT: BOWEL MANAGEMENT - STEP 1: Does the patient control bowels completely and intentionally without equipment devices or medications AND is always continent? No. BOWEL MANAGEMENT - STEP 2: Does the patient require the assistance of a helper? Yes. BOWEL MANAGEMENT - STEP 3: How much assistance does the patient require from the helper? Patient requires maximal assistance - p erforms 25% to 49 % of bowel management tasks BOWEL MANAGEMENT - SCORE: 2-MAX BOWEL MANAGEMENT - FREQUENCY OF ACCIDENTS: BOWEL MANAGEMENT(FA) - STEP 1: How many accidents has the patient had during the current shift? 2 TRANSFERS: BED, CHAIR, WHEELCHAIR: TRANSFERS: BED, CHAIR, WHEELCHAIR - STEP 1: Does the patient require assistance with bed, chair, or wheelchair transfers? Yes. TRANSFERS: BED, CHAIR, WHEELCHAIR - STEP 2: Does the patient require the assistance of a helper? Yes. TRANSFERS: BED, CHAIR, WHEELCHAIR - STEP 3: How much assistance does the patient require from the helper? Lifting of the patient TRANSFERS: BED, CHAIR, WHEELCHAIR - STEP 4: Does the helper lift the patient ONLY up? ONLY down? Up AND Down? Up AND Down. TRANSFERS: BED, CHAIR, WHEELCHAIR - SCORE: 2-MAX TRANSFERS: TOILET: Activity did not occur on this shift TRANSFERS: TOILET - SCORE: 0-UNK TRANSFERS: SHOWER: Activity did not occur on this shift TRANSFERS: SHOWER - SCORE: 0-UNK TRANSFERS: TUB: Activity did not occur on this shift TRANSFERS: TUB - SCORE: 0-UNK LOCOMOTION: WALK: Activity did not occur on this shift LOCOMOTION: WALK - SCORE: 0-UNK LOCOMOTION: WHEELCHAIR: Activity did not occur on this shift LOCOMOTION: WHEELCHAIR - SCORE: 0-UNK COMPREHENSION: COMPREHENSION - SCORE: 0-UNK EXPRESSION EXPRESSION - SCORE: 0-UNK SOCIAL INTERACTION: SOCIAL INTERACTION - SCORE: 0-UNK PROBLEM SOLVING: PROBLEM SOLVING - SCORE: 0-UNK MEMORY: MEMORY - SCORE: 0-UNK SIGNATURE PANEL: The following modified sections: Eating - Score, Grooming - Score, Bathing - Score, Dressing - Upper Body - Score, Dressing - Lower Body - Score, Toileting - Score, Bladder Management - Score, Bowel Man agement - Score, Transfers: Bed, Chair, Wheelchair - Score, Transfers: Toilet - Score, Transfers: Dara wer - Score, Transfers: Tub - Score, Locomotion: Walk - Score, Locomotion: Wheelchair - Score, Compre hension - Score, Expression - Score, Social Interaction - Score, Problem Solving - Score, Memory - Sc ore were [electronically] signed by Demetria Hood CNA on MonMar 23 2018 13:32:22 T-0500 (Centra l Daylight Time)
--- NOTE | 2018-03-23 15:16 | FAST ---
ENCOUNTER DATE AND TIME: 03/23/2018 08:00 (CDT) NAME LUIS PALACIOS DATE OF : 1935 DATE OF ADMISSION: 03/14/2018 13:01 (CDT) PHONE: AGE: 82 SSN# [id number] GENDER: Male ENCOUNTER PHYSICIAN: Dr. Lance Kaur M.D. ADMISSION DIAGNOSIS: - Medically Complex Conditions 17 - Neoplasms (17.2) Multiple Myeloma. EATING: Activity did not occur on this shift EATING - SCORE: 0-UNK GROOMING: Activity did not occur on this shift GROOMING - SCORE: 0-UNK BATHING: Activity did not occur on this shift BATHING - SCORE: 0-UNK DRESSING - UPPER BODY: Activity did not occur on this shift Patient is not dressing in public clothing ARTICLES SCORE Total number of steps: 0 DRESSING - UPPER BODY - SCORE: 0-UNK DRESSING - LOWER BODY: Activity did not occur on this shift Patient is not dressing in public clothing ARTICLES SCORE Total number of steps: 0 DRESSING - LOWER BODY - SCORE: 0-UNK TOILETING: Activity did not occur on this shift TOILETING - SCORE: 0-UNK BLADDER MANAGEMENT: Activity did not occur on this shift BLADDER MANAGEMENT - SCORE: 7-IND BOWEL MANAGEMENT: Activity did not occur on this shift BOWEL MANAGEMENT - SCORE: 7-IND TRANSFERS: BED, CHAIR, WHEELCHAIR: Activity did not occur on this shift TRANSFERS: BED, CHAIR, WHEELCHAIR - SCORE: 0-UNK TRANSFERS: TOILET: Activity did not occur on this shift TRANSFERS: TOILET - SCORE: 0-UNK TRANSFERS: SHOWER: Activity did not occur on this shift TRANSFERS: SHOWER - SCORE: 0-UNK TRANSFERS: TUB: Activity did not occur on this shift TRANSFERS: TUB - SCORE: 0-UNK LOCOMOTION: WALK: Activity did not occur on this shift LOCOMOTION: WALK - SCORE: 0-UNK LOCOMOTION: WHEELCHAIR: Activity did not occur on this shift LOCOMOTION: WHEELCHAIR - SCORE: 0-UNK LOCOMOTION: STAIRS: Activity did not occur on this shift LOCOMOTION: STAIRS - SCORE: 0-UNK COMPREHENSION: COMPREHENSION - STEP 1: Does the patient require help to understand complex and abstract ideas (such as current events, finan will, discharge planning, medical issues, relationships, etc)? Yes. COMPREHENSION - STEP 2: Does the patient require help to understand questions or statements about basic needs or ideas (such as hunger, thirst, sleep, safety, daily schedule, room location, or discomfort) half or more of the t mary carmen? No. COMPREHENSION - STEP 3: How often does the patient need help to understand directions and conversation about basic needs? 10% - 24% of the time COMPREHENSION - SCORE: 4-MIN EXPRESSION EXPRESSION - STEP 1: Does the patient require help expressing complex and abstract ideas (such as current events, finances , discharge planning, medical issues, relationships, etc)? Yes. EXPRESSION - STEP 2: Does the patient require help to express basic necessities or ideas (such as hunger, thirst, sleep, s afety, daily schedule, room location, or discomfort) half or more of the time? No. EXPRESSION - STEP 3: How often does the patient need help to express directions and conversation about basic needs? 10-24% of the time EXPRESSION - SCORE: 4-MIN SOCIAL INTERACTION: SOCIAL INTERACTION - STEP 1: Does the patient require a helper to interact with others in social and therapeutic situations? Yes. SOCIAL INTERACTION - STEP 2: Does the patient interact appropriately half or more of the time? Yes. SOCIAL INTERACTION - STEP 3: How often does the patient need help to interact appropriately? 10-24% of the time SOCIAL INTERACTION - SCORE: 4-MIN PROBLEM SOLVING: PROBLEM SOLVING - STEP 1: Does the patient need help to solve complex problems such as managing a checking account or confronti ng interpersonal problems? Yes. PROBLEM SOLVING - STEP 2: Does the patient solve basic routine problems half or more of the time? Yes. PROBLEM SOLVING - STEP 3: How often does the patient need help to solve basic routine problems? 10%-24% of the time PROBLEM SOLVING - SCORE: 4-MIN MEMORY: MEMORY - STEP 1: Does the patient need help to remember frequently encountered people, daily routines, and executing r equests? Yes. MEMORY - STEP 2: How often does the patient need help to remember frequently encountered people, daily routines, and e xecuting requests? 10% - 24% of the time MEMORY - SCORE: 4-MIN SIGNATURE PANEL: The following modified sections: Comprehension - Score, Expression - Score, Social Interaction - Scor e, Problem Solving - Score, Memory - Score were [electronically] signed by ST Roland mon 15:16:12 T-0500 (Central Daylight Time)
--- NOTE | 2018-03-23 15:27 | PN ---
Subjective: The patient is doing well. Objective: Vital signs: Stable. Urine output minimal during the nighttime . Assessment: 1. Urinary retention. 2. Bladder training on Flomax and Proscar. We will give a bladder voiding trial on Monday since he is due for discharge on Monday. Woods can remove early in the morning, then check his volume in 8 hours if he has not voided. If he has more than 300-400 cc in his bladder, we will go ahead and reinsert the catheter, placed the lubricant jelly in the urethra first. TIFFANY/NICHOLAS Voice ID: [id number] Report ID: [id number] LOUIS
[2018-03-23] MEDS: ROSUVASTATIN 10 MG TAB PO SCH (20:33)
[2018-03-23] MEDS: TAMSULOSIN 0.4 MG SR CAP PO SCH (20:33)
[2018-03-23] MEDS: TRAZODONE 50 MG TABLET PO PRN (20:38)
--- NOTE | 2018-03-23 22:24 | PN ---
Date of Progress Note: 03/23/2018 Chief Complaint: Acute kidney injury secondary to prerenal azotemia. The patient also was found to have urinary retention. The patient has been seen by urologist and is receiving bladder training on Flomax and Proscar. Review of Systems: Constitutional: Denies fever or chills. Eyes: Denies vision changes. Ears, Nose, Mouth, and Throat: Denies sore throat or earache. Lungs: Denies PND or orthopnea. Impression And Plan: 1.Acute kidney injury, in recovery phase. The patient developed prerenal azotemia, nonoliguric acut e tubular necrosis, and urine output is improving. The patient had blood work done and it showed [place] improvement of azotemia. Monitor electrolytes closely. 2.The patient was seen by urologist and plan is to discontinue Woods catheter tomorrow morning. Ellie n is to evaluate postvoid residual volume. Continue to monitor electrolytes and renal function. Con tinue adequate p.o. fluid intake. 3.Legs edema, mild. The patient will continue low-sodium diet and the patient may need diuretics fo r control of fluid overload. EB/MODL Voice ID: [id number] Report ID: [id number]
--- NOTE | 2018-03-24 02:46 | FAST ---
SHIFT START DATE/TIME: 03/23/2018 19:00 (CDT) SHIFT END DATE/TIME: 03/24/2018 07:00 (CDT) NAME LUIS PALACIOS DATE OF : 1935 DATE OF ADMISSION: 03/14/2018 13:01 (CDT) PHONE: AGE: 82 [facility]# [id number] GENDER: Male ENCOUNTER PHYSICIAN: Dr. Lance Kaur M.D. ADMISSION DIAGNOSIS: - Medically Complex Conditions 17 - Neoplasms (17.2) Multiple Myeloma. EATING: Activity did not occur on this shift EATING - SCORE: 0-UNK GROOMING: Wash, rinse, and dry face Wash, rinse, and dry hands GROOMING - STEP 1: Does the patient require assistance when grooming? Yes. GROOMING - STEP 2: Does the patient require the assistance of a helper? Yes. GROOMING - STEP 3: How much assistance does the patient require from the helper? Incidental touching assistance from the helper while grooming GROOMING - SCORE: 4-MIN BATHING: Activity did not occur on this shift BATHING - SCORE: 0-UNK DRESSING - UPPER BODY: Patient is not dressing in public clothing ARTICLES SCORE Total number of steps: 0 DRESSING - UPPER BODY - SCORE: 0-UNK DRESSING - LOWER BODY: Patient is not dressing in public clothing ARTICLES SCORE Total number of steps: 0 DRESSING - LOWER BODY - SCORE: 0-UNK TOILETING: TOILETING - STEP 1: Does the patient require assistance with toileting? Yes. TOILETING - STEP 2: Does the patient require the assistance of a helper? Yes. TOILETING - STEP 3: How much assistance does the patient require from the helper? Hands-on assistance from the helper TOILETING - STEP 4: Of the 3 tasks: 1) Adjusting clothing prior to use, 2) Cleansing of perineal area, 3) Adjusting clot chirag after use; How many tasks does the patient perform WITHOUT assistance of the helper? No tasks; h elper performs all three tasks TOILETING - SCORE: 1-DEP BLADDER MANAGEMENT: [place] cares for quintero catheter including emptying drainage bag. BLADDER MANAGEMENT - SCORE: 1-DEP BOWEL MANAGEMENT: [place] removes incontinent device (depends, pull ups, etc.); cleans the patient after accident / inco ntinent episode; and, applies new device (depends, pull-ups, padding, etc.). BOWEL MANAGEMENT - SCORE: 1-DEP BOWEL MANAGEMENT - FREQUENCY OF ACCIDENTS: BOWEL MANAGEMENT(FA) - STEP 1: How many accidents has the patient had during the current shift? 1 TRANSFERS: BED, CHAIR, WHEELCHAIR: Activity did not occur on this shift TRANSFERS: BED, CHAIR, WHEELCHAIR - SCORE: 0-UNK TRANSFERS: TOILET: Activity did not occur on this shift TRANSFERS: TOILET - SCORE: 0-UNK TRANSFERS: SHOWER: Activity did not occur on this shift TRANSFERS: SHOWER - SCORE: 0-UNK TRANSFERS: TUB: Activity did not occur on this shift TRANSFERS: TUB - SCORE: 0-UNK LOCOMOTION: WALK: Activity did not occur on this shift LOCOMOTION: WALK - SCORE: 0-UNK LOCOMOTION: WHEELCHAIR: Activity did not occur on this shift LOCOMOTION: WHEELCHAIR - SCORE: 0-UNK COMPREHENSION: COMPREHENSION: TYPE: Both COMPREHENSION - STEP 1: Does the patient require help to understand complex and abstract ideas (such as current events, finan will, discharge planning, medical issues, relationships, etc)? Yes. COMPREHENSION - STEP 2: Does the patient require help to understand questions or statements about basic needs or ideas (such as hunger, thirst, sleep, safety, daily schedule, room location, or discomfort) half or more of the t mary carmen? No. COMPREHENSION - STEP 3: How often does the patient need help to understand directions and conversation about basic needs? 10% - 24% of the time COMPREHENSION - SCORE: 4-MIN EXPRESSION EXPRESSION: TYPE: Both EXPRESSION - STEP 1: Does the patient require help expressing complex and abstract ideas (such as current events, finances , discharge planning, medical issues, relationships, etc)? Yes. EXPRESSION - STEP 2: Does the patient require help to express basic necessities or ideas (such as hunger, thirst, sleep, s afety, daily schedule, room location, or discomfort) half or more of the time? No. EXPRESSION - STEP 3: How often does the patient need help to express directions and conversation about basic needs? 10-24% of the time EXPRESSION - SCORE: 4-MIN SOCIAL INTERACTION: SOCIAL INTERACTION - STEP 1: Does the patient require a helper to interact with others in social and therapeutic situations? No. SOCIAL INTERACTION - STEP 2: Does the patient need extra time in social situations, OR does s/he interact with staff, other patien ts, and family members ONLY in structured environments, OR does s/he require medication for social in teraction? Yes, patient needs extra time SOCIAL INTERACTION - SCORE: 6-BASIL PROBLEM SOLVING: PROBLEM SOLVING - STEP 1: Does the patient need help to solve complex problems such as managing a checking account or confronti ng interpersonal problems? Yes. PROBLEM SOLVING - STEP 2: Does the patient solve basic routine problems half or more of the time? Yes. PROBLEM SOLVING - STEP 3: How often does the patient need help to solve basic routine problems? Less than 10% of the time PROBLEM SOLVING - SCORE: 5-SUP MEMORY: MEMORY - STEP 1: Does the patient need help to remember frequently encountered people, daily routines, and executing r equests? Yes. MEMORY - STEP 2: How often does the patient need help to remember frequently encountered people, daily routines, and e xecuting requests? Less than 10% of the time MEMORY - SCORE: 5-SUP
[2018-03-24] MEDS: CARVEDILOL 3.125 MG TAB PO SCH ×2 (05:21→17:39)
[2018-03-24 06:06] LABS: Potassium 4.8 mmol/L (3.5-5.1)
[2018-03-24] MEDS: ENSURE ENLIVE 237 ML CAN PO SCH ×2 (08:00→20:34)
[2018-03-24] MEDS: PANTOPRAZOLE 40MG TABLET PO SCH (08:30)
[2018-03-24] MEDS: APIXABAN 2.5 MG TABLET PO SCH ×2 (08:44→20:32)
[2018-03-24] MEDS: CRANBERRY FRUIT EXTRACT 200 MG CAP PO SCH ×2 (08:44→20:31)
[2018-03-24] MEDS: ACETAMINOPHEN 500 MG TAB PO PRN (08:44)
[2018-03-24] MEDS: VITAMIN D 1000 UNIT TAB PO SCH (08:45)
[2018-03-24] MEDS: FERROUS SULFATE 325 MG TAB PO SCH (08:45)
[2018-03-24] MEDS: FUROSEMIDE 40 MG TABLET PO SCH ×2 (08:45→16:12)
[2018-03-24] MEDS: MULTIVIT W/ MINERAL TAB PO SCH (08:45)
[2018-03-24] MEDS: ASPIRIN EC 81 MG TAB PO SCH (08:45)
[2018-03-24] MEDS: FE SULF/FA/VIT B COMP & C TAB PO SCH (08:45)
[2018-03-24] MEDS: FINASTERIDE 5 MG TAB PO SCH (08:45)
[2018-03-24] MEDS: CETIRIZINE HCL 5 MG TABLET PO SCH (08:45)
[2018-03-24] MEDS: PROMOD 30 ML DOSE PO SCH ×2 (08:46→20:34)
[2018-03-24] MEDS: levoFLOXacin 500 MG TAB PO SCH (08:46)
[2018-03-24] MEDS: GABAPENTIN 300 MG CAP PO SCH ×2 (08:46→20:32)
[2018-03-24] MEDS: FENOFIBRATE 160 MG TAB PO SCH (08:46)
[2018-03-24] MEDS: CLOPIDOGREL 75 MG TABLET PO SCH (08:46)
--- NOTE | 2018-03-24 10:42 | FAST ---
SHIFT START DATE/TIME: 03/24/2018 07:00 (CDT) SHIFT END DATE/TIME: 03/24/2018 19:00 (CDT) NAME LUIS PALACIOS DATE OF : 1935 DATE OF ADMISSION: 03/14/2018 13:01 (CDT) PHONE: AGE: 82 N# [id number] GENDER: Male ENCOUNTER PHYSICIAN: Dr. Lance Kaur M.D. ADMISSION DIAGNOSIS: - Medically Complex Conditions 17 - Neoplasms (17.2) Multiple Myeloma. EATING: EATING - STEP 1: Does the patient require assistance when eating? Yes. EATING - STEP 2: Does the patient require the assistance of a helper? Yes. EATING - STEP 3: Does the patient perform half or more of the eating tasks? Yes. EATING - STEP 4: Does the patient need only supervision, cuing, coaxing OR help to apply an orthosis OR help to cut fo od, open containers, pour liquids, or butter bread? Yes. EATING - SCORE: 5-SUP GROOMING: Comb/brush hair GROOMING - STEP 1: Does the patient require assistance when grooming? Yes. GROOMING - STEP 2: Does the patient require the assistance of a helper? No. The patient only requires an assistive devic e, OR takes more than reasonable time to groom, OR there is a concern for safety as the patient groom s GROOMING - SCORE: 6-BASIL BATHING: Activity did not occur on this shift BATHING - SCORE: 0-UNK DRESSING - UPPER BODY: Activity did not occur on this shift ARTICLES SCORE Total number of steps: 0 DRESSING - UPPER BODY - SCORE: 0-UNK DRESSING - LOWER BODY: ARTICLES SCORE Total number of steps: 10 DRESSING - LOWER BODY - STEP 1: Does the patient require help when dressing below the waist? Yes. DRESSING - LOWER BODY - STEP 2: Does the patient require the assistance of a helper? Yes. DRESSING - LOWER BODY - STEP 3: Does the helper touch the patient while dressing? Yes. DRESSING - LOWER BODY - STEP 4: How many of the total steps does the patient complete on his/her own? 0 DRESSING - LOWER BODY - STEP 5: Does patient require total assistance for dressing below the waist such as the helper holding clothin g and performing basically all the activities? No. DRESSING - LOWER BODY - SCORE: 2-MAX TOILETING: TOILETING - STEP 1: Does the patient require assistance with toileting? Yes. TOILETING - STEP 2: Does the patient require the assistance of a helper? Yes. TOILETING - STEP 3: How much assistance does the patient require from the helper? Hands-on assistance from the helper TOILETING - STEP 4: Of the 3 tasks: 1) Adjusting clothing prior to use, 2) Cleansing of perineal area, 3) Adjusting clot chirag after use; How many tasks does the patient perform WITHOUT assistance of the helper? One task TOILETING - SCORE: 2-MAX BLADDER MANAGEMENT: [place] cares for quintero catheter including emptying drainage bag. BLADDER MANAGEMENT - SCORE: 1-DEP BOWEL MANAGEMENT: [place] removes incontinent device (depends, pull ups, etc.); cleans the patient after accident / inco ntinent episode; and, applies new device (depends, pull-ups, padding, etc.). BOWEL MANAGEMENT - SCORE: 1-DEP BOWEL MANAGEMENT - FREQUENCY OF ACCIDENTS: BOWEL MANAGEMENT(FA) - STEP 1: How many accidents has the patient had during the current shift? 1 TRANSFERS: BED, CHAIR, WHEELCHAIR: TRANSFERS: BED, CHAIR, WHEELCHAIR - STEP 1: Does the patient require assistance with bed, chair, or wheelchair transfers? Yes. TRANSFERS: BED, CHAIR, WHEELCHAIR - STEP 2: Does the patient require the assistance of a helper? Yes. TRANSFERS: BED, CHAIR, WHEELCHAIR - STEP 3: How much assistance does the patient require from the helper? Lifting of the patient TRANSFERS: BED, CHAIR, WHEELCHAIR - STEP 4: Does the helper lift the patient ONLY up? ONLY down? Up AND Down? ONLY up. TRANSFERS: BED, CHAIR, WHEELCHAIR - SCORE: 3-MOD TRANSFERS: TOILET: TRANSFERS: TOILET - STEP 1: Does the patient require assistance with toilet transfers? Yes. TRANSFERS: TOILET - STEP 2: Does the patient require the assistance of a helper? Yes. TRANSFERS: TOILET - STEP 3: How much assistance does the patient require from the helper? Patient performs half or more of the tr ansferring tasks TRANSFERS: TOILET - STEP 4: Does the patient need only incidental help such as contact guard or steadying during toilet transfer? No. Patient needs more than incidental help TRANSFERS: TOILET - SCORE: 3-MOD TRANSFERS: SHOWER: Activity did not occur on this shift TRANSFERS: SHOWER - SCORE: 0-UNK TRANSFERS: TUB: Activity did not occur on this shift TRANSFERS: TUB - SCORE: 0-UNK LOCOMOTION: WALK: Activity did not occur on this shift LOCOMOTION: WALK - SCORE: 0-UNK LOCOMOTION: WHEELCHAIR: Activity did not occur on this shift LOCOMOTION: WHEELCHAIR - SCORE: 0-UNK COMPREHENSION: COMPREHENSION - SCORE: 0-UNK EXPRESSION EXPRESSION - SCORE: 0-UNK SOCIAL INTERACTION: SOCIAL INTERACTION - SCORE: 0-UNK PROBLEM SOLVING: PROBLEM SOLVING - SCORE: 0-UNK MEMORY: MEMORY - SCORE: 0-UNK SIGNATURE PANEL: The following modified sections: Eating - Score, Grooming - Score, Bathing - Score, Dressing - Upper Body - Score, Dressing - Lower Body - Score, Toileting - Score, Bladder Management - Score, Bowel Man agement - Score, Transfers: Bed, Chair, Wheelchair - Score, Transfers: Toilet - Score, Transfers: Dara wer - Score, Transfers: Tub - Score, Locomotion: Walk - Score, Locomotion: Wheelchair - Score, Compre hension - Score, Expression - Score, Social Interaction - Score, Problem Solving - Score, Memory - Sc ore were [electronically] signed by Cole Sue on Sat Mar 24 2018 10:41:31 [id number] (Central Daylight Time)
--- NOTE | 2018-03-24 11:46 | PN ---
Subjective: The patient is resting. Objective: Afebrile. Vital signs stable. Tegaderm dressing and 4 x 4 gauze on underside of scrotum this morning. He is on blood thinner, so he may have a little bleeding. If the bleeding does not stop, he will need a stitch in the area. For now has Woods still being clamped and released every 6 hours. Assessment: Urinary retention Plan: voiding trial Monday. Cont scrotal dressings and abx PB/MODL Voice ID: [id number] Report ID: [id number] MTDD
--- NOTE | 2018-03-24 12:23 | FAST ---
ENCOUNTER DATE AND TIME: 03/24/2018 08:00 (CDT) NAME LUIS PALACIOS DATE OF : 1935 DATE OF ADMISSION: 03/14/2018 13:01 (CDT) PHONE: AGE: 82 SSN# [id number] GENDER: Male ENCOUNTER PHYSICIAN: Dr. Lance Kaur M.D. ADMISSION DIAGNOSIS: - Medically Complex Conditions 17 - Neoplasms (17.2) Multiple Myeloma. EATING: Activity did not occur on this shift EATING - SCORE: 0-UNK GROOMING: Activity did not occur on this shift GROOMING - SCORE: 0-UNK BATHING: Activity did not occur on this shift BATHING - SCORE: 0-UNK DRESSING - UPPER BODY: Activity did not occur on this shift Patient is not dressing in public clothing ARTICLES SCORE Total number of steps: 0 DRESSING - UPPER BODY - SCORE: 0-UNK DRESSING - LOWER BODY: Activity did not occur on this shift Patient is not dressing in public clothing ARTICLES SCORE Total number of steps: 0 DRESSING - LOWER BODY - SCORE: 0-UNK TOILETING: Activity did not occur on this shift TOILETING - SCORE: 0-UNK BLADDER MANAGEMENT: Activity did not occur on this shift BLADDER MANAGEMENT - SCORE: 7-IND BOWEL MANAGEMENT: Activity did not occur on this shift BOWEL MANAGEMENT - SCORE: 7-IND TRANSFERS: BED, CHAIR, WHEELCHAIR: TRANSFERS: BED, CHAIR, WHEELCHAIR - STEP 1: Does the patient require assistance with bed, chair, or wheelchair transfers? Yes. TRANSFERS: BED, CHAIR, WHEELCHAIR - STEP 2: Does the patient require the assistance of a helper? Yes. TRANSFERS: BED, CHAIR, WHEELCHAIR - STEP 3: How much assistance does the patient require from the helper? Lifting of the patient TRANSFERS: BED, CHAIR, WHEELCHAIR - STEP 4: Does the helper lift the patient ONLY up? ONLY down? Up AND Down? ONLY up. TRANSFERS: BED, CHAIR, WHEELCHAIR - SCORE: 3-MOD TRANSFERS: TOILET: TRANSFERS: TOILET - STEP 1: Does the patient require assistance with toilet transfers? Yes. TRANSFERS: TOILET - STEP 2: Does the patient require the assistance of a helper? Yes. TRANSFERS: TOILET - STEP 3: How much assistance does the patient require from the helper? Patient performs half or more of the tr ansferring tasks TRANSFERS: TOILET - STEP 4: Does the patient need only incidental help such as contact guard or steadying during toilet transfer? No. Patient needs more than incidental help TRANSFERS: TOILET - SCORE: 3-MOD TRANSFERS: SHOWER: Activity did not occur on this shift TRANSFERS: SHOWER - SCORE: 0-UNK TRANSFERS: TUB: Activity did not occur on this shift TRANSFERS: TUB - SCORE: 0-UNK LOCOMOTION: WALK: LOCOMOTION: WALK - STEP 1: Does the patient need help to walk 150 feet? Yes. LOCOMOTION: WALK - STEP 2: How much assistance does the patient require to walk a minimum of 150 feet? Only incidental help such as contact guarding or steadying LOCOMOTION: WALK - SCORE: 4-MIN LOCOMOTION: WHEELCHAIR: LOCOMOTION: WHEELCHAIR - STEP 1: Does the patient need help to go 150 feet in a wheelchair? Yes. LOCOMOTION: WHEELCHAIR - STEP 2: How much assistance does the patient need from the helper? Only incidental help such as around corner s or over thresholds LOCOMOTION: WHEELCHAIR - SCORE: 4-MIN LOCOMOTION: STAIRS: Activity did not occur on this shift LOCOMOTION: STAIRS - SCORE: 0-UNK COMPREHENSION: COMPREHENSION - SCORE: 0-UNK EXPRESSION EXPRESSION - SCORE: 0-UNK SOCIAL INTERACTION: SOCIAL INTERACTION - SCORE: 0-UNK PROBLEM SOLVING: PROBLEM SOLVING - SCORE: 0-UNK MEMORY: MEMORY - SCORE: 0-UNK SIGNATURE PANEL: The following modified sections: Transfers: Bed, Chair, Wheelchair - Score, Transfers: Toilet - Score , Locomotion: Walk - Score, Locomotion: Wheelchair - Score, Locomotion: Stairs - Score were [john acevedo] signed by Melanie Aaron PTA on Sat Mar 24 2018 12:22:32 GMT-0500 (Central Daylight Time)
--- NOTE | 2018-03-24 13:49 | PN ---
Date of Progress Note: 03/24/2018 Chief Complaint: Acute kidney injury in recovery phase. The patient developed acute kidney injury d ue to prerenal azotemia and acute tubular necrosis. He did not require dialysis. He is undergoing r ehab. The patient has history of urinary retention and was evaluated by urologist and is undergoing bladder training on Flomax and Proscar. The patient today denies complaints. Review of Systems: Denies fever or chills. Physical Examination: General: Not in acute distress. Lungs: Clear to auscultation bilaterally. Heart: S1, S2. Abdomen: Soft and benign. Extremities: Edema 1+ in both ankles. Impression And Plan: 1.Acute kidney injury in recovery phase. Renal function has improved to baseline. Continue to eagle tor renal function and continue medication as needed. 2.Hypertension, blood pressure controlled. 3.The patient has bladder outlet obstruction. The patient was evaluated for a postvoid residual vol ume. Plan is to discontinue Woods catheter as per Urology recommendation to monitor the bladder scan to prevent episodes of urinary retention. 4.Legs edema. Continue diuretic and low-sodium diet. EB/MODL Voice ID: [id number] Report ID: [id number]
[2018-03-24] MEDS ORDERED: LOPERAMIDE HCL 2 MG CAPSULE PO PRN (19:07)
[2018-03-24] MEDS: TAMSULOSIN 0.4 MG SR CAP PO SCH (20:31)
[2018-03-24] MEDS: ROSUVASTATIN 10 MG TAB PO SCH ×2 (20:33→21:00)
[2018-03-24] MEDS: TRAZODONE 50 MG TABLET PO PRN (21:03)
--- NOTE | 2018-03-25 03:17 | FAST ---
SHIFT START DATE/TIME: 03/24/2018 19:00 (CDT) SHIFT END DATE/TIME: 03/25/2018 07:00 (CDT) NAME LUIS PALACIOS DATE OF : 1935 DATE OF ADMISSION: 03/14/2018 13:01 (CDT) PHONE: AGE: 82 N# [id number] GENDER: Male ENCOUNTER PHYSICIAN: Dr. Lance Kaur M.D. ADMISSION DIAGNOSIS: - Medically Complex Conditions 17 - Neoplasms (17.2) Multiple Myeloma. EATING: EATING - STEP 1: Does the patient require assistance when eating? Yes. EATING - STEP 2: Does the patient require the assistance of a helper? Yes. EATING - STEP 3: Does the patient perform half or more of the eating tasks? Yes. EATING - STEP 4: Does the patient need only supervision, cuing, coaxing OR help to apply an orthosis OR help to cut fo od, open containers, pour liquids, or butter bread? Yes. EATING - SCORE: 5-SUP GROOMING: Activity did not occur on this shift GROOMING - SCORE: 0-UNK BATHING: Activity did not occur on this shift BATHING - SCORE: 0-UNK DRESSING - UPPER BODY: Patient is not dressing in public clothing ARTICLES SCORE Total number of steps: 0 DRESSING - UPPER BODY - SCORE: 0-UNK DRESSING - LOWER BODY: Patient is not dressing in public clothing ARTICLES SCORE Total number of steps: 0 DRESSING - LOWER BODY - SCORE: 0-UNK TOILETING: Activity did not occur on this shift TOILETING - SCORE: 0-UNK BLADDER MANAGEMENT: [place] cares for quintero catheter including emptying drainage bag. BLADDER MANAGEMENT - SCORE: 1-DEP BOWEL MANAGEMENT: [place] removes incontinent device (depends, pull ups, etc.); cleans the patient after accident / inco ntinent episode; and, applies new device (depends, pull-ups, padding, etc.). BOWEL MANAGEMENT - SCORE: 1-DEP BOWEL MANAGEMENT - FREQUENCY OF ACCIDENTS: BOWEL MANAGEMENT(FA) - STEP 1: How many accidents has the patient had during the current shift? 1 TRANSFERS: BED, CHAIR, WHEELCHAIR: Patient requires more than one helper and/or the use of a mechanical lift is utilized TRANSFERS: BED, CHAIR, WHEELCHAIR - SCORE: 1-DEP TRANSFERS: TOILET: Patient requires more than one helper and/or the use of a mechanical lift is utilized TRANSFERS: TOILET - SCORE: 1-DEP TRANSFERS: SHOWER: Activity did not occur on this shift TRANSFERS: SHOWER - SCORE: 0-UNK TRANSFERS: TUB: Activity did not occur on this shift TRANSFERS: TUB - SCORE: 0-UNK LOCOMOTION: WALK: Activity did not occur on this shift LOCOMOTION: WALK - SCORE: 0-UNK LOCOMOTION: WHEELCHAIR: Activity did not occur on this shift LOCOMOTION: WHEELCHAIR - SCORE: 0-UNK COMPREHENSION: COMPREHENSION: TYPE: Both COMPREHENSION - STEP 1: Does the patient require help to understand complex and abstract ideas (such as current events, finan will, discharge planning, medical issues, relationships, etc)? Yes. COMPREHENSION - STEP 2: Does the patient require help to understand questions or statements about basic needs or ideas (such as hunger, thirst, sleep, safety, daily schedule, room location, or discomfort) half or more of the t mary carmen? No. COMPREHENSION - STEP 3: How often does the patient need help to understand directions and conversation about basic needs? 25% - 49% of the time COMPREHENSION - SCORE: 3-MOD EXPRESSION EXPRESSION: TYPE: Both EXPRESSION - STEP 1: Does the patient require help expressing complex and abstract ideas (such as current events, finances , discharge planning, medical issues, relationships, etc)? Yes. EXPRESSION - STEP 2: Does the patient require help to express basic necessities or ideas (such as hunger, thirst, sleep, s afety, daily schedule, room location, or discomfort) half or more of the time? No. EXPRESSION - STEP 3: How often does the patient need help to express directions and conversation about basic needs? 25-49% of the time EXPRESSION - SCORE: 3-MOD SOCIAL INTERACTION: SOCIAL INTERACTION - STEP 1: Does the patient require a helper to interact with others in social and therapeutic situations? No. SOCIAL INTERACTION - STEP 2: Does the patient need extra time in social situations, OR does s/he interact with staff, other patien ts, and family members ONLY in structured environments, OR does s/he require medication for social in teraction? Yes, patient needs extra time SOCIAL INTERACTION - SCORE: 6-BASIL PROBLEM SOLVING: PROBLEM SOLVING - STEP 1: Does the patient need help to solve complex problems such as managing a checking account or confronti ng interpersonal problems? Yes. PROBLEM SOLVING - STEP 2: Does the patient solve basic routine problems half or more of the time? Yes. PROBLEM SOLVING - STEP 3: How often does the patient need help to solve basic routine problems? 25%-49% of the time PROBLEM SOLVING - SCORE: 3-MOD MEMORY: MEMORY - STEP 1: Does the patient need help to remember frequently encountered people, daily routines, and executing r equests? Yes. MEMORY - STEP 2: How often does the patient need help to remember frequently encountered people, daily routines, and e xecuting requests? 25% - 49% of the time MEMORY - SCORE: 3-MOD SIGNATURE PANEL: The following modified sections: Eating - Score, Grooming - Score, Bathing - Score, Dressing - Upper Body - Score, Dressing - Lower Body - Score, Toileting - Score, Bladder Management - Score, Bowel Man agement - Score, Transfers: Bed, Chair, Wheelchair - Score, Transfers: Toilet - Score, Transfers: Dara wer - Score, Transfers: Tub - Score, Locomotion: Walk - Score, Locomotion: Wheelchair - Score, Compre hension - Score, Expression - Score, Social Interaction - Score, Problem Solving - Score, Memory - Sc ore were [electronically] signed by Quoc BlackNDeepthi on MonMar 25 2018 03:16:26 T-0500 ( Central Daylight Time)
[2018-03-25] MEDS: CARVEDILOL 3.125 MG TAB PO SCH ×2 (05:02→17:08)
[2018-03-25] MEDS: ENSURE ENLIVE 237 ML CAN PO SCH ×2 (08:00→20:41)
[2018-03-25] MEDS: levoFLOXacin 500 MG TAB PO SCH (08:21)
[2018-03-25] MEDS: CRANBERRY FRUIT EXTRACT 200 MG CAP PO SCH ×2 (08:21→20:39)
[2018-03-25] MEDS: FE SULF/FA/VIT B COMP & C TAB PO SCH (08:21)
[2018-03-25] MEDS: MULTIVIT W/ MINERAL TAB PO SCH (08:21)
[2018-03-25] MEDS: FENOFIBRATE 160 MG TAB PO SCH (08:21)
[2018-03-25] MEDS: ACETAMINOPHEN 500 MG TAB PO PRN (08:22)
[2018-03-25] MEDS: ASPIRIN EC 81 MG TAB PO SCH (08:22)
[2018-03-25] MEDS: PANTOPRAZOLE 40MG TABLET PO SCH (08:22)
[2018-03-25] MEDS: VITAMIN D 1000 UNIT TAB PO SCH (08:22)
[2018-03-25] MEDS: FUROSEMIDE 40 MG TABLET PO SCH ×2 (08:22→16:45)
[2018-03-25] MEDS: CLOPIDOGREL 75 MG TABLET PO SCH (08:22)
[2018-03-25] MEDS: FINASTERIDE 5 MG TAB PO SCH (08:22)
[2018-03-25] MEDS: FERROUS SULFATE 325 MG TAB PO SCH (08:22)
[2018-03-25] MEDS: CETIRIZINE HCL 5 MG TABLET PO SCH (08:22)
[2018-03-25] MEDS: GABAPENTIN 300 MG CAP PO SCH ×2 (08:22→20:39)
[2018-03-25] MEDS: APIXABAN 2.5 MG TABLET PO SCH ×2 (08:22→20:40)
[2018-03-25] MEDS: PROMOD 30 ML DOSE PO SCH ×2 (08:23→20:40)
--- NOTE | 2018-03-25 11:52 | PN ---
Subjective: The patient feels well. Objective: vitals stable. Scrotum is not bleeding. We will go ahead and change the dressing. Plan: Plan is to remove the Woods catheter in the morning and see how he voids. We will continue his Levaquin, Flomax and Proscar for now. TIFFANY/NICHOLAS Voice ID: [id number] Report ID: [id number] MTDD
--- NOTE | 2018-03-25 13:43 | FAST ---
SHIFT START DATE/TIME: 03/25/2018 07:00 (CDT) SHIFT END DATE/TIME: 03/25/2018 19:00 (CDT) NAME LUIS PALACIOS DATE OF : 1935 DATE OF ADMISSION: 03/14/2018 13:01 (CDT) PHONE: AGE: 82 N# [id number] GENDER: Male ENCOUNTER PHYSICIAN: Dr. Lance Kaur M.D. ADMISSION DIAGNOSIS: - Medically Complex Conditions 17 - Neoplasms (17.2) Multiple Myeloma. EATING: EATING - STEP 1: Does the patient require assistance when eating? Yes. EATING - STEP 2: Does the patient require the assistance of a helper? Yes. EATING - STEP 3: Does the patient perform half or more of the eating tasks? Yes. EATING - STEP 4: Does the patient need only supervision, cuing, coaxing OR help to apply an orthosis OR help to cut fo od, open containers, pour liquids, or butter bread? Yes. EATING - SCORE: 5-SUP GROOMING: Comb/brush hair Wash, rinse, and dry face Wash, rinse, and dry hands GROOMING - STEP 1: Does the patient require assistance when grooming? Yes. GROOMING - STEP 2: Does the patient require the assistance of a helper? Yes. GROOMING - STEP 3: How much assistance does the patient require from the helper? Cuing, coaxing, instructions, or encour agement for completion of grooming GROOMING - SCORE: 5-SUP BATHING: Activity did not occur on this shift BATHING - SCORE: 0-UNK DRESSING - UPPER BODY: T-shirt/pullover shirt (four steps) ARTICLES SCORE Total number of steps: 4 DRESSING - UPPER BODY - STEP 1: Does the patient require help when dressing above the waist? Yes. DRESSING - UPPER BODY - STEP 2: Does the patient require the assistance of a helper? Yes. DRESSING - UPPER BODY - STEP 3: Does the helper touch the patient while dressing? Yes. DRESSING - UPPER BODY - STEP 4: How many of the total steps does the patient complete on his/her own? 3 DRESSING - UPPER BODY - SCORE: 4-MIN DRESSING - LOWER BODY: ARTICLES SCORE Total number of steps: 8 DRESSING - LOWER BODY - STEP 1: Does the patient require help when dressing below the waist? Yes. DRESSING - LOWER BODY - STEP 2: Does the patient require the assistance of a helper? Yes. DRESSING - LOWER BODY - STEP 3: Does the helper touch the patient while dressing? Yes. DRESSING - LOWER BODY - STEP 4: How many of the total steps does the patient complete on his/her own? 2 DRESSING - LOWER BODY - STEP 5: Does patient require total assistance for dressing below the waist such as the helper holding clothin g and performing basically all the activities? No. DRESSING - LOWER BODY - SCORE: 2-MAX TOILETING: TOILETING - STEP 1: Does the patient require assistance with toileting? Yes. TOILETING - STEP 2: Does the patient require the assistance of a helper? Yes. TOILETING - STEP 3: How much assistance does the patient require from the helper? Hands-on assistance from the helper TOILETING - STEP 4: Of the 3 tasks: 1) Adjusting clothing prior to use, 2) Cleansing of perineal area, 3) Adjusting clot chirag after use; How many tasks does the patient perform WITHOUT assistance of the helper? One task TOILETING - SCORE: 2-MAX BLADDER MANAGEMENT: [place] cares for quintero catheter including emptying drainage bag. BLADDER MANAGEMENT - SCORE: 1-DEP BOWEL MANAGEMENT: BOWEL MANAGEMENT - STEP 1: Does the patient control bowels completely and intentionally without equipment devices or medications AND is always continent? No. BOWEL MANAGEMENT - STEP 2: Does the patient require the assistance of a helper? No, patient requires and manages independently a n assistive device such as a bedpan, bedside commode, absorbent pad, incontinent device, or collectin g device BOWEL MANAGEMENT - SCORE: 6-BASIL BOWEL MANAGEMENT - FREQUENCY OF ACCIDENTS: BOWEL MANAGEMENT(FA) - STEP 1: How many accidents has the patient had during the current shift? 1 TRANSFERS: BED, CHAIR, WHEELCHAIR: TRANSFERS: BED, CHAIR, WHEELCHAIR - STEP 1: Does the patient require assistance with bed, chair, or wheelchair transfers? Yes. TRANSFERS: BED, CHAIR, WHEELCHAIR - STEP 2: Does the patient require the assistance of a helper? Yes. TRANSFERS: BED, CHAIR, WHEELCHAIR - STEP 3: How much assistance does the patient require from the helper? Lifting of the patient TRANSFERS: BED, CHAIR, WHEELCHAIR - STEP 4: Does the helper lift the patient ONLY up? ONLY down? Up AND Down? ONLY up. TRANSFERS: BED, CHAIR, WHEELCHAIR - SCORE: 3-MOD TRANSFERS: TOILET: TRANSFERS: TOILET - STEP 1: Does the patient require assistance with toilet transfers? Yes. TRANSFERS: TOILET - STEP 2: Does the patient require the assistance of a helper? Yes. TRANSFERS: TOILET - STEP 3: How much assistance does the patient require from the helper? Patient performs half or more of the tr ansferring tasks TRANSFERS: TOILET - STEP 4: Does the patient need only incidental help such as contact guard or steadying during toilet transfer? No. Patient needs more than incidental help TRANSFERS: TOILET - SCORE: 3-MOD TRANSFERS: SHOWER: Activity did not occur on this shift TRANSFERS: SHOWER - SCORE: 0-UNK TRANSFERS: TUB: Activity did not occur on this shift TRANSFERS: TUB - SCORE: 0-UNK LOCOMOTION: WALK: Activity did not occur on this shift LOCOMOTION: WALK - SCORE: 0-UNK LOCOMOTION: WHEELCHAIR: Activity did not occur on this shift LOCOMOTION: WHEELCHAIR - SCORE: 0-UNK COMPREHENSION: COMPREHENSION - SCORE: 0-UNK EXPRESSION EXPRESSION - SCORE: 0-UNK SOCIAL INTERACTION: SOCIAL INTERACTION - SCORE: 0-UNK PROBLEM SOLVING: PROBLEM SOLVING - SCORE: 0-UNK MEMORY: MEMORY - SCORE: 0-UNK SIGNATURE PANEL: The following modified sections: Eating - Score, Grooming - Score, Bathing - Score, Dressing - Upper Body - Score, Dressing - Lower Body - Score, Toileting - Score, Bladder Management - Score, Bowel Man agement - Score, Transfers: Bed, Chair, Wheelchair - Score, Transfers: Toilet - Score, Transfers: Dara wer - Score, Transfers: Tub - Score, Locomotion: Walk - Score, Locomotion: Wheelchair - Score, Compre hension - Score, Expression - Score, Social Interaction - Score, Problem Solving - Score, Memory - Sc ore were [electronically] signed by Cole Sue on MonMar 25 2018 13:42:01 GMT-0500 (Central Daylight Time)
[2018-03-25] MEDS: ROSUVASTATIN 10 MG TAB PO SCH (20:38)
[2018-03-25] MEDS: TAMSULOSIN 0.4 MG SR CAP PO SCH (20:39)
[2018-03-25] MEDS: MELATONIN 3 MG TABLET PO PRN (20:40)
--- NOTE | 2018-03-26 00:04 | PN ---
Date of Progress Note: 03/25/2018 Chief Complaint: Acute kidney injury in a recovery phase. Subjective: The patient has nonoliguric urine output. He is on bladder training with Flomax and Proscar and Woods catheter will be removed tomorrow. The patient denies PND or orthopnea. Objective: Lungs: Clear to auscultation bilaterally. Heart: S1, S2. Abdomen: Soft, benign. Extremities: 1+ to 2+ extremity edema. Assessment And Plan: 1. Acute kidney injury, in recovery phase. Renal function has improved significantly. Monitor electrolytes closely. 2. Mild lymphedema. Continue Lasix. 3. Hypertension. Blood pressure is controlled. 4. Bladder outlet obstruction. The patient was evaluated for a postvoid residual volume. Plan is to discontinue Woods catheter and Urology recommendation was to monitor bladder scan to prevent episodes of urinary retention, legs edema. Continue diuretics. EB/MODL Voice ID: [id number] Report ID: [id number] [facility]
[2018-03-26 01:12] VITALS: O2SAT 100
--- NOTE | 2018-03-26 03:36 | FAST ---
SHIFT START DATE/TIME: 03/25/2018 19:00 (CDT) SHIFT END DATE/TIME: 03/26/2018 07:00 (CDT) NAME LUIS PALACIOS DATE OF : 1935 DATE OF ADMISSION: 03/14/2018 13:01 (CDT) PHONE: AGE: 82 N# [id number] GENDER: Male ENCOUNTER PHYSICIAN: Dr. Lance Kaur M.D. ADMISSION DIAGNOSIS: - Medically Complex Conditions 17 - Neoplasms (17.2) Multiple Myeloma. EATING: EATING - STEP 1: Does the patient require assistance when eating? Yes. EATING - STEP 2: Does the patient require the assistance of a helper? Yes. EATING - STEP 3: Does the patient perform half or more of the eating tasks? Yes. EATING - STEP 4: Does the patient need only supervision, cuing, coaxing OR help to apply an orthosis OR help to cut fo od, open containers, pour liquids, or butter bread? Yes. EATING - SCORE: 5-SUP GROOMING: Oral care Wash, rinse, and dry face Wash, rinse, and dry hands GROOMING - STEP 1: Does the patient require assistance when grooming? Yes. GROOMING - STEP 2: Does the patient require the assistance of a helper? Yes. GROOMING - STEP 3: How much assistance does the patient require from the helper? Only prior equipment preparation/set up from the helper GROOMING - SCORE: 5-SUP BATHING: Activity did not occur on this shift BATHING - SCORE: 0-UNK DRESSING - UPPER BODY: Patient is not dressing in public clothing ARTICLES SCORE Total number of steps: 0 DRESSING - UPPER BODY - SCORE: 0-UNK DRESSING - LOWER BODY: Patient is not dressing in public clothing ARTICLES SCORE Total number of steps: 0 DRESSING - LOWER BODY - SCORE: 0-UNK TOILETING: Activity did not occur on this shift TOILETING - SCORE: 0-UNK BLADDER MANAGEMENT: [place] cares for quintero catheter including emptying drainage bag. BLADDER MANAGEMENT - SCORE: 1-DEP BOWEL MANAGEMENT: [place] removes incontinent device (depends, pull ups, etc.); cleans the patient after accident / inco ntinent episode; and, applies new device (depends, pull-ups, padding, etc.). BOWEL MANAGEMENT - SCORE: 1-DEP BOWEL MANAGEMENT - FREQUENCY OF ACCIDENTS: BOWEL MANAGEMENT(FA) - STEP 1: How many accidents has the patient had during the current shift? 2 TRANSFERS: BED, CHAIR, WHEELCHAIR: Activity did not occur on this shift TRANSFERS: BED, CHAIR, WHEELCHAIR - SCORE: 0-UNK TRANSFERS: TOILET: Patient requires more than one helper and/or the use of a mechanical lift is utilized TRANSFERS: TOILET - SCORE: 1-DEP TRANSFERS: SHOWER: Activity did not occur on this shift TRANSFERS: SHOWER - SCORE: 0-UNK TRANSFERS: TUB: Activity did not occur on this shift TRANSFERS: TUB - SCORE: 0-UNK LOCOMOTION: WALK: Activity did not occur on this shift LOCOMOTION: WALK - SCORE: 0-UNK LOCOMOTION: WHEELCHAIR: Activity did not occur on this shift LOCOMOTION: WHEELCHAIR - SCORE: 0-UNK COMPREHENSION: COMPREHENSION: TYPE: Both COMPREHENSION - STEP 1: Does the patient require help to understand complex and abstract ideas (such as current events, finan will, discharge planning, medical issues, relationships, etc)? Yes. COMPREHENSION - STEP 2: Does the patient require help to understand questions or statements about basic needs or ideas (such as hunger, thirst, sleep, safety, daily schedule, room location, or discomfort) half or more of the t mary carmen? No. COMPREHENSION - STEP 3: How often does the patient need help to understand directions and conversation about basic needs? Les s than 10% of the time COMPREHENSION - SCORE: 5-SUP EXPRESSION EXPRESSION: TYPE: Both EXPRESSION - STEP 1: Does the patient require help expressing complex and abstract ideas (such as current events, finances , discharge planning, medical issues, relationships, etc)? Yes. EXPRESSION - STEP 2: Does the patient require help to express basic necessities or ideas (such as hunger, thirst, sleep, s afety, daily schedule, room location, or discomfort) half or more of the time? No. EXPRESSION - STEP 3: How often does the patient need help to express directions and conversation about basic needs? Less t he 10% of the time EXPRESSION - SCORE: 5-SUP SOCIAL INTERACTION: SOCIAL INTERACTION - STEP 1: Does the patient require a helper to interact with others in social and therapeutic situations? Yes. SOCIAL INTERACTION - STEP 2: Does the patient interact appropriately half or more of the time? Yes. SOCIAL INTERACTION - STEP 3: How often does the patient need help to interact appropriately? Less than 10% of the time SOCIAL INTERACTION - SCORE: 5-SUP PROBLEM SOLVING: PROBLEM SOLVING - STEP 1: Does the patient need help to solve complex problems such as managing a checking account or confronti ng interpersonal problems? Yes. PROBLEM SOLVING - STEP 2: Does the patient solve basic routine problems half or more of the time? Yes. PROBLEM SOLVING - STEP 3: How often does the patient need help to solve basic routine problems? Less than 10% of the time PROBLEM SOLVING - SCORE: 5-SUP MEMORY: MEMORY - STEP 1: Does the patient need help to remember frequently encountered people, daily routines, and executing r equests? Yes. MEMORY - STEP 2: How often does the patient need help to remember frequently encountered people, daily routines, and e xecuting requests? Less than 10% of the time MEMORY - SCORE: 5-SUP SIGNATURE PANEL: The following modified sections: Eating - Score, Grooming - Score, Bathing - Score, Dressing - Upper Body - Score, Dressing - Lower Body - Score, Toileting - Score, Bladder Management - Score, Bowel Man agement - Score, Transfers: Bed, Chair, Wheelchair - Score, Transfers: Toilet - Score, Transfers: Dara wer - Score, Transfers: Tub - Score, Locomotion: Walk - Score, Locomotion: Wheelchair - Score, Compre hension - Score, Expression - Score, Social Interaction - Score, Problem Solving - Score, Memory - Sc ore were [electronically] signed by Quoc [email or web address] on MonMar 26 2018 03:29:30 T-0500 ( Central Daylight Time)
[2018-03-26] MEDS: CARVEDILOL 3.125 MG TAB PO SCH (05:11)
[2018-03-26] MEDS: FUROSEMIDE 40 MG TABLET PO SCH (05:12)
[2018-03-26 05:36] VITALS: BMI 31.9
[2018-03-26 06:46] VITALS: BP 123/74; TEMP 96.3
--- NOTE | 2018-03-26 07:55 | P.HP ---
Certification for Inpatient Patient admitted to: Inpatient With expected LOS: >2 Midnights Patient will require the following post-hospital care: Other (Inpt Rehab v SNF v HH/PT at discharge) Practitioner: I am a practitioner with admitting privileges, knowledge of patient current condition, hospital course, and medical plan of care. Services: Services provided to patient in accordance with Admission requirements found in Title 42 Section 412.3 of the Code of Federal Regulations Patient History Date of Service: 03/26/18 Primary Care Provider: Dr. Soria(Boody); Card-Dr. Baker; Onc.-Dr. Velasquez Reason for admission: Atrial defibrillation History of Present Illness: 82-year-old male with history of systolic CHF with ejection fraction of 25%, hypertension, CAD, multiple myeloma, spinal stenosis, and hyperlipidemia. Patient recently hospitalized for enteritis, urinary retention , and back pain. The patient was transferred to inpatient rehab. to recover. Over the last several days patient has been having some increasing shortness of breath and fatigue. Patient found to have atrial fibrillation. He was seen by Cardiology and Cardiology requested that the patient be moved to Telemetry to further monitor. He was on Eliquis 2.5 mg 1 pill twice daily but this was increased to 5 mg 1 pill twice daily. I will need to check with cardiology to see if this was new onset or if he has a history of Atrial fibrillation. Cardiology recommends the patient to be transferred to telemetry floor for further evaluation. I was asked to address his medical issues. The patient was in the process of finishing inpatient rehab. He was to be discharged this coming Monday. Patient has sys. CHF with EF 25%. Patient currently on Lasix 40 mg 1 pill twice daily. For his hypertension, patient is on 3.125 mg 1 pill twice daily. Patient has recent history of urinary retention. Urology has been following him. Patient currently on Flomax 0.4 mg daily. Patient was in process of having his Woods catheter removed today. Patient also has severe back pain. Lumbar compression was ruled out. He has severe Spinal stenosis and is taking Gabapentin. His PT has been slow. Patient being followed by neurology. Patient also with recent acute renal failure, this remains improved and stable. Nephrology is following the patient. When I saw the patient, he remains stable. No significant SOB is noted. Mild edema to the lower ext. Allergies No Known Allergies Allergy (Verified 03/07/18 04:59) Home medications list reviewed: Yes Home Medications: Acetaminophen [Tylenol Extra Strength] 2 tab PO Q8H PRN 03/07/18 Aspirin [Aspirin EC 81 MG] 81 mg PO DAILY 03/07/18 Benzonatate [Tessalon Perle*] 100 mg PO TID PRN 03/07/18 Bismuth Subsalicylate [Maalox] 15 ml PO PRN PRN 03/07/18 Cetirizine HCl [Zyrtec*] 5 mg PO DAILY 03/07/18 Cholecalciferol (Vitamin D3) [Vitamin D3] 2,000 unit PO DAILY 03/07/18 Clopidogrel Bisulfate [Plavix*] 75 mg PO DAILY 03/07/18 Docusate Sodium 100 mg PO BEDTIME 03/07/18 Fenofibrate Nanocrystallized [Fenofibrate] 145 mg PO BEDTIME 03/07/18 Finasteride 5 mg PO DAILY 03/07/18 Lansoprazole 15 mg PO DAILY 03/07/18 Multivit-Min/FA/Lycopen/Lutein [Centrum Silver Tablet] 1 each PO DAILY 03/07/18 Nitroglycerin [Nitrostat*] 0.4 mg SL PRN PRN 03/07/18 Rosuvastatin Calcium [Crestor] 40 mg PO SEECOM 03/07/18 Carvedilol [Coreg*] 3.125 mg PO BID 6AM 6PM #60 tab 03/13/18 levoFLOXacin [Levaquin*] 250 mg PO DAILY #7 tab 03/13/18 metroNIDAZOLE [Flagyl*] 500 mg PO TID 03/14/18 - Past Medical/Surgical History Has patient received pneumonia vaccine in the past: Yes Diabetic: No -: Multiple myeloma -: Hypertension -: Coronary artery disease -: History CVA -: Hyperlipidemia -: Systolic CHF, ejection fraction 25% -: Chronic renal disease -: Urinary retention -: Chronic back pain -: Lumbar spinal stenosis, DJD, DDD -: Iron deficiency anemia -: Coronary artery bypass grafting x4 vessels -: Coronary artery stent -: Left knee replacement Psychosocial/ Personal History: Patient previous living at home. He was independent - Family History Father -: Cancer Mother -: Heart disease Sister -: Cancer - Social History Smoking Status: Former smoker Alcohol use: No CD- Drugs: No Caffeine use: Yes Place of Residence: Home Review of Systems General: Weakness, As per HPI Eyes: Unremarkable ENT: Unremarkable Respiratory: Shortness of Breath, As per HPI Cardiovascular: Palpitations, As per HPI Gastrointestinal: Unremarkable Genitourinary: Unremarkable Musculoskeletal: Back Pain, Pedal edema, As per HPI Integumentary: Unremarkable Neurological: As per HPI Lymphatics: Unremarkable Physical Examination - Vital Signs Temperature: 96.3 F Blood Pressure: 123/74 Pulse: 60 Respirations: 20 Pulse Ox (%): 98 - Physical Exam General: Alert, In no apparent distress, Oriented x3, Cooperative HEENT: Atraumatic Neck: Supple Respiratory: Clear to auscultation bilaterally, Normal air movement Cardiovascular: Irregular heart rate/rhythm (Atrial fibrillation, rate controlled) Gastrointestinal: Normal bowel sounds, Soft and benign, Non-distended, No tenderness, No masses, No rebound, No guarding Musculoskeletal: No erythema, No tenderness, No warmth Integumentary: No erythema, No warmth, No cyanosis, Tenderness/swelling ( Minimal pitting edema to the lower extremities) Neurological: Normal speech, Normal strength at 5/5 x4 extr, Normal tone, Normal affect Assessment and Plan - Problems (Diagnosis) (1) Atrial fibrillation Current Visit: Yes Status: Acute Plan: I suspect that this is new onset atrial fibrillation. Patient with history of systolic CHF with ejection fraction of 25%. Cardiology requested the patient be transferred to telemetry to monitor closely. Patient appears to be in atrial fibrillation with rate controlled. Patient currently on Eliquis 5 mg 1 pill twice daily. Patient also on carvedilol 3.125 mg 1 pill twice daily. Await further recommendations from cardiology. Patient will continue with Lasix 40 mg 1 pill twice daily and fluid restriction for CHF. I will turn the service over to Dr. Pack tomorrow. I will go over the plan of care. Qualifiers: Atrial fibrillation type: unspecified Qualified Code(s): I48.91 - Unspecified atrial fibrillation (2) Chronic renal disease Current Visit: Yes Status: Chronic Plan: Renal function stable this time. Patient being followed by nephrology. Qualifiers: Chronic kidney disease stage: stage 2 (mild) Qualified Code(s): N18.2 - Chronic kidney disease, stage 2 (mild) (3) Urinary retention Current Visit: Yes Status: Chronic Plan: Patient with recent urinary retention likely from BPH. Urology has followed the patient. Patient on Flomax 0.4 mg daily. Patient was in process of having Woods catheter removed. I suspect that this can be continued and removed later today. Will need to verify with urology. (4) BPH (benign prostatic hyperplasia) Current Visit: Yes Status: Chronic Plan: Patient currently on Flomax 0.4 mg daily. Qualifiers: Lower urinary tract symptom presence: symptoms present Lower urinary tract symptom detail: urinary retention Qualified Code(s): N40.1 - Benign prostatic hyperplasia with lower urinary tract symptoms; R33.8 - Other retention of urine (5) Chronic back pain Current Visit: Yes Status: Chronic Plan: Patient with chronic back pain, DDD/DJD and severe spinal stenosis of the lumbar region. Patient currently on gabapentin. Patient was in inpatient rehab to continue physical therapy. He was in the process of being sent home with home health and physical therapy likely on Monday. Patient will need to continue with physical therapy as I suspect that once his atrial fibrillation is evaluated and treated then the patient can be sent home. Qualifiers: Back pain location: low back pain Sciatica presence: unspecified whether sciatica present (6) Anemia Onset Date: 03/07/18 Current Visit: No Status: Chronic Plan: Continue with iron and B12 supplementation Qualifiers: Anemia type: due to chronic kidney disease Chronic kidney disease stage: stage 3 (moderate) Qualified Code(s): N18.3 - Chronic kidney disease, stage 3 (moderate); D63.1 - Anemia in chronic kidney disease (7) CHF (congestive heart failure) Onset Date: 03/07/18 Current Visit: No Status: Chronic Plan: Patient with CHF. Will continue with Lasix 40 mg 1 pill twice daily. Will continue with a 1500 cc per day fluid restriction. Qualifiers: Heart failure type: systolic Heart failure chronicity: acute on chronic Qualified Code(s): I50.23 - Acute on chronic systolic (congestive) heart failure (8) Coronary artery disease Onset Date: 08/01/16 Current Visit: No Status: Chronic Plan: Patient on Plavix 75 mg daily. Qualifiers: Coronary Disease-Associated Artery/Lesion type: bypass graft, autologous vein Associated angina: without angina Qualified Code(s): I25.810 - Atherosclerosis of coronary artery bypass graft(s) without angina pectoris (9) History of coronary artery bypass graft Current Visit: No Status: Chronic Plan: Continue with medications. (10) Hyperlipidemia Current Visit: No Status: Chronic Plan: Continue with Crestor 40 mg daily. Qualifiers: Hyperlipidemia type: unspecified Qualified Code(s): E78.5 - Hyperlipidemia , unspecified (11) Hypertension Current Visit: No Status: Chronic Plan: Continue with carvedilol 3.125 mg 1 pill twice daily. Cardiology may need to make further adjustments as the patient has atrial fibrillation. Qualifiers: Hypertension type: essential hypertension Qualified Code(s): I10 - Essential (primary) hypertension (12) Multiple myeloma Onset Date: 03/07/18 Current Visit: No Status: Chronic Plan: Patient is seen by oncology as an outpatient. Qualifiers: Multiple myeloma remission status: unspecified Qualified Code(s): C90.00 - Multiple myeloma not having achieved remission (13) Spinal stenosis Current Visit: No Status: Chronic Plan: Patient with severe spinal stenosis of the lumbar region. Will continue to monitor closely. Continue physical therapy. Patient on gabapentin. Qualifiers: Spinal region: lumbar Discharge Plan: Home Plan to discharge in: Greater than 2 days - Advance Directives Does patient have a Living Will: Yes Does patient have a Durable POA for Healthcare: Yes - Code Status/Comfort Care Code Status Assessed: Yes Code Status: Full Code Time Spent Managing Pts Care (In Minutes): 55
[2018-03-26] MEDS: CLOPIDOGREL 75 MG TABLET PO SCH (08:00)
[2018-03-26] MEDS: ASPIRIN EC 81 MG TAB PO SCH (08:00)
--- NOTE | 2018-03-26 08:31 | EKG ---
Test Date: 2018-03-25 Test Time: 16:55:18 Wastewater Design Engineer: PEDRO PABLO MEASUREMENT RESULTS: Intervals: Rate: 131 [place]: QRSD: 144 QT: 362 QTc: 534 [place]: P: [place]: QRS: -89 T: 134 INTERPRETIVE STATEMENTS: Atrial fibrillation with rapid ventricular response Left axis deviation Nonspecific intraventricular block Anterolateral infarct, age undetermined T wave abnormality, consider inferior ischemia or digitalis effect Abnormal ECG Compared to ECG 03/25/2018 16:54:17 Left-axis deviation now present Myocardial infarct finding now present T-wave abnormality now present Possible ischemia now present Right superior axis no longer present Electronically Signed On 03-26-18 08:30:25 CDT by Luigi Machuca
--- NOTE | 2018-03-26 08:31 | EKG ---
Test Date: 2018-03-25 Test Time: 16:54:17 School Age Program Associate: PEDRO PABLO MEASUREMENT RESULTS: Intervals: Rate: 78 [place]: QRSD: 148 QT: 448 QTc: 510 [place]: P: [place]: QRS: 233 T: 202 INTERPRETIVE STATEMENTS: Atrial fibrillation Right superior axis deviation Nonspecific intraventricular block Abnormal ECG Compared to ECG 03/07/2018 00:17:38 Right superior axis now present Sinus rhythm no longer present Left-axis deviation no longer present Electronically Signed On 03-26-18 08:30:29 CDT by Luigi Machuca
[2018-03-26] MEDS: CRANBERRY FRUIT EXTRACT 200 MG CAP PO SCH (08:56)
[2018-03-26] MEDS: PANTOPRAZOLE 40MG TABLET PO SCH (08:56)
[2018-03-26] MEDS: GABAPENTIN 300 MG CAP PO SCH (08:57)
[2018-03-26] MEDS: CETIRIZINE HCL 5 MG TABLET PO SCH (08:57)
[2018-03-26] MEDS: FINASTERIDE 5 MG TAB PO SCH (08:57)
[2018-03-26] MEDS: MULTIVIT W/ MINERAL TAB PO SCH (08:57)
[2018-03-26] MEDS: FERROUS SULFATE 325 MG TAB PO SCH (08:57)
[2018-03-26] MEDS: levoFLOXacin 500 MG TAB PO SCH (08:57)
[2018-03-26] MEDS: FENOFIBRATE 160 MG TAB PO SCH (08:57)
[2018-03-26] MEDS: APIXABAN 2.5 MG TABLET PO SCH (08:58)
[2018-03-26] MEDS: VITAMIN D 1000 UNIT TAB PO SCH (08:59)
[2018-03-26] MEDS: ENSURE ENLIVE 237 ML CAN PO SCH (08:59)
[2018-03-26] MEDS: PROMOD 30 ML DOSE PO SCH (08:59)
[2018-03-26] MEDS: FE SULF/FA/VIT B COMP & C TAB PO SCH (08:59)
--- NOTE | 2018-03-26 11:36 | CON ---
History Of Present Illness: Mr. Angeles is 82. He has been up from the rehab floor, recovering from urologic surgery. He has not had any complications until last night, when he went into AFib. Mr. Abdulaziz toscano has a history of heart disease. He has had bypass surgery very remotely. He has had stents wit hin the past 10 years, but not within the past 5 years. He has a depressed ejection fraction, wide Q RS complex. He tends to get bradycardic , but overall has been doing well. Yesterday, he was dizzy when he stood up. Today, he denies any symptoms, but he is lying flat in bed. Physical Examination: Vital Signs: 5 feet 5 inches, 192 pounds, blood pressure 123/74, pulse is in the 80-100 range. HEENT: Unremarkable. Lungs: Clear. Heart: irregularly irregular. There is no gallop. There is a faint 1/6 holosystolic murmur. Abdomen: Soft. Extremities: Trace edema. His echocardiogram from March 10 shows an ejection fraction of 20-25%. There is akinesis of the ant erior wall apex and septum. Medications: His most recent Medications are carvedilol, aspirin, apixaban, Plavix, Ensure, iron sul fate, Proscar, furosemide, gabapentin, iron, levofloxacin, magnesium, melatonin, nitroglycerin, ProMo d, rosuvastatin, simvastatin, tamsulosin, and trazodone. Impression: Mr. Angeles needs to get on telemetry. We will stop his carvedilol. We will try him on a low dose of Betapace to see if that will revert him. If he gets very bradycardiac on Betapace, the n rather than starting another antiarrhythmic drug, I will recommend that we transfer him to a higher level of care for EP study and possible pacemaker and/or ablation. The patient's usual document control supervisor is Dr. Lupillo Baker who prac tices at [facility] Voice ID: [id number] Report ID: [id number]
--- NOTE | 2018-03-26 14:38 | FAST ---
ENCOUNTER DATE AND TIME: 03/22/2018 08:00 (CDT) NAME LUIS PALACIOS DATE OF : 1935 DATE OF ADMISSION: 03/14/2018 13:01 (CDT) PHONE: AGE: 82 SSN# [id number] GENDER: Male ENCOUNTER PHYSICIAN: Dr. Lance Kaur M.D. ADMISSION DIAGNOSIS: - Medically Complex Conditions 17 - Neoplasms (17.2) Multiple Myeloma. EATING: Activity did not occur on this shift EATING - SCORE: 0-UNK GROOMING: Activity did not occur on this shift GROOMING - SCORE: 0-UNK BATHING: Activity did not occur on this shift BATHING - SCORE: 0-UNK DRESSING - UPPER BODY: Activity did not occur on this shift Patient is not dressing in public clothing ARTICLES SCORE Total number of steps: 0 DRESSING - UPPER BODY - SCORE: 0-UNK DRESSING - LOWER BODY: Activity did not occur on this shift Patient is not dressing in public clothing ARTICLES SCORE Total number of steps: 0 DRESSING - LOWER BODY - SCORE: 0-UNK TOILETING: Activity did not occur on this shift TOILETING - SCORE: 0-UNK BLADDER MANAGEMENT: Activity did not occur on this shift BLADDER MANAGEMENT - SCORE: 7-IND BOWEL MANAGEMENT: Activity did not occur on this shift BOWEL MANAGEMENT - SCORE: 7-IND TRANSFERS: BED, CHAIR, WHEELCHAIR: TRANSFERS: BED, CHAIR, WHEELCHAIR - STEP 1: Does the patient require assistance with bed, chair, or wheelchair transfers? Yes. TRANSFERS: BED, CHAIR, WHEELCHAIR - STEP 2: Does the patient require the assistance of a helper? Yes. TRANSFERS: BED, CHAIR, WHEELCHAIR - STEP 3: How much assistance does the patient require from the helper? Steadying/guiding assistance TRANSFERS: BED, CHAIR, WHEELCHAIR - SCORE: 4-MIN TRANSFERS: TOILET: Activity did not occur on this shift TRANSFERS: TOILET - SCORE: 0-UNK TRANSFERS: SHOWER: Activity did not occur on this shift TRANSFERS: SHOWER - SCORE: 0-UNK TRANSFERS: TUB: Activity did not occur on this shift TRANSFERS: TUB - SCORE: 0-UNK LOCOMOTION: WALK: LOCOMOTION: WALK - STEP 1: Does the patient need help to walk 150 feet? Yes. LOCOMOTION: WALK - STEP 2: How much assistance does the patient require to walk a minimum of 150 feet? Patient walks less than 1 50 feet - but more than 50 feet - with the assistance of only one helper LOCOMOTION: WALK - SCORE: 2-MAX LOCOMOTION: WHEELCHAIR: Activity did not occur on this shift LOCOMOTION: WHEELCHAIR - SCORE: 0-UNK LOCOMOTION: STAIRS: Activity did not occur on this shift LOCOMOTION: STAIRS - SCORE: 0-UNK COMPREHENSION: COMPREHENSION - SCORE: 0-UNK EXPRESSION EXPRESSION - SCORE: 0-UNK SOCIAL INTERACTION: SOCIAL INTERACTION - SCORE: 0-UNK PROBLEM SOLVING: PROBLEM SOLVING - SCORE: 0-UNK MEMORY: MEMORY - SCORE: 0-UNK SIGNATURE PANEL: The following modified sections: Transfers: Bed, Chair, Wheelchair - Score, Transfers: Toilet - Score , Locomotion: Walk - Score, Locomotion: Wheelchair - Score, Locomotion: Stairs - Score were [electron kristina] signed by Leobardo Pop PTA on MonMar 26 2018 14:37:33 T-0500 (Central Daylight Time)
--- NOTE | 2018-03-26 14:39 | FAST ---
ENCOUNTER DATE AND TIME: 03/23/2018 08:00 (CDT) NAME LUIS PALACIOS DATE OF : 1935 DATE OF ADMISSION: 03/14/2018 13:01 (CDT) PHONE: AGE: 82 SSN# [id number] GENDER: Male ENCOUNTER PHYSICIAN: Dr. Lance Kaur M.D. ADMISSION DIAGNOSIS: - Medically Complex Conditions 17 - Neoplasms (17.2) Multiple Myeloma. EATING: Activity did not occur on this shift EATING - SCORE: 0-UNK GROOMING: Activity did not occur on this shift GROOMING - SCORE: 0-UNK BATHING: Activity did not occur on this shift BATHING - SCORE: 0-UNK DRESSING - UPPER BODY: Activity did not occur on this shift Patient is not dressing in public clothing ARTICLES SCORE Total number of steps: 0 DRESSING - UPPER BODY - SCORE: 0-UNK DRESSING - LOWER BODY: Activity did not occur on this shift Patient is not dressing in public clothing ARTICLES SCORE Total number of steps: 0 DRESSING - LOWER BODY - SCORE: 0-UNK TOILETING: Activity did not occur on this shift TOILETING - SCORE: 0-UNK BLADDER MANAGEMENT: Activity did not occur on this shift BLADDER MANAGEMENT - SCORE: 7-IND BOWEL MANAGEMENT: Activity did not occur on this shift BOWEL MANAGEMENT - SCORE: 7-IND TRANSFERS: BED, CHAIR, WHEELCHAIR: TRANSFERS: BED, CHAIR, WHEELCHAIR - STEP 1: Does the patient require assistance with bed, chair, or wheelchair transfers? Yes. TRANSFERS: BED, CHAIR, WHEELCHAIR - STEP 2: Does the patient require the assistance of a helper? Yes. TRANSFERS: BED, CHAIR, WHEELCHAIR - STEP 3: How much assistance does the patient require from the helper? Steadying/guiding assistance TRANSFERS: BED, CHAIR, WHEELCHAIR - SCORE: 4-MIN TRANSFERS: TOILET: Activity did not occur on this shift TRANSFERS: TOILET - SCORE: 0-UNK TRANSFERS: SHOWER: Activity did not occur on this shift TRANSFERS: SHOWER - SCORE: 0-UNK TRANSFERS: TUB: Activity did not occur on this shift TRANSFERS: TUB - SCORE: 0-UNK LOCOMOTION: WALK: LOCOMOTION: WALK - STEP 1: Does the patient need help to walk 150 feet? Yes. LOCOMOTION: WALK - STEP 2: How much assistance does the patient require to walk a minimum of 150 feet? Only incidental help such as contact guarding or steadying LOCOMOTION: WALK - SCORE: 4-MIN LOCOMOTION: WHEELCHAIR: Activity did not occur on this shift LOCOMOTION: WHEELCHAIR - SCORE: 0-UNK LOCOMOTION: STAIRS: Activity did not occur on this shift LOCOMOTION: STAIRS - SCORE: 0-UNK COMPREHENSION: COMPREHENSION - SCORE: 0-UNK EXPRESSION EXPRESSION - SCORE: 0-UNK SOCIAL INTERACTION: SOCIAL INTERACTION - SCORE: 0-UNK PROBLEM SOLVING: PROBLEM SOLVING - SCORE: 0-UNK MEMORY: MEMORY - SCORE: 0-UNK SIGNATURE PANEL: The following modified sections: Transfers: Bed, Chair, Wheelchair - Score, Transfers: Toilet - Score , Locomotion: Walk - Score, Locomotion: Wheelchair - Score, Locomotion: Stairs - Score were [electron ically] signed by Leobardo Pop PTA on MonMar 26 2018 14:38:38 GMT-0500 (Central Daylight Time)
[2018-03-26] MEDS ORDERED: SOTALOL HCL 80 MG TAB PO SCH (18:00)
--- NOTE | 2018-03-27 02:34 | PN ---
Date of Progress Note: 03/26/2018 Chief Complaint: Acute kidney injury, in recovery phase. Subjective: The patient developed acute kidney injury secondary to prerenal azotemia and acute tubul ar necrosis. He was found to have urinary retention and had Woods catheter placed. The patient is u ndergoing treatment with Flomax and Proscar. Currently, he has a Woods catheter. There is no hematu lucho. Review of Systems: Denies fever or chills. He developed atrial fibrillation and he will be transferred to telemetry sesar al. Physical Examination: Lungs: Clear to auscultation bilaterally. Heart: S1 and S2. Abdomen: Soft and benign. Extremities: Edema 1+ in both ankles. Impression And Plan: 1.Acute kidney injury, in recovery phase. Renal function has improved to baseline. There is preren al azotemia. Monitor electrolytes closely. In view of new onset of atrial fibrillation, plan is to check magnesium level. 2.Hypertension. Continue blood pressure medications. 3.Bladder outlet obstruction. The patient has Woods catheter. He will follow up with Urology. 4.Legs edema. Continue Lasix. Monitor electrolytes. JOMAR/NICHOLAS Voice ID: [id number] Report ID: [id number]
--- NOTE | 2018-05-01 18:37 | R.DS ---
FACILITY [facility] MR# [id number] NAME LUIS PALACIOS ADDRESS [address] [place] [address] [address] [id number] PHONE DATE OF 1935 AGE 82 SSN# [id number] GENDER Male DEXTERITY Right-handed MARITAL STATUS RACE White ENCOUNTER PHYSICIAN Dr. Lance Kaur M.D. REFERRING DOCTOR DR. SHERIF HODGSON REFERRING FACILITY [facility] DISCHARGE DIAGNOSIS: - Medically Complex Conditions 17 - Neoplasms (17.2) Multiple Myeloma. DISCHARGE COMORBIDITIES: - N/A Hypertension Coronary Artery Disease CVA Chronic Kidney Disease CHF DATE OF ADMISSION 03/14/2018 13:01 (CDT) MEDICATION ALLERGIES: No Known Drug Allergies (NKDA) ENVIRONMENTAL ALLERGIES: None Known - Substance Allergies None Known - Other Allergies None Known NURSING: - Shower allowing shower PRECAUTIONS: - Fall Precaution Bed and chair alarm ACTIVITIES OOB only with supervision THERAPIES: - Occupational Therapy Evaluate and Treat - Physical Therapy Evaluate and Treat HISTORY OF PRESENT ILLNESS: Pt. is a 82 yo Right-handed white male.On 03/07/2018 he was admitted to [facility] with diagnosis Multiple Myeloma and multilevel lumbar root compression.His impairment category is Medically Complex Conditions 17 - Neoplasms (17.2).Pre-morbidly, Pt. was independent/mod-I in Sphin cter Control, Communication, and Social Cognition; and he had good Sphincter Control.Currently, he garcia s deficits of Endurance, Safety Awareness, Transfers Control, Balance, Self-Care, and Locomotion.Pt. is now referred to [facility] for acute in-patient rehabilitation in order to maximize patient's functional independence in activities of daily living, strength, ROM, and mobility .- Rehab Goal Patient has realistic goal of being discharged at assistance level 6-Liz to reside at Home with Fam hailey/Relatives. HOSPITAL COURSE: On 03/13/2018 the following precautions were added for the patient: Fall Precaution - Bed and chair a larm. On 03/14/2018 the following precautions were added for the patient: Fall Precaution - Bed and chair alarm. On 03/15/2018 the following precautions were removed for the patient: Fall Precaution - Bed and luly r alarm. On 03/21/2018 the following precautions were added for the patient: Fall Precaution - Bed and chair alarm. The following precautions were removed for the patient: Fall Precaution - Bed and chair alarm, and F all Precaution - Bed and chair alarm. DIET - LIQUID TEXTURE: On 03/13/2018 Pt was upgraded to Regular Diet - Liquid Texture. DIET - SOLID TEXTURE: On 03/13/2018 Pt was upgraded to Regular Diet - Solid Texture. DIET TYPE: On 03/13/2018 Pt was upgraded to Regular Diet Type. FALL PRECAUTION: TUBE FEED: On 03/13/2018 Pt was changed to N/A Tube Feed. DISCHARGE PHYSICAL EXAM - Gen Alert and awake Lying in bed No apparent distress Oriented to: person, time, and place - Skin No skin breakdown. Normacephalic - Eyes poor vision bilaterally - ENMT No abnormalities - Neck No abnormalities - CVS RRR - Chest No abnormalities - Abd Soft - GI Non distended Deferred - No abnormalities - Ext No significant edema - MSK 4/5 weakness in both lower extremities. - Neuro 4/5 strength bilaterally upper and lower extremities. - Psych No abnormalities FUNCTIONAL STATUS: - Self-Care A. Eating 5-sup 5-sup B. Grooming 5-sup 5-sup C. Bathing 5-sup 5-sup D. Dressing - Upper 4-Elma 5-sup E. Dressing - Lower 4-Elma 2-maxA F. Toileting 4-Elma 4-Elma - Sphincter Control G: Bladder control 7-Ind 7-Ind H: Bowel control 7-Ind 7-Ind - Transfers Control I. Bed/Chair/Wheelchair 2-maxA 4-Elma J. Toilet 2-maxA 2-maxA K. Tub/Shower 0-ADNO 3-modA - Locomotion L. Walk/Wheelchair (B) 2-maxA 5-sup L. Walk/Wheelchair (B) 2-maxA 2-maxA M. Stairs 0-ADNO 0-ADNO - Communication N. Comprehension (B) 6-Liz 6-Liz O. Expression (B) 6-Liz 6-Liz - Social Cognition P. Social Interaction 6-Liz 6-Liz Q. Problem Solving 6-Liz 6-Liz R. Memory 6-Liz 6-Liz - Endurance Fair - Balance Fair - Safety Awareness Fair DISCHARGE INSTRUCTIONS: - N/A Eliquis 5 mg twice daily. DISCHARGE PLAN, FOLLOW UP CARE PROVISIONS: - Estimated Length of Stay (days) 13. - Consensus on plan Discharge plan has been discussed with primary caregiver. Patient/Family is in agreement with the juhi n. Primary caregiver is in agreement with the plan. - Patient/Family Goals Return home with assistance. - Planned Living Setting Upon Discharge Home, to live with Family/Relatives. SIGNATURE PANEL: (CDT)
== END 2018-03-26 11:55 | disposition short-term general hospital (02) | DRG 840 ==
LOC: 5TH 13:06
PROVIDERS: ADMIT Psychiatry & Neurology Neurology with Special Qualifications in Child Neurology; ATTEND Psychiatry & Neurology Neurology with Special Qualifications in Child Neurology
DX: C90.00 Multiple myeloma not having achieved remission (principal); I50.23 Acute on chronic systolic (congestive) heart failure; N17.0 Acute kidney failure with tubular necrosis; I13.0 Hypertensive heart and chronic kidney disease with heart failure and stage 1 through stage 4 chronic kidney disease, or unspecified chronic kidney disease; I25.10 Atherosclerotic heart disease of native coronary artery without angina pectoris; R33.9 Retention of urine, unspecified; K52.9 Noninfective gastroenteritis and colitis, unspecified; N32.0 Bladder-neck obstruction; I89.0 Lymphedema, not elsewhere classified; E78.5 Hyperlipidemia, unspecified; I48.91 Unspecified atrial fibrillation; N18.2 Chronic kidney disease, stage 2 (mild); N40.0 Benign prostatic hyperplasia without lower urinary tract symptoms; M54.5 Low back pain; D63.1 Anemia in chronic kidney disease; M48.061 Spinal stenosis, lumbar region without neurogenic claudication; Z86.73 Personal history of transient ischemic attack (TIA), and cerebral infarction without residual deficits
CPT/HCPCS: 36415; 70551; 71045; 74230; 80048; 81001; 82040; 82962; 83605; 83735; 84134; 85025; 87040; 87086; 87088; 93005; 97542

== ENCOUNTER 2018-03-26 10:00 | Inpatient (IN) | payer OTHER ==
--- OUTSIDE RECORDS SUMMARY | 2018-03-26 11:50 | XMS REPORT | Clinical Summary ---
:1935 Author Organization [facility] Address [address] [place] [address] Phone Care Team Providers Name Role Phone [...] Not on file Implants Implanted Type Area Dental Specialist Device Expiration Model / Identifier Date Serial / Lot Iol Acrysof Pily 6.0 13 20d [id number] - [id number] Ophthalmology Left: [facility]:SURG 05/13/2020 [id number] / Implanted: Qty: 1 on 12/10/2015 by Nick Paez MD Eye [id number] / N/A Results Not on fileafter 03/25/2017
[2018-03-26 13:43] VITALS: O2SAT 99; BMI 31.0
[2018-03-26] MEDS ORDERED: SOTALOL HCL 80 MG TAB PO SCH (13:44)
[2018-03-26 18:10] VITALS: TEMP 97.6
--- NOTE | 2018-03-26 18:26 | PN ---
Subjective: The patient got transferred to the fourth floor from rehab due to new onset atrial fibri llation and came for telemetry monitoring. He was due to have his catheter removed today. However, due to all the recent medical changes, we will leave the catheter and continue q.6 clamping and uncla mping, bladder training and once things are more stabilized, we can go ahead and give him a voiding t rial. TIFFANY/MODL Voice ID: [id number] Report ID: [id number]
--- NOTE | 2018-03-26 18:36 | P.DS ---
Admission Date: 03/26/18 Discharge Date: 03/26/18 Primary Care Provider: Dr. Soria([place]); Cardiology-Dr. Baker; Oncology- Dr. Velasquez Disposition: TRANSFER TO [facility] Discharge Condition: GOOD Consultations: Cardiology-Dr. Machuca - Problems (1) Atrial fibrillation Current Visit: No Status: Acute Qualifiers: (2) CHF (congestive heart failure) Onset Date: 03/07/18 Current Visit: No Status: Chronic Qualifiers: Heart failure type: systolic Heart failure chronicity: acute on chronic Qualified Code(s): I50.23 - Acute on chronic systolic (congestive) heart failure (3) Chronic renal disease Current Visit: No Status: Chronic Qualifiers: Chronic kidney disease stage: stage 2 (mild) (4) Coronary artery disease Onset Date: 08/01/16 Current Visit: No Status: Chronic Qualifiers: (5) History of coronary artery bypass graft Current Visit: No Status: Chronic (6) Hyperlipidemia Current Visit: No Status: Chronic Qualifiers: (7) Hypertension Current Visit: No Status: Chronic Qualifiers: Hypertension type: essential hypertension (8) Lower back pain Onset Date: 03/07/18 Current Visit: No Status: Chronic Qualifiers: Chronicity: chronic Back pain laterality: bilateral Sciatica presence: unspecified whether sciatica present Qualified Code(s): M54.5 - Low back pain ; G89.29 - Other chronic pain (9) Multiple myeloma Onset Date: 03/07/18 Current Visit: No Status: Chronic Qualifiers: (10) Spinal stenosis Current Visit: No Status: Chronic Qualifiers: Spinal region: lumbar (11) Urinary retention Current Visit: No Status: Chronic Brief History of Present Illness: 82-year-old male was transferred from inpatient rehab to telemetry for atrial fibrillation. Patient with history of CHF with a systolic dysfunction ejection fraction 25%. Patient recently hospitalized for enteritis , urinary retention and back pain. Patient with history of CHF, hypertension, multiple myeloma. Hospital Course: During the course of his stay the patient was evaluated by cardiology. Patient placed on Betapace. Patient had low blood pressure with this medication. 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 Cardiology was able to get in contact with his radio board operator announcer who agreed to accept the patient. Cardiology believes that the patient will require pacemaker placement. Patient currently stable for transfer. Patient be transferred to [facility] with his radio board operator announcer to further assess his atrial fibrillation and CHF. Patient will likely require cardiac intervention. Patient with history of multiple myeloma. This is being treated by his oncologist. Currently stable this time. Patient with history of chronic back pain. Patient recently found to have severe spinal stenosis of the lumbar region. Patient will continue with physical therapy. Patient may require referral back to inpatient rehab after cardiology evaluation in [place]. Patient with recent history of urinary retention. Patient has Woods catheter in place. This can likely be removed while he is in the hospital in [place]. Vital Signs/Physical Exam: Temp Pulse Resp BP Pulse Ox 97.6 F 88 18 96/66 98 03/26/18 16:00 03/26/18 16:00 03/26/18 16:00 03/26/18 16:00 03/26/18 16:00 General: Alert, In no apparent distress, Oriented x3, Cooperative HEENT: Atraumatic Neck: Supple Respiratory: Clear to auscultation bilaterally, Normal air movement Cardiovascular: Irregular heart rate/rhythm (Atrial fibrillation, rate controlled) Gastrointestinal: Normal bowel sounds, Soft and benign, Non-distended, No tenderness, No masses, No rebound, No guarding Musculoskeletal: No erythema, No tenderness, No warmth Integumentary: Tenderness/swelling (Minimal pitting edema to the lower extremities) Neurological: Normal speech, Normal strength at 5/5 x4 extr, Normal tone Home Medications: Acetaminophen [Tylenol Extra Strength] 2 tab PO Q8H PRN 03/26/18 Apixaban [Eliquis] 5 mg PO BID 03/26/18 Benzonatate [Tessalon Perle*] 1 cap PO TID PRN 03/26/18 Bismuth Subsalicylate [Maalox] 15 ml PO PRN PRN 03/26/18 Cetirizine HCl [Zyrtec*] 1 tab PO DAILY 03/26/18 Cholecalciferol (Vitamin D3) [Vitamin D3] 1 cap PO DAILY 03/26/18 Cranberry Fruit Extract [Cranberry] 400 mg PO DAILY 03/26/18 Ensure Enlive 237 ml PO BID 03/26/18 Fenofibrate Nanocrystallized [Fenofibrate] 1 tab PO BEDTIME 03/26/18 Fenofibrate [Tricor*] 1 tab PO DAILY 03/26/18 Ferrous Sulfate 1 tab PO DAILY 03/26/18 Finasteride [Proscar] 1 tab PO DAILY 03/26/18 Furosemide [Lasix*] 1 tab PO BIDWM 03/26/18 Iron/FA/Vit B-Com W/C [Hemocyte Plus*] 1 tab PO DAILY WITH BREAKFAST 03/26/18 Melatonin 1 tab PO BEDTIME PRN 03/26/18 Multivitamin/Iron/Folic Acid [Centrum Adults Tablet] 1 tab PO DAILY 03/26/18 Nitroglycerin 1 tab SL PRN PRN 03/26/18 Pantoprazole Sodium [Protonix] 1 tab PO SCKNS9SH 03/26/18 Rosuvastatin Calcium [Crestor] 1 tab PO BEDTIME 03/26/18 Senosides [Senokot*] 2 tab PO BEDTIME PRN 03/26/18 Sotalol HCl [Betapace*] 40 mg PO BID 6AM 6PM 03/26/18 Tamsulosin [Flomax*] 1 cap PO BEDTIME 03/26/18 Trazodone [Desyrel*] 25 mg PO BEDTIME 03/26/18 levoFLOXacin [Levaquin*] 500 mg PO DAILY tab 03/26/18 Patient Discharge Instructions: Patient be transferred to [facility] for cardiac evaluation for atrial fibrillation and CHF. Patient will likely require cardiac intervention. Continue current medications at this time. Betapace has been discontinued. Patient will likely require chronic anti coagulation therapy. Await further recommendations from cardiology. Diet: AHA Activity: Fall precautions Time spent managing pt's care (in minutes): 55
[2018-03-26 21:21] VITALS: BP 114/67
== END 2018-03-26 20:35 | disposition short-term general hospital (02) | DRG 309 ==
LOC: 4TH 10:00
PROVIDERS: ADMIT Family Medicine; ATTEND Family Medicine
DX: I48.91 Unspecified atrial fibrillation (principal); I13.0 Hypertensive heart and chronic kidney disease with heart failure and stage 1 through stage 4 chronic kidney disease, or unspecified chronic kidney disease; C90.00 Multiple myeloma not having achieved remission; I50.22 Chronic systolic (congestive) heart failure; N18.2 Chronic kidney disease, stage 2 (mild); I25.10 Atherosclerotic heart disease of native coronary artery without angina pectoris; Z95.1 Presence of aortocoronary bypass graft; E78.5 Hyperlipidemia, unspecified; M54.5 Low back pain; G89.29 Other chronic pain; M48.061 Spinal stenosis, lumbar region without neurogenic claudication; Z79.01 Long term (current) use of anticoagulants; Z87.891 Personal history of nicotine dependence; N40.1 Benign prostatic hyperplasia with lower urinary tract symptoms; R33.8 Other retention of urine; D63.1 Anemia in chronic kidney disease